=== PATIENT | male | born 2000 | race Hispanic/Latino ===

== ENCOUNTER 2023-03-11 10:45 | Emergency (ER) | payer OTHER ==
--- OUTSIDE RECORDS SUMMARY | 2023-03-11 10:50 | XMS REPORT | Continuity of Care Document ---
:2000 Author Organization [facility] t Address [address] [facility] [address] [place] [address] Care Team Providers Name Role Phone Raju_P Attending Clinician Unavailable Raju_P Admitting Clinician Unavailable Problems This patient has no known problems. Allergies, Adverse Reactions, Alerts This patient has no known allergies or adverse reactions. Medications This patient has no known medications. Procedures This patient has no known procedures. Encounters Start End Encounter Admission Attending Care Care Encounter Source Date/Time Date/Time Type Type Clinicians Facility Department ID 2023-03-06 2023-03-06 Outpatient [facility] [id number] [place] 13:34:38 13:34:38 [id number] F Frank 2020-12-07 2020-12-07 Outpatient C[facility]P [facility] G [id number] [place] 09:54:00 09:54:00 [facility] Results This patient has no known results.
--- NOTE | 2023-03-11 11:39 | RAD REPORT ---
EXAM DESCRIPTION: CT - Head Brain Wo Cont - 03/11/2023 11:32 am CLINICAL HISTORY: DIZZINESS COMPARISON: No comparisons TECHNIQUE: All CT scans are performed using dose optimization technique as appropriate and may inclu de automated exposure control or mA/KV adjustment according to patient size. FINDINGS: No intracranial hemorrhage, hydrocephalus or extra-axial fluid collection.No areas of brai n edema or evidence of midline shift. The paranasal sinuses and mastoids are clear. The calvarium is intact. IMPRESSION: No acute intracranial abnormality.
[2023-03-11] MEDS ORDERED: ONDANSETRON 4 MG/2 ML VIAL ONE (12:24)
[2023-03-11] MEDS ORDERED: MECLIZINE HCL 12.5 MG TAB ONE (12:24)
[2023-03-11 12:41] LABS: Hematocrit 47.3 % (39.6-49.0); Lymphocytes % 8.4 % (15.3-44.8); MCV 83.6 fL (80-100); MPV 9.5 fL (7.6-11.3); RBC Red Blood Cell Count 5.66 M/uL (4.33-5.43)
[2023-03-11 13:10] LABS: Potassium 4.1 mEq/L (3.5-5.1); Troponin High Sensitivity 3.5 pg/mL (<58.9)
[2023-03-11] MEDS ORDERED: dexAMETHasone 10 MG/ML VIAL ONE (14:45)
--- NOTE | 2023-03-11 14:56 | EDPHYS ---
Physician Documentation [facility] Name: Reginald Connors Age: 22 yrs Sex: Male : 2000 Arrival Date: 03/11/2023 Time: 10:45 Bed 4 Private MD: ED Physician Duong Sanchez HPI: 03/11 11:03 This 22 yrs old Male presents to ER via Ambulatory with complaints of Sore [facility] Throat, Vomiting. 11:03 Is a 22-year-old male with history of asthma, anxiety, depression the presents emerged [facility] part with complaints of cough, sore throat, vomiting, dizziness. Symptoms initially began this past and worsen throughout the weekend. Denies shortness of breath. Denies abdominal pain.. Historical: - Allergies: 11:06 Zithromax; nj1 11:06 Bactrim; nj1 - PMHx: 11:06 Asthma; Anxiety; Depressive disorder; nj1 - PSHx: 11:06 None; nj1 - Immunization history:: Client reports receiving the 2nd dose of the Covid vaccine. - Social history:: Smoking status: Patient denies any tobacco usage or history of. ROS: 11:03 Constitutional: Positive for body aches. jm 11:03 ENT: Positive for sore throat. 11:03 ENT: Positive for 11:03 Respiratory: Positive for cough. 11:03 Neuro: Positive for dizziness. 11:03 All other systems are negative. Exam: 11:03 Constitutional: This is a well developed, well nourished patient who is awake, alert, jmm and in no acute distress. Head/Face: atraumatic. Eyes: EOMI, no conjunctival erythema appreciated ENT: Moist Mucus Membranes Neck: Trachea midline, Supple Chest/axilla: Normal chest wall appearance and motion. Cardiovascular: Regular rate and rhythm. No edema appreciated Respiratory: Normal respirations, no respiratory distress appreciated Abdomen/GI: Non distended Back: Normal ROM Skin: General appearance color normal MS/ Extremity: Moves all extremities, no obvious deformities appreciated, no edema noted to the lower extremities Neuro: Awake and alert Psych: Behavior is normal, Mood is normal, Patient is cooperative and pleasant Vital Signs: 11:02 BP 150 / 83; Pulse 89; Resp 18; Temp 97.6(O); Pulse Ox 99% ; Weight 88.45 kg; Height 5 ri1 ft. 9 in. ; Pain 10/10; 12:38 BP 133 / 81; Pulse 84; Resp 15; Pulse Ox 98% ; jl7 11:02 Body Mass Index 28.80 (88.45 kg, 175.26 cm) [facility] 11:02 Pain Scale: Adult nj1 MDM: 11:08 Patient medically screened. [facility] 16:39 Differential diagnosis: Vertigo, viral infection, upper respiratory infection, COVID, jmm strep, mono. Data reviewed: vital signs, nurses notes, lab test result(s), radiologic studies, CT scan. Consideration of Admission/Observation Escalation of care including admission/observation considered. I considered the following discharge prescriptions or medication management in the emergency department Medications were administered in the Emergency Department. See MAR. Counseling: I had a detailed discussion with the patient and/or guardian regarding: the historical points, exam findings, and any diagnostic results supporting the discharge/admit diagnosis, lab results, radiology results, the need for outpatient follow up, to return to the emergency department if symptoms worsen or persist or if there are any questions or concerns that arise at home. 03/11 11:03 Order name: Basic Metabolic Panel; Complete Time: 13:18 [facility] 03/11 11:03 Order name: CBC with Diff; Complete Time: 12:54 [facility] 03/11 11:03 Order name: Troponin HS; Complete Time: 13:18 [facility] 03/11 11:03 Order name: Strep [facility] 03/11 11:03 Order name: [place] Screen Profile; Complete Time: 13:18 [facility] 03/11 12:03 Order name: SARS-COV-2 RT PCR; Complete Time: 13:18 [facility] 03/11 12:39 Order name: Throat Culture [facility] 03/11 11:03 Order name: CT Head Brain wo Cont; Complete Time: 11:43 [facility] 03/11 11:03 Order name: EKG; Complete Time: 11:04 [facility] 03/11 11:03 Order name: Cardiac monitoring; Complete Time: 12:40 [facility] 03/11 11:03 Order name: EKG - Nurse/Tech; Complete Time: 12:05 [facility] 03/11 11:03 Order name: IV Saline Lock; Complete Time: 12:40 [facility] 03/11 11:03 Order name: Labs collected and sent; Complete Time: 12:40 [facility] 03/11 11:03 Order name: O2 Per Protocol; Complete Time: 12:40 [facility] 03/11 11:03 Order name: O2 Sat Monitoring; Complete Time: 12:40 [facility] Administered Medications: 12:40 Drug: Ondansetron IVP 4 mg Route: IVP; Site: right antecubital; jl7 13:00 Follow up: Response: No adverse reaction; Nausea is decreased jl7 12:40 Drug: Meclizine PO 25 mg Route: PO; jl7 13:00 Follow up: Response: No adverse reaction jl7 14:43 Drug: Decadron - Dexamethasone IVP 10 mg Route: IVP; Site: right antecubital; jl7 14:59 Follow up: Response: No adverse reaction jl7 Disposition: 16:39 Co-signature as Attending Physician, Duong Sanchez MD. rn Disposition Summary: 03/11/23 14:56 Discharge Ordered Location: Home [facility] Condition: Stable [facility] Diagnosis - Coronavirus infection, unspecified [facility] Followup: [facility] - With: Private Physician - When: 2 - 3 days - Reason: Recheck today's complaints, Continuance of care, Re-evaluation by your physician Discharge Instructions: - Discharge Summary Sheet [facility] - COVID-19 [facility] Forms: - Medication Reconciliation Form [facility] - Thank You Letter [facility] - Antibiotic Education [facility] - Prescription Opioid Use [facility] Prescriptions: - Meclizine 25 mg Oral Tablet - take 1 tablet by ORAL route every 8 hours As needed; 30 tablet; Refills: 0, [facility] Product Selection Permitted - promethazine 6.25 mg/5 mL Oral Syrup - take 10 milliliters by ORAL route 3 times per day As needed; 200 milliliter; [facility] Refills: 0, Product Selection Permitted Signatures: Dispatcher [employer] Abdiaziz Weller PA PA [facility] Duong Sanchez MD MD rn Leal, Jahala RN RN jl7 Barbie Espinoza RN RN nj1
--- NOTE | 2023-03-11 14:56 | ER ---
Nurse's Notes [facility] Name: Reginald Connors Age: 22 yrs Sex: Male : 2000 Arrival Date: 03/11/2023 Time: 10:45 Bed 4 Private MD: Diagnosis: Coronavirus infection, unspecified Presentation: 03/11 11:02 Chief complaint: Spouse and/or significant other states: Dizziness since , Sore nj1 throat yesterday and vomiting today. Symptoms getting worse. Nauseous. Coronavirus screen: Vaccine status: Patient reports receiving the 2nd dose of the covid vaccine. Ebola Screen: Patient denies travel to an Ebola-affected area in the 21 days before illness onset. Initial Sepsis Screen: Does the patient meet any 2 criteria? No. Patient's initial sepsis screen is negative. Does the patient have a suspected source of infection? No. Patient's initial sepsis screen is negative. Risk Assessment: Do you want to hurt yourself or someone else? Patient reports no desire to harm self or others. Onset of symptoms was March 07, 2023. 11:02 Method Of Arrival: Ambulatory [facility] 11:02 Acuity: PHI 3 nj1 Historical: - Allergies: 11:06 Zithromax; nj1 11:06 Bactrim; nj1 - PMHx: 11:06 Asthma; Anxiety; Depressive disorder; nj1 - PSHx: 11:06 None; nj1 - Immunization history:: Client reports receiving the 2nd dose of the Covid vaccine. - Social history:: Smoking status: Patient denies any tobacco usage or history of. Screenin:38 [facility] ED Fall Risk Assessment (Adult) History of falling in the last 3 months, jl7 including since admission No falls in past 3 months (0 pts) Confusion or Disorientation No (0 pts) Intoxicated or Sedated No (0 pts) Impaired Gait No (0 pts) Mobility Assist Device Used No (0 pt) Altered Elimination No (0 pt) Score/Fall Risk Level 0 - 2 = Low Risk Oriented to surroundings, Maintained a safe environment. Abuse screen: Denies threats or abuse. Denies injuries from another. Nutritional screening: No deficits noted. Tuberculosis screening: No symptoms or risk factors identified. Assessment: 12:38 General: Appears in no apparent distress. uncomfortable, Behavior is cooperative, jl7 anxious. Pain: Complains of pain in throat Pain currently is 10 out of 10 on a pain scale. Neuro: Level of Consciousness is awake, alert, obeys commands, Oriented to person, place, time, situation. Cardiovascular: Patient's skin is warm and dry. Respiratory: Airway is patent Respiratory effort is even, unlabored, Respiratory pattern is regular, symmetrical, Breath sounds are clear bilaterally. EENT: Oral mucosa is dry. Throat is clear. Derm: Skin is dry, Skin is pale, Skin temperature is warm. 13:30 Reassessment: Patient appears in no apparent distress at this time. Patient and/or jl7 family updated on plan of care and expected duration. Pain level reassessed. Patient is alert, oriented x 3, equal unlabored respirations, skin warm/dry/pink. Patient states symptoms have improved. 14:44 Reassessment: Patient appears in no apparent distress at this time. No changes from [facility] previously documented assessment. Patient and/or family updated on plan of care and expected duration. Pain level reassessed. Patient is alert, oriented x 3, equal unlabored respirations, skin warm/dry/pink. Vital Signs: 11:02 BP 150 / 83; Pulse 89; Resp 18; Temp 97.6(O); Pulse Ox 99% ; Weight 88.45 kg; Height 5 nj1 ft. 9 in. ; Pain 10/10; 12:38 BP 133 / 81; Pulse 84; Resp 15; Pulse Ox 98% ; jl7 11:02 Body Mass Index 28.80 (88.45 kg, 175.26 cm) nj1 11:02 Pain Scale: Adult [facility] ED Course: 10:48 Patient arrived in ED. rg4 10:49 Abdiaziz Arriaga PA is PHCP. jmm 10:49 Duong Sanchez MD is Attending Physician. jmm 11:06 Triage completed. nj1 11:08 Arm band placed on right wrist. nj1 11:33 CT Head Brain wo Cont In Process Unspecified. EDMS 11:50 Syd Lara, RN is Primary Nurse. jl7 11:57 Syd Lara, RN is Primary Nurse. jl7 12:05 EKG done, by ED staff, reviewed by Abdiaziz MURRAY. em1 12:38 Patient has correct armband on for positive identification. Bed in low position. Call jl7 light in reach. Side rails up X 1. Adult w/ patient. Pulse ox on. NIBP on. 12:38 Initial lab(s) drawn, by me, sent to lab. COVID swab sent to lab. Strep swab sent to 7 lab. Inserted saline lock: 22 gauge in right antecubital area, using aseptic technique. Blood collected. 14:58 No provider procedures requiring assistance completed. jl7 15:08 IV discontinued, intact, bleeding controlled, No redness/swelling at site. Pressure 7 dressing applied. Administered Medications: 12:40 Drug: Ondansetron IVP 4 mg Route: IVP; Site: right antecubital; jl7 13:00 Follow up: Response: No adverse reaction; Nausea is decreased jl7 12:40 Drug: Meclizine PO 25 mg Route: PO; jl7 13:00 Follow up: Response: No adverse reaction jl7 14:43 Drug: Decadron - Dexamethasone IVP 10 mg Route: IVP; Site: right antecubital; jl7 14:59 Follow up: Response: No adverse reaction [facility] Medication: 12:38 VIS not applicable for this client. jl Outcome: 14:56 Discharge ordered by . sandra 15:08 Discharged to home ambulatory. jl7 15:08 Condition: stable 15:08 Discharge instructions given to patient, family, Instructed on discharge instructions, follow up and referral plans. medication usage, Demonstrated understanding of instructions, follow-up care, medications, Prescriptions given X 2. 15:08 Patient left the ED. [facility] Signatures: Dispatcher [employer] EDMS Abdiaziz Arriaga PA PA jmm Martinez, Eric em1 Savanna Connors rg4 Syd Lara, RN RN jl7 Barbie Espinoza, NARCISO RN nj1
[2023-03-11 15:37] VITALS: TEMP 97.6
[2023-03-11 15:45] VITALS: BP 133/81; O2SAT 98
--- NOTE | 2023-03-12 07:48 | EKG ---
Test Date: 2023-03-11 Test Time: 12:02:48 Director Software Quality Assurance: TIFFANY MEASUREMENT RESULTS: Intervals: Rate: 84 AL: 150 QRSD: 76 QT: 352 QTc: 415 [place]: P: 52 AL: 150 QRS: 84 T: 69 INTERPRETIVE STATEMENTS: Normal sinus rhythm Normal ECG No previous ECG available for comparison Electronically Signed On 03-12-23 07:45:52 CDT by Elio Cotton
== END 2023-03-11 15:08 | disposition home or self-care (01) ==
LOC: ER 10:45
DX: B34.2 Coronavirus infection, unspecified (principal); J45.909 Unspecified asthma, uncomplicated; F41.9 Anxiety disorder, unspecified; F32.A Depression, unspecified
CPT/HCPCS: 93005; 87070; 85025; 80048; 36415; 86308; 87081; 84484; 70450; 96375; 96374; 99285; U0003; J8597; J1100; J2405

== ENCOUNTER 2023-03-11 23:37 | Emergency (ER) | payer OTHER ==
--- OUTSIDE RECORDS SUMMARY | 2023-03-11 23:40 | XMS REPORT | Continuity of Care Document ---
:2000 Author Organization [facility] t Address [address] [facility] [address] [place] [id number] Care Team Providers Name Role Phone Raju_P [...] Department ID 2023-03-06 2023-03-06 Outpatient [facility] [id number] [place] 13:34:38 13:34:38 [id number] F Frank 2020-12-07 2020-12-07 Outpatient [facility] G [id number] [place] 09:54:00 09:54:00 02[facility] Results This patient has no known results.
[2023-03-12] MEDS ORDERED: METOCLOPRAMIDE 10 MG/2mL INJ ONE (00:27)
[2023-03-12] MEDS ORDERED: LORazepam 2 MG/ML VIAL ONE (00:28)
[2023-03-12] MEDS ORDERED: KETOROLAC 30 MG/ML INJ ONE (00:28)
[2023-03-12] MEDS ORDERED: ONDANSETRON 4 MG/2 ML VIAL ONE (00:28)
[2023-03-12] MEDS ORDERED: NA CHLORIDE 0.9% 1,000 ML ONE (00:28)
[2023-03-12 01:21] LABS: Barbiturates NEGATIVE (NEGATIVE); Benzodiazepines NEGATIVE (NEGATIVE); Cocaine NEGATIVE (NEGATIVE); METHAMPHETAM NEGATIVE (NEGATIVE); Methadone NEGATIVE (NEGATIVE); Opiates NEGATIVE (NEGATIVE); Phencyclidine NEGATIVE (NEGATIVE); THC Cannibis NEGATIVE (NEGATIVE)
--- NOTE | 2023-03-12 01:53 | ER ---
Nurse's Notes [facility] Name: Reginald Connors Age: 22 yrs Sex: Male : 2000 Arrival Date: 03/11/2023 Time: 23:37 Bed 5 Private MD: Diagnosis: Acute systemic viral illness, acute viral gastroenteritis, intractable vomiting, acute COVID-19 Presentation: 03/11 23:47 Chief complaint: Patient states: pt was diagnosis with COVID and was seen in ER today. as6 pt has been vomiting all day and is having abdominal pain. Coronavirus screen: Client reports previous positive COVID test result. Ebola Screen: No symptoms or risks identified at this time. Initial Sepsis Screen: Does the patient meet any 2 criteria? No. Patient's initial sepsis screen is negative. Does the patient have a suspected source of infection? No. Patient's initial sepsis screen is negative. Risk Assessment: Do you want to hurt yourself or someone else? Patient reports no desire to harm self or others. Onset of symptoms was March 11, 2023. 23:47 Method Of Arrival: Ambulatory as6 23:47 Acuity: PHI 3 as6 Historical: - Allergies: 23:51 Zithromax; as6 23:51 Bactrim; as6 - PMHx: 23:51 Anxiety; Asthma; depressive disorder; as6 - Immunization history:: Client reports receiving the 2nd dose of the Covid vaccine, [employer]. - Social history:: Smoking status: Patient denies any tobacco usage or history of. - Family history:: not pertinent. Screenin/16 00:37 [facility] ED Fall Risk Assessment (Adult) History of falling in the last 3 months, ll3 including since admission No falls in past 3 months (0 pts) Confusion or Disorientation No (0 pts) Intoxicated or Sedated No (0 pts) Impaired Gait No (0 pts) Mobility Assist Device Used No (0 pt) Altered Elimination No (0 pt) Score/Fall Risk Level 0 - 2 = Low Risk Oriented to surroundings, Maintained a safe environment, Educated pt \T\ family on fall prevention, incl call for assistance when getting out of bed. Abuse screen: Denies threats or abuse. Denies injuries from another. Nutritional screening: No deficits noted. Tuberculosis screening: No symptoms or risk factors identified. Assessment: 00:35 General: Appears uncomfortable, Behavior is calm, cooperative. Pain: Complains of pain ll3 in epigastric area Pain does not radiate. Pain currently is 10 out of 10 on a pain scale. Pain began 1 day ago. Is continuous. GI: Abdomen is round non-distended, Reports nausea, vomiting. Derm: Skin is pink, warm \T\ dry. Vital Signs: 03/11 23:47 BP 121 / 64; Pulse 102; Resp 18 S; Temp 99.2(O); Pulse Ox 96% on R/A; Weight 88.45 kg as6 (R); Height 5 ft. 9 in. (R); Pain 10/; 03/12 00:35 BP 129 / 73; Pulse 96; Resp 16; Pulse Ox 96% on R/A; ll3 02:00 BP 138 / 89; Pulse 96; Resp 16; Pulse Ox 97% on R/A; pf1 03/11 23:47 Body Mass Index 28.80 (88.45 kg, 175.26 cm) as6 03/11 23:47 Pain Scale: Adult as6 ED Course: 03/11 23:40 Patient arrived in ED. ja2 23:42 Jeison Ríos MD is Attending Physician. sp4 23:46 Arm band placed on. as6 23:51 Triage completed. as6 03/12 00:35 Inserted saline lock: 20 gauge in right antecubital area, using aseptic technique. ll3 00:37 Patient has correct armband on for positive identification. Bed in low position. Call ll3 light in reach. Side rails up X 1. Adult w/ patient. 02:20 No provider procedures requiring assistance completed. pf1 02:20 IV discontinued, intact, bleeding controlled, No redness/swelling at site. Pressure pf1 dressing applied. Administered Medications: 00:33 Drug: metoCLOPramide IVP 10 mg Route: IVP; Site: right antecubital; ll3 01:30 Follow up: Response: No adverse reaction; Marked relief of symptoms pf1 00:33 Drug: Ondansetron IVP 4 mg Route: IVP; Site: right antecubital; ll3 02:20 Follow up: Response: No adverse reaction; Marked relief of symptoms pf1 00:33 Drug: Ketorolac IVP 30 mg Route: IVP; Site: right antecubital; ll3 02:20 Follow up: Response: No adverse reaction; Marked relief of symptoms; Pain is decreased pf1 00:34 Drug: NS 0.9% IV 1000 ml Route: IV; Rate: 1 bolus; Site: right antecubital; ll3 01:30 Follow up: Response: No adverse reaction; Marked relief of symptoms; IV Status: pf1 Completed infusion; IV Intake: 1000ml 00:35 Drug: Ativan IVP 1 mg Route: IVP; Site: right antecubital; ll3 01:30 Follow up: Response: No adverse reaction; Marked relief of symptoms pf1 02:05 Drug: Promethazine IM 25 mg Route: IM; Site: right gluteus; jb4 02:20 Follow up: Response: No adverse reaction; Marked relief of symptoms pf1 02:10 Drug: Alum-Mag Hydroxide-Simeth PO Suspension (200 mg-200 mg-20 mg/5 mL) 30 ml Route: jb4 PO; 02:20 Follow up: Response: No adverse reaction; Marked relief of symptoms pf1 Medication: 02:20 VIS not applicable for this client. pf1 Intake: 01:30 IV: 1000ml; Total: 1000ml. pf1 Outcome: 01:53 Discharge ordered by . sp4 02:20 Discharged to home ambulatory, with family. pf1 02:20 Condition: improved pf1 02:20 Discharge instructions given to patient, family, Instructed on discharge instructions, follow up and referral plans. Demonstrated understanding of instructions, follow-up care, Prescriptions given X 3. 02:50 Patient left the ED. pf1 Signatures: Brijesh Ballard RN RN jb4 Ellie Fisher Ashby, RN RN as6 Paloma Martell RN RN ll3 Rachna Johnson RN RN pf1 Jeison Ríos MD MD sp4
--- NOTE | 2023-03-12 01:54 | EDPHYS ---
Physician Documentation [facility] Name: Reginald Connors Age: 22 yrs Sex: Male : 2000 Arrival Date: 03/11/2023 Time: 23:37 Bed 5 Private MD: ED Physician Jeison Ríos HPI: 03/11 23:43 This 22 yrs old Male presents to ER via Unassigned with complaints of sp4 Vomiting, Abdominal Pain. 03/12 01:42 22-year-old male with some history of mental disorder presents with abdominal ache and sp4 vomiting associated with recent diagnosis of COVID-19. . 01:44 . sp4 01:44 Patient presented here on 03/11/2023 at 4 PM for the symptoms of cough sore throat and sp4 feeling unwell. . 01:45 On the emergency room work-up patient was diagnosed with COVID-19 and had a positive sp4 COVID test, negative mononucleosis test, negative strep test, and he had overall work-up revealing mild elevation of WBCs, normal electrolyte panel, patient was discharged home with prescription for liquid Phenergan syrup p.o. and also for meclizine for dizziness. Patient now returns with worsening vomiting and abdominal ache. . Historical: - Allergies: 03/11 23:51 Zithromax; as6 23:51 Bactrim; as6 - PMHx: 23:51 Anxiety; Asthma; depressive disorder; as6 - Immunization history:: Client reports receiving the 2nd dose of the Covid vaccine, pfizer. - Social history:: Smoking status: Patient denies any tobacco usage or history of. - Family history:: not pertinent. ROS: 03/12 01:45 Constitutional: Negative for fever, chills, and weight loss, positive for generalized sp4 weakness, malaise, feeling unwell Eyes: Negative for injury, pain, redness, and discharge, ENT: Negative for injury, pain, and discharge, positive for sore throat and cough Neck: Negative for injury, pain, and swelling, Cardiovascular: Negative for chest pain, palpitations, and edema, Respiratory: Negative for shortness of breath, wheezing, and pleuritic chest pain, positive for cough and pleuritic chest pains Abdomen/GI: Negative for diarrhea, and constipation, positive for nausea, vomiting, abdominal ache Back: Negative for injury and pain, : Negative for injury, bleeding, discharge, and swelling, MS/Extremity: Negative for injury and deformity, Skin: Negative for injury, rash, and discoloration, Neuro: Negative for headache, weakness, numbness, tingling, and seizure, Psych: Negative for depression, anxiety, Allergy/Immunology: Negative for hives, rash, and allergies Endocrine: Negative for neck swelling, polydipsia, polyuria, polyphagia, and weight changes Hematologic/Lymphatic: Negative for swollen nodes, abnormal bleeding, and unusual bruising Exam: 01:45 Constitutional: This is a well developed, well nourished patient who is awake, alert, sp4 patient appears acutely anxious and restless, and tremulous. Patient has difficulty communicating, signs of developmental delay. Head/Face: Normocephalic, atraumatic. Eyes: Pupils equal round and reactive to light, extra-ocular motions intact. Lids and lashes normal. Conjunctiva and sclera are not injected. Cornea within normal limits. Periorbital areas with no swelling, redness, or edema. ENT: Nares patent. No nasal discharge, no septal abnormalities noted. Tympanic membranes are normal and external auditory canals are clear. Oropharynx with no redness, swelling, or masses, exudates, or evidence of obstruction, uvula midline. Mucous membranes moist. Neck: Trachea midline, no thyromegaly or masses palpated, and no cervical lymphadenopathy. Supple, full range of motion without nuchal rigidity, or vertebral point tenderness. No Meningismus. Chest/axilla: Normal chest wall appearance and motion. Nontender with no deformity. No lesions are appreciated. Cardiovascular: Regular rate and rhythm with a normal S1 and S2. No gallops, murmurs, or rubs. Normal PMI, no JVD. No pulse deficits. Respiratory: Lungs have equal breath sounds bilaterally, clear to auscultation and percussion. No rales, rhonchi or wheezes noted. No increased work of breathing, no retractions or nasal flaring. Abdomen/GI: Soft, non-tender, with normal bowel sounds. No distension or tympany. No guarding or rebound. No evidence of tenderness throughout. Back: No spinal tenderness. No costovertebral tenderness. Skin: Warm, dry with normal turgor. Normal color with no rashes, no lesions, and no evidence of cellulitis. Positive for acne vulgaris MS/ Extremity: Pulses equal, no cyanosis. Neurovascular intact. Full, normal range of motion. Neuro: Awake and alert, GCS 15, oriented to person, place, time, and situation. Cranial nerves II-XII grossly intact. Motor strength 5/5 in all extremities. Sensory grossly intact. Psych: Awake, alert, with orientation to person, positive for acute anxiety, tremulous, emotional upset, restless Vital Signs: 03/11 23:47 BP 121 / 64; Pulse 102; Resp 18 S; Temp 99.2(O); Pulse Ox 96% on R/A; Weight 88.45 kg as6 (R); Height 5 ft. 9 in. (R); Pain 10; 03/12 00:35 BP 129 / 73; Pulse 96; Resp 16; Pulse Ox 96% on R/A; ll3 02:00 BP 138 / 89; Pulse 96; Resp 16; Pulse Ox 97% on R/A; pf1 03/11 23:47 Body Mass Index 28.80 (88.45 kg, 175.26 cm) as6 03/11 23:47 Pain Scale: Adult as6 MDM: 03/11 23:45 Patient medically screened. sp4 03/12 01:45 Differential diagnosis: Nonspecific abd pain, gastritis, viral gastroenteritis, sp4 gastroenteritis. Data reviewed: vital signs, nurses notes, old medical records, lab test result(s). 01:51 ED course: CT head on the previous visit revealed no acute intracranial abnormality. sp4 Labs revealed mild leukocytosis but were otherwise unremarkable. ED course: Patient has improved after management in the emergency department and IV hydrate. Will provide p.o. Zofran as needed for nausea, p.o. Naprosyn as needed for body aches, and will advised to consume clear liquids only for the next 24 hours. Also patient needs some medicine for anxiety thus will provide as needed Valium as needed for anxiety. 03/11 23:42 Order name: Urine Drug Screen; Complete Time: 01:35 sp4 03/11 23:52 Order name: Saline Lock; Complete Time: 00:35 sp4 Administered Medications: 00:33 Drug: metoCLOPramide IVP 10 mg Route: IVP; Site: right antecubital; ll3 01:30 Follow up: Response: No adverse reaction; Marked relief of symptoms pf1 00:33 Drug: Ondansetron IVP 4 mg Route: IVP; Site: right antecubital; ll3 02:20 Follow up: Response: No adverse reaction; Marked relief of symptoms pf1 00:33 Drug: Ketorolac IVP 30 mg Route: IVP; Site: right antecubital; ll3 02:20 Follow up: Response: No adverse reaction; Marked relief of symptoms; Pain is decreased pf1 00:34 Drug: NS 0.9% IV 1000 ml Route: IV; Rate: 1 bolus; Site: right antecubital; ll3 01:30 Follow up: Response: No adverse reaction; Marked relief of symptoms; IV Status: pf1 Completed infusion; IV Intake: 1000ml 00:35 Drug: Ativan IVP 1 mg Route: IVP; Site: right antecubital; ll3 01:30 Follow up: Response: No adverse reaction; Marked relief of symptoms pf1 02:05 Drug: Promethazine IM 25 mg Route: IM; Site: right gluteus; jb4 02:20 Follow up: Response: No adverse reaction; Marked relief of symptoms pf1 02:10 Drug: Alum-Mag Hydroxide-Simeth PO Suspension (200 mg-200 mg-20 mg/5 mL) 30 ml Route: jb4 PO; 02:20 Follow up: Response: No adverse reaction; Marked relief of symptoms pf1 Disposition Summary: 03/12/23 01:53 Discharge Ordered Location: Home sp4 Problem: new sp4 Symptoms: have improved sp4 Condition: Stable sp4 Diagnosis - Acute systemic viral illness, acute viral gastroenteritis, intractable vomiting, sp4 acute COVID-19 Followup: sp4 - With: Private Physician - When: 7 - 10 days - Reason: Re-evaluation by your physician Discharge Instructions: - Discharge Summary Sheet sp4 - Clear Liquid Diet, Adult, [id number] sp4 - COVID-19 sp4 Forms: - Medication Reconciliation Form sp4 Prescriptions: - Naprosyn 500 mg Oral Tablet - take 1 tablet by ORAL route 2 times per day PRN fever or body aches; 30 tablet; sp4 Refills: 0, Product Selection Permitted - Valium 5 mg Oral Tablet - take 1 tablet by ORAL route every 8 hours As needed PRN anxiety; 20 tablet; sp4 Refills: 0, Product Selection Permitted - Zofran 4 mg Oral Tablet - take 1 tablet by ORAL route every 6 hours As needed PRN nausea; 30 tablet; sp4 Refills: 0, Product Selection Permitted Signatures: Dispatcher [employer] Brijehs Portillo RN RN jb4 Jose Kerns RN RN as6 Paloma Martell RN RN ll3 Jeison Ríos MD MD sp4 Rachna Johnson RN pf1
[2023-03-12] MEDS ORDERED: MAGNES/ALUMIN/SIMET 30ML UCUP ONE (02:05)
[2023-03-12] MEDS ORDERED: PROMETHAZINE INJ 25 MG/ML AMP ONE (02:06)
[2023-03-12 03:13] VITALS: TEMP 99.2
[2023-03-12 03:15] VITALS: BP 138/89; O2SAT 97
== END 2023-03-12 02:50 | disposition home or self-care (01) ==
LOC: ER 23:37
DX: A08.4 Viral intestinal infection, unspecified (principal); U07.1 COVID-19; Z88.1 Allergy status to other antibiotic agents
CPT/HCPCS: 96361; 80307; 96375; 96372; 96374; 99284; J2550; J2765; J2405; J7030

== ENCOUNTER 2023-05-27 15:20 | Emergency (ER) | payer OTHER ==
--- OUTSIDE RECORDS SUMMARY | 2023-05-27 16:01 | XMS REPORT | Continuity of Care Document ---
:2000 Author Organization [facility] t Address [address] [facility] [address] [place] [id number] Care Team Providers Name Role Phone Raju_P [...] Date/Time Type Type Clinicians Facility Department ID 2023-05-05 2023-05-05 Outpatient SFA SFA [id number] [facility] 11:12:02 11:12:02 [id number] F Waldorf 2023-04-19 2023-04-19 Outpatient SFA SFA [id number] [place] 10:14:25 10:14:25 [id number] F Waldorf 2023-04-18 2023-04-18 Outpatient SFA SFA [id number] [place] 13:31:05 13:31:05 [id number] F Waldorf 2023-03-06 2023-03-06 Outpatient SFA SFA [id number] [place] 13:34:38 13:34:38 [id number] F Waldorf 2020-12-07 2020-12-07 Outpatient Raju_P [facility] [id number] [place] 09:54:00 09:54:00 [facility]10 [facility] Results Test Description Test Time Test Comments Results Result Comments Source TSH, THIRD GENERATION 2023-04-20 06:39:48 Test Item Value Reference Range Interpretation Comme nts TSH, THIRD GENERATION (test 2.460 UIU/ML 0.400-4.100 UNLESS OTHERWISE INDICATED, code = 2821) ALL TESTING PER FORMED AT [facility], [facility]. [address] [place] [address] [id number] [place]INK RAT: YORDY CALVO M.D. [facility] [id number] [place] [id number] LIPID [id number] 04:40:40 Test Item Value Reference Range Interpretation Comments CHOLESTEROL (test 317 MG/DL <200 H code = 2210) TRIGLYCERIDES (test 101 MG/DL <150 code = 2232) HDL CHOLESTEROL (test 66 MG/DL >39 code = 2220) CALC LDL CHOL (test 229 MG/DL <100 H NOTE: C ALCULATED LDL code = 2237) IS BASED ON NEHA-MARTINEZ METHOD WHICHINCLUDES ADJUSTABLE TRIGLYCERIDE:VL DL CHOLESTEROL RAT IO.THIS FACTOR VARIES B Y MEASURED TRIGLY CERIDE AND NON-HDLCHOL ESTEROL CONCENTRATIONS WITH INCREASED CALCU LATED LDL SEENIN HIGH ER TRIGLYCERIDE OR LOWER NON-HDL SPECIME NS. FOR MOREINFORMATION , SEE CLIENT ANNOUNCE MENT AT [email or web address] RISK RATIO LDL/HDL 3.47 RATIO <3.55 (test code = 2238) BASIC METABOLIC [id number] 04:40:40 Test Item Value Reference Range Interpretation Comments GLUCOSE (test code = 2217) 88 MG/DL 70-99 BUN (test code = 2208) 10 MG/DL 6-20 CREATININE (test code = 2214) 0.80 MG/DL 0.80-1.40 eGFR (2020 CKD-EPI) (test 130 ML/MIN/1.73 >60 code = 41294) SODIUM (test code = 2231) 139 MEQ/L 133-146 POTASSIUM (test code = 2228) 4.6 MEQ/L 3.5-5.4 CHLORIDE (test code = 2215) 99 MEQ/L 95-107 CARBON DIOXIDE (test code = 27 MEQ/L -2205) CALCIUM (test code = 2209) 10.2 MG/DL 8.5-10.5 HEMOGLOBIN [id number] 03:19:21 Test Item Value Reference Range Interpretation Comments HEMOGLOBIN A1c (test code = 85049) 5.3 % 4.2-5.6 CBC W/AUTO DIFF WITH [id number] 02:29:14 Test Item Value Reference Range Interpretation Comments WBC (test code = 8.4 K/UL 3.5-11.0 1001) RBC (test code = 5.68 M/UL 4.50-6.10 1002) HEMOGLOBIN (test code 16.3 G/DL 13.5-17.0 = 1003) HEMATOCRIT (test code 48.2 % 40.0-51.0 = 1004) MCV (test code = 84.9 fL 80.0-99.0 1005) MCH (test code = 28.7 PG 25.0-33.0 1006) MCHC (test code = 33.8 G/DL 31.0-36.0 1007) RDW (test code = 12.6 % 11.5-15.0 1038) NEUTROPHILS (test 62.3 % code = 1008) LYMPHOCYTES (test 26.3 % code = 1010) MONOCYTES (test code 7.5 % = 1011) EOSINOPHILS (test 2.4 % code = 1012) BASOPHILS (test code 0.4 % = 1013) IMMATURE GRANULOCYTES 1.1 % (test code = 1036) NUCLEATED RBCS (test 0.0 /100 WBC'S See_Comment [Aut omated code = 1065) message] The sy stem which generated this result transmitted reference range : 0.0. The refere nce range was not u sed to interpret th is result as normal/abnormal . PLATELET COUNT (test 258 K/UL 130-400 code = 1015) ABSOLUTE NEUTROPHILS 5.21 K/UL 1.50-7.50 (test code = 1066) ABSOLUTE LYMPHOCYTES 2.20 K/UL 1.00-4.00 (test code = 1067) ABSOLUTE MONOCYTES 0.63 K/UL 0.2-3.8 (test code = 1068) ABSOLUTE EOSINOPHILS 0.20 K/UL 0.00-0.50 (test code = 1040) ABSOLUTE BASOPHILS 0.03 K/UL 0.00-0.20 (test code = 1069) ABS IMMATURE 0.09 K/UL 0.00-0.10 GRANULOCYTES (test code = 1020) ABS NUCLEATED RBCS 0.00 K/UL 0.00-0.11 (test code = 66996)
[2023-05-27 16:18] LABS: Absolute Lymphocytes (CBC) 1.9 K/uL (0.7-4.9); Hematocrit 45.8 % (39.6-49.0); Lymphocytes % 22.3 % (15.3-44.8); MCV 84.9 fL (80-100); RBC Red Blood Cell Count 5.39 M/uL (4.33-5.43)
[2023-05-27 16:25] LABS: Protime INR 1.05
[2023-05-27 16:41] LABS: Barbiturates NEGATIVE (NEGATIVE); Benzodiazepines NEGATIVE (NEGATIVE); Cocaine NEGATIVE (NEGATIVE); METHAMPHETAM NEGATIVE (NEGATIVE); Methadone NEGATIVE (NEGATIVE); Opiates NEGATIVE (NEGATIVE); Phencyclidine NEGATIVE (NEGATIVE); THC Cannibis NEGATIVE (NEGATIVE)
[2023-05-27 16:45] LABS: ALT/SGPT 42 U/L (16-61); AST/SGOT 21 U/L (15-37); Albumin 4.3 g/dL (3.4-5.0); Alkaline Phosphatase 115 U/L (45-117); BUN Blood Urea Nitrogen 11 mg/dL (7-18); Bicarbonate 29 mEq/L (21-32); Bilirubin Direct 0.2 mg/dL (0-0.2); Bilirubin Indirect, Calculated 0.4 mg/dL (0.2-0.8); Bilirubin Total 0.6 mg/dL (0.2-1.0); Glomerular Filtration Rate 127 ml/min (=/>90); Glucose Level 97 mg/dL (74-106); Potassium 3.5 mEq/L (3.5-5.1); Protein, Total 8.2 g/dL (6.4-8.2); Sodium Level 136 mEq/L (136-145)
--- NOTE | 2023-05-27 17:27 | ER ---
Nurse's Notes [facility] Name: Reginald Connors Age: 22 yrs Sex: Male : 2000 Arrival Date: 05/27/2023 Time: 15:20 Bed 17 Private MD: Diagnosis: Suicidal ideations;Other depressive episodes Presentation: 05/27 15:38 Chief complaint: Parent and/or Guardian states: pt has had increased depression and cm10 anxiety. Per patient's mom patient was saying that he wanted to kill himself and took off running. Pt currently denying SI but mom states that he is a danger to himself. Coronavirus screen: Vaccine status: Patient reports receiving the 2nd dose of the covid vaccine. Ebola Screen: No symptoms or risks identified at this time. Initial Sepsis Screen: Does the patient meet any 2 criteria? No. Patient's initial sepsis screen is negative. Does the patient have a suspected source of infection? No. Patient's initial sepsis screen is negative. Risk Assessment: Do you want to hurt yourself or someone else? Patient reports desire/thoughts of hurting themselves or someone else. Provider notified. Onset of symptoms was May 27, 2023. 15:38 Method Of Arrival: Ambulatory cm10 15:38 Acuity: PHI 2 cm10 Historical: - Allergies: 15:45 Bactrim; cm10 15:45 Zithromax; cm10 15:45 Rexulti; cm10 15:45 Propranolol; cm10 - PMHx: 15:45 Anxiety; Asthma; depressive disorder; cm10 - Immunization history:: Adult Immunizations unknown. - Social history:: Smoking status: Patient denies any tobacco usage or history of. Screenin:47 [facility] ED Fall Risk Assessment (Adult) Score/Fall Risk Level 0 - 2 = Low Risk. Abuse eh3 screen: Denies threats or abuse. Denies injuries from another. Nutritional screening: No deficits noted. Tuberculosis screening: No symptoms or risk factors identified. Assessment: 15:47 General: Appears in no apparent distress. comfortable, Behavior is calm, cooperative, eh3 appropriate for age. Pain: Denies pain. Neuro: Level of Consciousness is awake, alert, obeys commands, Oriented to person, place, time, situation. Cardiovascular: Capillary refill < 3 seconds Patient's skin is warm and dry. Respiratory: Airway is patent Respiratory effort is even, unlabored, Respiratory pattern is regular, symmetrical. GI: Abdomen is round non-distended. Derm: Skin is healthy with good turgor, Skin is pink, warm \\T\\ dry. Musculoskeletal: Circulation, motion, and sensation intact. Range of motion: intact in all extremities. 16:30 Reassessment: Patient appears in no apparent distress at this time. Patient and/or eh3 family updated on plan of care and expected duration. Pain level reassessed. Patient is alert, oriented x 3, equal unlabored respirations, skin warm/dry/pink. Mother at bedside. 17:30 Reassessment: Patient appears in no apparent distress at this time. Patient and/or eh3 family updated on plan of care and expected duration. Pain level reassessed. Patient is alert, oriented x 3, equal unlabored respirations, skin warm/dry/pink. Mother at bedside. 18:30 Reassessment: Patient appears in no apparent distress at this time. Patient and/or eh3 family updated on plan of care and expected duration. Pain level reassessed. Patient is alert, oriented x 3, equal unlabored respirations, skin warm/dry/pink. Mother at bedside. 19:30 Reassessment: Patient appears in no apparent distress at this time. Patient and/or eh3 family updated on plan of care and expected duration. Pain level reassessed. Patient is alert, oriented x 3, equal unlabored respirations, skin warm/dry/pink. Pt eating dinner. 20:30 Reassessment: Patient appears in no apparent distress at this time. Patient and/or eh3 family updated on plan of care and expected duration. Pain level reassessed. Patient is alert, oriented x 3, equal unlabored respirations, skin warm/dry/pink. Sister at bedside. 21:13 Reassessment: Assumed care of patient at this time. Pt remains with suicidal cm10 precautions in place. Sitter at bedside. 23:00 Reassessment: No changes from previously documented assessment. Patient is alert, cm10 oriented x 3, equal unlabored respirations, skin warm/dry/pink. 05/28 00:00 Reassessment: Patient appears in no apparent distress at this time. Patient and/or jb4 family updated on plan of care and expected duration. Pain level reassessed. Patient is alert, oriented x 3, equal unlabored respirations, skin warm/dry/pink. 01:00 Reassessment: Patient appears in no apparent distress at this time. Patient and/or jb4 family updated on plan of care and expected duration. Pain level reassessed. Patient is alert, oriented x 3, equal unlabored respirations, skin warm/dry/pink. Psych: 05/27 15:47 [place] Suicide Severity Screening: In the past month, have you wished you were eh3 or wished you could go to sleep and not wake up? Patient responds "yes." "In the past month, have you actually had any thoughts of killing yourself?" Patient responds "yes." "In your lifetime, have you ever done anything, started to do anything, or prepared to do anything to end your life?" Patient responds "no.". Subjective: Patient's mood is sad, Delusions are denied, Hallucinations are denied Having thoughts of suicide. Denies suicidal plan. Objective: Patient is cooperative, using poor eye contact, Speech is normal, Affect is flat. Interventions: Removed personal items and placed in bag. Searched person for dangerous items. Urine collected and sent for urine drug test. Belonging list filled out. Patient reassessed during use of restraints. Patient is physically safe. Safety Checks: Personal items have been removed. Door is open. Visitors are present. Pt denies substance abuse. Commitment: Patient will be a voluntary commitment. Vital Signs: 15:38 BP 137 / 94; Pulse 95; Resp 18; Pulse Ox 99% ; Weight 90.72 kg; Height 5 ft. 9 in. ; cm10 20:00 BP 142 / 92; Pulse 108; Resp 18; Pulse Ox 100% on R/A; eh3 15:38 Body Mass Index 29.53 (90.72 kg, 175.26 cm) cm10 ED Course: 15:29 Patient arrived in ED. am2 15:33 Alexy Fernandez MD is Attending Physician. jr11 15:45 Triage completed. cm10 15:46 Arm band placed on Patient placed in an exam room, on a stretcher. cm10 15:47 Safety Checks: Personal items have been removed. The door is open or patient has been eh3 placed in a hallway bed/chair. A family member and/or friend is present and encouraged to stay. Sitter present at this time. 15:47 Patient has correct armband on for positive identification. Bed in low position. Adult eh3 w/ patient. Valuables inventory done. Given to family. See valuables checklist. Sitter at bedside. Noise minimized. 15:47 Provided Education on: safety protocol, use of call phillips. eh3 16:04 Jory Nelson, RN is Primary Nurse. eh3 16:23 Initial lab(s) drawn, by ks, sent to lab. Urine collected: clean catch specimen, clear. em1 Inserted saline lock: 20 gauge in right forearm, using aseptic technique. Blood collected. 17:02 spoke with James at [facility], no psych beds at this time. faxed chart to [facility]. 17:42 faxed chart to [facility]. 17:54 spoke with Fani at [facility], nurse is reviewing the chart. bd 18:12 Diet tray given. em1 18:12 EKG done, by ED staff, reviewed by Alexy Fernandez MD. em1 20:07 Contacted [facility] to check the status of acceptance. mb4 20:12 [facility] advised they did not receive faxed documentation. Will re-fax mb4 immediately. 20:20 Connected with [facility] ([phone]). He received the original fax. He is checking the [facility] facility bed availability and will call back. 20:31 Bryan advised we could place the patient in the queue for a bed. Expected wait time for 4 a bed is 12-16 hours. 20:46 Contacted [facility] transfer center. Spoke to motor grader operator who advised the nurse mb4 was away from the desk. Left callback number. 21:06 Report given to NARCISO Merrill. eh3 22:19 Attending Physician role handed off by Alexy Fernandez MD sp4 22:19 Jeison Ríos MD is Attending Physician. sp4 22:56 clinicals faxed to [facility]. mb4 05/28 00:12 [facility] accepted, reported they will call back for doc to doc. mb4 00:15 Pt accepted to [facility] by Skinny Kelly. rv1 02:00 No provider procedures requiring assistance completed. IV discontinued, intact, jb4 bleeding controlled, No redness/swelling at site. Pressure dressing applied. Administered Medications: 05/27 19:14 Drug: Diazepam PO 5 mg Route: PO; 20:08 Follow up: Response: No adverse reaction eh3 Medication: 05/28 01:00 VIS not applicable for this client. jb4 Outcome: 05/27 17:26 ER care complete, transfer ordered by . jr11 05/28 02:00 Transferred by ground EMS [facility]. jb4 Condition: stable Discharge instructions given to patient, Instructed on the need for transfer, Demonstrated understanding of instructions. 02:01 Patient left the ED. jb4 Signatures: Genia Kendall Irene, RN RN iw Derek, Bobby em1 Brijesh Ballard RN RN jb4 Lisa Dean am2 Nina King mb4 Alexy Fernandez MD MD jr11 Jory Nelson RN RN eh3 Sinai Chin rv1 Jeison Ríos MD MD sp4 Desirae Reed RN RN cm10 Corrections: (The following items were deleted from the chart) 05/27 21:04 16:30 Reassessment: Patient appears in no apparent distress at this time. Patient eh3 and/or family updated on plan of care and expected duration. Pain level reassessed. Patient is alert, oriented x 3, equal unlabored respirations, skin warm/dry/pink. 3 : 17:30 Reassessment: Patient appears in no apparent distress at this time. Patient eh3 and/or family updated on plan of care and expected duration. Pain level reassessed. Patient is alert, oriented x 3, equal unlabored respirations, skin warm/dry/pink. 3 :04 18:30 Reassessment: Patient appears in no apparent distress at this time. Patient eh3 and/or family updated on plan of care and expected duration. Pain level reassessed. Patient is alert, oriented x 3, equal unlabored respirations, skin warm/dry/pink. 3 21:04 19:30 Reassessment: Patient appears in no apparent distress at this time. Patient eh3 and/or family updated on plan of care and expected duration. Pain level reassessed. Patient is alert, oriented x 3, equal unlabored respirations, skin warm/dry/pink. 3
--- NOTE | 2023-05-27 17:27 | EDPHYS ---
Physician Documentation [facility] Name: Reginald Connors Age: 22 yrs Sex: Male : 2000 Arrival Date: 05/27/2023 Time: 15:20 Bed 17 Private MD: ED Physician Jeison Ríos HPI: 05/27 15:47 This 22 yrs old Male presents to ER via Ambulatory with complaints of Psych jr11 Problem. 15:47 Patient is a 22-year-old with history of depression anxiety, has been on Effexor, they jr11 started a new medication 3 weeks ago which the mom feels it made him worse, they stopped that and put him back on his Effexor and clonazepam only. Mom is here because he made threats to his life, said he was going to going to kill himself and ran. Mom brought him here for further treatment. Patient denies any ingestion.. Historical: - Allergies: 15:45 Bactrim; cm10 15:45 Zithromax; cm10 15:45 Rexulti; cm10 15:45 Propranolol; cm10 - PMHx: 15:45 Anxiety; Asthma; depressive disorder; cm10 - Immunization history:: Adult Immunizations unknown. - Social history:: Smoking status: Patient denies any tobacco usage or history of. ROS: 15:47 All other systems are negative. jr11 22:19 Constitutional: Negative for fever, chills, and weight loss. sp4 Exam: 15:47 Constitutional: This is a well developed, well nourished patient who is awake, alert, jr11 and in no acute distress. Head/Face: Normocephalic, atraumatic. Eyes: Extra-ocular motions intact. Lids and lashes normal. Conjunctiva and sclera are non-icteric and not injected. Cornea within normal limits. Periorbital areas with no swelling, redness, or edema. ENT: Nares patent. No nasal discharge, no septal abnormalities noted. Oropharynx with no redness, swelling, or masses, exudates, or evidence of obstruction, uvula midline. Mucous membranes moist. Neck: Trachea midline, no thyromegaly or masses palpated, and no cervical lymphadenopathy. Supple, full range of motion without nuchal rigidity, or vertebral point tenderness. No Meningismus. Chest/axilla: Normal chest wall appearance and motion. Nontender with no deformity. No lesions are appreciated. Cardiovascular: Regular rate and rhythm with a normal S1 and S2. No gallops, murmurs, or rubs. Normal PMI, no JVD. No pulse deficits. Respiratory: Lungs have equal breath sounds bilaterally, clear to auscultation and percussion. No rales, rhonchi or wheezes noted. No increased work of breathing, no retractions or nasal flaring. Abdomen/GI: Soft, non-tender, with normal bowel sounds. No distension or tympany. No guarding or rebound. No evidence of tenderness throughout. Back: No spinal tenderness. No costovertebral tenderness. Full range of motion. Skin: Warm, dry with normal turgor. Normal color with no rashes, no lesions, and no evidence of cellulitis. MS/ Extremity: Pulses equal, no cyanosis. Neurovascular intact. Full, normal range of motion. Neuro: Awake and alert, GCS 15, oriented to person, place, time, and situation. No gross motor or sensory deficits. Vital Signs: 15:38 BP 137 / 94; Pulse 95; Resp 18; Pulse Ox 99% ; Weight 90.72 kg; Height 5 ft. 9 in. ; cm10 20:00 BP 142 / 92; Pulse 108; Resp 18; Pulse Ox 100% on R/A; eh3 15:38 Body Mass Index 29.53 (90.72 kg, 175.26 cm) cm10 MDM: 15:47 Differential diagnosis: acute psychotic break, depression, SI. Data reviewed: vital jr11 signs, nurses notes. ED course: Patient with worsening depression, positive SI, will do sitter, lab work, once medically stable to receive psychiatric treatment, will get prop setter team here for possible inpatient.. 15:51 Patient medically screened. jr11 18:12 ED course: EKG interpreted by me shows normal sinus rhythm, normal axis, no acute ST jr11 changes.. 22:19 ED course: Patient care was assumed from Dr. Claros at 9 PM. Patient has been in sp4 staged for transfer to psychiatric hospital . . 05/27 15:44 Order name: Acetaminophen; Complete Time: 16:49 jr11 05/27 15:44 Order name: Basic Metabolic Panel; Complete Time: 16:49 jr11 05/27 15:44 Order name: CBC with Diff; Complete Time: 16:26 05/27 15:44 Order name: ETOH Level; Complete Time: 16:49 05/27 15:44 Order name: Hepatic Function; Complete Time: 16:49 05/27 15:44 Order name: PT-INR; Complete Time: 16:52 05/27 15:44 Order name: Ptt, Activated; Complete Time: 16:52 05/27 15:44 Order name: Salicylate; Complete Time: 17:13 05/27 15:44 Order name: Urine Drug Screen; Complete Time: 16:49 05/27 15:44 Order name: EKG; Complete Time: 15:45 05/27 16:39 Order name: Diet Finger Food; Complete Time: 16:39 [facility] 05/27 15:44 Order name: EKG - Nurse/Tech; Complete Time: 18:05 05/27 15:44 Order name: IV Saline Lock; Complete Time: 16:22 05/27 15:44 Order name: Labs collected and sent; Complete Time: 16:22 05/27 15:44 Order name: Suicide Precautions; Complete Time: 16:22 05/27 15:44 Order name: Suicide Screening ([place]); Complete Time: 17:07 Administered Medications: 19:14 Drug: Diazepam PO 5 mg Route: PO; 20:08 Follow up: Response: No adverse reaction eh3 Disposition Summary: 05/27/23 17:26 Transfer Ordered Transfer Location: Psych Facility [facility] Reason: Higher level of care jr11 Condition: Stable jr11 Problem: new jr11 Symptoms: are unchanged jr11 Accepting Physician: psych (05/28/23 02:01) jb4 Diagnosis - Suicidal ideations jr11 - Other depressive episodes jr11 Forms: - Medication Reconciliation Form jr11 - SBAR form jr11 Signatures: Dispatcher [employer] Gladis Hewitt RN RN iw Brijesh Ballard RN RN jb4 Alexy Fernandez MD MD jr11 Jeison Ríos MD MD sp4 Desirae Reed RN RN cm10 Jory Nelson RN eh3 Corrections: (The following items were deleted from the chart) 05/28 02:01 05/27 17:26 psych jr11 jb4
[2023-05-27] MEDS ORDERED: DIAZEPAM 5 MG TABLET ONE (19:19)
[2023-05-28 02:21] VITALS: BP 142/92; O2SAT 100
--- NOTE | 2023-05-29 17:41 | EKG ---
Test Date: 2023-05-27 Test Time: 18:07:56 Instructional Technology Facilitator: TIFFANY MEASUREMENT RESULTS: Intervals: Rate: 90 NH: 152 QRSD: 82 QT: 354 QTc: 433 [place]: P: 58 NH: 152 QRS: 90 T: 40 INTERPRETIVE STATEMENTS: Normal sinus rhythm Normal ECG Compared to ECG 03/11/2023 12:02:48 No significant changes Electronically Signed On 05-29-23 17:35:31 CDT by Víctor Lee
== END 2023-05-28 02:01 ==
LOC: ER 15:20
DX: R45.851 Suicidal ideations (principal); F32.89 Other specified depressive episodes; Z88.1 Allergy status to other antibiotic agents; Z88.8 Allergy status to other drugs, medicaments and biological substances
CPT/HCPCS: 36415; 80048; 80076; 80143; 80179; 80307; 82077; 85025; 85610; 85730; 93005

== ENCOUNTER 2023-08-12 18:16 | Emergency (ER) | payer OTHER ==
--- OUTSIDE RECORDS SUMMARY | 2023-08-12 18:21 | XMS REPORT | Continuity of Care Document ---
:2000 Author Organization [facility] t Address [address] [place] [address] [place] [id number] Care Team Providers Name Role Phone Raju_P [...] Date/Time Type Type Clinicians Facility Department ID 2023-07-05 2023-07-05 Outpatient SFA SFA [id number] [place] 16:37:29 16:37:29 [id number] F Hawthorne 2023-06-05 2023-06-05 Outpatient SFA SFA [id number] [place] 16:36:01 16:36:01 [id number] F Hawthorne 2023-05-05 2023-05-05 Outpatient SFA SFA [id number] [place] 11:12:02 11:12:02 [id number] F Hawthorne 2023-04-19 2023-04-19 Outpatient SFA SFA [id number] [place] 10:14:25 10:14:25 [id number] F Hawthorne 2023-04-18 2023-04-18 Outpatient SFA SFA [id number] [place] 13:31:05 13:31:05 [id number] F Hawthorne 2023-03-06 2023-03-06 Outpatient SFA SFA [id number] [place] 13:34:38 13:34:38 [id number] F Hawthorne 2020-12-07 2020-12-07 Outpatient Raju_P MMG MMG [id number] [place] 09:54:00 09:54:00 [id number] Results Test Description Test Time Test Comments Results Result Comments Source CULTURE, URINE 2023-07-08 SPECIMEN NUMBER: 07:01:30 [id number] CULTURE, URINE SPECIMEN NUMBER: [id number] SPECIMEN COMMENT: URINE SOURCE: URINE REPORT STATUS: FINAL FINAL REPORT: 07/08/2023 NO GROWTH AFTER 36 HOURS INCUBATION UNLESS OTHERWISE INDICATED, ALL TESTING PERFORMED AT [facility] [address] [place] [address] BUDGET CLERK: Aleyda TOLBERTIA NUMBER [id number] [place]. [id number] TSH, THIRD GENERATION 2023-04-20 06:39:48 Test Item Value Reference Range Interpretation Comme nts TSH, THIRD GENERATION (test 2.460 UIU/ML 0.400-4.100 UNLESS OTHERWISE INDICATED, code = 2821) ALL TESTING PER FORMED AT [employer] [facility], [facility]. [address] [place] [address]35 BUDGET CLERK: Aleyda MORAN MARK Huerta [id number] [place]. [id number] LIPID [id number] 04:40:40 Test Item Value Reference Range Interpretation [...] MOREINFORMATION , SEE CLIENT ANNOUNCE MENT AT [email or web address] RISK RATIO LDL/HDL 3.47 RATIO <3.55 (test code = 2238) BASIC METABOLIC [id number] 04:40:40 Test Item Value Reference Range Interpretation Comments GLUCOSE (test code = 2217) 88 MG/DL 70-99 BUN (test code = 2208) 10 MG/DL 6-20 CREATININE (test code = 2214) 0.80 MG/DL 0.80-1.40 eGFR (2020 CKD-EPI) (test 130 ML/MIN/1.73 >60 code = 16452) SODIUM (test code = 2231) 139 MEQ/L 133-146 POTASSIUM (test code = 2228) 4.6 MEQ/L 3.5-5.4 CHLORIDE (test code = 2215) 99 MEQ/L 95-107 CARBON DIOXIDE (test code = 27 MEQ/L 2205) CALCIUM (test code = 2209) 10.2 MG/DL 8.5-10.5 HEMOGLOBIN [id number] 03:19:21 Test Item Value Reference Range Interpretation Comments HEMOGLOBIN A1c (test code = 71306) 5.3 % 4.2-5.6 CBC W/AUTO DIFF WITH [id number] 02:29:14 Test Item Value Reference Range Interpretation [...] RBCS 0.00 K/UL 0.00-0.11 (test code = 90988)
[2023-08-12 18:51] LABS: Absolute Lymphocytes (CBC) 1.6 K/uL (0.7-4.9); Hematocrit 45.5 % (39.6-49.0); MCV 82.6 fL (80-100); MPV 8.7 fL (7.6-11.3); Platelets 213 thou/uL (152-406); RBC Red Blood Cell Count 5.51 M/uL (4.33-5.43)
[2023-08-12 19:31] LABS: ALT/SGPT 55 U/L (16-61); AST/SGOT 21 U/L (15-37); Albumin 3.9 g/dL (3.4-5.0); Alkaline Phosphatase 109 U/L (45-117); BUN Blood Urea Nitrogen 13 mg/dL (7-18); Bicarbonate 29 mEq/L (21-32); Bilirubin Direct 0.1 mg/dL (0-0.2); Bilirubin Indirect, Calculated 0.3 mg/dL (0.2-0.8); Bilirubin Total 0.4 mg/dL (0.2-1.0); Glomerular Filtration Rate 110 ml/min (=/>90); Glucose Level 117 mg/dL (74-106); Potassium 3.9 mEq/L (3.5-5.1); Protein, Total 8.2 g/dL (6.4-8.2); Sodium Level 138 mEq/L (136-145)
[2023-08-12 19:44] LABS: Barbiturates NEGATIVE (NEGATIVE); Benzodiazepines NEGATIVE (NEGATIVE); Cocaine NEGATIVE (NEGATIVE); METHAMPHETAM NEGATIVE (NEGATIVE); Opiates NEGATIVE (NEGATIVE); Phencyclidine NEGATIVE (NEGATIVE); THC Cannibis NEGATIVE (NEGATIVE)
[2023-08-12 19:46] LABS: Methadone ND (NEGATIVE)
--- NOTE | 2023-08-12 22:46 | ER ---
Nurse's Notes [facility] Name: Reginald Connors Age: 23 yrs Sex: Male : 2000 Arrival Date: 08/12/2023 Time: 18:16 Bed 17 Private MD: Diagnosis: Suicidal ideations;Major depressive disorder, recurrent, moderate;Adjustment disorder with depressed mood Presentation: 08/12 18:28 Chief complaint: Parent and/or Guardian states: the patient was having a "break down" ap3 earlier. Mother reports the patient was yelling "i don't want to live anymore". Patient denies HI and SI at this time. Mother reports the patient has not been taking his mental health medications properly. Coronavirus screen: At this time, the client does not indicate any symptoms associated with coronavirus-19. Ebola Screen: No symptoms or risks identified at this time. Initial Sepsis Screen: Does the patient meet any 2 criteria? No. Patient's initial sepsis screen is negative. Does the patient have a suspected source of infection? No. Patient's initial sepsis screen is negative. Risk Assessment: Do you want to hurt yourself or someone else? Patient reports no desire to harm self or others. Onset of symptoms was August 12, 2023. 18:28 Method Of Arrival: Ambulatory ap3 18:28 Acuity: PHI 2 ap3 Triage Assessment: 18:30 General: Appears in no apparent distress. Behavior is calm, cooperative. Pain: Denies ap3 pain. EENT: Reports strain of voice from yelling earlier today. Neuro: Level of Consciousness is awake, alert, obeys commands, Oriented to person, place, time, situation. Cardiovascular: Patient's skin is warm and dry. Respiratory: Airway is patent Respiratory effort is even, unlabored, Respiratory pattern is regular, symmetrical. Historical: - Allergies: 18:30 Bactrim; ap3 18:30 Propranolol; ap3 18:30 Rexulti; ap3 18:30 Zithromax; ap3 08/13 00:15 Cymbalta; jw7 - PMHx: 08/12 18:30 Anxiety; Asthma; depressive disorder; ap3 - Immunization history:: Client reports receiving the 2nd dose of the Covid vaccine. - Social history:: Smoking status: Patient denies any tobacco usage or history of. Screenin:31 [facility] ED Fall Risk Assessment (Adult) History of falling in the last 3 months, ap3 including since admission No falls in past 3 months (0 pts). Abuse screen: Denies threats or abuse. Nutritional screening: No deficits noted. Tuberculosis screening: No symptoms or risk factors identified. Assessment: 18:57 Reassessment: Patient denies SI and HI at this time. Provider at beside during triage, ap3 no sitter required at this time. Awaiting [facility] evaluation. 19:26 General: Appears in no apparent distress. comfortable, Behavior is calm, cooperative, jw7 appropriate for age. General:. Pain: Denies pain. Neuro: No deficits noted. Cardiovascular: No deficits noted. Respiratory: No deficits noted. GI: No deficits noted. GI: No signs and/or symptoms were reported involving the gastrointestinal system. : No deficits noted. : No signs and/or symptoms were reported regarding the genitourinary system. EENT: No deficits noted. No signs and/or symptoms were reported regarding the EENT system. Derm: No deficits noted. No signs and/or symptoms reported regarding the dermatologic system. Musculoskeletal: No deficits noted. No signs and/or symptoms reported regarding the musculoskeletal system. 21:18 Reassessment: Patient appears in no apparent distress at this time. No changes from jw7 previously documented assessment. Patient and/or family updated on plan of care and expected duration. Pain level reassessed. Patient is alert, oriented x 3, equal unlabored respirations, skin warm/dry/pink. 22:15 Reassessment: Patient appears in no apparent distress at this time. No changes from jw7 previously documented assessment. Patient and/or family updated on plan of care and expected duration. Pain level reassessed. Patient is alert, oriented x 3, equal unlabored respirations, skin warm/dry/pink. 23:20 Reassessment: Patient appears in no apparent distress at this time. No changes from jw7 previously documented assessment. Patient and/or family updated on plan of care and expected duration. Pain level reassessed. Patient is alert, oriented x 3, equal unlabored respirations, skin warm/dry/pink. 23:58 General: mother [phone]. hb 08/13 00:21 Reassessment: Patient appears in no apparent distress at this time. No changes from jw7 previously documented assessment. Patient and/or family updated on plan of care and expected duration. Pain level reassessed. Patient is alert, oriented x 3, equal unlabored respirations, skin warm/dry/pink. Psych: 08/12 18:31 [place] Suicide Severity Screening: In the past month, have you wished you were ap3 or wished you could go to sleep and not wake up? Patient responds "No." "In the past month, have you actually had any thoughts of killing yourself?" Patient responds "no.". [place] Suicide Severity Screening:. Subjective: Delusions are denied, Hallucinations are denied. Objective: Patient is cooperative, Speech is normal, Affect is appropriate. Interventions: Searched person for dangerous items. Safety Checks: Visitors are present. Pt denies substance abuse. 08/13 00:19 [place] Suicide Severity Screening: In the past month, have you wished you were jw7 or wished you could go to sleep and not wake up? Patient responds "yes." "In the past month, have you actually had any thoughts of killing yourself?" Patient responds "no." "In your lifetime, have you ever done anything, started to do anything, or prepared to do anything to end your life?" Patient responds "no.". Subjective: Patient's mood is sad, Delusions are denied, Hallucinations are denied. Objective: Patient is cooperative, Speech is normal, soft, Affect is flat. Interventions: Removed personal items and placed in bag. Patient placed in hospital gown. Searched person for dangerous items. Belonging list filled out. Safety Checks: Personal items have been removed. Door is open. No visitors are present at this time. Pt denies substance abuse. Commitment: Patient will be a voluntary commitment. Vital Signs: 08/12 18:33 Weight 104.33 kg; ap3 19:21 BP 137 / 69; Pulse 93; Resp 18 S; Pulse Ox 99% on R/A; jw7 21:00 BP 134 / 64; Pulse 93; Resp 17 S; Pulse Ox 96% on R/A; jw7 23:00 BP 146 / 72; Pulse 99; Resp 18 S; Pulse Ox 97% on R/A; jw7 ED Course: 18:18 Patient arrived in ED. rg4 18:21 Joey Guthrie DO is Attending Physician. ms3 18:28 Prokisch, Lisa, RN is Primary Nurse. ap3 18:30 Triage completed. ap3 18:31 Arm band placed on right wrist. ap3 18:32 Patient has correct armband on for positive identification. Bed in low position. Call ap3 light in reach. Side rails up X 1. Adult w/ patient. Door closed. Noise minimized. 18:48 Initial lab(s) drawn, by mn, sent to lab. Inserted saline lock: 20 gauge in right ap3 antecubital area, using aseptic technique. Blood collected. 19:13 EKG done, by ED staff, reviewed by Joey Guthrie DO. ap3 21:23 Attending Physician role handed off by Joey Guthrie DO ms3 21:23 Omar Morales MD is Attending Physician. ms3 22:46 [facility] recommends inpatient care. rv1 23:17 Faxed pt clinicals to the following facilities for placement; [facility], [address], [facility]. 23:49 Pt accepted to [facility] by Dr. Hampton. rv1 08/13 00:20 Provided Education on: need for transfer. jw7 00:20 No provider procedures requiring assistance completed. jw7 00:41 IV discontinued, intact, bleeding controlled, No redness/swelling at site. Pressure jw7 dressing applied. Administered Medications: No medications were administered Medication: 08/12 18:33 VIS not applicable for this client. ap3 Outcome: 22:45 ER care complete, transfer ordered by . [facility] 08/13 00:40 Transferred by ground EMS Note: [facility] jw7 Condition: stable Instructed on the need for transfer, Demonstrated understanding of instructions, 00:41 Patient left the ED. jw7 Signatures: Omar Morales MD MD cha Baxter, Heather, RN RN hb Garcia, Rubi rg4 Lisa Becerra RN RN ap3 Joey Guthrie DO DO ms3 Magdalene Fowler RN RN jw7 Sinai Chin rv1
--- NOTE | 2023-08-12 22:47 | EDPHYS ---
Physician Documentation [facility] Name: Reginald Connors Age: 23 yrs Sex: Male : 2000 Arrival Date: 08/12/2023 Time: 18:16 Bed 17 Private MD: ED Physician Omar Morales HPI: 08/12 21:23 This 23 yrs old Male presents to ER via Ambulatory with complaints of Anxiety, ms3 Depression. 21:23 23-year-old male with past medical history of anxiety, asthma, depression presents to [facility] the emergency department after having "meltdowns." Patient's mother's friend states patient does not want to take his medications and has had prior psychiatric admissions. Patient's mother notes patient's medications are not working. Patient denies suicidal ideations, homicidal ideations, hallucinations. Patient's mother notes patient stated to her "he does not want to live anymore." Patient denies any alleviating or inciting factors. Historical: - Allergies: 18:30 Bactrim; ap3 18:30 Propranolol; ap3 18:30 Rexulti; ap3 18:30 Zithromax; ap3 08/13 00:15 Cymbalta; jw7 - PMHx: 08/12 18:30 Anxiety; Asthma; depressive disorder; ap3 - Immunization history:: Client reports receiving the 2nd dose of the Covid vaccine. - Social history:: Smoking status: Patient denies any tobacco usage or history of. ROS: 21:23 Constitutional: Negative for fever, and chills. Eyes: Negative for injury, pain, ms3 redness, and discharge, Neck: Negative for injury, pain, and swelling, Cardiovascular: Negative for chest pain, and palpitations. Respiratory: Negative for shortness of breath, cough, wheezing, and pleuritic chest pain, Abdomen/GI: Negative for abdominal pain, nausea, vomiting, diarrhea, and constipation, MS/Extremity: Negative for injury and deformity, Skin: Negative for injury, rash, and discoloration, 21:23 Psych: Negative for auditory hallucinations, visual hallucinations, homicidal ideation, suicide gesture, suicidal ideation, 21:23 All other systems are negative, Exam: 21:23 Constitutional: This is a well developed, well nourished patient who is awake, alert, ms3 and in no acute distress. Head/Face: Normocephalic, atraumatic. Neck: Trachea midline, no cervical lymphadenopathy. Supple, full range of motion without nuchal rigidity, or vertebral point tenderness. No Meningismus. Chest/axilla: Normal chest wall appearance and motion. Nontender with no deformity. Cardiovascular: Regular rate and rhythm with a normal S1 and S2. No gallops, murmurs, or rubs. Normal PMI, no JVD. No pulse deficits. Respiratory: Lungs have equal breath sounds bilaterally, clear to auscultation and percussion. No rales, rhonchi or wheezes noted. No increased work of breathing, no retractions or nasal flaring. Abdomen/GI: Soft, non-tender, with normal bowel sounds. No distension or tympany. No guarding or rebound. No evidence of tenderness throughout. Skin: Warm, dry with normal turgor. Normal color with no rashes, no lesions, and no evidence of cellulitis. MS/ Extremity: Pulses equal, no cyanosis. Neurovascular intact. Full, normal range of motion. Neuro: Awake and alert, GCS 15, oriented to person, place, time, and situation. Cranial nerves II-XII grossly intact. Motor strength 5/5 in all extremities. Sensory grossly intact. Cerebellar exam normal. Normal gait. Psych: Awake, alert, with orientation to person, place and time. Behavior, mood, and affect are within normal limits. 21:33 ECG was reviewed by the Attending Physician. ms3 Vital Signs: 18:33 Weight 104.33 kg; ap3 19:21 BP 137 / 69; Pulse 93; Resp 18 S; Pulse Ox 99% on R/A; jw7 21:00 BP 134 / 64; Pulse 93; Resp 17 S; Pulse Ox 96% on R/A; jw7 23:00 BP 146 / 72; Pulse 99; Resp 18 S; Pulse Ox 97% on R/A; jw7 MDM: 18:34 Patient medically screened. ms3 20:24 Data reviewed: vital signs, nurses notes, lab test result(s). Consideration of ms3 Admission/Observation . 21:23 Differential diagnosis: acute psychotic break, depression, psychosis secondary to ms3 non-compliance. Transition of care: After a detail discussion of the patient's case, care is transferred to Omar Morales MD. ED course: Patient currently pending [facility] evaluation. 08/12 18:34 Order name: Acetaminophen; Complete Time: 20:24 ms3 08/12 18:34 Order name: BMP; Complete Time: 20:24 ms3 08/12 18:34 Order name: CBC with Diff; Complete Time: 20:24 ms3 08/12 18:34 Order name: Ethanol; Complete Time: 20:24 ms3 08/12 18:34 Order name: Hepatic Function; Complete Time: 20:24 ms3 08/12 18:34 Order name: Protime (+inr); Complete Time: 20:24 ms3 08/12 18:34 Order name: Ptt, Activated; Complete Time: 20:24 ms3 08/12 18:34 Order name: Salicylate; Complete Time: 20:24 ms3 08/12 18:34 Order name: Urine Drug Screen; Complete Time: 20:24 ms3 08/12 18:34 Order name: EKG; Complete Time: 18:37 ms3 08/12 18:34 Order name: EKG - Nurse/Tech; Complete Time: 19:13 ms3 08/12 18:34 Order name: IV Saline Lock; Complete Time: 18:49 ms3 08/12 18:34 Order name: Labs collected and sent; Complete Time: 18:49 ms3 08/12 18:34 Order name: O2 Per Protocol; Complete Time: 18:36 ms3 08/12 18:35 Order name: O2 Sat Monitoring; Complete Time: 18:36 ms3 08/12 18:35 Order name: Suicide Screening ([place]); Complete Time: 21:00 ms3 EC:33 Rate is 105 beats/min. Rhythm is regular. Right axis deviation noted. SC interval is ms3 normal. QRS interval is normal. QT interval is normal. Clinical impression: Normal ECG. Interpreted by me. Reviewed by me. Administered Medications: No medications were administered Disposition Summary: 08/12/23 22:45 Transfer Ordered Notes: Transfer Location: Psych Facility lito Reason: Higher level of care lito Condition: Stable lito Problem: new lito Symptoms: have improved lito Accepting Physician: to psych(08/13/23 00:41) jw7 Diagnosis - Suicidal ideations lito - Major depressive disorder, recurrent, moderate ltio - Adjustment disorder with depressed mood lito Discharge Instructions: - Discharge Summary Sheet lito - Adjustment Disorder, Adult lito - Suicidal Feelings: How to Help Yourself lito - Helping Someone Who is Suicidal lito Forms: - Medication Reconciliation Form lito - SBAR form lito Signatures: Dispatcher [employer] Omar Olivares MD MD cha Prokisch, Amanda RN RN ap3 Joey Guthrie DO DO ms3 Magdalene Fowler RN RN jw7 Corrections: (The following items were deleted from the chart) 08/13 00:41 08/12 22:45 to psych lito dahl
[2023-08-13 01:12] VITALS: BP 146/72; O2SAT 97
--- NOTE | 2023-08-13 11:20 | EKG ---
Test Date: 2023-08-12 Test Time: 19:09:24 [employer] Driver: ALP MEASUREMENT RESULTS: Intervals: Rate: 105 IL: 158 QRSD: 84 QT: 330 QTc: 436 [place]: P: 45 IL: 158 QRS: 90 T: 2 INTERPRETIVE STATEMENTS: Sinus tachycardia Rightward axis Borderline ECG Compared to ECG 05/27/2023 18:07:56 Right-axis deviation now present Sinus rhythm no longer present Electronically Signed On 08-13-23 11:18:03 CDT by Víctor Lee
== END 2023-08-13 00:41 ==
LOC: ER 18:16
DX: R45.851 Suicidal ideations (principal); F33.1 Major depressive disorder, recurrent, moderate; F43.21 Adjustment disorder with depressed mood; Z88.1 Allergy status to other antibiotic agents; Z88.8 Allergy status to other drugs, medicaments and biological substances
CPT/HCPCS: 36415; 80048; 80076; 80143; 80179; 80307; 82077; 85025; 85610; 85730; 93005; 99285

== ENCOUNTER 2023-09-28 10:12 | Emergency (ER) | payer OTHER ==
--- OUTSIDE RECORDS SUMMARY | 2023-09-28 10:14 | XMS REPORT | Continuity of Care Document ---
:2000 Author Organization [facility] t Address [address] [place] [address] [place] [id number] Care Team Providers Name Role Phone Raju_P [...] Department ID 2023-07-05 2023-07-05 Outpatient SFA [id number] [id number] [place] 16:37:29 16:37:29 [id number] [facility] [place] 2023-06-05 2023-06-05 Outpatient SFA SFA [id number] [place] 16:36:01 16:36:01 [id number] F [place] 2023-05-05 2023-05-05 Outpatient SFA SFA [id number] [place] 11:12:02 11:12:02 [id number] F [place] 2023-04-19 2023-04-19 Outpatient SFA SFA [id number] [place] 10:14:25 10:14:25 [id number] F [place] 2023-04-18 2023-04-18 Outpatient SFA SFA [id number] [place] 13:31:05 13:31:05 [id number] F [place] 2023-03-06 2023-03-06 Outpatient SFA SFA [id number] [place] 13:34:38 13:34:38 [id number] F [place] 2020-12-07 2020-12-07 Outpatient Raju_P MMG MMG [id number] [place] 09:54:00 09:54:00 [id number] [facility] Results Test Description Test Time Test Comments Results Result Comments Source CULTURE, URINE 2023-07-08 SPECIMEN NUMBER: 07:01:30 [id number] CULTURE, URINE SPECIMEN NUMBER: [id number] SPECIMEN COMMENT: URINE SOURCE: URINE REPORT STATUS: FINAL FINAL REPORT: 07/08/2023 NO GROWTH AFTER 36 HOURS INCUBATION UNLESS OTHERWISE INDICATED, ALL TESTING PERFORMED AT [facility] [address] [place] [id number] RIVETER HAND: Aleyda TOLBERTIA NUMBER [id number] [place]. [id number] TSH, THIRD GENERATION 2023-04-20 06:39:48 Test Item Value Reference Range Interpretation Comme nts TSH, THIRD GENERATION (test 2.460 UIU/ML 0.400-4.100 UNLESS OTHERWISE INDICATED, code = 2821) ALL TESTING PER FORMED AT [employer], [facility]. [address] [place] [address] 8091 RIVETER HAND: Aleyda MORAN MARK Huerta [id number] [place]. [id number] LIPID [id number] 04:40:40 Test Item Value Reference Range Interpretation [...] , SEE CLIENT ANNOUNCE MENT AT [email or web address] RISK RATIO LDL/HDL 3.47 RATIO <3.55 (test code = 2238) BASIC METABOLIC [id number] 04:40:40 Test Item Value Reference Range Interpretation Comments GLUCOSE (test code = 2217) 88 MG/DL 70-99 BUN (test code = 2208) 10 MG/DL 6-20 CREATININE (test code = 2214) 0.80 MG/DL 0.80-1.40 eGFR (2020 CKD-EPI) (test 130 ML/MIN/1.73 >60 code = 56595) SODIUM (test code = 2231) 139 MEQ/L 133-146 POTASSIUM (test code = 2228) 4.6 MEQ/L 3.5-5.4 CHLORIDE (test code = 2215) 99 MEQ/L 95-107 CARBON DIOXIDE (test code = 27 MEQ/L 2205) CALCIUM (test code = 2209) 10.2 MG/DL 8.5-10.5 HEMOGLOBIN [id number] 03:19:21 Test Item Value Reference Range Interpretation Comments HEMOGLOBIN A1c (test code = 46747) 5.3 % 4.2-5.6 CBC W/AUTO DIFF WITH [id number] 02:29:14 Test Item Value Reference Range Interpretation [...] RBCS 0.00 K/UL 0.00-0.11 (test code = 51146)
--- NOTE | 2023-09-28 10:24 | EDPHYS ---
Physician Documentation [facility] Name: Reginald Connros Age: 23 yrs Sex: Male : 2000 Arrival Date: 09/28/2023 Time: 10:12 Bed 17 Private MD: ED Physician Omar Morales HPI: 09/28 10:18 This 23 yrs old Male presents to ER via Ambulatory with complaints of Mental jh7 Eval. 10:18 Onset: The symptoms/episode began/occurred 8 month(s) ago, and became worse 4 day(s) jh7 ago. Associated signs and symptoms: The patient has no apparent associated signs or symptoms. Patient presents with worsening depression and suicidal thoughts since December. He reports that he saw Dr. Rogers on Saturday who switched him to BuSpar from citalopram. States that he is suicidal and has a plan to hang himself.. Historical: - Allergies: 10:21 Bactrim; hb 10:21 Cymbalta; hb 10:21 Propranolol; hb 10:21 Rexulti; hb 10:21 Zithromax; hb 11:10 Zoloft; ld1 11:10 citalopram; ld1 - Home Meds: 11:10 clonazepam 0.5 mg Oral Tablet,disintegrating 1 tab 2 times per day [Active]; ld1 lamotrigine 100 mg oral Tablet, Extended Release 24 hr 2 tabs at night [Active]; olanzapine 10 mg oral tablet 1 tab 2 times per day [Active]; - PMHx: 10:21 Anxiety; Asthma; depressive disorder; hb - Immunization history:: Adult Immunizations up to date. - Social history:: Smoking status: Patient denies any tobacco usage or history of. Patient/guardian denies using alcohol. ROS: 10:18 Constitutional: Negative for fever, chills, and weight loss, Cardiovascular: Negative jh7 for chest pain, palpitations, and edema, Respiratory: Negative for shortness of breath, cough, wheezing, and pleuritic chest pain, Abdomen/GI: Negative for abdominal pain, nausea, vomiting, diarrhea, and constipation, MS/Extremity: Negative for injury and deformity, Skin: Negative for injury, rash, and discoloration, Neuro: Negative for headache, weakness, numbness, tingling, and seizure, 10:18 Psych: Positive for anxiety, depression, suicidal ideation, Negative for alcohol dependence, auditory hallucinations, visual hallucinations, homicidal ideation, 10:18 All other systems are negative, Exam: 10:18 Constitutional: This is a well developed, well nourished patient who is awake, alert, jh7 and in no acute distress. Cardiovascular: Regular rate and rhythm with a normal S1 and S2. No gallops, murmurs, or rubs. Normal PMI, no JVD. No pulse deficits. Respiratory: Lungs have equal breath sounds bilaterally, clear to auscultation and percussion. No rales, rhonchi or wheezes noted. No increased work of breathing, no retractions or nasal flaring. Skin: Warm, dry with normal turgor. Normal color with no rashes, no lesions, and no evidence of cellulitis. MS/ Extremity: Pulses equal, no cyanosis. Neurovascular intact. Full, normal range of motion. Neuro: Awake and alert, GCS 15, oriented to person, place, time, and situation. Cranial nerves II-XII grossly intact. Motor strength 5/5 in all extremities. Sensory grossly intact. Cerebellar exam normal. Normal gait. Psych: Awake, alert, with orientation to person, place and time. Behavior, mood, and affect are within normal limits. Vital Signs: 10:20 BP 147 / 81; Pulse 85; Resp 16; Temp 97.5(TE); Pulse Ox 100% on R/A; Weight 104.33 kg; hb Height 5 ft. 9 in. ; Pain 0/10; 13:00 BP 138 / 79; Pulse 81; Resp 16; Pulse Ox 100% on R/A; me1 10:20 Body Mass Index 33.96 (104.33 kg, 175.26 cm) hb 10:20 Pain Scale: Adult hb MDM: 10:14 Patient medically screened. [facility] 12:25 Differential diagnosis: Suicidal ideation, anxiety, depression, psychotic break. Data [facility] reviewed: vital signs, nurses notes, lab test result(s), EKG. Consideration of Admission/Observation Patient will be transferred for higher level of care. Independent interpretation of the following test(s) in the Emergency Department EKG: See my EKG interpretation above. Historians other than the Patient: Parent: Mom. Counseling: I had a detailed discussion with the patient and/or guardian regarding the historical points, exam findings, and any diagnostic results supporting the discharge/admit diagnosis, the need to transfer to another facility, [facility] does not immediately have the required specialist. ED course: Patient accepted at [facility]. 09/28 10:22 Order name: Acetaminophen; Complete Time: 12:24 [facility] 09/28 10:22 Order name: Basic Metabolic Panel; Complete Time: 12:24 [facility] 09/28 10:22 Order name: CBC with Diff; Complete Time: 11:30 [facility] 09/28 10:22 Order name: ETOH Level; Complete Time: 12:24 [facility] 09/28 10:22 Order name: Hepatic Function; Complete Time: 12:24 [facility] 09/28 10:22 Order name: Salicylate; Complete Time: 12:24 [facility] 09/28 10:22 Order name: Urine Drug Screen; Complete Time: 11:30 [facility] 09/28 10:22 Order name: EKG; Complete Time: 10:23 [facility] 09/28 10:22 Order name: EKG - Nurse/Tech; Complete Time: 10:42 [facility] 09/28 10:22 Order name: IV Saline Lock; Complete Time: 10:55 [facility] 09/28 10:22 Order name: Labs collected and sent; Complete Time: 10:55 [facility] 09/28 10:22 Order name: Suicide Precautions; Complete Time: 10:43 [facility] 09/28 10:22 Order name: Suicide Screening (Purdy); Complete Time: 10:55 [facility] EC:55 Rate is 88 beats/min. Rhythm is regular. QRS Nichols is Normal. FL interval is normal at [facility] 152 msec. QRS interval is normal at 80 msec. QT interval is normal at 350 msec. No Q waves. T waves are Normal. No ST changes noted. Clinical impression: Normal ECG. Administered Medications: No medications were administered Disposition Summary: 09/28/23 10:23 Transfer Ordered Notes: Transfer Location: [facility] Reason: Higher level of care 7 Condition: Stable jh Problem: an ongoing problem jh7 Symptoms: have worsened jh7 Accepting Physician: Brown Allen(09/28/23 13:03) me1 Diagnosis - Suicidal ideations jh7 - Generalized anxiety disorder 7 Forms: - Medication Reconciliation Form jh7 - SBAR form jh7 Signatures: Dispatcher [employer] Carmen Mccoy, RN RN Nicole Guthrie RN RN 1 Felicia Cook FNP [place] [address] Noreen Schafer RN RN me1 Corrections: (The following items were deleted from the chart) 12: 10:23 Accepting Psych facility [place] [id number] 13:03 12:25 [place] [address] me1
--- NOTE | 2023-09-28 10:24 | ER ---
Nurse's Notes [facility] Name: Reginald Connors Age: 23 yrs Sex: Male : 2000 Arrival Date: 09/28/2023 Time: 10:12 Bed 17 Private MD: Diagnosis: Suicidal ideations;Generalized anxiety disorder Presentation: 09/28 10:18 Chief complaint: Anxiety and "mental problems" since December, switched to Buspar from citalopram 4 days ago. Reports suicidal thoughts, plan is to hang himself. Denies HI. Coronavirus screen: At this time, the client does not indicate any symptoms associated with coronavirus-19. Ebola Screen: No symptoms or risks identified at this time. Initial Sepsis Screen: Does the patient meet any 2 criteria? No. Patient's initial sepsis screen is negative. Does the patient have a suspected source of infection? No. Patient's initial sepsis screen is negative. Risk Assessment: Do you want to hurt yourself or someone else? Patient reports no desire to harm self or others. Onset of symptoms was September 28, 2023. 10:18 Method Of Arrival: Ambulatory hb 10:18 Acuity: PHI 2 hb Historical: - Allergies: 10:21 Bactrim; hb 10:21 Cymbalta; hb 10:21 Propranolol; hb 10:21 Rexulti; hb 10:21 Zithromax; hb 11:10 Zoloft; ld1 11:10 citalopram; ld1 - Home Meds: 11:10 clonazepam 0.5 mg Oral Tablet,disintegrating 1 tab 2 times per day [Active]; ld1 lamotrigine 100 mg oral Tablet, Extended Release 24 hr 2 tabs at night [Active]; olanzapine 10 mg oral tablet 1 tab 2 times per day [Active]; - PMHx: 10:21 Anxiety; Asthma; depressive disorder; hb - Immunization history:: Adult Immunizations up to date. - Social history:: Smoking status: Patient denies any tobacco usage or history of. Patient/guardian denies using alcohol. Screenin:[address] [facility] ED Fall Risk Assessment (Adult) History of falling in the last 3 months, ld1 including since admission No falls in past 3 months (0 pts). Abuse screen: Denies threats or abuse. Denies injuries from another. Nutritional screening: No deficits noted. Tuberculosis screening: No symptoms or risk factors identified. Assessment: 10:12 Reassessment: SI precautions in place. ld1 10:20 Reassessment: All SI paperwork completed. Mother at bedside. Pt states "I have been ld1 having bad thoughts about running out into the road and getting hit by a car." SI precautions in place, room safe at this time. Sitter at bedside. Pt denies pain. States "I want to get help before it is too late." Personal belongings with mother in bag at bedside. Verbalized understanding that patient is not allowed to have any personal items or clothing for his safety. Mother placed all personal items in car. Mother states "I will be staying with him because he has developmental delays and does not always understand what is being told to him.". 10:52 General: Appears in no apparent distress. comfortable, Behavior is calm, cooperative, ld1 appropriate for age. Pain: Denies pain. Neuro: Level of Consciousness is awake, alert, obeys commands, Oriented to person, place, time, situation. Cardiovascular: Capillary refill < 3 seconds Patient's skin is warm and dry. Respiratory: Airway is patent Respiratory effort is even, unlabored. GI: Abdomen is round non-distended. : No signs and/or symptoms were reported regarding the genitourinary system. EENT: No signs and/or symptoms were reported regarding the EENT system. Derm: No signs and/or symptoms reported regarding the dermatologic system. Musculoskeletal: No signs and/or symptoms reported regarding the musculoskeletal system. 12:08 Reassessment: Nurse to nurse given to Brenda STUART at [facility]. hb Vital Signs: 10:20 BP 147 / 81; Pulse 85; Resp 16; Temp 97.5(TE); Pulse Ox 100% on R/A; Weight 104.33 kg; hb Height 5 ft. 9 in. ; Pain 0/10; 13:00 BP 138 / 79; Pulse 81; Resp 16; Pulse Ox 100% on R/A; me1 10:20 Body Mass Index 33.96 (104.33 kg, 175.26 cm) hb 10:20 Pain Scale: Adult hb ED Course: 10:14 Patient arrived in ED. mr 10:14 Fel[facility] Cook [facility] 10:14 Omar Morales MD is Attending Physician. [facility] 10:15 Safety Checks: Personal items have been removed. The door is open or patient has been ld1 placed in a hallway bed/chair. A family member and/or friend is present and encouraged to stay. mother at bedside. Sitter present at this time. 10:21 Triage completed. hb 10:21 Arm band placed on. hb 10:52 Patient has correct armband on for positive identification. Bed in low position. Side ld1 rails up X2. Adult w/ patient. SI precautions in place, mother at bedside. Pulse ox on. NIBP on. Door closed. Warm blanket given. 10:52 No provider procedures requiring assistance completed. Inserted saline lock: 20 gauge ld1 in right forearm, using aseptic technique. Blood collected. 10:52 Patient maintains SpO2 saturation greater than 95% on room air. ld1 10:55 Nicole Guthrie, RN is Primary Nurse. ld1 10:55 faxed patient record to [facility]/ Recent inpatient at that facility/. 10:55 Urine Drug Screen Sent. ld1 11:52 faxed patient record to the following facilities in attempt to find placement/ [facility]/ [facility]/ [facility]/ and [facility]. 12:04 connected Kajal from [facility] with Nicole Rn for nurse to nurse. 12:05 connected Brenda from [facility] [place] with Carmen Stuart for patient transfer eb consultation. 12:09 administrative approval given by Magdiel Diaz/ Dr. Berny Woods has accepted the patient without conference with provider/ patient has been accepted to [facility] [place]. 13:00 IV discontinued, intact, bleeding controlled, No redness/swelling at site. Pressure al1 dressing applied. 13:03 Provided Education on: POC. Verbalized understanding. . me1 Administered Medications: No medications were administered Medication: 10:52 VIS not applicable for this client. ld1 Outcome: 10:23 ER care complete, transfer ordered by . [facility] 13:01 Transferred by ground EMS Transfer form completed. Note: community living specialist. Transfer to [address] 13:01 Condition: stable 13:[address] [facility] Signatures: Kervin, Kajal, Reg Reg Carmen Villanueva, NARCISO RN [place], Nicole Sanchez, RN RN ld1 Felicia Cook, OFFICE RENTAL CLERK OFFICE RENTAL CLERK jh7 Noreen Schafer, RN RN me1
[2023-09-28 10:58] LABS: Absolute Lymphocytes (CBC) 1.7 K/uL (0.7-4.9); Hematocrit 47.3 % (39.6-49.0); Lymphocytes % 18.1 % (15.3-44.8); MCV 82.8 fL (80-100); MPV 8.7 fL (7.6-11.3); Platelets 211 thou/uL (152-406); RBC Red Blood Cell Count 5.71 M/uL (4.33-5.43)
[2023-09-28 11:14] LABS: Barbiturates NEGATIVE (NEGATIVE); Benzodiazepines NEGATIVE (NEGATIVE); Cocaine NEGATIVE (NEGATIVE); METHAMPHETAM NEGATIVE (NEGATIVE); Methadone NEGATIVE (NEGATIVE); Opiates NEGATIVE (NEGATIVE); Phencyclidine NEGATIVE (NEGATIVE); THC Cannibis NEGATIVE (NEGATIVE)
[2023-09-28 11:43] LABS: ALT/SGPT 49 U/L (16-61); AST/SGOT 19 U/L (15-37); Albumin 3.8 g/dL (3.4-5.0); Alkaline Phosphatase 114 U/L (45-117); BUN Blood Urea Nitrogen 14 mg/dL (7-18); Bicarbonate 28 mEq/L (21-32); Bilirubin Direct 0.1 mg/dL (0-0.2); Bilirubin Indirect, Calculated 0.6 mg/dL (0.2-0.8); Bilirubin Total 0.7 mg/dL (0.2-1.0); Glomerular Filtration Rate 110 ml/min (=/>90); Glucose Level 102 mg/dL (74-106); Potassium 4.1 mEq/L (3.5-5.1); Protein, Total 7.6 g/dL (6.4-8.2); Sodium Level 138 mEq/L (136-145)
[2023-09-28 13:11] VITALS: TEMP 97.5; O2SAT 100
[2023-09-28 13:12] VITALS: BP 138/79
--- NOTE | 2023-10-01 13:40 | EKG ---
Test Date: 2023-09-28 Test Time: 10:46:09 Mitering Machine Operator: GAIL MEASUREMENT RESULTS: Intervals: Rate: 88 NJ: 152 QRSD: 80 QT: 350 QTc: 423 [place]: P: 39 NJ: 152 QRS: 71 T: 22 INTERPRETIVE STATEMENTS: Normal sinus rhythm Normal ECG Compared to ECG 08/12/2023 19:09:24 Sinus tachycardia no longer present Right-axis deviation no longer present Electronically Signed On 10-01-23 13:30:38 ORDER MAKE UP CLERK by Víctor Lee
== END 2023-09-28 13:03 ==
LOC: ER 10:12
DX: R45.851 Suicidal ideations (principal); F41.1 Generalized anxiety disorder; Z88.1 Allergy status to other antibiotic agents; Z88.8 Allergy status to other drugs, medicaments and biological substances
CPT/HCPCS: 36415; 80048; 80076; 80143; 80179; 80307; 82077; 85025; 93005; 99285

== ENCOUNTER → 2023-12-09 | Emergency (ER) | payer OTHER ==
--- OUTSIDE RECORDS SUMMARY | 2023-12-09 15:24 | XMS REPORT | Continuity of Care Document ---
Author Name Unknown Address [address] [facility] [address] [place] [address] [facility] Address [address] [facility] [place] [address] Care Team Providers Care Senior Engineer Name Role Phone Raju_P Attending Clinician Unavailable Raju_P Admitting Clinician Unavailable Encounters Start Date/Time End Date/Time Encounter Type Admission Type Attending Clinicians Care Facility Care Department Encounter ID Source 2023-11-11 16:46:44 2023-11-11 16:46:44 Outpatient SFA SFA [id number] Helder Marie 2023-10-30 14:57:44 2023-10-30 14:57:44 Outpatient SFA SFA [id number] Helder Marie 2023-07-05 16:37:29 2023-07-05 16:37:29 Outpatient SFA SFA [id number] Helder Marie 2023-06-05 16:36:01 2023-06-05 16:36:01 Outpatient SFA SFA [id number] Helder Marie 2023-05-05 11:12:02 2023-05-05 11:12:02 Outpatient SFA SFA [id number] Helder Marie 2023-04-19 10:14:25 2023-04-19 10:14:25 Outpatient SFA SFA [id number] Helder Marie 2023-04-18 13:31:05 2023-04-18 13:31:05 Outpatient SFA SFA [id number] Helder Marie 2023-03-06 13:34:38 2023-03-06 13:34:38 Outpatient SFA SFA [id number] Helder Marie 2020-12-07 09:54:00 2020-12-07 09:54:00 Outpatient Raju_P MMG MMG [id number] [facility] Results Test Description Test Time Test Comments Results Result Co mments Source CULTURE, URINE 2023-07-08 07:01:30 SPECIMEN NUMBER: [id number] CULTURE, URINE SPECIMEN NUMBER: [id number] SPECIMEN COMMENT: URINE SOURCE: URINE REPORT STATUS: FINAL FINAL REPORT: 07/08/2023 NO GROWTH AFTER 36 HOURS INCUBATION UNLESS OTHERWISE INDICATED, ALL TESTING PERFORMED AT [facility] [address] [place] [address] TONGUER: LUIZ CALVO M.D. CLIA NUMBER [id number] [facility] [place]. [id number] LIPID [id number] 04:40:40* Test Item Value Reference Range Interpretation Comme nts CHOLESTEROL (test code = 2210) 317 MG/DL <200 H TRIGLYCERIDES (test code = 2232) 101 MG/DL <150 HDL CHOLESTEROL (test code = 2220) 66 MG/DL >39 CALC LDL CHOL (test code = 2237) 229 MG/DL <100 H NOTE: CALCULATED LDL IS BASED ON NEHA-MARTINEZ METHOD WHICHINCLUDES ADJUSTABLE TRIGLYCERIDE:VLDL CHOLESTEROL RATIO.THIS FACTOR VARIES BY MEASURED TRIGLYCERIDE AND NON-HDLCHOLESTEROL CONCENTRATIONS WITH INCREASED CALCULATED LDL SEENIN HIGHER TRIGLYCERIDE OR LOWER NON-HDL SPECIMENS. FOR MOREINFORMATION, SEE CLIENT ANNOUNCEMENT AT [email or web address] RISK RATIO LDL/HDL (test code = 2238) 3.47 RATIO <3.55 BASIC METABOLIC [id number] 04:40:40* Test Item Value Reference Range Interpretation Comme nts GLUCOSE (test code = 2217) 88 MG/DL 70-99 BUN (test code = 2208) 10 MG/DL 6-20 CREATININE (test code = 2214) 0.80 MG/DL 0.80-1.40 eGFR (2020 CKD-EPI) (test code = 32849) 130 ML/MIN/1.73 >60 SODIUM (test code = 2231) 139 MEQ/L 133-146 POTASSIUM (test code = 2228) 4.6 MEQ/L 3.5-5.4 CHLORIDE (test code = 2215) 99 MEQ/L 95-107 CARBON DIOXIDE (test code = 2206) 27 MEQ/L 19-31 CALCIUM (test code = 2209) 10.2 MG/DL 8.5-10.5 HEMOGLOBIN [id number] 03:19:21* Test Item Value Reference Range Interpretation Comme nts HEMOGLOBIN A1c (test code = 10277) 5.3 % 4.2-5.6 CBC W/AUTO DIFF WITH [id number] 02:29:14* Test Item Value Reference Range Interpretation Comme nts WBC (test code = 1001) 8.4 K/UL 3.5-11.0 RBC (test code = 1002) 5.68 M/UL 4.50-6.10 HEMOGLOBIN (test code = 1003) 16.3 G/DL 13.5-17.0 HEMATOCRIT (test code = 1004) 48.2 % 40.0-51.0 MCV (test code = 1005) 84.9 fL 80.0-99.0 MCH (test code = 1006) 28.7 PG 25.0-33.0 MCHC (test code = 1007) 33.8 G/DL 31.0-36.0 RDW (test code = 1038) 12.6 % 11.5-15.0 NEUTROPHILS (test code = 1008) 62.3 % LYMPHOCYTES (test code = 1010) 26.3 % MONOCYTES (test code = 1011) 7.5 % EOSINOPHILS (test code = 1012) 2.4 % BASOPHILS (test code = 1013) 0.4 % IMMATURE GRANULOCYTES (test code = 1036) 1.1 % NUCLEATED RBCS (test code = 1065) 0.0 /100 WBC'S See_Comment [Automated nothingGrindera ge] The system which generated this result transmitted reference range: 0.0. The reference range was not used to interpret this result as normal/abnormal. PLATELET COUNT (test code = 1015) 258 K/UL 130-400 ABSOLUTE NEUTROPHILS (test code = 1066) 5.21 K/UL 1.50-7.50 ABSOLUTE LYMPHOCYTES (test code = 1067) 2.20 K/UL 1.00-4.00 ABSOLUTE MONOCYTES (test code = 1068) 0.63 K/UL 0.2-3.8 ABSOLUTE EOSINOPHILS (test code = 1040) 0.20 K/UL 0.00-0.50 ABSOLUTE BASOPHILS (test code = 1069) 0.03 K/UL 0.00-0.20 ABS IMMATURE GRANULOCYTES (test code = 1020) 0.09 K/UL 0.00-0.10 ABS NUCLEATED RBCS (test code = 39307) 0.00 K/UL 0.00-0.11
[2023-12-09 16:27] LABS: Lymphocytes % 14.3 % (15.3-44.8); MCV 80.8 fL (80-100); MPV 8.8 fL (7.6-11.3); Platelets 217 thou/uL (152-406); RBC Red Blood Cell Count 5.82 M/uL (4.33-5.43)
[2023-12-09 16:28] LABS: Absolute Lymphocytes (CBC) 1.3 K/uL (0.7-4.9)
[2023-12-09 16:45] LABS: Barbiturates NEGATIVE (NEGATIVE); Benzodiazepines NEGATIVE (NEGATIVE); Cocaine NEGATIVE (NEGATIVE); METHAMPHETAM NEGATIVE (NEGATIVE); Methadone NEGATIVE (NEGATIVE); Opiates NEGATIVE (NEGATIVE); Phencyclidine NEGATIVE (NEGATIVE); THC Cannibis NEGATIVE (NEGATIVE)
[2023-12-09 16:51] LABS: Protime INR 1.06
[2023-12-09 16:52] LABS: ALT/SGPT 93 U/L (16-61); AST/SGOT 27 U/L (15-37); Alkaline Phosphatase 134 U/L (45-117); BUN Blood Urea Nitrogen 11 mg/dL (7-18); Bicarbonate 28 mEq/L (21-32); Bilirubin Total 0.3 mg/dL (0.2-1.0); Glomerular Filtration Rate 110 ml/min (=/>90); Glucose Level 97 mg/dL (74-106); Potassium 4.1 mEq/L (3.5-5.1); Protein, Total 7.9 g/dL (6.4-8.2); Sodium Level 138 mEq/L (136-145)
[2023-12-09 16:53] LABS: Bilirubin Direct < 0.1 mg/dL (0-0.2); Bilirubin Indirect, Calculated ND mg/dL (0.2-0.8)
--- NOTE | 2023-12-09 17:24 | ER ---
Nurse's Notes [facility] Name: Reginald Connors Age: 23 yrs Sex: Male : 2000 Arrival Date: 12/09/2023 Time: 15:18 Bed 13 Private MD: Diagnosis: Suicidal ideations;Depression Presentation: 12/09 15:35 Chief complaint: Parent and/or Guardian states: "His mind keeps telling him to hurt ph himself. He's been having this problem for about a year and it's like we can't can't find the right medicine." Pt states that he has been having increased suicidal thoughts for the past 3-4 days, denies having a plan, states that he has been taking his medications. Coronavirus screen: Vaccine status: Patient reports receiving the 2nd dose of the covid vaccine. Ebola Screen: No symptoms or risks identified at this time. Initial Sepsis Screen: Does the patient meet any 2 criteria? No. Patient's initial sepsis screen is negative. Does the patient have a suspected source of infection? No. Patient's initial sepsis screen is negative. Risk Assessment: Do you want to hurt yourself or someone else? Patient reports desire/thoughts of hurting themselves or someone else. Provider notified. Onset of symptoms was December 09, 2023. 15:35 Method Of Arrival: Ambulatory ph 15:35 Acuity: PHI 2 ph Historical: - Allergies: 15:40 Bactrim; ph 15:40 citalopram; ph 15:40 Cymbalta; ph 15:40 Propranolol; ph 15:40 Rexulti; ph 15:40 Zithromax; ph 15:40 Zoloft; ph 19:26 Prozac; me1 19:26 lamotrigine; me1 19:26 Clonazepam; me1 - Home Meds: 19:26 olanzapine 5 mg oral tablet 1 tab 2 times per day [Active]; guanfacine 3 mg Oral me1 Tablet, Extended Release 24 hr 1 tab [Active]; phenytoin 50 mg Oral tablet,chewable once [Active]; - PMHx: 15:40 Anxiety; Asthma; depressive disorder; ph - Immunization history:: Adult Immunizations up to date. - Social history:: Smoking status: Patient denies any tobacco usage or history of. Screenin:12 [facility] ED Fall Risk Assessment (Adult) History of falling in the last 3 months, me1 including since admission No falls in past 3 months (0 pts) Confusion or Disorientation No (0 pts) Intoxicated or Sedated No (0 pts) Impaired Gait No (0 pts) Mobility Assist Device Used No (0 pt) Altered Elimination No (0 pt) Score/Fall Risk Level 0 - 2 = Low Risk Maintained a safe environment, Provided non-skid footwear, Hourly rounding (assess needs \\T\\ fall precautionary measures) done. Abuse screen: Denies threats or abuse. Nutritional screening: No deficits noted. Tuberculosis screening: No symptoms or risk factors identified. Assessment: 17:12 General: Appears comfortable, well groomed, well developed, well nourished, Behavior is me1 calm, cooperative, appropriate for age, flat, Reports Per mother, "His mind keeps telling him to hurt himself. He's been having this problem for about a year and it's like we can't can't find the right medicine." Pt states that he has been having increased suicidal thoughts for the past 3-4 days, denies having a plan, states that he has been taking his medications. Pain: Denies pain. Neuro: Level of Consciousness is awake, alert, obeys commands, Oriented to person, place, time, situation, Appropriate for age. Cardiovascular: Capillary refill < 3 seconds Patient's skin is warm and dry. Respiratory: Airway is patent Respiratory effort is even, unlabored, Respiratory pattern is regular, symmetrical. 19:39 General: Nurse to nurse to NARCISO Gutierrez at [facility]. . me1 Psych: 18:48 Candor Suicide Severity Screening: In the past month, have you wished you were me1 or wished you could go to sleep and not wake up? Patient responds "No." "In the past month, have you actually had any thoughts of killing yourself?" Patient responds "yes." Based off the client's response additional Candor suicide severity screening questions to be further documented on paper forms. patient denies having a plan but says his mind tells him to kill himself. "In your lifetime, have you ever done anything, started to do anything, or prepared to do anything to end your life?". Subjective: Patient's mood is sad, Delusions are denied, Hallucinations are auditory, Having thoughts of. Objective: Patient is cooperative, Speech is normal, Affect is flat. Interventions: Removed personal items and placed in bag. Patient placed in hospital gown. Searched person for dangerous items. Urine collected and sent for urine drug test. Belonging list filled out. Patient reassessed during use of restraints. Patient is physically safe. Safety Checks: Personal items have been removed. Pt has been placed in a hallway bed/chair. Visitors are present. Pt denies substance abuse. Commitment: Patient will be a voluntary commitment. Vital Signs: 15:35 BP 166 / 84; Pulse 100; Resp 18; Temp 99.1; Pulse Ox 100% on R/A; Weight 108.86 kg; ph Height 5 ft. 9 in. ; Pain 0/10; 19:15 BP 153 / 79; Pulse 96; Resp 16; Temp 98.7(O); Pulse Ox 100% on R/A; me1 15:35 Body Mass Index 35.44 (108.86 kg, 175.26 cm) ph 15:35 Pain Scale: Adult ph ED Course: 15:20 Patient arrived in ED. im 15:20 Joey Guthrie DO is Attending Physician. ms3 15:40 Triage completed. ph 15:58 Noreen Schafer, RN is Primary Nurse. me1 16:17 Acetaminophen Sent. bc6 16:17 BMP Sent. bc6 16:17 CBC with Diff Sent. bc6 16:17 Ethanol Sent. bc6 16:17 Hepatic Function Sent. bc6 16:17 Protime (+inr) Sent. bc6 16:17 Ptt, Activated Sent. bc6 16:18 Salicylate Sent. bc6 16:18 Urine Drug Screen Sent. bc6 16:18 Inserted saline lock: 20 gauge in right antecubital area, using aseptic technique. bc6 Blood collected. 17:12 No provider procedures requiring assistance completed. me1 17:12 Patient has correct armband on for positive identification. Placed in gown. Bed in low me1 position. Call light in reach. Side rails up X2. Provided Education on: POC. Verbalized understanding. . 18:51 Arm band placed on Patient placed in waiting room. me1 18:54 Patient transferred, IV remains in place. me1 19:34 faxed clinical to [facility] per pt's mom request. [facility] [place]. Accepting admin Jensen Ortega. [facility] to transfer pt. 21:05 Patient transferred, IV remains in place. IV discontinued, intact, bleeding controlled, [facility] No redness/swelling at site. Pressure dressing applied. Administered Medications: No medications were administered Medication: 17:12 VIS not applicable for this client. [facility] Outcome: 17:23 ER care complete, transfer ordered by . ms3 21:05 Transferred by ground EMS Transfer form completed. Note: rn progressive care unit. Transferred to [address] via EMS. Mother present at time of transfer. 21:05 Condition: stable 21:05 Instructed on the need for transfer, 21:06 Patient left the ED. [facility] Signatures: Anna Nelson, RN RN Joey Guthrie DO DO ms3 Nadiya Alvarado 6 Dari Mena Michelle, RN RN [facility] Corrections: (The following items were deleted from the chart) 17:12 15:35 Chief complaint: Parent and/or Guardian states: "His mind keeps telling him to [facility] hurt himself. He's been having this problem for about a year and it's like we can't can't find the right medicine." Pt states that he has been having increased suicidal thoughts for the past 3-4 days, denies having a plan, states that he has been taking his medications
--- NOTE | 2023-12-09 17:24 | EDPHYS ---
Physician Documentation [facility] Name: Reginald Connors Age: 23 yrs Sex: Male : 2000 Arrival Date: 12/09/2023 Time: 15:18 Bed 13 Private MD: ED Physician Joey Guthrie HPI: 12/09 17:00 This 23 yrs old Male presents to ER via Ambulatory with complaints of Suicidal ms3 Ideation. 17:00 23-year-old male with past medical history of anxiety, asthma, depression presents to [facility] the emergency department for suicidal thoughts that been ongoing for 2 to 3 days. Patient denies plan. Patient's mother notes 3 months ago patient tied a string around his neck. Patient denies pain. Patient denies any alleviating or inciting factors. Historical: - Allergies: 15:40 Bactrim; ph 15:40 citalopram; ph 15:40 Cymbalta; ph 15:40 Propranolol; ph 15:40 Rexulti; ph 15:40 Zithromax; ph 15:40 Zoloft; ph 19:26 Prozac; me1 19:26 lamotrigine; me1 19:26 Clonazepam; me1 - Home Meds: 19:26 olanzapine 5 mg oral tablet 1 tab 2 times per day [Active]; guanfacine 3 mg Oral me1 Tablet, Extended Release 24 hr 1 tab [Active]; phenytoin 50 mg Oral tablet,chewable once [Active]; - PMHx: 15:40 Anxiety; Asthma; depressive disorder; ph - Immunization history:: Adult Immunizations up to date. - Social history:: Smoking status: Patient denies any tobacco usage or history of. ROS: 17:00 Constitutional: Negative for fever, and chills. Neck: Negative for injury, pain, and ms3 swelling, Cardiovascular: Negative for chest pain, and palpitations. Respiratory: Negative for shortness of breath, cough, wheezing, and pleuritic chest pain, Abdomen/GI: Negative for abdominal pain, nausea, vomiting, diarrhea, and constipation, MS/Extremity: Negative for injury and deformity, Skin: Negative for injury, rash, and discoloration, 17:00 Psych: Positive for suicidal ideation, Exam: 17:00 Constitutional: This is a well developed, well nourished patient who is awake, alert, ms3 and in no acute distress. Head/Face: Normocephalic, atraumatic. Neck: Trachea midline, no cervical lymphadenopathy. Supple, full range of motion without nuchal rigidity, or vertebral point tenderness. No Meningismus. Chest/axilla: Normal chest wall appearance and motion. Nontender with no deformity. Cardiovascular: Regular rate and rhythm with a normal S1 and S2. No gallops, murmurs, or rubs. Normal PMI, no JVD. No pulse deficits. Respiratory: Lungs have equal breath sounds bilaterally, clear to auscultation and percussion. No rales, rhonchi or wheezes noted. No increased work of breathing, no retractions or nasal flaring. Abdomen/GI: Soft, non-tender, with normal bowel sounds. No distension or tympany. No guarding or rebound. No evidence of tenderness throughout. Skin: Warm, dry with normal turgor. Normal color with no rashes, no lesions, and no evidence of cellulitis. MS/ Extremity: Pulses equal, no cyanosis. Neurovascular intact. Full, normal range of motion. 17:00 Psych: Behavior/mood is pleasant, cooperative, Affect is calm, Oriented to person, place, time, Patient having thoughts of suicide. Denies suicidal plan. 18:32 ECG was reviewed by the Attending Physician. ms3 Vital Signs: 15:35 BP 166 / 84; Pulse 100; Resp 18; Temp 99.1; Pulse Ox 100% on R/A; Weight 108.86 kg; ph Height 5 ft. 9 in. ; Pain 0/10; 19:15 BP 153 / 79; Pulse 96; Resp 16; Temp 98.7(O); Pulse Ox 100% on R/A; me1 15:35 Body Mass Index 35.44 (108.86 kg, 175.26 cm) ph 15:35 Pain Scale: Adult ph MDM: 15:32 Patient medically screened. ms3 17:00 Differential diagnosis: acute psychotic break, depression, psychosis secondary to ms3 non-compliance. Data reviewed: vital signs, nurses notes, lab test result(s), and as a result, I will discharge patient. Consideration of Admission/Observation Will transfer patient to psychiatric facility. 17:21 Counseling: I had a detailed discussion with the patient and/or guardian regarding the ms3 historical points, exam findings, and any diagnostic results supporting the discharge/admit diagnosis, lab results, the need to transfer to another facility, [facility] does not immediately have the required specialist. ED course: Discussed psychiatric transfer process with patient's mother. Will attempt transfer to psychiatric facility.. 12/09 16:10 Order name: Acetaminophen; Complete Time: 17:21 ms3 12/09 16:10 Order name: BMP; Complete Time: 17:21 ms3 12/09 16:10 Order name: CBC with Diff; Complete Time: 17:21 ms3 12/09 16:10 Order name: Ethanol; Complete Time: 17:21 ms3 12/09 16:10 Order name: Hepatic Function; Complete Time: 17:21 ms3 12/09 16:10 Order name: Protime (+inr); Complete Time: 17:21 ms3 12/09 16:10 Order name: Ptt, Activated; Complete Time: 17:21 ms3 12/09 16:10 Order name: Salicylate; Complete Time: 17:21 ms3 12/09 16:10 Order name: Urine Drug Screen; Complete Time: 17:21 ms3 12/09 16:10 Order name: EKG; Complete Time: 16:10 ms3 12/09 16:10 Order name: EKG - Nurse/Tech; Complete Time: 18:41 ms3 12/09 16:10 Order name: IV Saline Lock; Complete Time: 16:17 ms3 12/09 16:10 Order name: Labs collected and sent; Complete Time: 16:17 ms3 12/09 16:10 Order name: O2 Per Protocol; Complete Time: 16:22 ms3 12/09 16:10 Order name: O2 Sat Monitoring; Complete Time: 16:22 ms3 12/09 16:10 Order name: Suicide Screening ([place]); Complete Time: 18:54 ms3 EC:32 Rate is 108 beats/min. Rhythm is regular. QRS [place] is Normal. VA interval is normal. ms3 QRS interval is normal. Clinical impression: Sinus tachycardia. Interpreted by me. Reviewed by me. Administered Medications: No medications were administered Disposition Summary: 12/09/23 17:23 Transfer Ordered Notes: Transfer Location: Psych Facility ms3 Reason: Higher level of care ms3 Condition: Stable ms3 Problem: new ms3 Symptoms: are unchanged ms3 Accepting Physician: (12/09/23 21:06) me1 Diagnosis - Suicidal ideations ms3 - Depression ms3 Forms: - Medication Reconciliation Form ms3 - SBAR form ms3 Signatures: Dispatcher [employer] Anan Dean RN RN Joey Guthrie, DO ms3 Noreen Schafer RN RN me1 Corrections: (The following items were deleted from the chart) 21:06 17:23 ms3 me1
[2023-12-09 21:33] VITALS: BP 153/79; TEMP 98.7; O2SAT 100
== END ==
LOC: ER 15:18
DX: R45.851 Suicidal ideations (principal); F32.A Depression, unspecified; Z88.1 Allergy status to other antibiotic agents; Z88.8 Allergy status to other drugs, medicaments and biological substances
CPT/HCPCS: 36415; 80048; 80076; 80143; 80179; 80307; 82077; 85025; 85610; 85730; 93005

== ENCOUNTER → 2024-01-01 | Emergency (ER) | payer OTHER ==
[~2024-01-01] MED LIST: CIPROFLOXACIN 400mg IV 400 MG/200 ML BAG IV ONE; NA CHLORIDE 0.9% 1,000 ML ONE; ONDANSETRON 4 MG/2 ML VIAL ONE; PROMETHAZINE INJ 25 MG/ML AMP ONE
--- OUTSIDE RECORDS SUMMARY | 2024-01-01 10:23 | XMS REPORT | Continuity of Care Document ---
Author Name Unknown Address [address] [id number] [facility] thconnect Address [address] [place] [address] Care Team Providers Care Test Kitchen Home Economist Name Role Phone Raju_P Attending Clinician Unavailable Caleu_P Admitting Clinician Unavailable Encounters Start Date/Time End Date/Time Encounter Type Admission Type Attending Clinicians Care Facility Care Department Encounter ID Source 2023-12-24 14:52:34 2023-12-24 14:52:34 Outpatient [facility] SFA [id number] Helder Marie 2023-12-11 17:23:46 2023-12-11 17:23:46 Outpatient SFA SFA [id number] Helder Marie 2023-11-11 16:46:44 2023-11-11 16:46:44 Outpatient SFA SFA [id number] Helder Marie 2023-10-30 14:57:44 2023-10-30 14:57:44 Outpatient SFA SFA [id number] Helder Marie 2023-07-05 16:37:29 2023-07-05 16:37:29 Outpatient SFA SFA [id number] Helder Marie 2023-06-05 16:36:01 2023-06-05 16:36:01 Outpatient SFA SFA [id number] Helder Marie 2023-05-05 11:12:02 2023-05-05 11:12:02 Outpatient SFA SFA [id number] Helder Marie 2023-04-19 10:14:25 2023-04-19 10:14:25 Outpatient SFA SFA [id number] Helder Marie 2023-04-18 13:31:05 2023-04-18 13:31:05 Outpatient SFA SFA [id number] Helder Marie 2023-03-06 13:34:38 2023-03-06 13:34:38 Outpatient [facility] [id number] Helder Marie 2020-12-07 09:54:00 2020-12-07 09:54:00 Outpatient Bernice [facility]G [facility]G [id number] [facility] Results Test Description Test Time Test Comments Results Result Co mments Source CULTURE, URINE 2023-07-08 07:01:30 SPECIMEN NUMBER: [id number] CULTURE, URINE SPECIMEN NUMBER: [id number] SPECIMEN COMMENT: URINE SOURCE: URINE REPORT STATUS: FINAL FINAL REPORT: 07/08/2023 NO GROWTH AFTER 36 HOURS INCUBATION UNLESS OTHERWISE INDICATED, ALL TESTING PERFORMED AT [facility] [address] [place] [address] VOLLEYBALL COMMENTATOR: LUIZ CALVO M.D. CLIA NUMBER [id number] [facility] [place]. [id number] LIPID [id number] 04:40:40* Test Item Value Reference Range Interpretation [...] SPECIMENS. FOR MOREINFORMATION, SEE CLIENT ANNOUNCEMENT AT [email or web address] [email or web address] RATIO LDL/HDL (test code = 2238) 3.47 RATIO <3.55 BASIC METABOLIC [id number] 04:40:40* Test Item Value Reference Range Interpretation Comme nts GLUCOSE (test code = 2217) 88 MG/DL 70-99 BUN (test code = 2208) 10 MG/DL 6-20 CREATININE (test code = 2214) 0.80 MG/DL 0.80-1.40 eGFR (2020 CKD-EPI) (test code = 40500) 130 ML/MIN/1.73 >60 SODIUM (test code = 2231) 139 MEQ/L 133-146 POTASSIUM (test code = 2228) 4.6 MEQ/L 3.5-5.4 CHLORIDE (test code = 2215) 99 MEQ/L 95-107 CARBON DIOXIDE (test code = 2206) 27 MEQ/L 19-31 CALCIUM (test code = 2209) 10.2 MG/DL 8.5-10.5 HEMOGLOBIN [id number] 03:19:21* Test Item Value Reference Range Interpretation Comme nts HEMOGLOBIN A1c (test code = 53118) 5.3 % 4.2-5.6 CBC W/AUTO DIFF WITH [id number] 02:29:14* Test Item Value Reference Range Interpretation [...] = 1065) 0.0 /100 WBC'S See_Comment [Automated [employer] ge] The system which generated this result [...] 0.00-0.10 ABS NUCLEATED RBCS (test code = 20165) 0.00 K/UL 0.00-0.11
--- NOTE | 2024-01-01 11:34 | RAD REPORT ---
EXAM DESCRIPTION: CT - Abdomen Pelvis Wo Contrast - 01/01/2024 11:01 am CLINICAL HISTORY: ABD PAIN COMPARISON: No comparisons TECHNIQUE: Thin cut axial CT imaging of the abdomen and pelvis was performed without IV contrast. Mu ltiplanar reformats were generated and reviewed. All CT scans are performed using dose optimization technique as appropriate and may include automated exposure control or mA/KV adjustment according to patient size. FINDINGS: Motion artifact especially in the upper abdomen due to breathing motion, limits evaluation . No suspicious findings in the lung bases. The liver, spleen, adrenal glands, and pancreas show no suspicious findings. Gallbladder and biliary tree are also without suspicious finding. Symmetric renal contour, without suspicious parenchymal findings within limits of noncontrast techniq ue. No evidence of radiopaque calculi or hydroureteronephrosis. No dilated bowel loops or bowel wall thickening. No free air, free fluid or inflammatory stranding. N o hernia, mass or bulky lymphadenopathy. The urinary bladder is decompressed limiting evaluation. No suspicious bony findings. IMPRESSION: No acute intra-abdominal process. Motion artifact in the upper abdomen limits evaluatio n.
[2024-01-01 11:58] LABS: Absolute Basophils 0.1 K/uL (0-0.5); Absolute Lymphocytes (CBC) 0.8 K/uL (0.7-4.9); Basophils % 0.6 % (0-1.3); Hematocrit 47.5 % (39.6-49.0); Hemoglobin 16.5 g/dL (13.6-17.9); MCV 81.7 fL (80-100); MPV 9.5 fL (7.6-11.3); Platelets 239 thou/uL (152-406); RBC Red Blood Cell Count 5.81 M/uL (4.33-5.43)
[2024-01-01 12:04] LABS: Specific Gravity > 1.030 (1.005-1.030); Urine Bacteria <20 /HPF (<20); Urine Bilirubin NEGATIVE (Negative); Urine Blood Trace (Negative); Urine Clarity Turbid (Clear); Urine Color Light-Orange (Yellow); Urine Glucose NEGATIVE (Negative); Urine Mucus 4+ /HPF (None Seen); Urine Protein 2+ (Negative); Urine Urobilinogen 1+ (Normal); Urine pH 6.5 (5.0-7.0)
[2024-01-01 12:28] LABS: Albumin 4.2 g/dL (3.4-5.0); Bilirubin Total 1.9 mg/dL (0.2-1.0); Globulin 4.1 g/dL (2.3-3.5); Protein, Total 8.3 g/dL (6.4-8.2)
[2024-01-01 13:22] LABS: Blood Morphology Comment NOT SEEN (NOT SEEN); Platelet Estimate ADEQ
--- NOTE | 2024-01-01 15:03 | RAD REPORT ---
EXAM DESCRIPTION: US - Abdomen Exam Limited - 01/01/2024 2:30 pm CLINICAL HISTORY: Abdominal pain. COMPARISON: None. FINDINGS: The gallbladder wall is not thickened. Evaluation of the gallbladder neck was somewhat limited. A gallstone is not seen. The biliary tree is normal caliber. IMPRESSION: Grossly normal gallbladder ultrasound
--- NOTE | 2024-01-01 15:47 | EDPHYS ---
Physician Documentation [facility] Name: Reginald Connors Age: 23 yrs Sex: Male : 2000 Arrival Date: 01/01/2024 Time: 10:10 Bed 19 Private MD: ED Physician Duong Sanchez HPI: 12/31 11:57 This 23 yrs old Male presents to ER via Ambulatory with complaints of rn Vomiting, Side Pain. 11:57 The patient presents to the emergency department with nausea, vomiting, abdominal pain. rn Onset: The symptoms/episode began/occurred yesterday. Possible causes: unknown. The symptoms are aggravated by nothing. The symptoms are alleviated by nothing. Severity of symptoms: At their worst the symptoms were mild in the emergency department the symptoms are unchanged. The patient has not experienced similar symptoms in the past. Mother reports right-sided flank pain with dark urine that began in the last 2 days. Recently started on new psych medication so not sure if that is related. No trauma. No history of kidney stones. Positive for dysuria and increased urinary frequency. Historical: - Allergies: 10:21 Bactrim; bp 10:21 citalopram; bp 10:21 Clonazepam; bp 10:21 Cymbalta; bp 10:21 lamotrigine; bp 10:21 Propranolol; bp 10:21 Prozac; bp 10:21 Rexulti; bp 10:21 Zithromax; bp 10:21 Zoloft; bp - PMHx: 10:21 Anxiety; Asthma; depressive disorder; bp - Immunization history:: Adult Immunizations up to date. - Social history:: Smoking status: Patient denies any tobacco usage or history of. - Family history:: not pertinent. - Hospitalizations: : No recent hospitalization is reported. ROS: 11:57 Constitutional: Negative for fever, chills, and weight loss, Cardiovascular: Negative rn for chest pain, palpitations, and edema, Respiratory: Negative for shortness of breath, cough, wheezing, and pleuritic chest pain, Abdomen/GI: Positive for right abdominal pain/flank pain : Positive for dark urine and dysuria MS/Extremity: Negative for injury and deformity, Skin: Negative for injury, rash, and discoloration, Neuro: Negative for headache, weakness, numbness, tingling, and seizure, Exam: 11:57 Constitutional: This is a well developed, well nourished patient who is awake, alert, rn and in no acute distress. Cardiovascular: Tachycardic, regular. No pulse deficits. Respiratory: No increased work of breathing, no retractions or nasal flaring. Abdomen/GI: Soft, mild right flank tenderness. No right lower quadrant abdominal tenderness. No rebound or guarding. Back: No spinal tenderness. No costovertebral tenderness. Full range of motion. MS/ Extremity: Pulses equal, no cyanosis. Neuro: Awake and alert, GCS 15, oriented to person, place, time, and situation. Cranial nerves II-XII grossly intact. Motor strength 5/5 in all extremities. Sensory grossly intact. Cerebellar exam normal. Normal gait. Vital Signs: 10:20 BP 142 / 92; Pulse 102; Resp 18; Temp 98; Pulse Ox 98% ; bp 10:30 BP 139 / 77; Pulse 106; Resp 18; Pulse Ox 98% on R/A; me1 11:00 BP 136 / 64; Pulse 103; Resp 14; Pulse Ox 97% on R/A; me1 12:00 BP 145 / 66; Pulse 105; Resp 17; Pulse Ox 98% on R/A; me1 13:00 BP 151 / 86; Pulse 101; Resp 18; Pulse Ox 99% on R/A; me1 14:00 BP 148 / 72; Pulse 109; Resp 16; Pulse Ox 100% on R/A; me1 16:30 BP 126 / 63; Pulse 109; Resp 18; Temp 98.4(O); Pulse Ox 100% on R/A; me1 MDM: 10:18 Patient medically screened. rn 15:44 Differential diagnosis: Nonspecific abd pain, gastritis, cholecystitis, pancreatitis, rn appendicitis, diverticulitis, viral gastroenteritis, gastroenteritis, Urinary tract infection. 15:47 Data reviewed: vital signs, nurses notes, lab test result(s), radiologic studies, CT rn scan, and as a result, I will discharge patient. Counseling: I had a detailed discussion with the patient and/or guardian regarding the historical points, exam findings, and any diagnostic results supporting the discharge/admit diagnosis, lab results, radiology results, the need for outpatient follow up, to return to the emergency department if symptoms worsen or persist or if there are any questions or concerns that arise at home. Special discussion: Based on the patient's Hx, exam, and Dx evaluation, there is no indication for emergent surgery or inpatient Tx. It is understood by the patient/guardian that if the Sx's persist or worsen they need to return immediately for re-evaluation. I discussed with the patient/guardian in detail that at this point there is no indication for admission to the hospital. It is understood, however, that if the symptoms persist or worsen the patient needs to return immediately for re-evaluation. 12/31 10:25 Order name: CBC with Diff; Complete Time: 14:06 rn 12/31 10:25 Order name: CMP; Complete Time: 14:06 rn 12/31 10:25 Order name: Lipase; Complete Time: 14:06 rn 12/31 10:25 Order name: Urinalysis w/ reflexes; Complete Time: 14:06 rn 12/31 12:21 Order name: Urine Culture EDMS 12/31 13:22 Order name: Manual Differential; Complete Time: 14:06 EDMS 12/31 11:02 Order name: Abdomen ; Complete Time: 11:46 EDMS 12/31 14:07 Order name: US Abdomen Limited; Complete Time: 15:09 rn 12/31 10:25 Order name: IV Saline Lock; Complete Time: 11:41 rn 12/31 10:25 Order name: Labs collected and sent; Complete Time: 11:41 rn Administered Medications: 11:41 Drug: NS 0.9% IV 1000 ml IV at 1 bolus Per protocol; 1000 mL bolus Route: IV; Rate: 1 me1 bolus; Site: right antecubital; 14:08 Follow up: Response: No adverse reaction; IV Status: Completed infusion; IV Intake: me1 1000ml 11:42 Drug: Ondansetron IVP 4 mg IVP once; over 2 minutes Route: IVP; Site: right antecubital;me1 12:13 Follow up: Response: No adverse reaction; Nausea is decreased me1 15:41 Drug: Promethazine IVP 12.5 mg IVP once Route: IVP; Site: left antecubital; me1 15:55 Follow up: Response: No adverse reaction; Nausea is decreased me1 15:42 Drug: Ciprofloxacin IVPB 400 mg 200 ml IVPB once over 60 mins Volume: 200 ml; Route: me1 IVPB; Infused Over: 60 mins; Site: left antecubital; 16:55 Follow up: Response: No adverse reaction; IV Status: Completed infusion; IV Intake: me1 200ml 15:42 Drug: NS 0.9% IV 1000 ml IV at 1000 ml once Route: IV; Rate: 1000 ml; Site: left me1 antecubital; 16:55 Follow up: Response: No adverse reaction; IV Status: Completed infusion; IV Intake: me1 1000ml Disposition Summary: 01/01/24 15:47 Discharge Ordered Notes: Location: Home rn Problem: new rn Symptoms: have improved rn Condition: Stable rn Diagnosis - UTI/ Urinary tract infection, site not specified rn - Nausea with vomiting, unspecified rn Followup: rn - With: Private Physician - When: As needed - Reason: Recheck today's complaints, Re-evaluation by your physician Discharge Instructions: - Discharge Summary Sheet rn - Nausea and Vomiting, Adult rn - Urinary Tract Infection, Adult rn Forms: - Medication Reconciliation Form rn - Thank You Letter rn - 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 - Prescription Opioid Use rn - Patient Portal Instructions rn - Leadership Thank You Letter rn Prescriptions: - ondansetron 4 mg Oral Tablet,disintegrating - take 1 tablet ORAL route every 8 hours As needed; 12 tablet; Refills: 0, rn Product Selection Permitted - Cipro 500 mg/5 mL Oral suspension, microcapsule reconstituted - take 5 milliliters ORAL route every 12 hours for 14 days; 150 milliliter; rn Refills: 0, Product Selection Permitted Signatures: Dispatcher [employer] [facility] Duong Sanchez MD MD rn Peltier, Brian RN Noreen Abraham RN RN me1 Corrections: (The following items were deleted from the chart) 11:02 10:26 Abdomen Pelvis W Con+CT.RAD.BRZ ordered. EDWA EDMS 11:58 11:57 Mother reports right-sided flank pain with dark urine that began in the last 2 rn days. Recently started on new psych medication so not sure if that is related. No trauma. No history of kidney stones.. rn
--- NOTE | 2024-01-01 15:47 | ER ---
Nurse's Notes [facility] Name: Reginald Connors Age: 23 yrs Sex: Male : 2000 Arrival Date: 01/01/2024 Time: 10:10 Bed 19 Private MD: Diagnosis: UTI/ Urinary tract infection, site not specified;Nausea with vomiting, unspecified Presentation: 12/31 10:20 Chief complaint: Parent and/or Guardian states: FEVER, VOMITING, NEGATIVE COVID/FLU bp THIS AM. Coronavirus screen: At this time, the client does not indicate any symptoms associated with coronavirus-19. Ebola Screen: No symptoms or risks identified at this time. Initial Sepsis Screen: Does the patient meet any 2 criteria? No. Patient's initial sepsis screen is negative. Does the patient have a suspected source of infection? No. Patient's initial sepsis screen is negative. Risk Assessment: Do you want to hurt yourself or someone else? Patient reports no desire to harm self or others. Onset of symptoms is unknown. 10:20 Method Of Arrival: Ambulatory bp 10:20 Acuity: PHI 3 bp Triage Assessment: 10:21 General: Appears in no apparent distress. Behavior is cooperative, appropriate for age, bp anxious. Pain: Complains of pain in left flank. GI: Reports constipation, nausea, vomiting. Historical: - Allergies: 10:21 Bactrim; bp 10:21 citalopram; bp 10:21 Clonazepam; bp 10:21 Cymbalta; bp 10:21 lamotrigine; bp 10:21 Propranolol; bp 10:21 Prozac; bp 10:21 Rexulti; bp 10:21 Zithromax; bp 10:21 Zoloft; bp - PMHx: 10:21 Anxiety; Asthma; depressive disorder; bp - Immunization history:: Adult Immunizations up to date. - Social history:: Smoking status: Patient denies any tobacco usage or history of. - Family history:: not pertinent. - Hospitalizations: : No recent hospitalization is reported. Screenin:22 [facility] ED Fall Risk Assessment (Adult) History of falling in the last 3 months, bp including since admission No falls in past 3 months (0 pts). Abuse screen: Denies threats or abuse. Denies injuries from another. Nutritional screening: No deficits noted. Tuberculosis screening: No symptoms or risk factors identified. Assessment: 10:40 General: Appears uncomfortable, ill, well groomed, well developed, well nourished, me1 Behavior is calm, cooperative, appropriate for age, Reports n/v and fever that started this morning. Pain: Complains of pain in left flank Pain radiates to back Pain currently is 6 out of 10 on a pain scale. Quality of pain is described as sharp, shooting, Pain began 4 hours ago. Is continuous. Neuro: Level of Consciousness is awake, alert, obeys commands, Oriented to person, place, time, situation, Appropriate for age. Cardiovascular: Capillary refill < 3 seconds Patient's skin is warm and dry. Respiratory: Airway is patent Trachea midline Respiratory effort is even, unlabored, Respiratory pattern is regular, symmetrical. GI: Abdomen is non-distended, Reports nausea, vomiting, since this morning. : Reports pain in left flank(s), in lower back. Vital Signs: 10:20 BP 142 / 92; Pulse 102; Resp 18; Temp 98; Pulse Ox 98% ; bp 10:30 BP 139 / 77; Pulse 106; Resp 18; Pulse Ox 98% on R/A; me1 11:00 BP 136 / 64; Pulse 103; Resp 14; Pulse Ox 97% on R/A; me1 12:00 BP 145 / 66; Pulse 105; Resp 17; Pulse Ox 98% on R/A; me1 13:00 BP 151 / 86; Pulse 101; Resp 18; Pulse Ox 99% on R/A; me1 14:00 BP 148 / 72; Pulse 109; Resp 16; Pulse Ox 100% on R/A; me1 16:30 BP 126 / 63; Pulse 109; Resp 18; Temp 98.4(O); Pulse Ox 100% on R/A; me1 ED Course: 10:13 Patient arrived in ED. mg5 10:18 Duong Sanchez MD is Attending Physician. rn 10:21 Triage completed. bp 10:21 Arm band placed on. bp 10:22 Patient has correct armband on for positive identification. bp 10:40 Provided Education on: POC. Verbalized understanding . Client placed on continuous me1 cardiac and pulse oximetry monitoring. NIBP monitoring applied. Pulse ox on. NIBP on. 10:40 No provider procedures requiring assistance completed. me1 11:02 Abdomen In Process Unspecified. EDMS 11:34 Noreen Schafer, NARCISO is Primary Nurse. me1 11:41 Initial lab(s) drawn, by ED staff, Urine collected: clean catch specimen, josé antonio colored.me1 14:32 US Abdomen Limited In Process Unspecified. EDMS 17:07 IV discontinued, intact, bleeding controlled, No redness/swelling at site. Pressure me1 dressing applied. Administered Medications: 11:41 Drug: NS 0.9% IV 1000 ml IV at 1 bolus Per protocol; 1000 mL bolus Route: IV; Rate: 1 me1 bolus; Site: right antecubital; 14:08 Follow up: Response: No adverse reaction; IV Status: Completed infusion; IV Intake: me1 1000ml 11:42 Drug: Ondansetron IVP 4 mg IVP once; over 2 minutes Route: IVP; Site: right antecubital;me1 12:13 Follow up: Response: No adverse reaction; Nausea is decreased me1 15:41 Drug: Promethazine IVP 12.5 mg IVP once Route: IVP; Site: left antecubital; me1 15:55 Follow up: Response: No adverse reaction; Nausea is decreased me1 15:42 Drug: Ciprofloxacin IVPB 400 mg 200 ml IVPB once over 60 mins Volume: 200 ml; Route: me1 IVPB; Infused Over: 60 mins; Site: left antecubital; 16:55 Follow up: Response: No adverse reaction; IV Status: Completed infusion; IV Intake: me1 200ml 15:42 Drug: NS 0.9% IV 1000 ml IV at 1000 ml once Route: IV; Rate: 1000 ml; Site: left me1 antecubital; 16:55 Follow up: Response: No adverse reaction; IV Status: Completed infusion; IV Intake: me1 1000ml Medication: 10:40 VIS not applicable for this client. me1 Intake: 14:08 IV: 1000ml; Total: 1000ml. me1 16:55 IV: 1000ml; Total: 2000ml. me1 16:55 IV: 200ml; Total: 2200ml. me1 Outcome: 15:47 Discharge ordered by MD. adair 17:07 Discharged to home ambulatory, me1 17:07 Condition: stable 17:07 Discharge instructions given to patient, family, Instructed on discharge instructions, follow up and referral plans. medication usage, Demonstrated understanding of instructions, follow-up care, medications, Prescriptions given X 2, 17:08 Patient left the ED. me1 Signatures: Dispatcher [employer] EDDuong Mccartney MD MD rn Peltier, Brian, RN RN bp Eddleman, Michelle, RN RN me1 Lexie Landrum mg5 Corrections: (The following items were deleted from the chart) 12:15 10:20 Chief complaint: Parent and/or Guardian states: FEVER, VOMITING, NEGATIVE me1 COVID/FLU THIS AM bp
[2024-01-01 17:29] VITALS: BP 126/63; TEMP 98.4; O2SAT 100
== END ==
LOC: ER 10:10
DX: N39.0 Urinary tract infection, site not specified (principal); Z88.1 Allergy status to other antibiotic agents; Z88.8 Allergy status to other drugs, medicaments and biological substances
CPT/HCPCS: 87088; 85025; 81001; 87086; 36415; 83690; 80053; 74176; 76705; J2550; J2405; J0744; J7030 ×2; 87077; 87186; 99284

== ENCOUNTER 2024-02-11 10:27 | Emergency (ER) | payer OTHER ==
--- OUTSIDE RECORDS SUMMARY | 2024-02-11 10:32 | XMS REPORT | Continuity of Care Document ---
Author Name Unknown Address [address] [facility] [address] [place] [id number] [facility] thconnect Address [address] [facility] [address] [place] [address] Care Team Providers Care Small Products Assembler Name Role Phone Raju_P Attending Clinician Unavailable Caleu_P Admitting Clinician Unavailable Encounters Start Date/Time End Date/Time Encounter Type Admission Type Attending Clinicians Care Facility Care Department Encounter ID Source 2024-02-01 13:39:49 2024-02-01 13:39:49 Outpatient [facility] SFA [id number] Helder Marie 2024-01-30 09:19:42 2024-01-30 09:19:42 Outpatient SFA SFA [id number] Helder Marei 2024-01-22 13:44:19 2024-01-22 13:44:19 Outpatient SFA SFA [id number] Helder Marie 2023-12-24 14:52:34 2023-12-24 14:52:34 Outpatient SFA SFA [id number] Helder Marie 2023-12-11 17:23:46 2023-12-11 17:23:46 Outpatient SFA SFA [id number] Helder Marie 2023-11-11 16:46:44 2023-11-11 16:46:44 Outpatient SFA SFA [id number] Helder Marie 2023-10-30 14:57:44 2023-10-30 14:57:44 Outpatient SFA SFA [id number] Helder Marie 2023-07-05 16:37:29 2023-07-05 16:37:29 Outpatient SFA SFA [id number] Helder Marie 2023-06-05 16:36:01 2023-06-05 16:36:01 Outpatient SFA SFA [id number] Helder Marie 2023-05-05 11:12:02 2023-05-05 11:12:02 Outpatient SFA SFA [id number] Helder Marie 2023-04-19 10:14:25 2023-04-19 10:14:25 Outpatient SFA SFA [id number] Helder Marie 2023-04-18 13:31:05 2023-04-18 13:31:05 Outpatient SFA SFA [id number] Helder Marie 2023-03-06 13:34:38 2023-03-06 13:34:38 Outpatient SFA SFA [id number] Helder Marie 2020-12-07 09:54:00 2020-12-07 09:54:00 Outpatient Raju_P MMG MMG [id number] [facility] Results Test Description Test Time Test Comments Results Result Co mments Source TSH, THIRD [id number] 04:30:42* Test Item Value Reference Range Interpretation Comme nts TSH, THIRD GENERATION (test code = 2821) 1.720 UIU/ML 0.400-4.100 [id number] 04:30:42* Test Item Value Reference Range Interpretation Comme nts PROLACTIN (test code = 2800) 17.8 NG/ML 4.0-26.0 NOTE: Methodolog y is Milla Allen Electrochemiluminescence Immunoassay (ECLIA). Values obtained with different assays/manufacturers cannot be used interchangeably. Results should not be used as sole basis to establish the presence or absence of malignancy. LIPID [id number] 04:28:46* Test Item Value Reference Range Interpretation Comme nts CHOLESTEROL (test code = 2210) 251 MG/DL <200 H TRIGLYCERIDES (test code = 2232) 150 MG/DL <150 H HDL CHOLESTEROL (test code = 2220) 54 MG/DL >39 CALC LDL CHOL (test code = 2237) 168 MG/DL <100 H NOTE: CALCULATED LDL IS BASED ON NEHA-MARTINEZ METHOD WHICHINCLUDES ADJUSTABLE TRIGLYCERIDE:VLDL CHOLESTEROL RATIO.THIS FACTOR VARIES BY MEASURED TRIGLYCERIDE AND NON-HDLCHOLESTEROL CONCENTRATIONS WITH INCREASED CALCULATED LDL SEENIN HIGHER TRIGLYCERIDE OR LOWER NON-HDL SPECIMENS. FOR MOREINFORMATION, SEE CLIENT ANNOUNCEMENT AT [email or web address] /[email or web address]-[email or web address] RISK RATIO LDL/HDL (test code = 2237) 3.11 RATIO <3.55 COMPREHENSIVE METABOLIC [id number] 04:28:46* Test Item Value Reference Range Interpretation Comme nts GLUCOSE (test code = 2216) 98 MG/DL 70-99 BUN (test code = 2207) 9 MG/DL 6-20 CREATININE (test code = 2213) 0.91 MG/DL 0.80-1.40 eGFR (2020 CKD-EPI) (test code = ) 123 ML/MIN/1.73 >60 CALC BUN/CREAT (test code = 2234) 10 RATIO 6-28 SODIUM (test code = 2230) 139 MEQ/L 133-146 POTASSIUM (test code = 2227) 4.6 MEQ/L 3.5-5.4 CHLORIDE (test code = 2214) 101 MEQ/L 95-107 CARBON DIOXIDE (test code = 2205) 23 MEQ/L 19-31 CALCIUM (test code = 2208) 10.1 MG/DL 8.5-10.5 PROTEIN, TOTAL (test code = 2228) 7.6 G/DL 6.1-8.3 ALBUMIN (test code = 2200) 5.1 G/DL 3.5-5.2 CALC GLOBULIN (test code = 0) 2.5 G/DL 1.9-3.7 CALC A/G RATIO (test code = 2233) 2.0 RATIO 1.0-2.6 BILIRUBIN, TOTAL (test code = 2206) 0.7 MG/DL <=1.2 ALKALINE PHOSPHATASE (test code = 2203) 133 U/L 44-129 H AST (test code = 2217) 26 U/L 9-50 ALT (test code = 2218) 68 U/L 5-50 H HEMOGLOBIN [id number] 02:58:33* Test Item Value Reference Range Interpretation Comme nts HEMOGLOBIN A1c (test code = 62274) 5.2 % 4.2-5.6 CBC W/AUTO DIFF WITH [id number] 02:29:50* Test Item Value Reference Range Interpretation Comme nts WBC (test code = 1001) 7.7 K/UL 3.5-11.0 RBC (test code = 1002) 6.05 M/UL 4.50-6.10 HEMOGLOBIN (test code = 1003) 17.1 G/DL 13.5-17.0 H HEMATOCRIT (test code = 1004) 50.2 % 40.0-51.0 MCV (test code = 1005) 83.0 fL 80.0-99.0 MCH (test code = 1006) 28.3 PG 25.0-33.0 MCHC (test code = 1007) 34.1 G/DL 31.0-36.0 RDW (test code = 1038) 12.8 % 11.5-15.0 NEUTROPHILS (test code = 1008) 67.1 % LYMPHOCYTES (test code = 1010) 22.3 % MONOCYTES (test code = 1011) 9.7 % EOSINOPHILS (test code = 1012) 0.0 % BASOPHILS (test code = 1013) 0.5 % IMMATURE GRANULOCYTES (test code = 1036) 0.4 % NUCLEATED RBCS (test code = 1065) 0.0 /100 WBC'S See_Comment [Automated [facility] #2a ge] The system which generated this result transmitted reference range: 0.0. The reference range was not used to interpret this result as normal/abnormal. PLATELET COUNT (test code = 1015) 270 K/UL 130-400 ABSOLUTE NEUTROPHILS (test code = 1066) 5.18 K/UL 1.50-7.50 ABSOLUTE LYMPHOCYTES (test code = 1067) 1.72 K/UL 1.00-4.00 ABSOLUTE MONOCYTES (test code = 1068) 0.75 K/UL 0.20-1.00 ABSOLUTE EOSINOPHILS (test code = 1040) 0.00 K/UL 0.00-0.50 ABSOLUTE BASOPHILS (test code = 1069) 0.04 K/UL 0.00-0.20 ABS IMMATURE GRANULOCYTES (test code = 1020) 0.03 K/UL 0.00-0.10 ABS NUCLEATED RBCS (test code = 03494) 0.00 K/UL 0.00-0.11 CULTURE, [id number] 07:01:30SPECIMEN NUMBER: [id number] CULTURE, URINE SPECIMEN NUMBER: [id number] SPECIMEN COMMENT: URINE SOURCE: URINE REPORT STATUS: FINAL FINAL REPORT: 07/08/2023 NO GROWTH AFTER 36 HOURS INCUBATION UNLESS OTHE RWISE INDICATED, ALL TESTING PERFORMED AT [facility] [address] [place] [id number] PRICE CHECKER: LUIZ CALVO M.D. CLIA NUMBER [id number] [place].[id number], THIRD [id number] 06:39:48* Test Item Value Reference Range Interpretation Comme nts TSH, THIRD GENERATION (test code = 2821) 2.460 UIU/ML 0.400-4.100 UNLESS OTHERWISE INDICATED, ALL TESTING PERFORMED AT [facility] [address] [place] [id number] PRICE CHECKER: LUIZ CALVO M.D. CLIA NUMBER [id number] [place]. [id number] LIPID [id number] 04:40:40* Test Item Value Reference Range Interpretation [...] SPECIMENS. FOR MOREINFORMATION, SEE CLIENT ANNOUNCEMENT AT [email or web address] /CalcLDL-C RISK RATIO LDL/HDL (test code = 2238) 3.47 RATIO <3.55 BASIC METABOLIC [id number] 04:40:40* Test Item Value Reference Range Interpretation Comme nts GLUCOSE (test code = 2217) 88 MG/DL 70-99 BUN (test code = 2208) 10 MG/DL 6-20 CREATININE (test code = 2214) 0.80 MG/DL 0.80-1.40 eGFR (2020 CKD-EPI) (test code = 36174) 130 ML/MIN/1.73 >60 SODIUM (test code = 2231) 139 MEQ/L 133-146 POTASSIUM (test code = 2228) 4.6 MEQ/L 3.5-5.4 CHLORIDE (test code = 2215) 99 MEQ/L 95-107 CARBON DIOXIDE (test code = 2206) 27 MEQ/L 19-31 CALCIUM (test code = 2209) 10.2 MG/DL 8.5-10.5 HEMOGLOBIN [id number] 03:19:21* Test Item Value Reference Range Interpretation Comme nts HEMOGLOBIN A1c (test code = 80161) 5.3 % 4.2-5.6 CBC W/AUTO DIFF WITH [id number] 02:29:14* Test Item Value Reference Range Interpretation [...] = 1065) 0.0 /100 WBC'S See_Comment [Automated [facility] #2a ge] The system which generated this result [...] 0.00-0.10 ABS NUCLEATED RBCS (test code = 08059) 0.00 K/UL 0.00-0.11
[2024-02-11 11:13] LABS: Specific Gravity 1.005 (1.005-1.030); Sqamous Epithelial None Seen /HPF (None Seen); Urine Bacteria <20 /HPF (<20); Urine Bilirubin NEGATIVE (Negative); Urine Blood Negative (Negative); Urine Clarity Clear (Clear); Urine Color Colorless (Yellow); Urine Culture Reflex Order NOT NEEDED; Urine Glucose NEGATIVE (Negative); Urine Ketones NEGATIVE (Negative); Urine Micro Reflex YN NO BILL MICROSCOPIC; Urine Nitrite NEGATIVE (Negative); Urine Protein NEGATIVE (Negative); Urine RBC <5 /HPF (None Seen); Urine Urobilinogen Normal (Normal); Urine WBC <5 /HPF (<5)
--- NOTE | 2024-02-11 11:23 | EDPHYS ---
Physician Documentation [facility] Name: Reginald Connors Age: 23 yrs Sex: Male : 2000 Arrival Date: 02/11/2024 Time: 10:27 Bed IW1 Private MD: Aurea Alfaro ED Physician Bladimir Rodríguez HPI: 02/10 10:50 This 23 yrs old Male presents to ER via Ambulatory with complaints of Urinary ec2 Problem. 10:50 Patient arrives today for dysuria. No fevers or chills, no nausea or vomiting, ec2 tolerating p.o. without issue.. Historical: - Allergies: 10:49 Bactrim; ap3 10:49 citalopram; ap3 10:49 Clonazepam; ap3 10:49 Cymbalta; ap3 10:49 lamotrigine; ap3 10:49 Propranolol; ap3 10:49 Prozac; ap3 10:49 Rexulti; ap3 10:49 Zithromax; ap3 10:49 Zoloft; ap3 - PMHx: 10:49 Anxiety; Asthma; depressive disorder; ap3 - Immunization history:: Client reports receiving the 2nd dose of the Covid vaccine. - Infectious Disease History:: Denies. - Social history:: Smoking status: Patient denies any tobacco usage or history of. ROS: 10:50 Constitutional: as per hpi ec2 Exam: 10:50 Constitutional: GEN: NAD Head: atraumatic Eyes: EOMI Ears: External ears are ec2 normal. CV: regular rate LUNGS: no respiratory distress ABD: non-distended, soft, nontender, guarding, not rigid SKIN: no evidence of rashes MSK: no evidence of trauma NEURO: moves all extremities equally Vital Signs: 10:46 BP 132 / 78; Pulse 84; Resp 17; Temp 98.5(O); Pulse Ox 99% on R/A; Weight 104.78 kg; ap3 MDM: 10:50 Data reviewed: vital signs. ED course: Patient arrives today for evaluation of dysuria. ec2 Examination remarkable for well-appearing nontoxic individual with a benign abdomen and reassuring vital signs. Will obtain a urine to evaluate for UTI.. 10:52 Patient medically screened. ec2 11:21 ED course: Urine noninfectious appearing, will prescribe Pyridium for patient's ec2 dysuria. Will have patient follow-up with urology as needed. Return precautions given.. 02/10 10:49 Order name: HIMANSHU; Complete Time: 11:21 ec2 Administered Medications: No medications were administered Disposition Summary: 02/11/24 11:22 Discharge Ordered Notes: Location: Home ec2 Condition: Stable ec2 Diagnosis - Dysuria ec2 Followup: ec2 - With: Private Physician - When: - Reason: Re-evaluation by your physician Discharge Instructions: - Discharge Summary Sheet ec2 - Dysuria ec2 Forms: - Medication Reconciliation Form ec2 - Thank You Letter ec2 - Antibiotic Education ec2 - Prescription Opioid Use ec2 - Patient Portal Instructions ec2 - Leadership Thank You Letter ec2 Prescriptions: - Pyridium 200 mg Oral Tablet - take 1 tablet ORAL route every 8 hours for 3 days; 9 tablet; Refills: 0, ec2 Product Selection Permitted Signatures: Dispatcher [employer] Lisa Junior RN RN ap3 Bladimir Rodríguez MD MD ec2 Corrections: (The following items were deleted from the chart) 10:50 10:50 Urinalysis W/Microscopic+U.LAB.BRZ ordered. EDIA EDMS
--- NOTE | 2024-02-11 11:23 | ER ---
Nurse's Notes [facility] Name: Reginald Connors Age: 23 yrs Sex: Male : 2000 Arrival Date: 02/11/2024 Time: 10:27 Bed IW1 Private MD: Aurea Alfaro Diagnosis: Dysuria Presentation: 02/10 10:46 Chief complaint: Patient states: he has been having burning with urination since ap3 yesterday. Coronavirus screen: At this time, the client does not indicate any symptoms associated with coronavirus-19. Ebola Screen: No symptoms or risks identified at this time. Initial Sepsis Screen: Does the patient meet any 2 criteria? No. Patient's initial sepsis screen is negative. Does the patient have a suspected source of infection? No. Patient's initial sepsis screen is negative. Risk Assessment: Do you want to hurt yourself or someone else? Patient reports no desire to harm self or others. Onset of symptoms was February 10, 2024. 10:46 Method Of Arrival: Ambulatory ap3 10:46 Acuity: PHI 3 ap3 Triage Assessment: 10:50 General: Appears in no apparent distress. Behavior is calm. Pain: Complains of pain in ap3 with urination. Neuro: Level of Consciousness is awake, alert, obeys commands, Oriented to person, place, time, situation. Cardiovascular: Patient's skin is warm and dry. Respiratory: Airway is patent Respiratory effort is even, unlabored, Respiratory pattern is regular, symmetrical. : Reports burning with urination. Historical: - Allergies: 10:49 Bactrim; ap3 10:49 citalopram; ap3 10:49 Clonazepam; ap3 10:49 Cymbalta; ap3 10:49 lamotrigine; ap3 10:49 Propranolol; ap3 10:49 Prozac; ap3 10:49 Rexulti; ap3 10:49 Zithromax; ap3 10:49 Zoloft; ap3 - PMHx: 10:49 Anxiety; Asthma; depressive disorder; ap3 - Immunization history:: Client reports receiving the 2nd dose of the Covid vaccine. - Infectious Disease History:: Denies. - Social history:: Smoking status: Patient denies any tobacco usage or history of. Screenin:50 [facility] ED Fall Risk Assessment (Adult) History of falling in the last 3 months, ap3 including since admission No falls in past 3 months (0 pts) Confusion or Disorientation No (0 pts) Intoxicated or Sedated No (0 pts) Impaired Gait No (0 pts) Mobility Assist Device Used No (0 pt) Altered Elimination No (0 pt) Score/Fall Risk Level 0 - 2 = Low Risk Oriented to surroundings, Maintained a safe environment, Educated pt \T\ family on fall prevention, incl call for assistance when getting out of bed, Assessed \T\ reinforced patient's understanding of fall precautions, Provided non-skid footwear, Hourly rounding (assess needs \T\ fall precautionary measures) done, Used ambulatory aids as needed (educated on \T\ assisted with), Used gait belt as appropriate. Abuse screen: Denies threats or abuse. Nutritional screening: No deficits noted. Tuberculosis screening: No symptoms or risk factors identified. Vital Signs: 10:46 BP 132 / 78; Pulse 84; Resp 17; Temp 98.5(O); Pulse Ox 99% on R/A; Weight 104.78 kg; ap3 ED Course: 10:30 Patient arrived in ED. mr 10:31 Bladimir Rodríguez MD is Attending Physician. ec2 10:31 Aurea Alfaro is Private Physician. mr 10:49 Triage completed. ap3 10:50 Arm band placed on right wrist. ap3 11:32 ED physician to see patient. ap3 11:33 Provided Education on: discharge instructions. ap3 11:33 Patient has correct armband on for positive identification. Adult w/ patient. ap3 11:33 No provider procedures requiring assistance completed. Patient did not have IV access ap3 during this emergency room visit. Administered Medications: No medications were administered Medication: 11:33 VIS not applicable for this client. ap3 Outcome: 11:22 Discharge ordered by . ec2 11:34 Discharged to home ambulatory, with family, ap3 11:34 Condition: good 11:34 Discharge instructions given to patient, Instructed on discharge instructions, follow up and referral plans. medication usage, Demonstrated understanding of instructions, follow-up care, medications, Prescriptions given X 1, 11:37 Patient left the ED. ap3 Signatures: Kajla Galeana, Reg Reg mr Lisa Becerra, RN RN ap3 Rodríguez, Bladimir, MD MD ec2
[2024-02-11 14:31] VITALS: BP 132/78; TEMP 98.5; O2SAT 99
== END 2024-02-11 11:37 | disposition home or self-care (01) ==
LOC: ER 10:27
DX: R30.0 Dysuria (principal); Z88.1 Allergy status to other antibiotic agents; Z88.8 Allergy status to other drugs, medicaments and biological substances
CPT/HCPCS: 81001; 99283

== ENCOUNTER 2024-04-24 15:34 | Emergency (ER) | payer OTHER ==
--- OUTSIDE RECORDS SUMMARY | 2024-04-24 15:37 | XMS REPORT | Continuity of Care Document ---
Author Name Unknown Address [address] [facility] [address] [place] [address] [facility] thconnect Address [address] [facility] [place] [address] Care Team Providers Care Pastry Cook Apprentice Name Role Phone Raju_P Attending Clinician Unavailable Raju_P Admitting Clinician Unavailable Encounters Start Date/Time End Date/Time Encounter Type Admission Type Attending Clinicians Care Facility Care Department Encounter ID Source 2024-04-24 13:18:55 2024-04-24 13:18:55 Outpatient SFA SFA [id number] Helder Marie 2024-04-14 10:13:16 2024-04-14 10:13:16 Outpatient SFA SFA [id number] Helder Marie 2024-04-02 10:56:22 2024-04-02 10:56:22 Outpatient SFA SFA [id number] Helder Marie 2024-03-13 13:55:07 2024-03-13 13:55:07 Outpatient SFA SFA [id number] Helder Marie 2024-03-10 13:43:05 2024-03-10 13:43:05 Outpatient SFA SFA [id number] Helder Marie 2024-02-28 11:41:21 2024-02-28 11:41:21 Outpatient SFA SFA [id number] Helder Marie 2024-02-14 13:06:30 2024-02-14 13:06:30 Outpatient SFA SFA [id number] Helder Marie 2024-02-01 13:39:49 2024-02-01 13:39:49 Outpatient SFA SFA [id number] Helder Marie 2024-01-30 09:19:42 2024-01-30 09:19:42 Outpatient SFA SFA [id number] Helder Marie 2024-01-22 13:44:19 2024-01-22 13:44:19 Outpatient SFA SFA [id number] Helder Marie 2023-12-24 14:52:34 2023-12-24 14:52:34 Outpatient SFA SFA [id number] Helder Marie 2023-12-11 17:23:46 2023-12-11 17:23:46 Outpatient SFA SFA [id number] Helder Marie 2023-11-11 16:46:44 2023-11-11 16:46:44 Outpatient SFA SFA [id number] Helder Marie 2023-10-30 14:57:44 2023-10-30 14:57:44 Outpatient SFA SFA [id number] Helder Marie 2023-07-05 16:37:29 2023-07-05 16:37:29 Outpatient SFA SFA [id number] Helder Marie 2023-06-05 16:36:01 2023-06-05 16:36:01 Outpatient SFA SFA [id number] Helder Marie 2023-05-05 11:12:02 2023-05-05 11:12:02 Outpatient SFA SFA [id number] Helder Marie 2023-04-19 10:14:25 2023-04-19 10:14:25 Outpatient SFA SFA [id number] Helder Marie 2023-04-18 13:31:05 2023-04-18 13:31:05 Outpatient SFA SFA [id number] Helder Marie 2023-03-06 13:34:38 2023-03-06 13:34:38 Outpatient SFA SFA [id number] Helder Marie 2020-12-07 09:54:00 2020-12-07 09:54:00 Outpatient Raju_P MMG MMG [id number] [facility] Results Test Description Test Time Test Comments Results Result Co mments Source TSH, THIRD [id number] 04:30:42* Test Item Value Reference Range Interpretation Comme nts TSH, THIRD GENERATION (test code = 2821) 1.720 UIU/ML 0.400-4.100 [id number] 04:30:42* Test Item Value Reference Range Interpretation Comme nts PROLACTIN (test code = 2800) 17.8 NG/ML 4.0-26.0 NOTE: Methodolog y is Milla Allen Electrochemiluminescence Immunoassay (ECLIA). Values obtained with different assays/manufacturers cannot be used interchangeably. Results should not be used as sole basis to establish the presence or absence of malignancy. LIPID [id number] 04:28:46* Test Item Value Reference Range Interpretation [...] SPECIMENS. FOR MOREINFORMATION, SEE CLIENT ANNOUNCEMENT AT [email or web address] /CalcLDL-C RISK RATIO LDL/HDL (test code = 2238) 3.11 RATIO <3.55 COMPREHENSIVE METABOLIC [id number] 04:28:46* Test Item Value Reference Range Interpretation Comme nts GLUCOSE (test code = 2217) 98 MG/DL 70-99 BUN (test code = 2208) 9 MG/DL 6-20 CREATININE (test code = 2214) 0.91 MG/DL 0.80-1.40 eGFR (2020 CKD-EPI) (test code = 41643) 123 ML/MIN/1.73 >60 CALC BUN/CREAT (test code = 2235) 10 RATIO 6-28 SODIUM (test code = 223) 139 MEQ/L 133-146 POTASSIUM (test code = 2228) 4.6 MEQ/L 3.5-5.4 CHLORIDE (test code = 2215) 101 MEQ/L 95-107 CARBON DIOXIDE (test code = 2206) 23 MEQ/L 19-31 CALCIUM (test code = 2209) 10.1 MG/DL 8.5-10.5 PROTEIN, TOTAL (test code = 2228) 7.6 G/DL 6.1-8.3 ALBUMIN (test code = 220) 5.1 G/DL 3.5-5.2 CALC GLOBULIN (test code = 0) 2.5 G/DL 1.9-3.7 CALC A/G RATIO (test code = 2233) 2.0 RATIO 1.0-2.6 BILIRUBIN, TOTAL (test code = 2206) 0.7 MG/DL <=1.2 ALKALINE PHOSPHATASE (test code = 2203) 133 U/L 44-129 H AST (test code = 2217) 26 U/L 9-50 ALT (test code = 2218) 68 U/L 5-50 H HEMOGLOBIN [id number] 02:58:33* Test Item Value Reference Range Interpretation Comme nts HEMOGLOBIN A1c (test code = 88960) 5.2 % 4.2-5.6 CBC W/AUTO DIFF WITH [id number] 02:29:50* Test Item Value Reference Range Interpretation [...] = 1065) 0.0 /100 WBC'S See_Comment [Automated [employer]] The system which generated this result [...] 0.00-0.10 ABS NUCLEATED RBCS (test code = 54791) 0.00 K/UL 0.00-0.11 CULTURE, [id number] 07:01:30SPECIMEN NUMBER: [id number] CULTURE, URINE SPECIMEN NUMBER: [id number] SPECIMEN COMMENT: URINE SOURCE: URINE REPORT STATUS: FINAL FINAL REPORT: 07/08/2023 NO GROWTH AFTER 36 HOURS INCUBATION UNLESS OTHE RWISE INDICATED, ALL TESTING PERFORMED AT [facility] [address] [place] [address] GAME PROGRAMER: LUIZ CALVO M.D. CLIA NUMBER [id number] [place]EDIT[place].[id number], THIRD [id number] 06:39:48* Test Item Value Reference Range Interpretation Comme nts TSH, THIRD GENERATION (test code = 2821) 2.460 UIU/ML 0.400-4.100 UNLESS OTHERWISE INDICATED, ALL TESTING PERFORMED AT [facility] [address] [place] [address] GAME PROGRAMER: LUIZ CALVO M.D. CLIA NUMBER [id number] [place]. [id number] LIPID [id number] 04:40:40* Test Item Value Reference Range Interpretation [...] SPECIMENS. FOR MOREINFORMATION, SEE CLIENT ANNOUNCEMENT AT [email or web address] /CalcLDL-C RISK RATIO LDL/HDL (test code = 2238) 3.47 RATIO <3.55 BASIC METABOLIC [id number] 04:40:40* Test Item Value Reference Range Interpretation Comme nts GLUCOSE (test code = 7) 88 MG/DL 70-99 BUN (test code = 2207) 10 MG/DL 6-20 CREATININE (test code = 2213) 0.80 MG/DL 0.80-1.40 eGFR (2020 CKD-EPI) (test code = 69006) 130 ML/MIN/1.73 >60 SODIUM (test code = 2230) 139 MEQ/L 133-146 POTASSIUM (test code = 2227) 4.6 MEQ/L 3.5-5.4 CHLORIDE (test code = 2214) 99 MEQ/L 95-107 CARBON DIOXIDE (test code = 2205) 27 MEQ/L 19-31 CALCIUM (test code = 2208) 10.2 MG/DL 8.5-10.5 HEMOGLOBIN [id number] 03:19:21* Test Item Value Reference Range Interpretation Comme nts HEMOGLOBIN A1c (test code = 72675) 5.3 % 4.2-5.6 CBC W/AUTO DIFF WITH [id number] 02:29:14* Test Item Value Reference Range Interpretation [...] = 1065) 0.0 /100 WBC'S See_Comment [Automated [employer]] The system which generated this result [...] 0.00-0.10 ABS NUCLEATED RBCS (test code = 10630) 0.00 K/UL 0.00-0.11
--- NOTE | 2024-04-24 16:36 | RAD REPORT ---
EXAM DESCRIPTION: CT - Stone Protocol - 04/24/2024 4:14 pm CLINICAL HISTORY: Abdominal pain. COMPARISON: December 2023 TECHNIQUE: Computed axial tomography of the abdomen pelvis was obtained without oral or IV contrast. Lack of IV and oral contrast limits evaluation of solid organs, appendix, bowel, and vessels. Oropeza l reformatted images were obtained and reviewed. All CT scans are performed using dose optimization technique as appropriate and may include automated exposure control or mA/KV adjustment according to patient size. FINDINGS: A renal calculus is not seen. An ureteral calculus is not noted. A bladder calculus is not present. No hydronephrosis The liver, spleen, pancreas and adrenals appear grossly normal There is no evidence of diverticulitis. The appendix appears normal IMPRESSION: Negative for a genitourinary calculus
[2024-04-24 17:15] LABS: Absolute Lymphocytes (CBC) 1.7 K/uL (0.7-4.9); Absolute Monocytes 0.7 K/uL (0.1-1.3); Absolute Neutrophil 6.7 K/uL (1.8-8.0); Basophils % 0.3 % (0-1.3); Eosinophils % 0.1 % (0-4.4); Hematocrit 48.5 % (39.6-49.0); Hemoglobin 16.3 g/dL (13.6-17.9); Lymphocytes % 19.1 % (15.3-44.8); MCHC 33.6 g/dL (32.0-36.0); MCV 83.2 fL (80-100); MPV 9.2 fL (7.6-11.3); Monocytes % 7.6 % (3.3-12.3); Neutrophils % 72.9 % (41.7-73.7); Nucleated Red Blood Cells % 0.1 % (0-0); Platelets 284 thou/uL (152-406); RBC Red Blood Cell Count 5.83 M/uL (4.33-5.43); Red Cell Distribution Width 12.9 % (12.1-15.2)
[2024-04-24 17:15] LABS: Specific Gravity > 1.030 (1.005-1.030); Sqamous Epithelial None Seen /HPF (None Seen); Urine Bacteria None Seen /HPF (<20); Urine Bilirubin NEGATIVE (Negative); Urine Blood Negative (Negative); Urine Clarity Turbid (Clear); Urine Color Yellow (Yellow); Urine Culture Reflex Order NOT NEEDED; Urine Glucose NEGATIVE (Negative); Urine Ketones TRACE (Negative); Urine Microscopic Reflex YN ORDER UMIC; Urine Mucus 4+ /HPF (None Seen); Urine Nitrite NEGATIVE (Negative); Urine Protein 2+ (Negative); Urine RBC <5 /HPF (None Seen); Urine Urobilinogen 1+ (Normal); Urine WBC <5 /HPF (<5)
[2024-04-24 17:27] LABS: Albumin 4.2 g/dL (3.4-5.0); Albumin/Globulin Ratio 1.1 (1.1-1.8); Bilirubin Total 0.8 mg/dL (0.2-1.0); Globulin 3.9 g/dL (2.3-3.5); Protein, Total 8.1 g/dL (6.4-8.2)
[2024-04-24] MEDS ORDERED: NA CHLORIDE 0.9% 500 ML ONE (17:39)
--- NOTE | 2024-04-24 17:54 | ER ---
Nurse's Notes [facility] Name: Reginald Connors Age: 23 yrs Sex: Male : 2000 Arrival Date: 04/24/2024 Time: 15:34 Bed 13 Private MD: Diagnosis: Dysuria;Abdominal pain, unspecified Presentation: 04/24 15:37 Chief complaint: Patient states: burning with urination and dark colored urine that aa5 began 2-3 days ago. 15:37 Coronavirus screen: At this time, the client does not indicate any symptoms associated aa5 with coronavirus-19. Ebola Screen: Patient denies travel to an Ebola-affected area in the 21 days before illness onset. Initial Sepsis Screen: Does the patient meet any 2 criteria? No. Patient's initial sepsis screen is negative. Does the patient have a suspected source of infection? No. Patient's initial sepsis screen is negative. Risk Assessment: Do you want to hurt yourself or someone else? Patient reports no desire to harm self or others. Onset of symptoms was March 2024. 15:37 Acuity: PHI 3 aa5 15:37 Method Of Arrival: Ambulatory aa5 Triage Assessment: 15:40 General: Appears in no apparent distress. comfortable. rs5 Historical: - Allergies: 15:45 Bactrim; aa5 15:45 citalopram; aa5 15:45 Clonazepam; aa5 15:45 Cymbalta; aa5 15:45 lamotrigine; aa5 15:45 Propranolol; aa5 15:45 Prozac; aa5 15:45 Rexulti; aa5 15:45 Zithromax; aa5 15:45 Zoloft; aa5 - PMHx: 15:45 Anxiety; Asthma; depressive disorder; aa5 - Immunization history:: Adult Immunizations up to date. - Infectious Disease History:: Denies. - Social history:: Smoking status: Patient denies any tobacco usage or history of. - Family history:: not pertinent. - Hospitalizations: : No recent hospitalization is reported. Screenin:40 [facility] ED Fall Risk Assessment (Adult) History of falling in the last 3 months, rs5 including since admission No falls in past 3 months (0 pts) Confusion or Disorientation No (0 pts) Intoxicated or Sedated No (0 pts) Impaired Gait No (0 pts) Mobility Assist Device Used No (0 pt) Altered Elimination No (0 pt) Score/Fall Risk Level 0 - 2 = Low Risk Oriented to surroundings, Maintained a safe environment. Abuse screen: Denies threats or abuse. Nutritional screening: No deficits noted. Tuberculosis screening: No symptoms or risk factors identified. Assessment: 15:40 General: Behavior is calm, cooperative. Pain: Denies pain. Neuro: Level of rs5 Consciousness is awake, alert, obeys commands, Oriented to person, place, time, situation. Cardiovascular: Rhythm is regular. Respiratory: Airway is patent Respiratory effort is even, unlabored, Respiratory pattern is regular, symmetrical. GI: Abdomen is round non-distended, Abd is soft and non tender X 4 quads. : Reports burning with urination. : Reports dark colored urine started 2-3 days ago. EENT: No signs and/or symptoms were reported regarding the EENT system. 15:40 Derm: Skin is intact, Skin is pink, warm \T\ dry. Musculoskeletal: Range of motion: rs5 intact in all extremities. 16:55 Reassessment: Patient and/or family updated on plan of care and expected duration. Pain rs5 level reassessed. Patient is alert, oriented x 3, equal unlabored respirations, skin warm/dry/pink. 18:03 Reassessment: No changes from previously documented assessment. rs5 18:20 Reassessment: Patient and/or family updated on plan of care and expected duration. Pain rs5 level reassessed. Patient is alert, oriented x 3, equal unlabored respirations, skin warm/dry/pink. Vital Signs: 15:37 BP 141 / 85; Pulse 90; Resp 18 S; Temp 98.5(O); Pulse Ox 97% on R/A; Weight 102.51 kg aa5 (R); Height 5 ft. 9 in. (R); 18:21 BP 130 / 81; Pulse 77; Resp 17; Pulse Ox 99% on R/A; rs5 15:37 Body Mass Index 33.37 (102.51 kg, 175.26 cm) aa5 ED Course: 15:35 Patient arrived in ED. ts1 15:36 Duong Sanchez MD is Attending Physician. rn 15:37 Arm band placed on Patient placed in an exam room, on a stretcher. aa5 15:40 Patient has correct armband on for positive identification. Placed in gown. Bed in low rs5 position. Call light in reach. Side rails up X2. 15:40 No provider procedures requiring assistance completed. rs5 15:47 Triage completed. aa5 16:04 Rafael Tsang, RN is Primary Nurse. rs5 16:14 CT Stone Protocol In Process Unspecified. EDMS 17:02 Inserted saline lock: 20 gauge in right antecubital area, using aseptic technique. kj2 Blood collected. 18:21 IV discontinued, intact, bleeding controlled, No redness/swelling at site. Pressure rs5 dressing applied. Administered Medications: 17:48 Drug: NS 0.9% IV 500 ml IV at bolus once Route: IV; Rate: bolus; Site: right rs5 antecubital; 18:04 Follow up: Response: No adverse reaction rs5 18:20 Follow up: IV Status: Completed infusion; IV Intake: 500ml rs5 Medication: 18:04 VIS not applicable for this client. rs5 Intake: 18:20 IV: 500ml; Total: 500ml. rs5 Outcome: 17:53 Discharge ordered by . rn 18:21 Discharged to home ambulatory, with family, rs5 18:21 Condition: stable 18:21 Discharge instructions given to patient, family, Instructed on discharge instructions, follow up and referral plans. Demonstrated understanding of instructions, follow-up care, 18:22 Patient left the ED. rs5 Signatures: Dispatcher [employer] EDMS Duong Sanchez MD MD rn Calderon, Audri, RN RN aa5 Rafael Tsang, RN RN rs5 Sandy Batista PAS PAS ts1 Rosa Nazario RN RN kj2 Corrections: (The following items were deleted from the chart) 18:21 18:04 BP 130 / 81; Pulse 77bpm; Resp 17bpm; Pulse Ox 99% RA; rs5 rs5
--- NOTE | 2024-04-24 17:54 | EDPHYS ---
Physician Documentation [facility] Name: Reginald Connors Age: 23 yrs Sex: Male : 2000 Arrival Date: 04/24/2024 Time: 15:34 Bed 13 Private MD: ED Physician Duong Sanchez HPI: 04/24 15:51 This 23 yrs old Male presents to ER via Ambulatory with complaints of Urinary rn Problem. 15:51 The patient presents with urinary symptoms, dysuria. Onset: The symptoms/episode rn began/occurred yesterday. Associated signs and symptoms: Pertinent positives: dysuria, Pertinent negatives: fever, hematuria. Severity of symptoms: At their worst the symptoms were mild, in the emergency department the symptoms are unchanged. The patient has not experienced similar symptoms in the past. Patient reports dysuria and funny colored urine. Reports orange-colored urine. Began yesterday. Just started a new vitamin D supplement yesterday as well. Otherwise reports right flank pain that is mild and intermittent. No fever or chills. No vomiting. No trauma. No testicular pain or swelling. No penile pain or injury. No drainage from penis. Historical: - Allergies: 15:45 Bactrim; aa5 15:45 citalopram; aa5 15:45 Clonazepam; aa5 15:45 Cymbalta; aa5 15:45 lamotrigine; aa5 15:45 Propranolol; aa5 15:45 Prozac; aa5 15:45 Rexulti; aa5 15:45 Zithromax; aa5 15:45 Zoloft; aa5 - PMHx: 15:45 Anxiety; Asthma; depressive disorder; aa5 - Immunization history:: Adult Immunizations up to date. - Infectious Disease History:: Denies. - Social history:: Smoking status: Patient denies any tobacco usage or history of. - Family history:: not pertinent. - Hospitalizations: : No recent hospitalization is reported. ROS: 15:51 Constitutional: Negative for fever, chills, and weight loss, Abdomen/GI: Positive for rn right-sided abdominal and flank pain Back: Negative for spinal pain : Positive for dysuria Neuro: Negative for headache, weakness, numbness, tingling, and seizure, Exam: 15:51 Constitutional: This is a well developed, well nourished patient who is awake, alert, rn and in no acute distress. Cardiovascular: Regular rate and rhythm. No pulse deficits. Respiratory: No increased work of breathing, no retractions or nasal flaring. Abdomen/GI: Soft, nontender, no rebound or guarding. No masses. Back: No spinal tenderness. No costovertebral tenderness. Full range of motion. Vital Signs: 15:37 BP 141 / 85; Pulse 90; Resp 18 S; Temp 98.5(O); Pulse Ox 97% on R/A; Weight 102.51 kg aa5 (R); Height 5 ft. 9 in. (R); 18:21 BP 130 / 81; Pulse 77; Resp 17; Pulse Ox 99% on R/A; rs5 15:37 Body Mass Index 33.37 (102.51 kg, 175.26 cm) aa5 MDM: 15:36 Patient medically screened. rn 17:53 Differential diagnosis: nonspecific abdominal pain, UTI, dehydration. Data reviewed: rn vital signs, nurses notes, lab test result(s), radiologic studies, CT scan, and as a result, I will discharge patient. Counseling: I had a detailed discussion with the patient and/or guardian regarding the historical points, exam findings, and any diagnostic results supporting the discharge/admit diagnosis, lab results, radiology results, the need for outpatient follow up, to return to the emergency department if symptoms worsen or persist or if there are any questions or concerns that arise at home. Special discussion: I discussed with the patient/guardian in detail that at this point there is no indication for admission to the hospital. It is understood, however, that if the symptoms persist or worsen the patient needs to return immediately for re-evaluation. Based on the history and exam findings, there is no indication for further emergent testing or inpatient evaluation. I discussed with the patient/guardian the need to see the primary care provider for further evaluation of the symptoms. 04/24 15:50 Order name: CBC with Diff; Complete Time: 17:25 rn 04/24 15:50 Order name: CMP; Complete Time: 17:28 rn 04/24 15:50 Order name: Lipase; Complete Time: 17: rn 04/24 15:50 Order name: Urinalysis w/ reflexes; Complete Time: 17:20 rn 04/24 15:50 Order name: CT Stone Protocol; Complete Time: 16:38 rn 04/24 15:50 Order name: IV Saline Lock; Complete Time: 18:21 rn 04/24 15:50 Order name: Labs collected and sent; Complete Time: 18:21 rn Administered Medications: 17:48 Drug: NS 0.9% IV 500 ml IV at bolus once Route: IV; Rate: bolus; Site: right rs5 antecubital; 18:04 Follow up: Response: No adverse reaction rs5 18:20 Follow up: IV Status: Completed infusion; IV Intake: 500ml rs5 Disposition Summary: 04/24/24 17:53 Discharge Ordered Notes: Location: Home rn Problem: new rn Symptoms: have improved rn Condition: Stable rn Diagnosis - Dysuria rn - Abdominal pain, unspecified rn Followup: rn - With: Private Physician - When: As needed - Reason: Recheck today's complaints, Re-evaluation by your physician Discharge Instructions: - Discharge Summary Sheet rn - Abdominal Pain, Adult rn - Dehydration, Adult rn - Dysuria rn Forms: - Medication Reconciliation Form rn - Antibiotic rn wound - Prescription Opioid Use rn - Patient Portal Instructions rn - Leadership Thank You Letter rn Signatures: Dispatcher [employer] Duong Rosa MD MD rn Calderon, Audri RN RN aa5 Rafael Tsang RN RN rs5
[2024-04-24 18:36] VITALS: BP 141/85; TEMP 98.5; O2SAT 97
== END 2024-04-24 18:22 | disposition home or self-care (01) ==
LOC: ER 15:34
DX: R30.0 Dysuria (principal); R10.9 Unspecified abdominal pain; Z88.1 Allergy status to other antibiotic agents; Z88.8 Allergy status to other drugs, medicaments and biological substances
CPT/HCPCS: 85025; 81001; 36415; 83690; 80053; 76377; 74176; 96360; 99284; J7040

== ENCOUNTER 2024-06-01 18:57 | Emergency (ER) | payer OTHER ==
--- OUTSIDE RECORDS SUMMARY | 2024-06-01 19:00 | XMS REPORT | Continuity of Care Document ---
Author Name Unknown Address [address] [facility] [address] [place] [address] [facility] Address [address] [facility] [address] [place] [address] Care Team Providers Care Screen Handler Name Role Phone Raju_P Attending Clinician Unavailable Caleu_P Admitting Clinician Unavailable Encounters Start Date/Time End Date/Time Encounter Type Admission Type Attending Clinicians Care Facility Care Department Encounter ID Source 2024-06-01 16:07:08 2024-06-01 16:07:08 Outpatient [facility] S[facility] [id number] Helder Marie 2024-05-30 13:19:47 2024-05-30 13:19:47 Outpatient [facility] SFA [id number] Helder Marie 2024-05-12 10:25:42 2024-05-12 10:25:42 Outpatient [facility]FA SFA [id number] Helder Marie 2024-04-28 10:11:21 2024-04-28 10:11:21 Outpatient [facility] SFA [id number] Helder Marie 2024-04-24 13:18:55 2024-04-24 13:18:55 Outpatient [facility] SFA [id number] Helder Marie 2024-04-14 10:13:16 2024-04-14 10:13:16 Outpatient [facility]FA SFA [id number] Helder Marie 2024-04-02 10:56:22 2024-04-02 10:56:22 Outpatient [facility]FA SFA [id number] Helder Marie 2024-03-13 13:55:07 2024-03-13 13:55:07 Outpatient SFA SFA [id number] Helder Marie 2024-03-10 13:43:05 2024-03-10 13:43:05 Outpatient SFA SFA [id number] Helder Marie 2024-02-28 11:41:21 2024-02-28 11:41:21 Outpatient SFA SFA [id number] Helder Marie 2024-02-14 13:06:30 2024-02-14 13:06:30 Outpatient SFA SFA [id number] Helder Marie 2024-02-01 13:39:49 2024-02-01 13:39:49 Outpatient SFA SFA [id number] Helder Marie 2024-01-30 09:19:42 2024-01-30 09:19:42 Outpatient SFA SFA [id number] Helder Marie 2024-01-22 13:44:19 2024-01-22 13:44:19 Outpatient SFA SFA [id number] Helder Marie 2023-12-24 14:52:34 2023-12-24 14:52:34 Outpatient SFA SFA [id number] Helder Marie 2023-12-11 17:23:46 2023-12-11 17:23:46 Outpatient SFA SFA [id number] Helder Marie 2023-11-11 16:46:44 2023-11-11 16:46:44 Outpatient SFA SFA [id number] Helder Marie 2023-10-30 14:57:44 2023-10-30 14:57:44 Outpatient SFA SFA [id number] Helder Marie 2023-07-05 16:37:29 2023-07-05 16:37:29 Outpatient SFA SFA [id number] Helder Marie 2023-06-05 16:36:01 2023-06-05 16:36:01 Outpatient SFA SFA [id number] Helder Marie 2023-05-05 11:12:02 2023-05-05 11:12:02 Outpatient SFA SFA [id number] Helder Marie 2023-04-19 10:14:25 2023-04-19 10:14:25 Outpatient SFA SFA [id number] Helder Marie 2023-04-18 13:31:05 2023-04-18 13:31:05 Outpatient SFA SFA [id number] Helder Marie 2023-03-06 13:34:38 2023-03-06 13:34:38 Outpatient SFA SFA [id number] Helder Marie 2020-12-07 09:54:00 2020-12-07 09:54:00 Outpatient Raju_P MMG MMG [id number] [facility] Results Test Description Test Time Test Comments Results Result Co mments Source TSH, THIRD [id number] 04:30:42* Test Item Value Reference Range Interpretation Comme nts TSH, THIRD GENERATION (test code = 2821) 1.720 UIU/ML 0.400-4.100 [id number] 04:30:42* Test Item Value Reference Range Interpretation Comme nts PROLACTIN (test code = 2800) 17.8 NG/ML 4.0-26.0 NOTE: Methodolog y is Milla Allen Electrochemiluminescence Immunoassay (ECLIA). Values obtained with different assays/manufacturers cannot be used interchangeably. Results should not be used as sole basis to establish the presence or absence of malignancy. LIPID [id number] 04:28:46* Test Item Value Reference Range Interpretation [...] SPECIMENS. FOR MOREINFORMATION, SEE CLIENT ANNOUNCEMENT AT [email or web address] RISK RATIO LDL/HDL (test code = 2238) 3.11 RATIO <3.55 COMPREHENSIVE METABOLIC [id number] 04:28:46* Test Item Value Reference Range Interpretation Comme nts GLUCOSE (test code = 2217) 98 MG/DL 70-99 BUN (test code = 2208) 9 MG/DL 6-20 CREATININE (test code = 2214) 0.91 MG/DL 0.80-1.40 eGFR (2020 CKD-EPI) (test code = 74194) 123 ML/MIN/1.73 >60 CALC BUN/CREAT (test code [...] G/DL 3.5-5.2 CALC GLOBULIN (test code = 2239) 2.5 G/DL 1.9-3.7 CALC A/G RATIO (test code = 2233) 2.0 RATIO 1.0-2.6 BILIRUBIN, TOTAL (test code = 2206) 0.7 MG/DL <=1.2 ALKALINE PHOSPHATASE (test code = 2203) 133 U/L 44-129 H AST (test code = 2217) 26 U/L 9-50 ALT (test code = 2218) 68 U/L 5-50 H HEMOGLOBIN [id number] 02:58:33* Test Item Value Reference Range Interpretation Comme nts HEMOGLOBIN A1c (test code = 35078) 5.2 % 4.2-5.6 CBC W/AUTO DIFF WITH [id number] 02:29:50* Test Item Value Reference Range Interpretation [...] = 1065) 0.0 /100 WBC'S See_Comment [Automated messa ge] The system which generated this result [...] 0.00-0.10 ABS NUCLEATED RBCS (test code = 63530) 0.00 K/UL 0.00-0.11 CULTURE, [id number] 07:01:30SPECIMEN NUMBER: [id number] CULTURE, URINE SPECIMEN NUMBER: [id number] SPECIMEN COMMENT: URINE SOURCE: URINE REPORT STATUS: FINAL FINAL REPORT: 07/08/2023 NO GROWTH AFTER 36 HOURS INCUBATION UNLESS OTHE RWISE INDICATED, ALL TESTING PERFORMED AT [facility] [address] [place] [address] BOILING TUB OPERATOR: Aleyda TOLBERTIA NUMBER [id number] [facility] [place].[id number], THIRD [id number] 06:39:48* Test Item Value Reference Range Interpretation Comme nts TSH, THIRD GENERATION (test code = 2821) 2.460 UIU/ML 0.400-4.100 UNLESS OTHERWISE INDICATED, ALL TESTING PERFORMED AT [facility] [address] [place] [address] BOILING TUB OPERATOR: LUIZ CALVO M.D. [place] NUMBER [id number] [place]. [id number] LIPID [id number] 04:40:40* Test Item Value Reference Range Interpretation [...] SPECIMENS. FOR MOREINFORMATION, SEE CLIENT ANNOUNCEMENT AT [email or web address] RISK RATIO LDL/HDL (test code = 2238) 3.47 RATIO <3.55 BASIC METABOLIC [id number] 04:40:40* Test Item Value Reference Range Interpretation Comme nts GLUCOSE (test code = 2217) 88 MG/DL 70-99 BUN (test code = 2208) 10 MG/DL 6-20 CREATININE (test code = 2214) 0.80 MG/DL 0.80-1.40 eGFR (2020 CKD-EPI) (test code = 41831) 130 ML/MIN/1.73 >60 SODIUM (test code = 2231) 139 MEQ/L 133-146 POTASSIUM (test code = 2228) 4.6 MEQ/L 3.5-5.4 CHLORIDE (test code = 2215) 99 MEQ/L 95-107 CARBON DIOXIDE (test code = 2206) 27 MEQ/L 19-31 CALCIUM (test code = 2209) 10.2 MG/DL 8.5-10.5 HEMOGLOBIN [id number] 03:19:21* Test Item Value Reference Range Interpretation Comme nts HEMOGLOBIN A1c (test code = 20887) 5.3 % 4.2-5.6 CBC W/AUTO DIFF WITH [id number] 02:29:14* Test Item Value Reference Range Interpretation [...] = 1065) 0.0 /100 WBC'S See_Comment [Automated Poke'n Calla ge] The system which generated this result [...] 0.00-0.10 ABS NUCLEATED RBCS (test code = 32572) 0.00 K/UL 0.00-0.11
[2024-06-01 20:25] LABS: Specific Gravity 1.007 (1.005-1.030); Urine Bilirubin NEGATIVE (Negative); Urine Blood Negative (Negative); Urine Clarity Clear (Clear); Urine Color Colorless (Yellow); Urine Glucose NEGATIVE (Negative); Urine Ketones 1+ (Negative); Urine Microscopic Reflex YN NO UMIC; Urine Nitrite NEGATIVE (Negative); Urine Protein NEGATIVE (Negative); Urine Urobilinogen Normal (Normal); Urine pH 6.5 (5.0-7.0)
[2024-06-01 20:26] LABS: Absolute Lymphocytes (CBC) 1.1 K/uL (0.7-4.9); Absolute Monocytes 0.7 K/uL (0.1-1.3); Absolute Neutrophil 11.4 K/uL (1.8-8.0); Basophils % 0.3 % (0-1.3); Eosinophils % 0.1 % (0-4.4); Hematocrit 48.5 % (39.6-49.0); Hemoglobin 16.2 g/dL (13.6-17.9); Lymphocytes % 8.6 % (15.3-44.8); MCH 27.9 pg (27.0-35.0); MCHC 33.3 g/dL (32.0-36.0); MCV 83.7 fL (80-100); MPV 9.5 fL (7.6-11.3); Platelets 260 thou/uL (152-406); Red Cell Distribution Width 12.9 % (12.1-15.2)
[2024-06-01 20:36] LABS: Barbiturates NEGATIVE (NEGATIVE); Benzodiazepines NEGATIVE (NEGATIVE); Cocaine NEGATIVE (NEGATIVE); METHAMPHETAM NEGATIVE (NEGATIVE); Methadone NEGATIVE (NEGATIVE); Opiates NEGATIVE (NEGATIVE); Phencyclidine NEGATIVE (NEGATIVE); THC Cannibis NEGATIVE (NEGATIVE)
--- NOTE | 2024-06-01 20:36 | EDPHYS ---
Physician Documentation [facility] Name: Reginald Connors Age: 23 yrs Sex: Male : 2000 Arrival Date: 06/01/2024 Time: 18:57 Bed 15 Private MD: ED Physician Lin Sanchez HPI: 06/01 19:41 This 23 yrs old Male presents to ER via Ambulatory with complaints of Suicidal sb4 Ideation. 19:41 The patient presents to the emergency department with a history of a suicide gesture, sb4 suicide ideation. Onset: The symptoms/episode began/occurred at an unknown time. Past psychiatric history: Prior diagnosis: depression, the patient has a previous inpatient psychiatric history. 20:07 suicidal thoughts for awhile now. has history of depression, anxiety, has had issues sb4 with prior psych meds. is currently only taking hydroxyzine. Historical: - Allergies: 19:35 Bactrim; jj7 19:35 citalopram; jj7 19:35 Clonazepam; jj7 19:35 Cymbalta; jj7 19:35 lamotrigine; jj7 19:35 Propranolol; jj7 19:35 Prozac; jj7 19:35 Rexulti; jj7 19:35 Zithromax; jj7 19:35 Zoloft; jj7 - PMHx: 19:35 Anxiety; Asthma; depressive disorder; jj7 - PSHx: 19:35 None; jj7 - Immunization history:: Adult Immunizations up to date, Flu vaccine is not up to date. - Infectious Disease History:: Denies. - Social history:: Smoking status: Patient denies any tobacco usage or history of. Patient/guardian denies using alcohol, street drugs. ROS: 20:07 Constitutional: Negative for fever, chills, and weight loss, sb4 20:07 Psych: Positive for suicidal ideation, 20:07 All other systems are negative, Exam: 20:07 Constitutional: This is a well developed, well nourished patient who is awake, alert, sb4 and in no acute distress. Head/Face: Normocephalic, atraumatic. Eyes: Extra-ocular motions intact. Periorbital areas with no swelling, redness, or edema. ENT: Mucous membranes moist. Skin: Warm, dry with normal turgor. Normal color with no rashes, no lesions, and no evidence of cellulitis. 20:07 Psych: Behavior/mood is cooperative, suicidal, Affect is flat, Oriented to person, place, time, Patient having thoughts of suicide. Judgement / Insight is normal. Memory is normal. Delusions/hallucinations are not present. Vital Signs: 19:27 BP 139 / 89; Pulse 99; Resp 17; Temp 97.6; Pulse Ox 98% ; Weight 102.51 kg; Height 5 jj7 ft. 9 in. ; 19:35 Weight 102.51 kg; Height 5 ft. 9 in. ; ty 23:51 BP 132 / 82; Pulse 82; Resp 16; Temp 97.2; Pulse Ox 99% ; Pain 0/10; jm12 19:35 Body Mass Index 33.37 (102.51 kg, 175.26 cm) ty 23:51 Pain Scale: Adult jm12 MDM: 19:10 Patient medically screened. sb4 20:34 Data reviewed: vital signs, nurses notes, lab test result(s), EKG. Historians other sb4 than the Patient: Parent: mother. Counseling: I had a detailed discussion with the patient and/or guardian regarding the historical points, exam findings, and any diagnostic results supporting the discharge/admit diagnosis, the presence of at least one elevated blood pressure reading (>120/80) during this emergency department visit, lab results, the need to transfer to another facility, [facility] does not immediately have the required specialist. 06/02 00:34 ED course: patient ran out of the ED with IV intact. PD contacted, patient was brought sb4 back in handcuffs. HUMZA now in place. 06/01 19:36 Order name: Acetaminophen; Complete Time: 20:50 sb4 06/01 19:36 Order name: Basic Metabolic Panel; Complete Time: 20:50 sb4 06/01 19:36 Order name: CBC with Diff; Complete Time: 20:45 sb4 06/01 19:36 Order name: ETOH Level; Complete Time: 20:38 sb4 06/01 19:36 Order name: Hepatic Function; Complete Time: 20:50 sb4 06/01 19:36 Order name: PT-INR; Complete Time: 20:44 sb4 06/01 19:36 Order name: Ptt, Activated; Complete Time: 20:44 sb4 06/01 19:36 Order name: Salicylate; Complete Time: 20:58 sb4 06/01 19:36 Order name: Urinalysis w/ reflexes; Complete Time: 20:26 sb4 06/01 19:36 Order name: Urine Drug Screen; Complete Time: 20:37 sb4 06/01 20:44 Order name: CBC Smear Scan; Complete Time: 20:45 EDMS 06/01 19:36 Order name: EKG - Nurse/Tech; Complete Time: 20:42 sb4 06/01 19:36 Order name: IV Saline Lock; Complete Time: 20:42 sb4 06/01 19:36 Order name: Labs collected and sent; Complete Time: 20:42 sb4 06/01 19:36 Order name: Suicide Precautions; Complete Time: 21:18 sb4 06/01 19:36 Order name: Suicide Screening ([place]); Complete Time: 21:18 sb4 EC/05 20:43 Rate is 103 beats/min. Rhythm is regular, Sinus tachycardia. NC interval is normal at sb4 144 msec. QRS interval is normal at 84 msec. QT interval is normal at 326 msec. No Q waves. T waves are Normal. No ST changes noted. Clinical impression: Sinus tachycardia. Interpreted by me. Reviewed by me. Administered Medications: 06/02 00:40 Drug: Haloperidol IVP 5 mg IVP once Route: IVP; Site: right antecubital; jm12 Disposition: 06/01 20:34 Chart complete. Chart complete. sb4 Disposition Summary: 06/01/24 20:35 Transfer Ordered Notes: Transfer Location: Psych Facility sb4 Reason: Higher level of care sb4 Condition: Fair sb4 Problem: new sb4 Symptoms: are unchanged sb4 Accepting Physician: psychiatrist(06/02/24 01:59) jm12 Diagnosis - Suicidal ideations sb4 Forms: - Medication Reconciliation Form sb4 - SBAR form sb4 Signatures: Dispatcher [employer] Delilah Austin RN RN jj7 Leana Whitfield PA-C PADavid sb4 Ellie Gonsales RN RN jm12 Corrections: (The following items were deleted from the chart) 19:37 19:37 ACETAMINOPHEN+C.LAB.BRZ ordered. EDMS EDMS 19:37 19:37 BASIC METABOLIC PANEL+C.LAB.BRZ ordered. EDMS EDMS 19:37 19:37 CBC+H.LAB.BRZ ordered. EDMS EDMS 19:37 19:37 ETHANOL+C.LAB.BRZ ordered. EDMS EDMS 19:37 19:37 HEPATIC FUNCTION+C.LAB.BRZ ordered. EDMS EDMS 19:37 19:37 PROTIME (+INR)+COAG.LAB.BRZ ordered. EDMS EDMS 19:37 19:37 PTT, ACTIVATED+COAG.LAB.BRZ ordered. EDMS EDMS 19:37 19:37 SALICYLATE+C.LAB.BRZ ordered. EDMS EDMS 19:37 19:37 Urinalysis+U.LAB.BRZ ordered. EDMS EDMS 19:37 19:37 URINE DRUG SCREEN+UC.LAB.BRZ ordered. EDMS EDMS 06/02 01:59 06/01 20:35 psychiatrist sb4 jm12
--- NOTE | 2024-06-01 20:36 | ER ---
Nurse's Notes [facility] Name: Reginald Connors Age: 23 yrs Sex: Male : 2000 Arrival Date: 06/01/2024 Time: 18:57 Bed 15 Private MD: Diagnosis: Suicidal ideations Presentation: 06/01 19:27 Chief complaint: Patient states: WRAPPED A BUSINESS EXECUTIVE CORD AROUND HIS NECK SATURDAY BECAUSE jj7 HE WAS FRUSTRATED. HAS BEEN HAVING SI SINCE SATURDAY. STATES HE WAS NOT TRYING TO KILL HIMSELF. Parent and/or Guardian states: MOTHER STATES HE HAS BEEN HAVING MENTAL ISSUES FOR OVER A YEAR AND THE MEDS THEY ARE GIVING HIM ARE NOT WORKING. Coronavirus screen: At this time, the client does not indicate any symptoms associated with coronavirus-19. Ebola Screen: No symptoms or risks identified at this time. Initial Sepsis Screen: Does the patient meet any 2 criteria? HR > 90 bpm. Yes Does the patient have a suspected source of infection? No. Patient's initial sepsis screen is negative. Risk Assessment: Do you want to hurt yourself or someone else? Patient reports desire/thoughts of hurting themselves or someone else. Provider notified. 19:27 Method Of Arrival: Ambulatory 7 19:27 Acuity: PHI 2 jj7 Triage Assessment: 19:35 General: Appears in no apparent distress. comfortable, Behavior is calm, cooperative, jj7 appropriate for age, SHY. Pain: Complains of pain in right lower quadrant. : Reports burning with urination, pain in right lower quadrant(s). Historical: - Allergies: 19:35 Bactrim; jj7 19:35 citalopram; jj7 19:35 Clonazepam; jj7 19:35 Cymbalta; jj7 19:35 lamotrigine; jj7 19:35 Propranolol; jj7 19:35 Prozac; jj7 19:35 Rexulti; jj7 19:35 Zithromax; jj7 19:35 Zoloft; jj7 - PMHx: 19:35 Anxiety; Asthma; depressive disorder; jj7 - PSHx: 19:35 None; jj7 - Immunization history:: Adult Immunizations up to date, Flu vaccine is not up to date. - Infectious Disease History:: Denies. - Social history:: Smoking status: Patient denies any tobacco usage or history of. Patient/guardian denies using alcohol, street drugs. Screenin:38 [facility] ED Fall Risk Assessment (Adult) History of falling in the last 3 months, jj7 including since admission No falls in past 3 months (0 pts) Confusion or Disorientation No (0 pts) Intoxicated or Sedated No (0 pts) Impaired Gait No (0 pts) Mobility Assist Device Used No (0 pt) Altered Elimination No (0 pt) Score/Fall Risk Level 0 - 2 = Low Risk Oriented to surroundings, Maintained a safe environment, Educated pt \\T\\ family on fall prevention, incl call for assistance when getting out of bed. Abuse screen: Denies threats or abuse. Nutritional screening: No deficits noted. Tuberculosis screening: No symptoms or risk factors identified. Assessment: 20:37 Reassessment: Patient appears in no apparent distress at this time. General: Appears in jm12 no apparent distress. Behavior is calm, cooperative, Smells of. Neuro: No deficits noted. Cardiovascular: No deficits noted. Respiratory: No deficits noted. GI: No deficits noted. No signs and/or symptoms were reported involving the gastrointestinal system. : No deficits noted. No signs and/or symptoms were reported regarding the genitourinary system. EENT: No deficits noted. No signs and/or symptoms were reported regarding the EENT system. Derm: No deficits noted. No signs and/or symptoms reported regarding the dermatologic system. Musculoskeletal: No deficits noted. No signs and/or symptoms reported regarding the musculoskeletal system. 21:35 Reassessment: No changes from previously documented assessment. [facility] Psych: 20:32 [place] Suicide Severity Screening: In the past month, have you wished you were jm or wished you could go to sleep and not wake up? Patient responds "No." "In the past month, have you actually had any thoughts of killing yourself?" Patient responds "no." "In your lifetime, have you ever done anything, started to do anything, or prepared to do anything to end your life?" Patient responds "no." pt put phone heat curer around neck because he was mad. 20:32 Subjective: Patient's mood is Delusions are denied, Hallucinations are denied Having [facility] thoughts of suicide. Denies suicidal plan. Objective: Patient is cooperative. Interventions: Removed personal items and placed in bag. Urine collected and sent for urine drug test. Safety Checks: Personal items have been removed. Door is open. Visitors are present. Pt denies substance abuse. Commitment: Patient will be a voluntary commitment. 06/02 00:05 Commitment: Pt ran out of room and er code harvey called. Commitment: Pt yelling at [facility] police in room. Vital Signs: 06/01 19:27 BP 139 / 89; Pulse 99; Resp 17; Temp 97.6; Pulse Ox 98% ; Weight 102.51 kg; Height 5 jj7 ft. 9 in. ; 19:35 Weight 102.51 kg; Height 5 ft. 9 in. ; ty 23:51 BP 132 / 82; Pulse 82; Resp 16; Temp 97.2; Pulse Ox 99% ; Pain 0/10; jm12 19:35 Body Mass Index 33.37 (102.51 kg, 175.26 cm) ty 23:51 Pain Scale: Adult [facility] ED Course: 19:01 Patient arrived in ED. ra3 19:02 Leana Whitfield PA-C is PHCP. sb4 19:02 Lin Sanchez MD is Attending Physician. sb4 19:35 Triage completed. jj7 19:35 Arm band placed on right wrist. jj7 19:40 Safety checks: Items removed: yes. Door open/sign placed on door: yes. Family/friend ty present: yes. Family/friends encouraged to stay with patient. Sitter present: Yes. 19:40 Placed in gown. Bed in low position. Valuables inventory done. Given to family. Pt ty uncomfortable with personal affects being given to security, personal affects given to mother, whom is present with patient in room. Scrub pants unable to fit Pt. Pt will be staying sweatpants they came in. 19:42 Notified primary nurse of Pt wanting mother keeping personal affects. ty 20:07 Initial lab(s) drawn, by me, sent to lab. Urine collected: clean catch specimen, clear. ty Inserted saline lock: 20 gauge in right antecubital area, using aseptic technique. Blood collected. Flushed with 10 mL NS. 20:10 Acetaminophen Sent, Basic Metabolic Panel, Hepatic Function, PT-INR, Ptt, Activated, ty Salicylate Sent. 20:30 EKG done, by ED staff, reviewed by Leana Whitfield PA-C. ty 20:45 faxed pt clinical's to [facility], [facility], [place], and [facility]. 20:54 Assisted to bathroom. Pt. monitored. ty 21:46 called [facility] to confirm they received pt clinical's. ty 22:00 nurse to nurse with Lizbeth \\\\ [facility]. ty 22:04 Report given to report called to Lizbeth STUART at [facility]. jm12 22:09 nurse to nurse [facility]. ty 22:14 Report given to Nurse to nurse called to [facility] at [facility]. jm12 23:50 nurse to nurse with [facility]. ty 23:55 was notified by Brian Petersen that pt had been accepted to [facility], there was kmf a miscommunication with the Nurse who did nurse to nurse report. AOC was given to Thelma Argueta RN \\T\\4. Dr. Acevedo Accepted the pt \\T\\ [id number]. AOC given by Gianna Gonzalez. Pt will be transfer to [facility]. [id number] 00:08 called ems spoke with Juan Carlos eta 15 mins. ty 00:10 Juan Carlos called back, said [facility] was too far for them . Refused pt transfer. ty 00:35 called [facility] to notify electrical engineer of Transfer Warrant. ty 00:50 IV discontinued, intact, bleeding controlled, No redness/swelling at site. Pressure 12 dressing applied. 00:56 Judge Whitfield called requesting fax pt transfer warrant to [phone]. ty 01:18 transfer warrant was faxed back by Judge Whitfield, contacted [facility] to ty transfer pt. 01:59 pt left with Mental Health deputy. ty Administered Medications: 00:40 Drug: Haloperidol IVP 5 mg IVP once Route: IVP; Site: right antecubital; jm12 Medication: 08 19:38 VIS not applicable for this client. jj7 Outcome: 20:35 ER care complete, transfer ordered by sb4 06/02 01:59 Transferred police. Note: to [place] [id number] Condition: stable 01:59 Patient left the ED. jm12 Signatures: Delilah Davis, RN RN jj7 Leana Whitfield, PAGeovanniC PA-C [email or web address] Silke Vela Ruby ra3 Nicola Osorio Jessica, RN RN jm12 Corrections: (The following items were deleted from the chart) 06/01 20:45 20:42 ACETAMINOPHEN+C.LAB.BRZ drawn and sent. ty ty 20:45 20:42 BASIC METABOLIC PANEL+C.LAB.BRZ drawn and sent. ty ty 20:45 20:42 HEPATIC FUNCTION+C.LAB.BRZ drawn and sent. ty ty 20:45 20:42 PROTIME (+INR)+COAG.LAB.BRZ drawn and sent. ty ty 20:45 20:42 PTT, ACTIVATED+COAG.LAB.BRZ drawn and sent. ty ty 20:45 20:42 SALICYLATE+C.LAB.BRZ drawn and sent. ty ty 20:54 19:35 Placed in gown. Bed in low position. Valuables inventory done. Given to family. ty Pt uncomfortable with personal affects being given to security, personal affects given to mother, whom is present with patient in room. ty 21:24 19:35 Safety checks: Items removed: yes. Door open/sign placed on door: yes. ty Family/friend present: yes. Family/friends encouraged to stay with patient. Sitter present: Yes. ty 21:24 19:35 Placed in gown. Bed in low position. Valuables inventory done. Given to family. ty Pt uncomfortable with personal affects being given to security, personal affects given to mother, whom is present with patient in room. Scrub pants unable to fit Pt. Pt will be staying sweatpants they came in ty 21:24 19:35 Notified primary nurse of Pt wanting mother keeping personal affects ty ty 06/02 00:52 00:41 Commitment: Pt ran out of room and out of ER reji [email or web address]
[2024-06-01 20:43] LABS: PT Prothrombin Time 12.2 SECONDS (9.4-12.5); PTT, Activated Partial Thromb 37.3 SECONDS (24.3-36.9); Protime INR 1.09
[2024-06-01 20:44] LABS: Blood Morphology Comment NOT SEEN (NOT SEEN); Platelet Estimate ADEQ; White Blood Cell Scan OK (OK)
[2024-06-01 20:48] LABS: ALT/SGPT 55 U/L (16-61); AST/SGOT 31 U/L (15-37); Albumin 4.1 g/dL (3.4-5.0); Alkaline Phosphatase 148 U/L (45-117); Anion Gap 6.5 mEq/L (5.0-15.0); BUN Blood Urea Nitrogen 10 mg/dL (7-18); Bicarbonate 29 mEq/L (21-32); Bilirubin Direct 0.2 mg/dL (0-0.2); Bilirubin Indirect, Calculated 0.4 mg/dL (0.2-0.8); Bilirubin Total 0.6 mg/dL (0.2-1.0); Globulin 4.2 g/dL (2.3-3.5); Glomerular Filtration Rate 102 ml/min (=/>90); Glucose Level 131 mg/dL (74-106); Potassium 3.5 mEq/L (3.5-5.1); Protein, Total 8.3 g/dL (6.4-8.2); Sodium Level 140 mEq/L (136-145)
[2024-06-02] MEDS ORDERED: HALOPERIDOL LACT 5 MG/ML INJ ONE (00:43)
--- NOTE | 2024-06-02 17:06 | EKG ---
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
[2024-06-03 00:42] VITALS: BP 132/82; TEMP 97.2; O2SAT 99
== END 2024-06-02 01:59 ==
LOC: ER 18:57
DX: R45.851 Suicidal ideations (principal)
CPT/HCPCS: 93005; 85025; 80048; 36415; 85610; 80076; 85730; 81003; 80307; 80143; 80179; 82077; J1630

== ENCOUNTER 2024-09-03 18:40 | Emergency (ER) | payer OTHER ==
--- OUTSIDE RECORDS SUMMARY | 2024-09-03 18:45 | XMS REPORT | Continuity of Care Document ---
Author Name Unknown Address [address] [facility] [address] [place] [id number] [facility] thconnect Address [address] [facility]. 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 Name Role Phone PCP, PATIENT DOES NOT HAVE A Primary Care Physic Amira Sebastian MD Attending Clinician Unknown, Attending Attending Clinician UnavailAMIRA Sampson Attending Clinician Unavailable Shaquille_Marky Attending Clinician Unavailable Shaquille_Marky Admitting Clinician Unavailable Payers Payer Name Policy Type Policy Number Effective Date Expirati on Date Source Allergies, Adverse Reactions, Alerts Allergy Name Allergy Type Status Severity Reaction(s) Onset Date Inactive Date Treating Clinician Comments Source Zithroma x Propensi ty to adverse reaction to drug Active 3-15 00:00: 00 Helder Marie Bactrim - Oral Propensi ty to adverse reaction to drug Active 03-06 00:00: 00 Helder Marie Azithrom ycin Propensi ty to adverse reaction s Active Other - See comments 2012-10 00:00: 00 Mom unable to state the exact reaction [facility] AZITHROM YCIN DRUG INGREDI Active High Other-Cmnt 2012-10 00:00: 00 [facility] Social History Social Habit Start Date Stop Date Quantity Comments Source Sexual orientation U [facility] Sex assigned at 2002 00:00:00 2000 00:00:00 [facility] Smoking Status Start Date Stop Date Source Tobacco smoking consumption unknown [facility] Medications Ordered Medication Name Filled Medication Name Start Date Stop Date Current Medication? Ordering Clinician Indication Dosage Frequency Signature (SIG) Comments Components Source Xyzal 5 mg tablet 2023-10 00:00: 00 Yes 1mg Helder Marie ibuprofen 400 mg tablet 2023-10 00:00: 00 Yes 1mg Helder Marie benztropine 1 mg tablet 2023-10 00:00: 00 Yes 1mg Helder Marie risperidone 1 mg tablet 2023-10 00:00: 00 Yes 1mg Helder Marie risperidone 2 mg tablet 2023-10 00:00: 00 Yes 1mg Helder Marie hydroxyzine pamoate 50 mg capsule 2023-10 00:00: 00 Yes 1mg Helder Marie risperidone 1 mg tablet 2023-10 00:00: 00 Yes 1mg Helder Marie divalproex 125 mg tablet,belén yed release 2023-10 00:00: 00 Yes 1mg Helder Marie Risperdal 2 mg tablet 07-26 00:00: 00 Yes 1mg Helder Marie benztropine 1 mg tablet 07-26 00:00: 00 Yes 1mg Helder Marie trazodone 100 mg tablet 07-26 00:00: 00 Yes 1mg Helder Marie hydroxyzine pamoate 50 mg capsule 07-26 00:00: 00 Yes 1mg Helder Marie Depakote ER 250 mg tablet,exte nded release 07-23 00:00: 00 Yes 2mg Helder Marie Xyzal 5 mg tablet 07-19 00:00: 00 Yes 1mg Helder Marie Flonase Allergy Relief 50 mcg/actuati on nasal spray,suspe nsion 07-19 00:00: 00 Yes 2mcg/ac tuation Helder Marie bromphenira mine-pseudo ephedrine-D M (BROMFED DM) 2-30-10 mg/5 mL syrup 07-19 00:00: 00 Yes [id number] 5mL Take 5 mL by mouth 4 (four) times daily as needed for Congestion /Allergies . [facility] azelastine 137 mcg (0.1 %) nasal spray 07-19 00:00: 00 Yes [id number] 1{spray } Use 1 Ingomar in each nostril in the morning and 1 Ingomar in the evening. Use in each nostril as directed [facility] fluticasone propionate 50 mcg/actuati on nasal spray 07-19 00:00: 00 Yes [id number] 1{spray } Use 1 Ingomar in each nostril in the morning. [facility] amoxicillin -pot clavulanate 600-42.9 mg/5 mL suspension 07-19 00:00: 00 07-30 04:59 :00 Yes [id number] 870mg Take 7.25 mL by mouth in the morning and 7.25 mL in the evening. Do all this for 10 days. [facility] hydrOXYzine 50 mg capsule 07-09 00:00: 00 Yes TAKE ONE (1) CAPSULE(S) BY MOUTH THREE TIMES A DAY NEEDED. [facility] Risperdal 2 mg tablet 07-08 00:00: 00 Yes 1mg Helder Marie benztropine 1 mg tablet 07-08 00:00: 00 Yes 1mg Helder Marie Depakote 500 mg tablet,belén yed release 07-08 00:00: 00 Yes 1mg Helder Marie trazodone 100 mg tablet 07-08 00:00: 00 Yes 1mg Helder Marie hydroxyzine pamoate 50 mg capsule 07-08 00:00: 00 Yes 1mg Helder Marie hydrocortis one 2.5 % cream 06-30 00:00: 00 Yes APPLY A THIN LAYER TO THE AFFECTED AREA(S) 2 TIMES A DAY. [facility] cetirizine 10 mg tablet 06-27 00:00: 00 Yes 10mg Take 1 tablet by mouth at bedtime. [facility] levalbutero l 45 mcg/actuati on inhaler 06-27 00:00: 00 Yes INHALE ONE (1) PUFF EVERY 4-6 HOURS NEEDED. [facility] traZODone 100 mg tablet 06-24 00:00: 00 Yes 100mg Take 1 tablet by mouth at bedtime. [facility] risperiDONE 2 mg tablet 06-24 00:00: 00 Yes 2mg Take 1 tablet by mouth in the morning and 1 tablet in the evening. [facility] divalproex 500 mg delayed release tablet 06-24 00:00: 00 Yes 500mg Take 1 tablet by mouth in the morning and 1 tablet in the evening. [facility] benztropine 1 mg tablet 06-24 00:00: 00 Yes 1mg Take 1 tablet by mouth in the morning and 1 tablet in the evening. [facility] benztropine 1 mg tablet 06-19 00:00: 00 Yes 1mg Helder Marie Depakote 500 mg tablet,belén yed release 06-19 00:00: 00 Yes 1mg Helder Marie Risperdal 2 mg tablet 06-19 00:00: 00 Yes 1mg Helder Marie trazodone 100 mg tablet 06-19 00:00: 00 Yes 1mg Helder Marie albuterol 90 mcg/actuati on inhaler 06-12 00:00: 00 Yes INHALE TWO (2) PUFF(S) BY MOUTH FOUR TIMES A DAY NEEDED FOR ASTHMA. [facility] hydroxyzine pamoate 50 mg capsule 05-30 00:00: 00 Yes 1mg Helder Marie hydroxyzine pamoate 50 mg capsule 04-24 00:00: 00 Yes 1mg Helder Marie hydroxyzine pamoate 50 mg capsule 06 00:00: 00 Yes 1mg Helder Marie TAKE ONE (1) TABLET(S) BY MOUTH ONCE A DAY. 02-27 00:00: 00 Yes Helder Marie Vitamin D2 1,250 mcg (50,000 unit) capsule 24 00:00: 00 Yes 1(50,00 0 unit) Helder Marie trazodone 50 mg tablet 02-13 00:00: 00 Yes 1mg Helder Marie hydroxyzine pamoate 50 mg capsule 2024-0 4-19 00:00: 00 Yes 1mg Helder Marie TAKE ONE (1) TABLET(S) BY MOUTH EVERY EIGHT HOURS FOR 3 DAYS. 4-16 00:00: 00 Yes Helder Marie Latuda 40 mg tablet 4-06 00:00: 00 Yes 1mg Helder Marie Vitamin D3 50 mcg (2,000 unit) tablet 4-06 00:00: 00 Yes 1(2,000 unit) Helder Marie Latuda 60 mg tablet 3-29 00:00: 00 Yes 1mg Helder Marie LURASIDONE HYDROCHLORI DE 60 MG TABS 3-29 00:00: 00 Yes Helder Marie lurasidone 40 mg tablet 3-27 00:00: 00 Yes 1mg Helder Marie guanfacine ER 3 mg tablet,exte nded release 24 hr 3-15 00:00: 00 Yes 1mg Helder Marie lurasidone 40 mg tablet 3-15 00:00: 00 Yes 1mg Helder Marie trazodone 50 mg tablet 3-15 00:00: 00 Yes 1mg Helder Marie hydroxyzine pamoate 50 mg capsule 3-15 00:00: 00 Yes 1mg Helder Marie DISSOLVE 1 TABLET BY MOUTH EVERY 8 HOURS NEEDED 3-06 00:00: 00 Yes Helder Marie TAKE 1 TABLET BY MOUTH EVERY 12 HOURS FOR 14 DAYS 3-06 00:00: 00 Yes Helder Marie TAKE 1 TABLET DAILY AT DINNER. 29 00:00: 00 03-10 00:00 :00 No 40 Helder Marie HYDROXYZINE PAMOATE 50 MG 2-21 00:00: 00 Yes Helder Marie TAKE ONE (1) TABLET(S) BY MOUTH AT BEDTIME FOR MOOD. 2- 00:00: 00 Yes Helder Marie GUANFACINE ER 1 MG TB24 2-21 00:00: 00 Yes Helder Marie CLINDAMYCIN PHOSPHATE 1 % GEL 2-08 00:00: 00 Yes Helder Marie CHEW AND SWALLOW ONE (1) TABLET BY MOUTH TWICE DAILY. 11-20 00:00: 00 Yes Helder Marie AMOXICILLIN 400 MG/5ML SUSR 11-11 00:00: 00 Yes Helder Marie TAKE ONE (1) TABLET(S) BY MOUTH ONCE A DAY AT BEDTIME. 11-11 00:00: 00 Yes Helder Marie TAKE ONE (1) TABLET(S) BY MOUTH ONCE A DAY. 11-11 00:00: 00 Yes Helder Marie TAKE 1 TABLET DAILY. 11-11 00:00: 00 03-10 00:00 :00 No 5 Helder Marie TAKE 10 ML EVERY 4-6 HOURS NEEDED 11-11 00:00: 00 03-10 00:00 :00 No [id number] Helder Marie TAKE ONE (1) CAPSULE(S) BY MOUTH TWICE A DAY. 11-05 00:00: 00 Yes Helder Marie AMOXICILLIN 500 MG 2022-10 00:00: 00 Yes Helder Marie TAKE 12.5 ML TWICE DAILY 2022-10 00:00: 00 03-10 00:00 :00 No [id number] Helder Marie TAKE ONE (1) TABLET(S) BY MOUTH DAILY NEEDED. 2022-10 00:00: 00 Yes Helder Marie GUANFACINE ER 3 MG TB24 2022-10 00:00: 00 Yes Helder Marie TAKE ONE (1) TABLET(S) BY MOUTH ONCE A DAY NEEDED. 2022-10 00:00: 00 Yes Helder Marie TAKE ONE (1) TABLET(S) BY MOUTH TWICE DAILY. 2022-10 00:00: 00 Yes Helder Marie TRAZODONE HYDROCHLORI DE 50 MG TABS 2022-10 00:00: 00 Yes Helder Marie GUANFACINE ER 3 MG TB24 2022-10 00:00: 00 Yes Helder Marie LEVOCETIRIZ INE DIHYDROCHLO RIDE 5 MG TABS 2022-10 00:00: 00 Yes Helder Marie CITALOPRAM HYDROBROMID E 20 MG TABS 2022-10 00:00: 00 Yes Helder Marie TAKE ONE (1) TABLET(S) BY MOUTH TWICE A DAY. 2022-10 00:00: 00 Yes Helder Marie LAMOTRIGINE 100 MG TABS 2022-10-13 00:00: 00 Yes Helder Marie OLANZapine 10 MG TABS 2022-10 0-27 00:00: 00 Yes Helder Marie lamoTRIgine 100 MG TABS 2022-10 0-27 00:00: 00 Yes Helder Marie TRAZODONE HYDROCHLORI DE 50 MG TABS 2022-10 0-27 00:00: 00 Yes Helder Marie SERTRALINE HYDROCHLORI DE 100 MG TABS 2022-10 0 00:00: 00 Yes Helder Marie SERTRALINE HCL 50 MG TABS 2022-10 0-16 00:00: 00 Yes Helder Marie LAMOTRIGINE 25 MG TABS 2022-10 016 00:00: [address] 1/2 TABLET (2.5 MG) ON THE TONGUE AND ALLOW TO DISSOLVE TWICE DAILY (EVERY MORNING AND AT NOON) THEN DISSOLVE ONE TABLET (5 MG) ON 07-15 00:00: 00 Yes Helder Marie VENLAFAXINE HYDROCHLORI DE ER 75 MG CP24 07-15 00:00: 00 Yes Helder Marie TAKE 1 CAPSULE TWICE DAILY. 07-05 00:00: 00 03-10 00:00 :00 No 100 Helder Marie FENOFIBRATE 160 MG TABS 25 00:00: 00 Yes Helder Marie TAKE ONE (1) CAPSULE(S) BY MOUTH DAILY WITH FOOD. 16 00:00: 00 Yes Helder Marie CLONAZEPAM 0.5 MG TABS 8-16 00:00: 00 Yes Helder Marie TAKE ONE (1) CAPSULE(S) BY MOUTH DAILY. -11 00:00: 00 Yes Helder Marie CLONAZEPAM 0.5 MG TABS 8-10 00:00: 00 Yes Helder Marie OLANZAPINE ODT 5 MG TBDP 8-07 00:00: 00 Yes Helder Marie TAKE ONE (1) CAPSULE(S) BY MOUTH ONCE A DAY FOR DEPRESSION. 8-07 00:00: 00 Yes Helder Marie PROPRANOLOL HYDROCHLORI DE 10 MG TABS 727 00:00: 00 Yes Helder Marie HYDROXYZINE HYDROCHLORI DE 25 MG TABS 7 00:00: 00 Yes Helder Marie CLONAZEPAM 0.5 MG TABS 7-13 00:00: 00 Yes Helder Marie VENLAFAXINE HYDROCHLORI DE ER 75 MG CP24 - 00:00: 00 Yes Helder Marie BUSPIRONE HYDROCHLORI DE 5 MG TABS 6 00:00: 00 Yes Helder Marie TAKE TWO (2) CAPSULE(S) BY MOUTH IN THE MORNING WITH FOOD DAILY. 04-15 00:00: 00 Yes Helder Marie TAKE TWO CAPSULES IN THE MORNING WITH FOOD DAILY 04-15 00:00: 00 03-10 00:00 :00 No 375 Helder Marie TAKE 1-2 TABLETS TWICE A DAY NEEDED FOR ANXIETY 04-15 00:00: 00 03-10 00:00 :00 No 10 Helder Marie TAKE ONE (1) CAPSULE(S) BY MOUTH ONCE A DAY WITH FOOD. 04-11 00:00: 00 Yes Helder Marie GIVE TEN (10) MLS BY MOUTH TWICE DAILY FOR TEN DAYS. 04-08 00:00: 00 Yes Helder Marie NEOMYCIN/PO LYMYXIN/HYD ROCORTISONE [id number] SUSP 04-05 00:00: 00 Yes Helder Marie LORATADINE 04-02 00:00: 00 Yes Helder Marie NITROFURANT OIN 25 MG/5ML SUSP 04-02 00:00: 00 Yes Helder Marie VENLAFAXINE HCL ER 37.5 MG CP24 04-01 00:00: 00 Yes Helder Marie TAKE 1-2 TABLETS TWICE A DAY NEEDED FOR ANXIETY 04-01 00:00: 00 03-10 00:00 :00 No 10 Helder Marie TAKE 1 CAPSULE ONCE DAILY WITH FOOD. 05 00:00: 00 03-10 00:00 :00 No 375 Helder Marie INSTILL TWO (2) SPRAY(S) INTO EACH NOSTRIL ONCE A DAY. 03-15 00:00: 00 Yes Helder Marie TAKE 10 MLS BY MOUTH EVERY EIGHT HOURS NEEDED FOR COUGH AND CONGESTION. 03-13 00:00: 00 Yes Helder Marie TAKE ONE (1) TABLET(S) BY MOUTH EVERY SIX HOURS NEEDED FOR NAUSEA. 03-12 00:00: 00 Yes Helder Marie TAKE ONE (1) TABLET(S) BY MOUTH EVERY EIGHT HOURS NEEDED FOR ANXIETY. 03-12 00:00: 00 Yes Helder Marie NAPROXEN 500 MG TABS 03-12 00:00: 00 Yes Helder Marie TAKE ONE (1) TABLET(S) BY MOUTH EVERY EIGHT HOURS NEEDED. 03-11 00:00: 00 Yes Helder Marie PROMETHAZIN E HYDROCHLORI DE 6.25 MG/5ML SOLN 03-11 00:00: 00 Yes Helder Marie LEVALBUTERO L TARTRATE HFA 45 MCG/ACT AERO 03-08 00:00: 00 Yes Heldre Marie LAGEVRIO 200 MG 03-08 00:00: 00 Yes Helder Marie TAKE 3 ML DAILY. 03-06 00:00: 00 03-10 00:00 :00 No 205 Helder Marie TAKE 1 TABLET TWICE DAILY NEEDED. 03-06 00:00: 00 03-10 00:00 :00 No 10 Helder Marie CETIRIZINE 12-20 00:00: 00 Yes Helder Marie LEVOCETIRIZ I -14 00:00: 00 Yes Helder Marie VENTOLIN HFA AER 14 00:00: 00 Yes 108 Helder Marie LEVOCETIRIZ I -19 00:00: 00 Yes 5 Helder Marie VENTOLIN HFA AER 2021-10 00:00: 00 Yes 108 Helder Marie INHALE TWO (2) PUFFS BY MOUTH EVERY FOUR HOURS NEEDED. 2021-10 00:00: 00 Yes Helder Marie CEFDINIR MARIBEL 250/5ML 2021-10 00:00: 00 Yes 250 Helder Marie LORATADINE 2021-10 00:00: 00 Yes 10 Helder Marie TRETINOIN CRE 0.025% 2021-10 00:00: 00 Yes 25 Helder Marie TAKE ONE (1) TABLET(S) BY MOUTH AT BEDTIME. 2021-10 00:00: 00 Yes Helder Marie INHALE ONE (1) PUFF(S) EVERY FOUR TO SIX HOURS NEEDED. 2021-10 00:00: 00 Yes Helder Marie FLUTICASONE SPR 07-21 00:00: 00 Yes 50 Helder Marie POLYETH GLYC POW 3350 NF 07-18 00:00: 00 Yes 17 Helder Marie Immunizations Ordered Immunization Name Filled Immunization Name Date Status Comments Source SARS-COV-2 COVID-19 PFIZER VACCINE Unknown Completed [facility] Vital Signs Vital Name Observation Time Observation Value Comments S ource Systolic blood pressure 2024-07-19 14:35:00 120 mm[Hg] [facility] Diastolic blood pressure 2024-07-19 14:35:00 78 mm[Hg] [facility] Heart rate 2024-07-19 14:35:00 70 /min [facility] Body temperature 2024-07-19 14:35:00 36.5 [facility] Respiratory rate 2024-07-19 14:35:00 17 /min [facility] Body height 2024-07-19 14:35:[address] [facility] Body weight 2024-07-19 14:35:[address] [facility] BMI 2024-07-19 14:35:00 32.66 kg/m2 [facility] Oxygen saturation in Arterial blood by Pulse oximetry 2024-07-19 14:35:00 97 /min [facility] BP Systolic 2024-08-27 09:04:00 122 mm[Hg] Step hen F Frank BP Diastolic 2024-08-27 09:04:00 74 mm[Hg] Kian phen F Frank Weight Measured 2024-08-27 09:04:00 227.00 pounds Helder F Frank Height Measured 2024-08-27 09:04:00 67.00 inches Helder F Frank Body Temperature 2024-08-27 09:04:00 98.10 degrees Helder F Frank Heart Rate 2024-08-27 09:04:00 84.00 /min Jocy en F Frank Respiratory Rate 2024-08-27 09:04:00 18.00 /min Helder F Frank BP Systolic 2024-04-02 11:05:00 120 mm[Hg] Step hen F Frank BP Diastolic 2024-04-02 11:05:00 78 mm[Hg] Kian phen F Frank Weight Measured 2024-04-02 11:05:00 227.00 pounds Helder F Frank Height Measured 2024-04-02 11:05:00 67.00 inches Helder F Frank Body Temperature 2024-04-02 11:05:00 98.20 degrees Helder F Frank Heart Rate 2024-04-02 11:05:00 78.00 /min Jocy en F Frank Respiratory Rate 2024-04-02 11:05:00 18.00 /min Helder F Frank BP Systolic 2024-03-13 14:26:00 121 mm[Hg] Step hen F Frank BP Diastolic 2024-03-13 14:26:00 73 mm[Hg] Kian phen F Frank Weight Measured 2024-03-13 14:26:00 229.40 pounds Helder F Frank Height Measured 2024-03-13 14:26:00 67.00 inches Helder F Frank Body Temperature 2024-03-13 14:26:00 98.20 degrees Helder F Frank Heart Rate 2024-03-13 14:26:00 76.00 /min Jocy en F Frank Respiratory Rate 2024-03-13 14:26:00 18.00 /min Helder F Frank BP Systolic 2024-02-28 11:47:00 130 mm[Hg] Step hen F Frank BP Diastolic 2024-02-28 11:47:00 60 mm[Hg] Kian phen F Frank Weight Measured 2024-02-28 11:47:00 230.20 pounds Helder F Frank Height Measured 2024-02-28 11:47:00 67.00 inches Helder F Frank Body Temperature 2024-02-28 11:47:00 98.20 degrees Helder F Frank Heart Rate 2024-02-28 11:47:00 85.00 /min Jocy en F Frank Respiratory Rate 2024-02-28 11:47:00 18.00 /min Helder F Frank BP Systolic 2024-02-14 13:17:00 127 mm[Hg] Step hen F Frank BP Diastolic 2024-02-14 13:17:00 67 mm[Hg] Kian phen F Frank Weight Measured 2024-02-14 13:17:00 233.20 pounds Helder F Frank Height Measured 2024-02-14 13:17:00 67.00 inches Helder F Frank Body Temperature 2024-02-14 13:17:00 98.10 degrees Helder F Frank Heart Rate 2024-02-14 13:17:00 82.00 /min Jocy en F Frank Respiratory Rate 2024-02-14 13:17:00 20.00 /min Helder F Frank BP Systolic 2023-07-05 16:42:00 121 mm[Hg] Step hen F Frank BP Diastolic 2023-07-05 16:42:00 77 mm[Hg] Kian phen F Frank Weight Measured 2023-07-05 16:42:00 221.00 pounds Helder F Frank Height Measured 2023-07-05 16:42:00 67.00 inches Helder F Frank Body Temperature 2023-07-05 16:42:00 Helder F Frank Heart Rate 2023-07-05 16:42:00 88.00 /min Jocy en F Frank Respiratory Rate 2023-07-05 16:42:00 19.00 /min Helder F Frank BP Systolic 2023-03-06 13:57:00 115 mm[Hg] Step hen F Frank BP Diastolic 2023-03-06 13:57:00 74 mm[Hg] Kian phen F Frank Weight Measured 2023-03-06 13:57:00 198.40 pounds Helder F Frank Height Measured 2023-03-06 13:57:00 69.00 inches Helder F Frank Body Temperature 2023-03-06 13:57:00 98.30 degrees Helder Marie Heart Rate 2023-03-06 13:57:00 96.00 /min Jocy Marie Respiratory Rate 2023-03-06 13:57:00 20.00 /min Helder Marie Procedures Procedure Date / Time Performed Performing Clinicia n Source POCT MOLECULAR FLU 2024-07-19 14:44:00 Amira Ardon [facility] POCT MOLECULAR STREP 2024-07-19 14:44:00 Amira Ardon [facility] POCT SARS-COV-2 ANTIGEN (BINAX NOW) 2024-07-19 14:32:00 Amira Ardon [facility] Encounters Start Date/Time End Date/Time Encounter Type Admission Type Attending [facility] Care Department Encounter ID Source 2024-09-02 15:47:41 2024-09-02 15:47:41 Outpatient SFA SFA [id number] Helder Marie 2024-08-30 15:19:38 2024-08-30 15:19:38 Outpatient SFA SFA [id number] Helder Marie 2024-08-27 09:01:25 2024-08-27 09:01:25 Outpatient SFA SFA [id number] Helder Marie 2024-08-27 00:00:00 2024-08-27 00:00:00 Outpatient Visit SFA [id number] Helder Marie 2024-08-21 20:10:29 2024-08-21 20:10:29 Outpatient SFA SFA [id number] Helder Marie 2024-08-17 08:43:05 2024-08-17 08:43:05 Outpatient SFA SFA [id number] Helder Marie 2024-08-03 08:43:11 2024-08-03 08:43:11 Outpatient SFA SFA [id number] Helder Marie 2024-07-28 10:00:56 2024-07-28 10:00:56 Outpatient SFA SFA [id number] Helder Marie 2024-07-26 14:19:18 2024-07-26 14:19:18 Outpatient SFA SFA [id number] Helder Marie 2024-07-23 10:04:35 2024-07-23 10:04:35 Outpatient SFA SFA [id number] Helder Marie 2024-07-21 10:12:45 2024-07-21 10:12:45 Outpatient SFA SFA [id number] Helder Marie 2024-07-19 09:20:00 2024-07-19 09:40:00 Urgent Care [facility]xt[facility]ira Unknown, Attending [facility] [id number] [facility] 2024-07-19 09:20:00 2024-07-19 09:20:00 Outpatient R AMIRA ARDON [facility] [id number] [facility] 2024-07-19 08:13:00 2024-07-19 08:13:00 Outpatient SFA SFA [id number] Helder Marie 2024-07-19 00:00:00 2024-07-19 00:00:00 Outpatient Visit SFA [id number] Helder Marie 2024-07-09 15:38:28 2024-07-09 15:38:28 Outpatient SFA SFA [id number] Helder Marie 2024-07-08 08:16:23 2024-07-08 08:16:23 Outpatient SFA SFA [id number] Helder Marie 2024-07-07 09:43:41 2024-07-07 09:43:41 Outpatient SFA SFA [id number] Helder Marie 2024-06-23 10:00:38 2024-06-23 10:00:38 Outpatient SFA SFA [id number] Helder Marie 2024-06-19 15:23:32 2024-06-19 15:23:32 Outpatient SFA SFA [id number] Helder Marie 2024-06-13 13:24:39 2024-06-13 13:24:39 Outpatient SFA SFA [id number] Helder Marie 2024-06-01 16:07:08 2024-06-01 16:07:08 Outpatient SFA SFA [id number] Helder Marie 2024-05-30 13:19:47 2024-05-30 13:19:47 Outpatient SFA SFA [id number] Helder Marie 2024-05-12 10:25:42 2024-05-12 10:25:42 Outpatient SFA SFA [id number] Helder Marie 2024-04-28 10:11:21 2024-04-28 10:11:21 Outpatient SFA SFA [id number] Helder Marie 2024-04-24 13:18:55 2024-04-24 13:18:55 Outpatient SFA SFA [id number] Helder aMrie 2024-04-14 10:13:16 2024-04-14 10:13:16 Outpatient SFA SFA [id number] Helder Marie 2024-04-02 10:56:22 2024-04-02 10:56:22 Outpatient SFA SFA [id number] Helder Marie 2024-03-13 13:55:07 2024-03-13 13:55:07 Outpatient SFA SFA [id number] Helder Marie 2024-03-10 13:43:05 2024-03-10 13:43:05 Outpatient SFA SFA [id number] Helder Marie 2024-02-28 11:41:21 2024-02-28 11:41:21 Outpatient SFA SFA [id number] Helder Romero Frank 2024-02-14 13:06:30 2024-02-14 13:06:30 Outpatient SFA SFA [id number] Helder Marie 2024-02-01 13:39:49 2024-02-01 13:39:49 Outpatient SFA SFA [id number] Helder Marie 2024-01-30 09:19:42 2024-01-30 09:19:42 Outpatient SFA SFA [id number] Helder Marie 2024-01-22 13:44:19 2024-01-22 13:44:19 Outpatient SFA SFA [id number] Helder Marie 2023-12-24 14:52:34 2023-12-24 14:52:34 Outpatient SFA SFA [id number] Helder Marie 2023-12-11 17:23:46 2023-12-11 17:23:46 Outpatient SFA SFA [id number] Helder Marie 2023-11-11 16:46:44 2023-11-11 16:46:44 Outpatient SFA SFA [id number] Helder Marie 2023-10-30 14:57:44 2023-10-30 14:57:44 Outpatient SFA SFA [id number] Helder Marie 2023-07-05 16:37:29 2023-07-05 16:37:29 Outpatient SFA SFA [id number] Helder Marie 2023-06-05 16:36:01 2023-06-05 16:36:01 Outpatient SFA SFA [id number] Helder Marie 2023-05-05 11:12:02 2023-05-05 11:12:02 Outpatient SFA SFA [id number] Helder Marie 2023-04-19 10:14:25 2023-04-19 10:14:25 Outpatient SFA SFA [id number] Helder Marie 2023-04-18 13:31:05 2023-04-18 13:31:05 Outpatient SFA SFA [id number] Helder Marie 2023-03-06 13:34:38 2023-03-06 13:34:38 Outpatient SFA SFA [id number] Helder Romero Frank 2020-12-07 09:54:00 2020-12-07 09:54:00 Outpatient Raju_P MMG [id number] [facility] Results Test Description Test Time Test Comments Results Result Co mments Source [facility] MOLECULAR [id number] 14:51:52* Test Item Value Reference Range Interpretation Comme nts POCT Molecular Strep (test c ode = 26783-7) Negative Negative Lab Interpretation (test cod e = 19205-0) Normal [facility] SARS-COV-2 ANTIGEN (BINAX NOW)2024-07-19 14:47:00* Test Item Value Reference Range Interpretation Comme [facility] POCT SARS-COV-2 ANTIGEN (test code = 96316-2) Not Detected Not Detected, See Comment On board controls acceptable with C Line (test code = 3574) Yes CHRISTINA (test code = CHRISTINA) accurate developme nt and interpretation of all internal controls Lab Interpretation (test code = 51432-2) [id number] 04:29:46* Test Item Value Reference Range Interpretation Comme [facility] VALPROIC ACID (test code = 3025) 12.1 UG/ML 50.0-125.0 L REFERENCE RANGES EPILEPSY . . . . . . . . . . . . . .UG/ML 50.0-100.0 LAUREN. . . . . . . . . . . . . . . .UG/ML 50.0-125.0 POSSIBLE TOXICITY. . . . . . . . . .UG/ML >125.0 UNLESS OTHERWISE INDICATED, ALL TESTING PERFORMED AT [facility] [address] [place] [address] COMPOSING ROOM MACHINIST APPRENTICE: LUIZ CALVO M.D. [place] NUMBER [id number] [facility] [place] [id number] VALPROIC [id number] 00:00:00* Test Item Value Reference Range Interpretation Comme [facility] VALPROIC ACID (test code = 3025) 12.1 UG/ML Helder MarieVALPROIC [id number] 00:00:00* Test Item Value Reference Range Interpretation Comme [facility] VALPROIC ACID (test code = 3025) 12.1 UG/ML Helder MarieVITAMIN D, 25 [id number] 05:02:45* Test Item Value Reference Range Interpretation Comme [facility] VITAMIN D, 25 OH (test code = 4958) 22 NG/ML SEE BELOW L NOTE: 25-HYDR OXYVITAMIN D ASSAY INCLUDES 25-HYDROXYVITAMIN D2 AND D3. INTERPRETIVE RANGES PEDIATRIC (<17 YEARS) . . . . . . . . . . . NG/ML 20-100ADULT: INSUFFICIENT . . . . . . . . . . . . . . NG/ML <20 SUBOPTIMAL . . . . . . . . . . . . . . . NG/ML 20-29 OPTIMAL . . . . . . . . . . . . . . . . . NG/ML 30-100 UNLESS OTHERWISE INDICATED, ALL TESTING PERFORMED AT CLINICAL [facility] [address] [place] [id number] COMPOSING ROOM MACHINIST APPRENTICE: LUIZ CALVO M.D. CLIA NUMBER [id number] [facility]. [id number] TSH, THIRD [id number] 04:30:42* Test Item Value Reference Range Interpretation Comme nts TSH, THIRD GENERATION (test code = 2821) 1.720 UIU/ML 0.400-4.100 [id number] 04:30:42* Test Item Value Reference Range Interpretation Comme nts PROLACTIN (test code = 2800) 17.8 NG/ML 4.0-26.0 NOTE: Methodolog y is Milla Allen Electrochemiluminescence Immunoassay (ECLIA). Values obtained with different assays/manufacturers cannot be used interchangeably. Results should not be used as sole basis to establish the presence or absence of malignancy. LIPID [id number] 04:28:46* Test Item Value Reference Range Interpretation [...] = 2238) 3.11 RATIO <3.55 COMPREHENSIVE METABOLIC [id number] 04:28:46* Test Item Value Reference Range Interpretation Comme nts GLUCOSE (test code = 2217) 98 MG/DL 70-99 BUN (test code = 2208) 9 MG/DL 6-20 CREATININE (test code = 2214) 0.91 MG/DL 0.80-1.40 eGFR (2020 CKD-EPI) (test code = 38444) 123 ML/MIN/1.73 >60 CALC BUN/CREAT (test code [...] = 2218) 68 U/L 5-50 H HEMOGLOBIN [id number] 02:58:33* Test Item Value Reference Range Interpretation Comme nts HEMOGLOBIN A1c (test code = 94127) 5.2 % 4.2-5.6 CBC W/AUTO DIFF WITH [id number] 02:29:50* Test Item Value Reference Range Interpretation [...] 0.00-0.10 ABS NUCLEATED RBCS (test code = 88243) 0.00 K/UL 0.00-0.11 CBC W/AUTO [id number] 00:00:00* Test Item Value Reference Range Interpretation Comme nts WBC (test code = 1001) 7.7 K/UL RBC (test code = 1002) 6.05 M/UL HEMOGLOBIN (test code = 1003) 17.1 G/DL HEMATOCRIT (test code = 1004) 50.2 % MCV (test code = 1005) 83.0 fL MCH (test code = 1006) 28.3 PG MCHC (test code = 1007) 34.1 G/DL RDW (test code = 1038) 12.8 % NEUTROPHILS (test code = 1008) 67.1 % LYMPHOCYTES (test code = 1010) 22.3 % MONOCYTES (test code = 1011) 9.7 % EOSINOPHILS (test code = 1012) 0.0 % BASOPHILS (test code = 1013) 0.5 % IMMATURE GRANULOCYTES (test code = 1036) 0.4 % NUCLEATED RBCS (test code = 1065) 0.0 /100WBC'S PLATELET COUNT (test code = 1015) 270 K/UL ABSOLUTE NEUTROPHILS (test c ode = 1066) 5.18 K/UL ABSOLUTE LYMPHOCYTES (test c ode = 1067) 1.72 K/UL ABSOLUTE MONOCYTES (test cod e = 1068) 0.75 K/UL ABSOLUTE EOSINOPHILS (test c ode = 1040) 0.00 K/UL ABSOLUTE BASOPHILS (test cod e = 1069) 0.04 K/UL ABS IMMATURE GRANULOCYTES (t est code = 1020) 0.03 K/UL ABS NUCLEATED RBCS (test cod e = 00924) 0.00 K/UL Helder MarieHEMOGLOBIN [id number] 00:00:00* Test Item Value Reference Range Interpretation Comme nts HEMOGLOBIN A1c (test code = 15566) 5.2 % Helder MarieLIPID [id number] 00:00:00* Test Item Value Reference Range Interpretation Comme nts CHOLESTEROL (test code = 2210) 251 MG/DL TRIGLYCERIDES (test code = 2232) 150 MG/DL HDL CHOLESTEROL (test code = 2220) 54 MG/DL CALC LDL CHOL (test code = 2237) 168 MG/DL RISK RATIO LDL/HDL (test cod e = 2238) 3.11 RATIO Helder MarieCOMPREHENSIVE METABOLIC [id number] 00:00:00* Test Item Value Reference Range Interpretation Comme nts GLUCOSE (test code = 2217) 98 MG/DL BUN (test code = 2208) 9 MG/DL CREATININE (test code = 2214) 0.91 MG/DL eGFR (2020 CKD-EPI) (test code = 01807) 123 ML/MIN/1.73 CALC BUN/CREAT (test code = 2235) 10 RATIO SODIUM (test code = 2231) 139 MEQ/L POTASSIUM (test code = 2228) 4.6 MEQ/L CHLORIDE (test code = 2215) 101 MEQ/L CARBON DIOXIDE (test code = 2206) 23 MEQ/L CALCIUM (test code = 2209) 10.1 MG/DL PROTEIN, TOTAL (test code = 2229) 7.6 G/DL ALBUMIN (test code = 2201) 5.1 G/DL CALC GLOBULIN (test code = 2240) 2.5 G/DL CALC A/G RATIO (test code = 2234) 2.0 RATIO BILIRUBIN, TOTAL (test code = 2207) 0.7 MG/DL ALKALINE PHOSPHATASE (test code = 2204) 133 U/L AST (test code = 2218) 26 U/L ALT (test code = 2219) 68 U/L Helder MarieTSH, THIRD [id number] 00:00:00* Test Item Value Reference Range Interpretation Comme nts TSH, THIRD GENERATION (test code = 2821) 1.720 UIU/ML Helder [id number] 00:00:00* Test Item Value Reference Range Interpretation Comme nts PROLACTIN (test code = 2800) 17.8 NG/ML Helder MarieVITAMIN D, 25 [id number] 00:00:00* Test Item Value Reference Range Interpretation Comme nts VITAMIN D, 25 OH (test code = 4958) 22 NG/ML Helder MarieCBC W/AUTO [id number] 00:00:00* Test Item Value Reference Range Interpretation Comme nts WBC (test code = 1001) 7.7 K/UL RBC (test code = 1002) 6.05 M/UL HEMOGLOBIN (test code = 1003) 17.1 G/DL HEMATOCRIT (test code = 1004) 50.2 % MCV (test code = 1005) 83.0 fL MCH (test code = 1006) 28.3 PG MCHC (test code = 1007) 34.1 G/DL RDW (test code = 1038) 12.8 % NEUTROPHILS (test code = 1008) 67.1 % LYMPHOCYTES (test code = 1010) 22.3 % MONOCYTES (test code = 1011) 9.7 % EOSINOPHILS (test code = 1012) 0.0 % BASOPHILS (test code = 1013) 0.5 % IMMATURE GRANULOCYTES (test code = 1036) 0.4 % NUCLEATED RBCS (test code = 1065) 0.0 /100WBC'S PLATELET COUNT (test code = 1015) 270 K/UL ABSOLUTE NEUTROPHILS (test c ode = 1066) 5.18 K/UL ABSOLUTE LYMPHOCYTES (test c ode = 1067) 1.72 K/UL ABSOLUTE MONOCYTES (test cod e = 1068) 0.75 K/UL ABSOLUTE EOSINOPHILS (test c ode = 1040) 0.00 K/UL ABSOLUTE BASOPHILS (test cod e = 1069) 0.04 K/UL ABS IMMATURE GRANULOCYTES (t est code = 1020) 0.03 K/UL ABS NUCLEATED RBCS (test cod e = 91491) 0.00 K/UL Helder MarieHEMOGLOBIN [id number] 00:00:00* Test Item Value Reference Range Interpretation Comme nts HEMOGLOBIN A1c (test code = 07975) 5.2 % Helder MarieLIPID [id number] 00:00:00* Test Item Value Reference Range Interpretation Comme nts CHOLESTEROL (test code = 2210) 251 MG/DL TRIGLYCERIDES (test code = 2232) 150 MG/DL HDL CHOLESTEROL (test code = 2220) 54 MG/DL CALC LDL CHOL (test code = 2237) 168 MG/DL RISK RATIO LDL/HDL (test cod e = 2238) 3.11 RATIO Helder MarieCOMPREHENSIVE METABOLIC [id number] 00:00:00* Test Item Value Reference Range Interpretation Comme nts GLUCOSE (test code = 2217) 98 MG/DL BUN (test code = 2208) 9 MG/DL CREATININE (test code = 2214) 0.91 MG/DL eGFR (2020 CKD-EPI) (test code = 13322) 123 ML/MIN/1.73 CALC BUN/CREAT (test code = 2235) 10 RATIO SODIUM (test code = 2231) 139 MEQ/L POTASSIUM (test code = 2228) 4.6 MEQ/L CHLORIDE (test code = 2215) 101 MEQ/L CARBON DIOXIDE (test code = 2206) 23 MEQ/L CALCIUM (test code = 2209) 10.1 MG/DL PROTEIN, TOTAL (test code = 2229) 7.6 G/DL ALBUMIN (test code = 2201) 5.1 G/DL CALC GLOBULIN (test code = 2240) 2.5 G/DL CALC A/G RATIO (test code = 2234) 2.0 RATIO BILIRUBIN, TOTAL (test code = 2207) 0.7 MG/DL ALKALINE PHOSPHATASE (test code = 2204) 133 U/L AST (test code = 2218) 26 U/L ALT (test code = 2219) 68 U/L Helder MarieZEESHAN, THIRD [id number] 00:00:00* Test Item Value Reference Range Interpretation Comme nts TSH, THIRD GENERATION (test code = 2821) 1.720 UIU/ML Helder [id number] 00:00:00* Test Item Value Reference Range Interpretation Comme nts PROLACTIN (test code = 2800) 17.8 NG/ML Helder MarieVITAMIN D, 25 [id number] 00:00:00* Test Item Value Reference Range Interpretation Comme nts VITAMIN D, 25 OH (test code = 4958) 22 NG/ML Helder Cassidy, [id number] 07:01:30SPECIMEN NUMBER: [id number] CULTURE, URINE SPECIMEN NUMBER: [id number] SPECIMEN COMMENT: URINE SOURCE: URINE REPORT STATUS: FINAL FINAL REPORT: 07/08/2023 NO GROWTH AFTER 36 HOURS INCUBATION UNLESS OTHERWISE INDICATED, ALL TESTING PERFORMED AT [facility] [address] [place] [address] COMPOSING ROOM MACHINIST APPRENTICE: LUIZ CALVO M.D. CLIA NUMBER [id number] [place]. [id number] CULTURE, [id number] 00:00:00* Test Item Value Reference Range Interpretation Comme nts CULTURE, URINE (test code = 16076) SPECIMEN NUMBER: [id number] Helder Cassidy, [id number] 00:00:00* Test Item Value Reference Range Interpretation Comme nts CULTURE, URINE (test code = 50155) SPECIMEN NUMBER: [id number] Helder MarieTSH, THIRD [id number] 06:39:48* Test Item Value Reference Range Interpretation Comme nts TSH, THIRD GENERATION (test code = 2821) 2.460 UIU/ML 0.400-4.100 UNLESS OTHERWISE INDICATED, ALL TESTING PERFORMED AT [facility] [address] [place] [address] COMPOSING ROOM MACHINIST APPRENTICE: LUIZ CALVO M.D. CLIA NUMBER [id number] [place]. [id number] LIPID [id number] 04:40:40* Test Item Value Reference Range Interpretation [...] SPECIMENS. FOR MOREINFORMATION, SEE CLIENT ANNOUNCEMENT AT [email or web address] [email or web address] RATIO LDL/HDL (test code = 2238) 3.47 RATIO <3.55 BASIC METABOLIC [id number] 04:40:40* Test Item Value Reference Range Interpretation Comme nts GLUCOSE (test code = 7) 88 MG/DL 70-99 BUN (test code = 2207) 10 MG/DL 6-20 CREATININE (test code = 2214) 0.80 MG/DL 0.80-1.40 eGFR (2020 CKD-EPI) (test code = 69512) 130 ML/MIN/1.73 >60 SODIUM (test code = 223) 139 MEQ/L 133-146 POTASSIUM (test code = 2228) 4.6 MEQ/L 3.5-5.4 CHLORIDE (test code = 2215) 99 MEQ/L 95-107 CARBON DIOXIDE (test code = 2206) 27 MEQ/L 19-31 CALCIUM (test code = 2209) 10.2 MG/DL 8.5-10.5 HEMOGLOBIN [id number] 03:19:21* Test Item Value Reference Range Interpretation Comme nts HEMOGLOBIN A1c (test code = 44669) 5.3 % 4.2-5.6 CBC W/AUTO DIFF WITH [id number] 02:29:14* Test Item Value Reference Range Interpretation [...] 0.00-0.10 ABS NUCLEATED RBCS (test code = 12566) 0.00 K/UL 0.00-0.11 CBC W/AUTO [id number] 00:00:00* Test Item Value Reference Range Interpretation Comme nts WBC (test code = 1001) 8.4 K/UL RBC (test code = 1002) 5.68 M/UL HEMOGLOBIN (test code = 1003) 16.3 G/DL HEMATOCRIT (test code = 1004) 48.2 % MCV (test code = 1005) 84.9 fL MCH (test code = 1006) 28.7 PG MCHC (test code = 1007) 33.8 G/DL RDW (test code = 1038) 12.6 % NEUTROPHILS (test code = 1008) 62.3 % LYMPHOCYTES (test code = 1010) 26.3 % MONOCYTES (test code = 1011) 7.5 % EOSINOPHILS (test code = 1012) 2.4 % BASOPHILS (test code = 1013) 0.4 % IMMATURE GRANULOCYTES (test code = 1036) 1.1 % NUCLEATED RBCS (test code = 1065) 0.0 /100WBC'S PLATELET COUNT (test code = 1015) 258 K/UL ABSOLUTE NEUTROPHILS (test c ode = 1066) 5.21 K/UL ABSOLUTE LYMPHOCYTES (test c ode = 1067) 2.20 K/UL ABSOLUTE MONOCYTES (test cod e = 1068) 0.63 K/UL ABSOLUTE EOSINOPHILS (test c ode = 1040) 0.20 K/UL ABSOLUTE BASOPHILS (test cod e = 1069) 0.03 K/UL ABS IMMATURE GRANULOCYTES (t est code = 1020) 0.09 K/UL ABS NUCLEATED RBCS (test cod e = 07513) 0.00 K/UL Helder MarieHEMOGLOBIN [id number] 00:00:00* Test Item Value Reference Range Interpretation Comme nts HEMOGLOBIN A1c (test code = 84267) 5.3 % Helder Romero FrankLIPID [id number] 00:00:00* Test Item Value Reference Range Interpretation Comme nts CHOLESTEROL (test code = 2210) 317 MG/DL TRIGLYCERIDES (test code = 2232) 101 MG/DL HDL CHOLESTEROL (test code = 2220) 66 MG/DL CALC LDL CHOL (test code = 2237) 229 MG/DL RISK RATIO LDL/HDL (test cod e = 2238) 3.47 RATIO Helder Romero FrankBASIC METABOLIC [id number] 00:00:00* Test Item Value Reference Range Interpretation Comme nts GLUCOSE (test code = 2217) 88 MG/DL BUN (test code = 2208) 10 MG/DL CREATININE (test code = 2214) 0.80 MG/DL eGFR (2020 CKD-EPI) (test code = 64668) 130 ML/MIN/1.73 SODIUM (test code = 2231) 139 MEQ/L POTASSIUM (test code = 2228) 4.6 MEQ/L CHLORIDE (test code = 2215) 99 MEQ/L CARBON DIOXIDE (test code = 2206) 27 MEQ/L CALCIUM (test code = 2209) 10.2 MG/DL Helder Nick Roosevelt, THIRD [id number] 00:00:00* Test Item Value Reference Range Interpretation Comme nts TSH, THIRD GENERATION (test code = 2821) 2.460 UIU/ML Helder MarieCBC W/AUTO [id number] 00:00:00* Test Item Value Reference Range Interpretation Comme nts WBC (test code = 1001) 8.4 K/UL RBC (test code = 1002) 5.68 M/UL HEMOGLOBIN (test code = 1003) 16.3 G/DL HEMATOCRIT (test code = 1004) 48.2 % MCV (test code = 1005) 84.9 fL MCH (test code = 1006) 28.7 PG MCHC (test code = 1007) 33.8 G/DL RDW (test code = 1038) 12.6 % NEUTROPHILS (test code = 1008) 62.3 % LYMPHOCYTES (test code = 1010) 26.3 % MONOCYTES (test code = 1011) 7.5 % EOSINOPHILS (test code = 1012) 2.4 % BASOPHILS (test code = 1013) 0.4 % IMMATURE GRANULOCYTES (test code = 1036) 1.1 % NUCLEATED RBCS (test code = 1065) 0.0 /100WBC'S PLATELET COUNT (test code = 1015) 258 K/UL ABSOLUTE NEUTROPHILS (test c ode = 1066) 5.21 K/UL ABSOLUTE LYMPHOCYTES (test c ode = 1067) 2.20 K/UL ABSOLUTE MONOCYTES (test cod e = 1068) 0.63 K/UL ABSOLUTE EOSINOPHILS (test c ode = 1040) 0.20 K/UL ABSOLUTE BASOPHILS (test cod e = 1069) 0.03 K/UL ABS IMMATURE GRANULOCYTES (t est code = 1020) 0.09 K/UL ABS NUCLEATED RBCS (test cod e = 08989) 0.00 K/UL Helder MarieHEMOGLOBIN [id number] 00:00:00* Test Item Value Reference Range Interpretation Comme nts HEMOGLOBIN A1c (test code = 74205) 5.3 % Helder MarieLIPID [id number] 00:00:00* Test Item Value Reference Range Interpretation Comme nts CHOLESTEROL (test code = 2210) 317 MG/DL TRIGLYCERIDES (test code = 2232) 101 MG/DL HDL CHOLESTEROL (test code = 2220) 66 MG/DL CALC LDL CHOL (test code = 2237) 229 MG/DL RISK RATIO LDL/HDL (test cod e = 2238) 3.47 RATIO Helder MarieBASIC METABOLIC [id number] 00:00:00* Test Item Value Reference Range Interpretation Comme nts GLUCOSE (test code = 2217) 88 MG/DL BUN (test code = 2208) 10 MG/DL CREATININE (test code = 2214) 0.80 MG/DL eGFR (2020 CKD-EPI) (test code = 97794) 130 ML/MIN/1.73 SODIUM (test code = 2231) 139 MEQ/L POTASSIUM (test code = 2228) 4.6 MEQ/L CHLORIDE (test code = 2215) 99 MEQ/L CARBON DIOXIDE (test code = 2206) 27 MEQ/L CALCIUM (test code = 2209) 10.2 MG/DL Helder MarieTSH, THIRD [id number] 00:00:00* Test Item Value Reference Range Interpretation Comme nts TSH, THIRD GENERATION (test code = 2821) 2.460 UIU/ML Helder Marie Notes Date/Time Note Provider Source Helder Marie [facility]2024-09-22 00:00:00 Helder Pang [facility]
[2024-09-03] MEDS ORDERED: DIPHENHYDRAMINE 50 MG/ML VIAL ONE (19:48)
[2024-09-03] MEDS ORDERED: METOCLOPRAMIDE 10 MG/2mL INJ ONE (19:48)
[2024-09-03] MEDS ORDERED: NA CHLORIDE 0.9% 1,000 ML ONE (19:48)
[2024-09-03] MEDS ORDERED: KETOROLAC 30 MG/ML INJ ONE (19:48)
--- NOTE | 2024-09-03 20:46 | ER ---
Nurse's Notes [facility] Name: Reginald Connors Age: 24 yrs Sex: Male : 2000 Arrival Date: 09/03/2024 Time: 18:40 Bed 9 Private MD: Diagnosis: Headache;Otitis media, unspecified, left ear Presentation: 09/03 19:07 Chief complaint: Patient states: headache and left ear pain. ha1 19:07 Coronavirus screen: Vaccine status: At this time, unable to obtain information related ha1 to travel outside the [place] Ebola Screen: No symptoms or risks identified at this time. Initial Sepsis Screen: Does the patient meet any 2 criteria? No. Patient's initial sepsis screen is negative. Does the patient have a suspected source of infection? No. Patient's initial sepsis screen is negative. Risk Assessment: Do you want to hurt yourself or someone else? Patient reports no desire to harm self or others. Onset of symptoms was September 03, 2024. 19:07 Method Of Arrival: Ambulatory ha1 19:07 Acuity: PHI 4 ha1 Triage Assessment: 19:22 General: Appears uncomfortable, Behavior is calm, cooperative. Pain: Complains of pain ha1 in headache Pain does not radiate. Pain currently is 9 out of 10 on a pain scale. Quality of pain is described as aching. Neuro: Level of Consciousness is awake, alert, obeys commands, Oriented to person, place, time, situation. Cardiovascular: Capillary refill < 3 seconds Patient's skin is warm and dry. Respiratory: Airway is patent Respiratory effort is even, unlabored, Respiratory pattern is regular, symmetrical. 21:14 Headache History: The patient has had previous headaches and this one is similar to me1 previous episodes. Pain: Also complains of nausea, photophobia. Historical: - Allergies: 19:22 Bactrim; ha1 19:22 citalopram; ha1 19:22 Clonazepam; ha1 19:22 Cymbalta; ha1 19:22 lamotrigine; ha1 19:22 Propranolol; ha1 19:22 Prozac; ha1 19:22 Rexulti; ha1 19:22 Zithromax; ha1 19:22 Zoloft; ha1 - Home Meds: 19:22 clonazepam 0.5 mg Oral Tablet 1 tab 2 times per day [Active]; guanfacine 3 mg Oral ha1 Tablet 1 tab [Active]; lamotrigine 100 mg Oral Tablet 2 tabs AT NIGHT [Active]; olanzapine 5 mg Oral tablet 1 tab 2 times per day [Active]; olanzapine 10 mg Oral tablet 1 tab 2 times per day [Active]; phenytoin 50 mg Oral tablet once [Active]; - PMHx: 19:22 Anxiety; Asthma; depressive disorder; ha1 - Immunization history:: Adult Immunizations up to date. - Infectious Disease History:: Denies. - Social history:: Smoking status: Patient denies any tobacco usage or history of. Screenin:34 [facility] ED Fall Risk Assessment (Adult) History of falling in the last 3 months, me1 including since admission No falls in past 3 months (0 pts) Confusion or Disorientation No (0 pts) Intoxicated or Sedated No (0 pts) Impaired Gait No (0 pts) Mobility Assist Device Used No (0 pt) Altered Elimination No (0 pt) Score/Fall Risk Level 0 - 2 = Low Risk Maintained a safe environment, Provided non-skid footwear, Hourly rounding (assess needs \T\ fall precautionary measures) done. Abuse screen: Denies threats or abuse. Nutritional screening: No deficits noted. Tuberculosis screening: No symptoms or risk factors identified. Assessment: 19:34 General: Appears uncomfortable, well groomed, well developed, well nourished, Behavior me1 is calm, cooperative, appropriate for age, Reports headache and left ear pain. Pain: Complains of pain in head Pain does not radiate. Pain currently is 9 out of 10 on a pain scale. Quality of pain is described as aching, Pain began gradually, Is continuous. Neuro: Level of Consciousness is awake, alert, obeys commands, Oriented to person, place, time, situation, Appropriate for age. Cardiovascular: Patient's skin is warm and dry. Respiratory: Airway is patent Trachea midline Respiratory effort is even, unlabored, Respiratory pattern is regular, symmetrical. GI: No signs and/or symptoms were reported involving the gastrointestinal system. : No signs and/or symptoms were reported regarding the genitourinary system. EENT: Reports pain in top of head, forehead and left ear. Derm: Skin is intact, is healthy with good turgor, Skin is pink, warm \T\ dry. Musculoskeletal: No signs and/or symptoms reported regarding the musculoskeletal system. 20:59 General: snack provided with augmentin as patient hasnt eaten today. me1 Vital Signs: 19:07 BP 128 / 88; Pulse 78; Resp 17 S; Temp 98.2(T); Pulse Ox 99% on R/A; Weight 102.06 kg; ha1 Height 5 ft. 10 in. ; 20:01 BP 132 / 74; Pulse 75; Resp 16; Pulse Ox 97% ; me1 20:48 Pain 2/10; me1 20:48 Pain 2/10; me1 20:48 Pain 2/10; me1 21:15 BP 139 / 81; Pulse 72; Resp 15; Temp 97.9; Pulse Ox 98% ; me1 19:07 Body Mass Index 32.28 (102.06 kg, 177.8 cm) ha1 20:48 Pain Scale: Adult me1 20:48 Pain Scale: Adult me1 20:48 Pain Scale: Adult me1 ED Course: 18:43 Patient arrived in ED. mr 19:11 Leana Whitfield PA-C is PHCP. sb4 19:11 Duong Sanchez MD is Attending Physician. sb4 19:21 Noreen Schafer, NARCISO is Primary Nurse. me1 19:22 Triage completed. ha1 19:34 Patient has correct armband on for positive identification. Bed in low position. Call me1 light in reach. Side rails up X 1. Provided Education on: POC. Verbalized understanding.. 19:34 Arm band placed on Patient placed in an exam room. me1 19:34 No provider procedures requiring assistance completed. me1 20:00 Inserted saline lock: 20 gauge in right antecubital area, using aseptic technique. me1 21:14 IV discontinued, intact, bleeding controlled, No redness/swelling at site. Pressure me1 dressing applied. Administered Medications: 20:00 Drug: NS 0.9% IV 1000 ml IV at 1 bolus Per protocol; to be given as a bolus over 60 me1 minutes Route: IV; Rate: 1 bolus; Site: right antecubital; 21:15 Follow up: Response: No adverse reaction; IV Status: Completed infusion; IV Intake: me1 1000ml 20:01 Drug: Ketorolac IVP 15 mg IVP once Route: IVP; Site: right antecubital; me1 20:48 Follow up: Pain 2/10 Adult; Response: No adverse reaction; Pain is decreased me1 20:01 Drug: metoCLOPramide IVP 10 mg IVP once; over 1 to 2 minutes Route: IVP; Site: right me1 antecubital; 20:48 Follow up: Pain 2/10 Adult; Response: No adverse reaction; Pain is decreased me1 20:01 Drug: diphenhydrAMINE IVP 25 mg IVP once Route: IVP; Site: right antecubital; me1 20:48 Follow up: Pain 2/10 Adult; Response: No adverse reaction; Pain is decreased me1 20:54 Drug: Amoxicillin-Clavulanate PO 875 mg PO once; crush Route: PO; me1 21:15 Follow up: Response: No adverse reaction me1 Medication: 19:34 VIS not applicable for this client. me1 Intake: 21:15 IV: 1000ml; Total: 1000ml. me1 Outcome: 20:45 Discharge ordered by . sb4 21:14 Discharged to home ambulatory, with family, me1 21:14 Condition: stable 21:14 Discharge instructions given to patient, family, Instructed on discharge instructions, follow up and referral plans. medication usage, Demonstrated understanding of instructions, follow-up care, medications, Prescriptions given X 1, 21:15 Patient left the ED. me1 Signatures: Kajal Galeana Reg Reg mr MasseyCristal, RN RN Leana Ruiz PAGeovanniC PA-C sb4 Noreen Schafer RN RN me1
--- NOTE | 2024-09-03 20:46 | EDPHYS ---
Physician Documentation [facility] Name: Reginald Connors Age: 24 yrs Sex: Male : 2000 Arrival Date: 09/03/2024 Time: 18:40 Bed 9 Private MD: ED Physician Duong Sanchez HPI: 09/03 23:42 This 24 yrs old Male presents to ER via Ambulatory with complaints of Headache.sb4 23:42 Headache for 1 week now. Slightly improves with Tylenol and Motrin but just returns. sb4 Mom is concerned that secondary to a psych med. He is on risperidone and benztropine. Has already been seen twice this week for the headaches. Was told he was just dehydrated. Additionally, he complains of left ear pain. Denies any history of migraine. Endorses nausea and some blurry vision. No vomiting, fever. Historical: - Allergies: 19:22 Bactrim; ha1 19:22 citalopram; ha1 19:22 Clonazepam; ha1 19:22 Cymbalta; ha1 19:22 lamotrigine; ha1 19:22 Propranolol; ha1 19:22 Prozac; ha1 19:22 Rexulti; ha1 19:22 Zithromax; ha1 19:22 Zoloft; ha1 - Home Meds: 19:22 clonazepam 0.5 mg Oral Tablet 1 tab 2 times per day [Active]; guanfacine 3 mg Oral ha1 Tablet 1 tab [Active]; lamotrigine 100 mg Oral Tablet 2 tabs AT NIGHT [Active]; olanzapine 5 mg Oral tablet 1 tab 2 times per day [Active]; olanzapine 10 mg Oral tablet 1 tab 2 times per day [Active]; phenytoin 50 mg Oral tablet once [Active]; - PMHx: 19:22 Anxiety; Asthma; depressive disorder; ha1 - Immunization history:: Adult Immunizations up to date. - Infectious Disease History:: Denies. - Social history:: Smoking status: Patient denies any tobacco usage or history of. ROS: 23:42 Constitutional: Negative for fever, chills, and weight loss, sb4 23:42 ENT: Positive for ear pain, 23:42 Neuro: Positive for headache, 23:42 All other systems are negative, Exam: 23:42 Constitutional: This is a well developed, well nourished patient who is awake, alert, sb4 and in no acute distress. Head/Face: Normocephalic, atraumatic. Eyes: Extra-ocular motions intact. Periorbital areas with no swelling, redness, or edema. Cardiovascular: Regular rate and rhythm with a normal S1 and S2. Respiratory: No increased work of breathing, no retractions or nasal flaring. Abdomen/GI: Soft, non-tender, no distension. Neuro: Awake and alert, GCS 15, oriented to person, place, time, and situation. Motor strength 5/5 in all extremities. Sensory grossly intact. 23:42 ENT: Ear canal(s): erythema, that is moderate, bilaterally, TM's: erythema, that is moderate, on the left, Vital Signs: 19:07 BP 128 / 88; Pulse 78; Resp 17 S; Temp 98.2(T); Pulse Ox 99% on R/A; Weight 102.06 kg; ha1 Height 5 ft. 10 in. ; 20:01 BP 132 / 74; Pulse 75; Resp 16; Pulse Ox 97% ; me1 20:48 Pain 2/10; me1 20:48 Pain 2/10; me1 20:48 Pain 2/10; me1 21:15 BP 139 / 81; Pulse 72; Resp 15; Temp 97.9; Pulse Ox 98% ; me1 19:07 Body Mass Index 32.28 (102.06 kg, 177.8 cm) ha1 20:48 Pain Scale: Adult me1 20:48 Pain Scale: Adult me1 20:48 Pain Scale: Adult me1 MDM: 19:11 Medical Screening Exam initiated sb4 23:42 Data reviewed: vital signs, nurses notes, and as a result, I will discharge patient. sb4 Historians other than the Patient: Parent: Mother. Counseling: I had a detailed discussion with the patient and/or guardian regarding the historical points, exam findings, and any diagnostic results supporting the discharge/admit diagnosis, to return to the emergency department if symptoms worsen or persist or if there are any questions or concerns that arise at home. 09/03 19:30 Order name: IV Start; Complete Time: 20:00 sb4 Administered Medications: 20:00 Drug: NS 0.9% IV 1000 ml IV at 1 bolus Per protocol; to be given as a bolus over 60 me1 minutes Route: IV; Rate: 1 bolus; Site: right antecubital; 21:15 Follow up: Response: No adverse reaction; IV Status: Completed infusion; IV Intake: me1 1000ml 20:01 Drug: Ketorolac IVP 15 mg IVP once Route: IVP; Site: right antecubital; me1 20:48 Follow up: Pain 2/10 Adult; Response: No adverse reaction; Pain is decreased me1 20:01 Drug: metoCLOPramide IVP 10 mg IVP once; over 1 to 2 minutes Route: IVP; Site: right me1 antecubital; 20:48 Follow up: Pain 2/10 Adult; Response: No adverse reaction; Pain is decreased me1 20:01 Drug: diphenhydrAMINE IVP 25 mg IVP once Route: IVP; Site: right antecubital; me1 20:48 Follow up: Pain 2/10 Adult; Response: No adverse reaction; Pain is decreased me1 20:54 Drug: Amoxicillin-Clavulanate PO 875 mg PO once; crush Route: PO; me1 21:15 Follow up: Response: No adverse reaction me1 Disposition Summary: 09/03/24 20:45 Discharge Ordered Notes: Location: Home sb4 Problem: an ongoing problem sb4 Symptoms: have improved sb4 Condition: Stable sb4 Diagnosis - Headache sb4 - Otitis media, unspecified, left ear sb4 Followup: sb4 - With: Private Physician - When: 1 week - Reason: Recheck today's complaints, Re-evaluation by your physician Discharge Instructions: - Discharge Summary Sheet sb4 - Otitis Media, Adult sb4 - General Headache Without Cause sb4 Forms: - Antibiotic Education sb4 - Patient Portal Instructions sb4 - Leadership Thank You Letter sb4 Prescriptions: - ketorolac 10 mg Oral tablet - take 1 tablet ORAL route every 4 to 6 hours for 3 days as needed for pain; do sb4 not exceed 4 doses per 24 hrs; 10 tablet; Refills: 0, Product Selection Permitted - Amoxicillin 400 mg/5 mL Oral Suspension for Reconstitution - take 6.5 milliliter ORAL route every 12 hours for 10 days; 130 milliliter; sb4 Refills: 0, Product Selection Permitted Addendum: 09/07/2024 08:17 Co-signature as Attending Physician, Duong Sanchez MD I reviewed the patient's care r n provided by the Advanced Practice Provider and agree with the diagnosis and treatment plan. Signatures: Duong Sanchez MD MD rn Ayala, Heidy, RN RN ha1 Leana Whitfield PA-C PA-C sb4 Noreen Schafer RN RN me1
[2024-09-03] MEDS ORDERED: AMOX/K CLAV 875 MG TAB ONE (20:49)
[2024-09-03 22:02] VITALS: BP 139/81; TEMP 97.9; O2SAT 98
== END 2024-09-03 21:15 | disposition home or self-care (01) ==
LOC: ER 18:40
DX: H66.92 Otitis media, unspecified, left ear (principal)
CPT/HCPCS: 96361; 96375; 96374; 99284; J2765; J1200; J7030

== ENCOUNTER 2024-09-20 10:00 | Emergency (ER) | payer OTHER ==
--- OUTSIDE RECORDS SUMMARY | 2024-09-20 10:04 | XMS REPORT | Continuity of Care Document ---
Author Name Unknown Address [address] [facility]. [address] [place] [id number] [facility] thconnect Address [address] [facility]. 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 Name Role Phone PCP, PATIENT DOES NOT [...] Mom unable to state the exact reaction [facility] AZITHROM YCIN DRUG INGREDI Active High Other-Cmnt 2012-10 00:00: 00 [facility] Social History Social Habit Start Date Stop Date Quantity Comments Source Sexual orientation U [facility] Sex assigned at 2002 00:00:00 2002 00:00:00 [facility] Smoking Status Start Date Stop Date Source Tobacco smoking consumption unknown [facility] Medications Ordered Medication Name Filled Medication Name [...] mg/5 mL syrup 07-19 00:00: 00 Yes [id number] 5mL Take 5 mL by mouth 4 (four) times daily as needed for Congestion /Allergies . [facility] azelastine 137 mcg (0.1 %) nasal spray 07-19 00:00: 00 Yes [id number] 1{spray } Use 1 [place] in each nostril in the morning and 1 [place] in the evening. Use in each nostril as directed [facility] fluticasone propionate 50 mcg/actuati on nasal spray 07-19 00:00: 00 Yes [id number] 1{spray } Use 1 [place] in each nostril in the morning. [facility] amoxicillin -pot clavulanate 600-42.9 mg/5 mL suspension 07-19 00:00: 00 07-30 04:59 :00 Yes [id number] 870mg Take 7.25 mL by mouth in the morning and 7.25 mL in the evening. Do all this for 10 days. [facility] hydrOXYzine 50 mg capsule 07-09 00:00: 00 Yes TAKE ONE (1) CAPSULE(S) BY MOUTH THREE TIMES A DAY NEEDED. [facility] Risperdal 2 mg tablet 07-08 00:00: 00 [...] THE AFFECTED AREA(S) 2 TIMES A DAY. [facility] cetirizine 10 mg tablet 06-27 00:00: 00 Yes 10mg Take 1 tablet by mouth at bedtime. [facility] levalbutero l 45 mcg/actuati on inhaler 06-27 00:00: 00 Yes INHALE ONE (1) PUFF EVERY 4-6 HOURS NEEDED. [facility] traZODone 100 mg tablet 06-24 00:00: 00 Yes 100mg Take 1 tablet by mouth at bedtime. [facility] risperiDONE 2 mg tablet 06-24 00:00: 00 Yes 2mg Take 1 tablet by mouth in the morning and 1 tablet in the evening. [facility] divalproex 500 mg delayed release tablet 06-24 00:00: 00 Yes 500mg Take 1 tablet by mouth in the morning and 1 tablet in the evening. [facility] benztropine 1 mg tablet 06-24 00:00: 00 Yes 1mg Take 1 tablet by mouth in the morning and 1 tablet in the evening. [facility] benztropine 1 mg tablet 06-19 00:00: 00 [...] FOUR TIMES A DAY NEEDED FOR ASTHMA. [facility] hydroxyzine pamoate 50 mg capsule 05-30 00:00: [...] 11-11 00:00: 00 03-10 00:00 :00 No [id number] Helder Marie TAKE ONE (1) CAPSULE(S) BY [...] 00 Yes Helder Marie NEOMYCIN/PO LYMYXIN/HYD ROCORTISONE 3.5-70005-3 SUSP 04-05 00:00: 00 Yes Helder Marie [...] 45 MCG/ACT AERO 03-08 00:00: 00 Yes Helder Marie LAGEVRIO 200 MG 03-08 00:00: 00 [...] Source SARS-COV-2 COVID-19 PFIZER VACCINE Unknown Completed [facility] Vital Signs Vital Name Observation Time Observation Value Comments S ource Systolic blood pressure 2024-07-19 14:35:00 120 mm[Hg] [facility] Diastolic blood pressure 2024-07-19 14:35:00 78 mm[Hg] [facility] Heart rate 2024-07-19 14:35:00 70 /min [facility] Body temperature 2024-07-19 14:35:00 36.5 Hope [facility] Respiratory rate 2024-07-19 14:35:00 17 /min [facility] Body height 2024-07-19 14:35:00 175.3 cm [facility] Body weight 2024-07-19 14:35:00 100.33 kg [facility] BMI 2024-07-19 14:35:00 32.66 kg/m2 [facility] Oxygen saturation in Arterial blood by Pulse oximetry 2024-07-19 14:35:00 97 /min [facility] BP Systolic 2024-08-27 09:04:00 122 mm[Hg] [...] POCT MOLECULAR FLU 2024-07-19 14:44:00 Amira Ardon [facility] POCT MOLECULAR STREP 2024-07-19 14:44:00 Amira Ardon [facility] POCT SARS-COV-2 ANTIGEN (BINAX NOW) 2024-07-19 14:32:00 Amira Ardon [facility] Encounters Start Date/Time End Date/Time Encounter Type Admission Type Attending [facility] Care Department Encounter ID Source 2024-09-08 10:37:31 2024-09-08 10:37:31 Outpatient SFA SFA [id number] Helder Marie 2024-09-02 15:47:41 2024-09-02 15:47:41 Outpatient SFA SFA [id number] Helder Marie 2024-08-30 15:19:38 2024-08-30 15:19:38 Outpatient SFA SFA [id number] Helder Marie 2024-08-27 09:01:25 2024-08-27 09:01:25 Outpatient SFA SFA [id number] Helder Marie 2024-08-27 00:00:00 2024-08-27 00:00:00 Outpatient Visit SFA [id number] Helder Marie 2024-08-21 20:10:29 2024-08-21 20:10:29 Outpatient SFA SFA [id number] Helder Marie 2024-08-17 08:43:05 2024-08-17 08:43:05 Outpatient SFA SFA [id number] Helder Marie 2024-08-03 08:43:11 2024-08-03 08:43:11 Outpatient SFA SFA [id number] Helder Marie 2024-07-28 10:00:56 2024-07-28 10:00:56 Outpatient SFA SFA [id number] Helder Marie 2024-07-26 14:19:18 2024-07-26 14:19:18 Outpatient SFA SFA [id number] Helder Marie 2024-07-23 10:04:35 2024-07-23 10:04:35 Outpatient SFA SFA [id number] Helder Marie 2024-07-21 10:12:45 2024-07-21 10:12:45 Outpatient SFA SFA [id number] Helder Marie 2024-07-19 09:20:00 2024-07-19 09:40:00 Urgent Care Amiar Ardon, Attending [facility] [id number] [facility] 2024-07-19 09:20:00 2024-07-19 09:20:00 Outpatient R AMIRA ARDON [facility] [id number] [facility] 2024-07-19 08:13:00 2024-07-19 08:13:00 Outpatient SFA SFA [id number] Helder Marie 2024-07-19 00:00:00 2024-07-19 00:00:00 Outpatient Visit SFA [id number] Helder Marie 2024-07-09 15:38:28 2024-07-09 15:38:28 Outpatient SFA SFA [id number] Helder Marie 2024-07-08 08:16:23 2024-07-08 08:16:23 Outpatient SFA SFA [id number] Helder Marie 2024-07-07 09:43:41 2024-07-07 09:43:41 Outpatient SFA SFA [id number] Helder Marie 2024-06-23 10:00:38 2024-06-23 10:00:38 Outpatient SFA SFA [id number] Helder Marie 2024-06-19 15:23:32 2024-06-19 15:23:32 Outpatient SFA SFA [id number] Helder Marie 2024-06-13 13:24:39 2024-06-13 13:24:39 Outpatient SFA SFA [id number] Helder Marie 2024-06-01 16:07:08 2024-06-01 16:07:08 Outpatient SFA SFA [id number] Helder Marie 2024-05-30 13:19:47 2024-05-30 13:19:47 Outpatient SFA SFA [id number] Helder Marie 2024-05-12 10:25:42 2024-05-12 10:25:42 Outpatient SFA SFA [id number] Helder Marie 2024-04-28 10:11:21 2024-04-28 10:11:21 Outpatient SFA SFA [id number] Helder Marie 2024-04-24 13:18:55 2024-04-24 13:18:55 Outpatient SFA SFA [id number] Helder Marie 2024-04-14 10:13:16 2024-04-14 10:13:16 Outpatient SFA SFA [id number] Helder Marie 2024-04-02 10:56:22 2024-04-02 10:56:22 Outpatient SFA SFA [id number] Helder Marie 2024-03-13 13:55:07 2024-03-13 13:55:07 Outpatient SFA SFA [id number] Helder Romero Frank 2024-03-10 13:43:05 2024-03-10 13:43:05 Outpatient SFA SFA [id number] Helder Romero Frank 2024-02-28 11:41:21 2024-02-28 11:41:21 Outpatient SFA SFA [id number] Helder Romero Frank 2024-02-14 13:06:30 2024-02-14 13:06:30 Outpatient SFA SFA [id number] Helder Marie 2024-02-01 13:39:49 2024-02-01 13:39:49 Outpatient SFA SFA [id number] Helder Romero Frank 2024-01-30 09:19:42 2024-01-30 09:19:42 Outpatient SFA SFA [id number] Helder Marie 2024-01-22 13:44:19 2024-01-22 13:44:19 Outpatient SFA SFA [id number] Helder Marie 2023-12-24 14:52:34 2023-12-24 14:52:34 Outpatient SFA SFA [id number] Helder Marie 2023-12-11 17:23:46 2023-12-11 17:23:46 Outpatient SFA SFA [id number] Helder Marie 2023-11-11 16:46:44 2023-11-11 16:46:44 Outpatient SFA SFA [id number] Helder Marie 2023-10-30 14:57:44 2023-10-30 14:57:44 Outpatient SFA SFA [id number] Helder Marie 2023-07-05 16:37:29 2023-07-05 16:37:29 Outpatient SFA SFA [id number] Helder Marie 2023-06-05 16:36:01 2023-06-05 16:36:01 Outpatient SFA SFA [id number] Helder Marie 2023-05-05 11:12:02 2023-05-05 11:12:02 Outpatient SFA SFA [id number] Helder Marie 2023-04-19 10:14:25 2023-04-19 10:14:25 Outpatient SFA SFA [id number] Helder Marei 2023-04-18 13:31:05 2023-04-18 13:31:05 Outpatient SFA SFA [id number] Helder Marie 2023-03-06 13:34:38 2023-03-06 13:34:38 Outpatient SFA SFA [id number] Helder Marie 2020-12-07 09:54:00 2020-12-07 09:54:00 Outpatient Raju_P MMG MMG [id number] [facility] Results Test Description Test Time Test Comments Results Result Co mments Source [facility] MOLECULAR [id number] 14:51:52* Test Item Value Reference Range Interpretation Comme nts POCT Molecular Strep (test c ode = 06427-9) Negative Negative Lab Interpretation (test cod e = 11173-6) Normal [facility] ANTIGEN (BINAX NOW)2024-07-19 14:47:00* Test Item Value Reference Range Interpretation Comme nts POCT SARS-COV-2 ANTIGEN (test code = 84721-2) Not Detected Not Detected, See Comment On board controls acceptable with C Line (test code = 3574) Yes CHRISTINA (test code = CHRISTINA) accurate developme nt and interpretation of all internal controls Lab Interpretation (test code = 38789-2) Normal [facility] [id number] 04:29:46* Test Item Value Reference Range Interpretation Comme [facility] VALPROIC ACID (test code = 3025) [...] TESTING PERFORMED AT [facility] [address] [place] [address] BUILDING PERFORMANCE SPECIALIST: LUIZ CALVO M.D. CLIA NUMBER [id number] [place] [place]. [id number] VALPROIC [id number] 00:00:00* Test Item Value Reference Range Interpretation Comme [facility] VALPROIC ACID (test code = 3025) 12.1 UG/ML Helder Nick FrankVALPROIC [id number] 00:00:00* Test Item Value Reference Range Interpretation Comme [facility] VALPROIC ACID (test code = 3025) 12.1 UG/ML Helder MarieVITAMIN D, 25 [id number] 05:02:45* Test Item Value Reference Range Interpretation Comme [facility] VITAMIN D, 25 OH (test code [...] TESTING PERFORMED AT [facility] [address] [place] [address] BUILDING PERFORMANCE SPECIALIST: LUIZ CALVO M.D. IA NUMBER [id number] [place] [place]. [id number] TSH, THIRD [id number] 04:30:42* Test Item Value Reference Range Interpretation Comme nts TSH, THIRD GENERATION (test code = 2821) 1.720 UIU/ML 0.400-4.100 [id number] 04:30:42* Test Item Value Reference Range Interpretation Comme nts PROLACTIN (test code = 2800) 17.8 NG/ML 4.0-26.0 NOTE: Methodolog y is Milla Allen Electrochemiluminescence Immunoassay (ECLIA). Values obtained with different assays/manufacturers cannot be used interchangeably. Results should not be used as sole basis to establish the presence or absence of malignancy. LIPID [id number] 04:28:46* Test Item Value Reference Range Interpretation [...] SPECIMENS. FOR MOREINFORMATION, SEE CLIENT ANNOUNCEMENT AT [email or web address] RISK RATIO LDL/HDL (test code = 2238) 3.11 RATIO <3.55 COMPREHENSIVE METABOLIC [id number] 04:28:46* Test Item Value Reference Range Interpretation Comme nts GLUCOSE (test code = 2217) 98 MG/DL 70-99 BUN (test code = 2208) 9 MG/DL 6-20 CREATININE (test code = 2214) 0.91 MG/DL 0.80-1.40 eGFR (2020 CKD-EPI) (test code = 60004) 123 ML/MIN/1.73 >60 CALC BUN/CREAT (test code [...] = 2218) 68 U/L 5-50 H HEMOGLOBIN [id number] 02:58:33* Test Item Value Reference Range Interpretation Comme nts HEMOGLOBIN A1c (test code = 12720) 5.2 % 4.2-5.6 CBC W/AUTO DIFF WITH [id number] 02:29:50* Test Item Value Reference Range Interpretation [...] 0.00-0.10 ABS NUCLEATED RBCS (test code = 03165) 0.00 K/UL 0.00-0.11 CBC W/AUTO [id number] 00:00:00* Test Item Value Reference Range Interpretation [...] ABS NUCLEATED RBCS (test cod e = 44994) 0.00 K/UL Helder MarieHEMOGLOBIN [id number] 00:00:00* Test Item Value Reference Range Interpretation Comme nts HEMOGLOBIN A1c (test code = 24058) 5.2 % Helder MarieLIPID [id number] 00:00:00* Test Item Value Reference Range Interpretation Comme nts CHOLESTEROL (test code = 2210) 251 MG/DL TRIGLYCERIDES (test code = 2232) 150 MG/DL HDL CHOLESTEROL (test code = 2220) 54 MG/DL CALC LDL CHOL (test code = 2237) 168 MG/DL RISK RATIO LDL/HDL (test cod e = 2238) 3.11 RATIO Helder MarieCOMPREHENSIVE METABOLIC [id number] 00:00:00* Test Item Value Reference Range Interpretation Comme nts GLUCOSE (test code = 2217) 98 MG/DL BUN (test code = 2208) 9 MG/DL CREATININE (test code = 2214) 0.91 MG/DL eGFR (2020 CKD-EPI) (test code = 18772) 123 ML/MIN/1.73 CALC BUN/CREAT (test code = [...] = 2219) 68 U/L Helder MarieTSH, THIRD [id number] 00:00:00* Test Item Value Reference Range Interpretation Comme nts TSH, THIRD GENERATION (test code = 2821) 1.720 UIU/ML Helder [id number] 00:00:00* Test Item Value Reference Range Interpretation Comme nts PROLACTIN (test code = 2800) 17.8 NG/ML Helder MarieVITAMIN D, 25 [id number] 00:00:00* Test Item Value Reference Range Interpretation Comme nts VITAMIN D, 25 OH (test code = 4958) 22 NG/ML Helder MarieCBC W/AUTO [id number] 00:00:00* Test Item Value Reference Range Interpretation [...] ABS NUCLEATED RBCS (test cod e = 44566) 0.00 K/UL Helder MarieHEMOGLOBIN [id number] 00:00:00* Test Item Value Reference Range Interpretation Comme nts HEMOGLOBIN A1c (test code = 98839) 5.2 % Helder MarieLIPID [id number] 00:00:00* Test Item Value Reference Range Interpretation Comme nts CHOLESTEROL (test code = 2210) 251 MG/DL TRIGLYCERIDES (test code = 2232) 150 MG/DL HDL CHOLESTEROL (test code = 2220) 54 MG/DL CALC LDL CHOL (test code = 2237) 168 MG/DL RISK RATIO LDL/HDL (test cod e = 2238) 3.11 RATIO Helder MarieCOMPREHENSIVE METABOLIC [id number] 00:00:00* Test Item Value Reference Range Interpretation Comme nts GLUCOSE (test code = 2217) 98 MG/DL BUN (test code = 2208) 9 MG/DL CREATININE (test code = 2214) 0.91 MG/DL eGFR (2020 CKD-EPI) (test code = 50940) 123 ML/MIN/1.73 CALC BUN/CREAT (test code = [...] (test code = 2219) 68 U/L Helder Daugherty, THIRD [id number] 00:00:00* Test Item Value Reference Range Interpretation Comme nts TSH, THIRD GENERATION (test code = 2821) 1.720 UIU/ML Helder [id number] 00:00:00* Test Item Value Reference Range Interpretation Comme nts PROLACTIN (test code = 2800) 17.8 NG/ML Helder MarieVITAMIN D, 25 [id number] 00:00:00* Test Item Value Reference Range Interpretation Comme jay jay VITAMIN D, 25 OH (test code = 4958) 22 NG/ML Helder Cassidy, [id number] 07:01:30SPECIMEN NUMBER: [id number] CULTURE, URINE SPECIMEN NUMBER: [id number] SPECIMEN COMMENT: URINE SOURCE: URINE REPORT STATUS: FINAL FINAL REPORT: 07/08/2023 NO GROWTH AFTER 36 HOURS INCUBATION UNLESS OTHERWISE INDICATED, ALL TESTING PERFORMED AT [facility] [address] [place] [address] BUILDING PERFORMANCE SPECIALIST: LUIZ CALVO M.D. CLIA NUMBER [id number] [place]. [id number] CULTURE, [id number] 00:00:00* Test Item Value Reference Range Interpretation Comme nts CULTURE, URINE (test code = 24287) SPECIMEN NUMBER: [id number] Helder Cassidy, [id number] 00:00:00* Test Item Value Reference Range Interpretation Comme nts CULTURE, URINE (test code = 34710) SPECIMEN NUMBER: [id number] Helder Daugherty, THIRD [id number] 06:39:48* Test Item Value Reference Range Interpretation Comme nts TSH, THIRD GENERATION (test code = 2821) 2.460 UIU/ML 0.400-4.100 UNLESS OTHERWISE INDICATED, ALL TESTING PERFORMED AT [facility] [address] [place] [address] BUILDING PERFORMANCE SPECIALIST: LUIZ CALVO M.D. CLIA NUMBER [id number] [place]. [id number] LIPID [id number] 04:40:40* Test Item Value Reference Range Interpretation Comme nts CHOLESTEROL (test code = 2210) 317 MG/DL <200 H TRIGLYCERIDES (test code = 2232) 101 MG/DL <150 HDL CHOLESTEROL (test code = 2220) 66 MG/DL >39 CALC LDL CHOL (test code = 7) 229 MG/DL <100 H NOTE: CALCULATED LDL IS BASED ON NEHA-MARTINEZ METHOD WHICHINCLUDES ADJUSTABLE TRIGLYCERIDE:VLDL CHOLESTEROL RATIO.THIS FACTOR VARIES BY MEASURED TRIGLYCERIDE AND NON-HDLCHOLESTEROL CONCENTRATIONS WITH INCREASED CALCULATED LDL SEENIN HIGHER TRIGLYCERIDE OR LOWER NON-HDL SPECIMENS. FOR MOREINFORMATION, SEE CLIENT ANNOUNCEMENT AT [email or web address] RISK RATIO LDL/HDL (test code = 2237) 3.47 RATIO <3.55 BASIC METABOLIC [id number] 04:40:40* Test Item Value Reference Range Interpretation Comme nts GLUCOSE (test code = 2216) 88 MG/DL 70-99 BUN (test code = 2207) 10 MG/DL 6-20 CREATININE (test code = 4) 0.80 MG/DL 0.80-1.40 eGFR (2020 CKD-EPI) (test code = 04811) 130 ML/MIN/1.73 >60 SODIUM (test code = 223) 139 MEQ/L 133-146 POTASSIUM (test code = 2228) 4.6 MEQ/L 3.5-5.4 CHLORIDE (test code = 5) 99 MEQ/L 95-107 CARBON DIOXIDE (test code = 6) 27 MEQ/L 19-31 CALCIUM (test code = 2209) 10.2 MG/DL 8.5-10.5 HEMOGLOBIN [id number] 03:19:21* Test Item Value Reference Range Interpretation Comme nts HEMOGLOBIN A1c (test code = 87960) 5.3 % 4.2-5.6 CBC W/AUTO DIFF WITH [id number] 02:29:14* Test Item Value Reference Range Interpretation [...] 0.00-0.10 ABS NUCLEATED RBCS (test code = 09076) 0.00 K/UL 0.00-0.11 CBC W/AUTO [id number] 00:00:00* Test Item Value Reference Range Interpretation [...] ABS NUCLEATED RBCS (test cod e = 91589) 0.00 K/UL Helder MarieHEMOGLOBIN [id number] 00:00:00* Test Item Value Reference Range Interpretation Comme nts HEMOGLOBIN A1c (test code = 62664) 5.3 % Helder Romero [place] [id number] 00:00:00* Test Item Value Reference Range Interpretation Comme nts CHOLESTEROL (test code = 2210) 317 MG/DL TRIGLYCERIDES (test code = 2232) 101 MG/DL HDL CHOLESTEROL (test code = 2220) 66 MG/DL CALC LDL CHOL (test code = 2237) 229 MG/DL RISK RATIO LDL/HDL (test cod e = 2238) 3.47 RATIO Helder MarieBASIC METABOLIC [id number] 00:00:00* Test Item Value Reference Range Interpretation Comme nts GLUCOSE (test code = 2217) 88 MG/DL BUN (test code = 2208) 10 MG/DL CREATININE (test code = 2214) 0.80 MG/DL eGFR (2020 CKD-EPI) (test code = 74987) 130 ML/MIN/1.73 SODIUM (test code = 2231) 139 MEQ/L POTASSIUM (test code = 2228) 4.6 MEQ/L CHLORIDE (test code = 2215) 99 MEQ/L CARBON DIOXIDE (test code = 2206) 27 MEQ/L CALCIUM (test code = 2209) 10.2 MG/DL Helder MarieTSH, THIRD [id number] 00:00:00* Test Item Value Reference Range Interpretation Comme nts TSH, THIRD GENERATION (test code = 2821) 2.460 UIU/ML Helder MarieCBC W/AUTO [id number] 00:00:00* Test Item Value Reference Range Interpretation [...] ABS NUCLEATED RBCS (test cod e = 66553) 0.00 K/UL Helder MarieHEMOGLOBIN [id number] 00:00:00* Test Item Value Reference Range Interpretation Comme nts HEMOGLOBIN A1c (test code = 44286) 5.3 % Helder MarieLIPID [id number] 00:00:00* Test Item Value Reference Range Interpretation Comme nts CHOLESTEROL (test code = 2210) 317 MG/DL TRIGLYCERIDES (test code = 2232) 101 MG/DL HDL CHOLESTEROL (test code = 2220) 66 MG/DL CALC LDL CHOL (test code = 2237) 229 MG/DL RISK RATIO LDL/HDL (test cod e = 2238) 3.47 RATIO Helder MarieBASIC METABOLIC [id number] 00:00:00* Test Item Value Reference Range Interpretation Comme nts GLUCOSE (test code = 2217) 88 MG/DL BUN (test code = 2208) 10 MG/DL CREATININE (test code = 2214) 0.80 MG/DL eGFR (2020 CKD-EPI) (test code = 21470) 130 ML/MIN/1.73 SODIUM (test code = 2231) 139 MEQ/L POTASSIUM (test code = 2228) 4.6 MEQ/L CHLORIDE (test code = 2215) 99 MEQ/L CARBON DIOXIDE (test code = 2206) 27 MEQ/L CALCIUM (test code = 2209) 10.2 MG/DL Helder MarieTSH, THIRD [id number] 00:00:00* Test Item Value Reference Range Interpretation Comme nts TSH, THIRD GENERATION (test code = 2821) 2.460 UIU/ML Helder Marie Notes Date/Time Note Provider Source Helder Pang [facility]2024-09-22 00:00:00 Helder Pang [facility]
[2024-09-20] MEDS ORDERED: DICYCLOMINE HCL 20 MG/2 ML AMP IM ONE (11:06)
[2024-09-20] MEDS ORDERED: ONDANSETRON 4 MG/2 ML VIAL ONE (11:06)
[2024-09-20] MEDS ORDERED: NA CHLORIDE 0.9% 1,000 ML ONE (11:07)
[2024-09-20 11:31] LABS: Absolute Eosinophils 0.1 K/uL (0-0.5); Absolute Lymphocytes (CBC) 1.1 K/uL (0.7-4.9); Absolute Monocytes 0.9 K/uL (0.1-1.3); Absolute Neutrophil 6.3 K/uL (1.8-8.0); Basophils % 0.2 % (0-1.3); Hematocrit 44.3 % (39.6-49.0); Lymphocytes % 12.8 % (15.3-44.8); MCH 28.7 pg (27.0-35.0); MCHC 33.8 g/dL (32.0-36.0); MCV 84.7 fL (80-100); MPV 9.1 fL (7.6-11.3); Monocytes % 10.6 % (3.3-12.3); Neutrophils % 75.4 % (41.7-73.7); Platelets 187 thou/uL (152-406); RBC Red Blood Cell Count 5.23 M/uL (4.33-5.43); Red Cell Distribution Width 12.6 % (12.1-15.2)
[2024-09-20 11:31] LABS: Specific Gravity 1.014 (1.005-1.030); Sqamous Epithelial None Seen /HPF (None Seen); Urine Bacteria None Seen /HPF (<20); Urine Bilirubin NEGATIVE (Negative); Urine Blood Negative (Negative); Urine Clarity Clear (Clear); Urine Color Light-Yellow (Yellow); Urine Culture Reflex Order NOT NEEDED; Urine Glucose NEGATIVE (Negative); Urine Ketones NEGATIVE (Negative); Urine Microscopic Reflex YN ORDER UMIC; Urine Mucus Slight /HPF (None Seen); Urine Nitrite NEGATIVE (Negative); Urine Protein NEGATIVE (Negative); Urine RBC <5 /HPF (None Seen); Urine Urobilinogen Normal (Normal); Urine WBC <5 /HPF (<5); Urine pH 6.5 (5.0-7.0)
[2024-09-20 11:50] LABS: Albumin 3.4 g/dL (3.4-5.0); Albumin/Globulin Ratio 0.9 (1.1-1.8); Anion Gap 5.9 mEq/L (5.0-15.0); Bilirubin Total 0.7 mg/dL (0.2-1.0); Globulin 3.8 g/dL (2.3-3.5); Potassium 3.9 mEq/L (3.5-5.1); Protein, Total 7.2 g/dL (6.4-8.2)
--- NOTE | 2024-09-20 11:55 | EDPHYS ---
Physician Documentation [facility] Name: Reginald Connors Age: 24 yrs Sex: Male : 2000 Arrival Date: 09/20/2024 Time: 10:00 Bed 13 Private MD: ED Physician Bladimir Rodríguez HPI: 09/20 10:38 This 24 yrs old Male presents to ER via Ambulatory with complaints of Diarrhea jh7 - Stomach pain. 10:38 24-year-old male with a past medical history of anxiety, depression, bipolar disorder, jh7 and schizophrenia presents to the ER for diarrhea and dysuria since yesterday. He denies any fever, vomiting, blood in stool, chest pain, or shortness of breath.. Historical: - Allergies: 10:38 Bactrim; cm10 10:38 citalopram; cm10 10:38 Clonazepam; cm10 10:38 Cymbalta; cm10 10:38 lamotrigine; cm10 10:38 Propranolol; cm10 10:38 Prozac; cm10 10:38 Rexulti; cm10 10:38 Zithromax; cm10 10:38 Zoloft; cm10 10:38 OLANZAPINE; cm10 10:38 Intuniv ER; cm10 10:38 benztropine; cm10 10:38 Latuda; cm10 - PMHx: 10:38 Anxiety; Asthma; depressive disorder; Bipolar disorder; Schizophrenia; cm10 - Immunization history:: Immunization history: Adult Immunizations up to date. - Infectious Disease History:: Denies. - Social history:: Smoking status: Patient denies any tobacco usage or history of. ROS: 10:38 Constitutional: Per HPI jh7 Exam: 10:38 Constitutional: This is a well developed, well nourished patient who is awake, alert, jh7 and in no acute distress. Head/Face: Normocephalic, atraumatic. Eyes: Pupils equal round and reactive to light, extra-ocular motions intact. Lids and lashes normal. Conjunctiva and sclera are non-icteric and not injected. Cornea within normal limits. Periorbital areas with no swelling, redness, or edema. Neck: Trachea midline, no thyromegaly or masses palpated, and no cervical lymphadenopathy. Supple, full range of motion without nuchal rigidity, or vertebral point tenderness. No Meningismus. Cardiovascular: Regular rate and rhythm with a normal S1 and S2. No gallops, murmurs, or rubs. Normal PMI, no JVD. No pulse deficits. Respiratory: Lungs have equal breath sounds bilaterally, clear to auscultation and percussion. No rales, rhonchi or wheezes noted. No increased work of breathing, no retractions or nasal flaring. Back: No spinal tenderness. No costovertebral tenderness. Full range of motion. Skin: Warm, dry with normal turgor. Normal color with no rashes, no lesions, and no evidence of cellulitis. MS/ Extremity: Pulses equal, no cyanosis. Neurovascular intact. Full, normal range of motion. Neuro: Awake and alert, GCS 15, oriented to person, place, time, and situation. Motor strength 5/5 in all extremities. Sensory grossly intact. Normal gait. 10:38 Abdomen/GI: Inspection: abdomen appears normal, Bowel sounds: normal, Palpation: abdomen is soft and non-tender, Vital Signs: 10:44 BP 121 / 78; Pulse 82; Resp 16; Temp 98.2; Pulse Ox 99% ; Weight 100.7 kg; Height 5 ft. cm10 9 in. ; Pain 10/10; 10:44 Body Mass Index 32.78 (100.70 kg, 175.26 cm) cm10 10:44 Pain Scale: Adult cm10 MDM: 10:10 Medical Screening Exam initiated [facility] 11:52 Differential diagnosis: Nonspecific abd pain, gastritis, pancreatitis, appendicitis, [facility] diverticulitis, viral gastroenteritis, gastroenteritis. Data reviewed: vital signs, nurses notes, lab test result(s). I considered the following discharge prescriptions or medication management in the emergency department Medications were administered in the Emergency Department. See MAR. Historians other than the Patient: Spouse/Significant Other: . Counseling: I had a detailed discussion with the patient and/or guardian regarding the historical points, exam findings, and any diagnostic results supporting the discharge/admit diagnosis, to return to the emergency department if symptoms worsen or persist or if there are any questions or concerns that arise at home. 09/20 10:56 Order name: CBC with Diff; Complete Time: 11:50 [facility] 09/20 10:56 Order name: CMP; Complete Time: 11:50 [facility] 09/20 10:56 Order name: Lipase; Complete Time: 11:50 [facility] 09/20 10:56 Order name: Urinalysis w/ reflexes; Complete Time: 11:50 [facility] 09/20 10:56 Order name: IV Saline Lock; Complete Time: 11:47 [facility] 09/20 10:56 Order name: Labs collected and sent; Complete Time: 11:47 [facility] Administered Medications: 11:15 Drug: NS 0.9% IV 1000 ml IV at 1 bolus Per protocol; to be given as a bolus over 60 ph minutes Route: IV; Rate: 1 bolus; Site: right antecubital; 14:10 Follow up: Response: No adverse reaction; IV Status: Completed infusion; IV Intake: ph 1000ml 11:15 Drug: Dicyclomine IM 20 mg IM once Route: IM; Site: right deltoid; ph 11:30 Follow up: Response: No adverse reaction ph 11:47 Not Given (Other Intervention Used): ondansetron 4 mg IVP once; over 2 minutes ph Disposition Summary: 09/20/24 11:55 Discharge Ordered Notes: Location: Home [facility] Problem: new [facility] Symptoms: have improved [facility] Condition: Stable [facility] Diagnosis - Viral gastroenteritis [facility] Followup: [facility] - With: Private Physician - When: 2 - 3 days - Reason: Recheck today's complaints Discharge Instructions: - Discharge Summary Sheet [facility] - Viral Gastroenteritis, Adult [facility] Forms: - Medication Reconciliation Form [facility] - Antibiotic Education [facility] - Patient Portal Instructions [facility] - Leadership Thank You Letter [facility] Prescriptions: - Levsin 0.125 mg Oral Tablet - take 1 tablet ORAL route every 8 hours; 30 tablet; Refills: 0, Product [facility] Selection Permitted Signatures: Dispatcher [employer] Anna Dean, RN RN ph Felicia Cook, [employer]ADER [employer]ADER Desirae Ramirez, RN RN cm10
--- NOTE | 2024-09-20 11:55 | ER ---
Nurse's Notes [facility] Name: Reginald Connors Age: 24 yrs Sex: Male : 2000 Arrival Date: 09/20/2024 Time: 10:00 Bed 13 Private MD: Diagnosis: Viral gastroenteritis Presentation: 09/20 10:44 Chief complaint: Patient states: Right sided abdominal pain that radiates to back onset cm10 yesterday. Pt describes the pain as cramping. Pt also reports diarrhea and that it hurts when he urinates. Coronavirus screen: Client denies travel out of the [place] in the last 14 days. Ebola Screen: Patient denies travel to an Ebola-affected area in the 21 days before illness onset. No symptoms or risks identified at this time. Initial Sepsis Screen: Does the patient meet any 2 criteria? No. Patient's initial sepsis screen is negative. Does the patient have a suspected source of infection? No. Patient's initial sepsis screen is negative. Risk Assessment: Do you want to hurt yourself or someone else? Patient reports no desire to harm self or others. Onset of symptoms was September 20, 2024. 10:44 Method Of Arrival: Ambulatory cm10 10:44 Acuity: PHI 3 cm10 Triage Assessment: 10:44 General: Appears in no apparent distress. comfortable, Behavior is calm, cooperative. cm10 Neuro: No deficits noted. Level of Consciousness is awake, alert, obeys commands, Oriented to person, place, time, situation. Respiratory: No deficits noted. Airway is patent Respiratory effort is even, unlabored, Respiratory pattern is regular, symmetrical. Historical: - Allergies: 10:38 Bactrim; cm10 10:38 citalopram; cm10 10:38 Clonazepam; cm10 10:38 Cymbalta; cm10 10:38 lamotrigine; cm10 10:38 Propranolol; cm10 10:38 Prozac; cm10 10:38 Rexulti; cm10 10:38 Zithromax; cm10 10:38 Zoloft; cm10 10:38 OLANZAPINE; cm10 10:38 Intuniv ER; cm10 10:38 benztropine; cm10 10:38 Latuda; cm10 - PMHx: 10:38 Anxiety; Asthma; depressive disorder; Bipolar disorder; Schizophrenia; cm10 - Immunization history:: Immunization history: Adult Immunizations up to date. - Infectious Disease History:: Denies. - Social history:: Smoking status: Patient denies any tobacco usage or history of. Vital Signs: 10:44 BP 121 / 78; Pulse 82; Resp 16; Temp 98.2; Pulse Ox 99% ; Weight 100.7 kg; Height 5 ft. cm10 9 in. ; Pain 10/10; 10:44 Body Mass Index 32.78 (100.70 kg, 175.26 cm) cm10 10:44 Pain Scale: Adult cm10 ED Course: 10:05 Patient arrived in ED. ra3 10:10 Felicia Cook FNP is [facility] 7 10:10 Bladimir Rodríguez MD is Attending Physician. 7 10:45 Triage completed. cm10 10:45 Arm band placed on right wrist. Patient placed in waiting room. cm10 10:46 Patient has correct armband on for positive identification. Allergy band placed. 10 10:47 Anna Nelson RN is Primary Nurse. ph Administered Medications: 11:15 Drug: NS 0.9% IV 1000 ml IV at 1 bolus Per protocol; to be given as a bolus over 60 ph minutes Route: IV; Rate: 1 bolus; Site: right antecubital; 14:10 Follow up: Response: No adverse reaction; IV Status: Completed infusion; IV Intake: ph 1000ml 11:15 Drug: Dicyclomine IM 20 mg IM once Route: IM; Site: right deltoid; ph 11:30 Follow up: Response: No adverse reaction ph 11:47 Not Given (Other Intervention Used): ondansetron 4 mg IVP once; over 2 minutes ph Intake: 14:10 IV: 1000ml; Total: 1000ml. ph Outcome: 11:55 Discharge ordered by . [facility] 13:17 Patient left the ED. ph Signatures: Anna Nelson RN RN Felicia Cook FNP FNP Desirae Ramirez RN RN [facility] Melva Velázquez ra3
[2024-09-20 15:23] VITALS: BP 121/78; TEMP 98.2; O2SAT 99
== END 2024-09-20 13:17 | disposition home or self-care (01) ==
LOC: ER 10:00
DX: A08.4 Viral intestinal infection, unspecified (principal)
CPT/HCPCS: 96361; 85025; 81001; 36415; 83690; 80053; 96360; 96372; 99283; J0500; J2405; J7030

== ENCOUNTER 2024-10-25 01:17 | Emergency (ER) | payer OTHER ==
--- OUTSIDE RECORDS SUMMARY | 2024-10-25 01:21 | XMS REPORT | Continuity of Care Document ---
Author Name Unknown Address [address] [place] [address] [facility] [address] [place] [address] Care Team Providers Care Natural Resource Officer Name Role Phone PCP, PATIENT DOES NOT HAVE A Primary Care Physic nguyễn Lilly Kumari Attending Clinician [phone] Unknown, Attending Attending Clinician Unavailab LILLY Michael Attending Clinician Unavailable Amira Ardon MD Attending Clinician [phone] AMIRA ARDON Attending Clinician Unavailable Shaquille_Marky Attending Clinician Unavailable Shaquille_P Admitting Clinician Unavailable Payers Payer Name Policy Type Policy Number Effective Date Expirati on Date Source [facility] DUAL COMP HMO D SNP [id number] 2023 00:00:00 [employer] [place] [id number] 2024 00:00:00 Allergies, Adverse Reactions, Alerts Allergy Name Allergy Type Status Severity Reaction(s) Onset Date Inactive Date Treating Clinician Comments Source Zithroma x Propensi ty to adverse reaction to drug Active 3-15 00:00: 00 Helder Marie Bactrim - Oral Propensi ty to adverse reaction to drug Active 5-10 00:00: 00 Helder Marie Azithrom ycin Propensi ty to adverse reaction s Active Other - See comments 2012-10 00:00: 00 Mom unable to state the exact reaction [facility] AZITHROM YCIN DRUG INGREDI Active High Other-Cmnt 2012-10 00:00: 00 [facility] Social History Social Habit Start Date Stop Date Quantity Comments Source Sexual orientation U [facility] Sex assigned at 2000 00:00:00 2000 00:00:00 [facility] Smoking Status Start Date Stop Date Source Tobacco smoking consumption unknown [facility] Medications Ordered Medication Name Filled Medication Name Start Date Stop Date Current Medication? Ordering Clinician Indication Dosage Frequency Signature (SIG) Comments Components Source bromphenira mine-pseudo ephedrine-D M (BROMFED DM) 2-30-10 mg/5 mL syrup 2023-10 00:00: 00 Yes [id number] 10mL Take 10 mL by mouth 4 (four) times daily as needed for Congestion /Allergies , Cold symptoms or Cough. [facility] albuterol 90 mcg/actuati on inhaler 2023-10 00:00: 00 Yes [id number] 2{puff} Inhale 2 Puffs every 6 (six) hours as needed for Wheezing, Shortness of Breath or Bronchospa sm. [facility] Xyzal 5 mg tablet 2023-10 00:00: 00 [...] mg/5 mL syrup 07-19 00:00: 00 Yes [id number] 5mL Take 5 mL by mouth 4 (four) times daily as needed for Congestion /Allergies . [facility] azelastine 137 mcg (0.1 %) nasal spray 07-19 00:00: 00 Yes [id number] 1{spray } Use 1 [place] in each nostril in the morning and 1 [place] in the evening. Use in each nostril as directed [facility] fluticasone propionate 50 mcg/actuati on nasal spray 07-19 00:00: 00 Yes [id number] 1{spray } Use 1 [place] in each nostril in the morning. [facility] amoxicillin -pot clavulanate 600-42.9 mg/5 mL suspension 07-19 00:00: 00 07-30 04:59 :00 No [id number] 870mg Take 7.25 mL by mouth in the morning and 7.25 mL in the evening. Do all this for 10 days. [facility] hydrOXYzine 50 mg capsule 07-09 00:00: 00 Yes TAKE ONE (1) CAPSULE(S) BY MOUTH THREE TIMES A DAY NEEDED. [facility] Risperdal 2 mg tablet 07-08 00:00: 00 [...] THE AFFECTED AREA(S) 2 TIMES A DAY. [facility] cetirizine 10 mg tablet 06-27 00:00: 00 Yes 10mg Take 1 tablet by mouth at bedtime. [facility] levalbutero l 45 mcg/actuati on inhaler 06-27 00:00: 00 Yes INHALE ONE (1) PUFF EVERY 4-6 HOURS NEEDED. [facility] traZODone 100 mg tablet 06-24 00:00: 00 Yes 100mg Take 1 tablet by mouth at bedtime. [facility] risperiDONE 2 mg tablet 06-24 00:00: 00 Yes 2mg Take 1 tablet by mouth in the morning and 1 tablet in the evening. [facility] divalproex 500 mg delayed release tablet 06-24 00:00: 00 Yes 500mg Take 1 tablet by mouth in the morning and 1 tablet in the evening. [facility] benztropine 1 mg tablet 06-24 00:00: 00 Yes 1mg Take 1 tablet by mouth in the morning and 1 tablet in the evening. [facility] benztropine 1 mg tablet 06-19 00:00: 00 [...] FOUR TIMES A DAY NEEDED FOR ASTHMA. [facility] hydroxyzine pamoate 50 mg capsule 8-03 00:00: 00 Yes 1mg Helder Marie hydroxyzine pamoate 50 mg capsule -28 00:00: 00 Yes 1mg Helder Marie hydroxyzine pamoate 50 mg capsule 6-06 00:00: 00 Yes 1mg Helder Marie TAKE ONE (1) TABLET(S) BY MOUTH ONCE A DAY. 02-27 00:00: 00 Yes Helder Marie Vitamin D2 1,250 mcg (50,000 unit) capsule -24 00:00: 00 Yes 1(50,00 0 unit) Helder Marie trazodone 50 mg tablet 02-13 00:00: 00 Yes 1mg Helder Marie hydroxyzine pamoate 50 mg capsule 02-13 00:00: 00 Yes 1mg Helder Marie TAKE ONE (1) TABLET(S) BY MOUTH EVERY EIGHT HOURS FOR 3 DAYS. -16 00:00: 00 Yes Helder Marie Latuda 40 mg tablet -06 00:00: 00 Yes 1mg Helder Marie Vitamin D3 50 mcg (2,000 unit) tablet - 00:00: 00 Yes 1(2,000 unit) Helder Marie Latuda 60 mg tablet - 00:00: 00 Yes 1mg Helder Marie LURASIDONE HYDROCHLORI DE 60 MG TABS - 00:00: 00 Yes Helder Marie lurasidone 40 mg tablet -27 00:00: 00 Yes 1mg Helder Marie guanfacine ER 3 mg tablet,exte nded release 24 hr -15 00:00: 00 Yes 1mg Helder Marie lurasidone 40 mg tablet -15 00:00: 00 Yes 1mg Helder Marie trazodone 50 mg tablet -15 00:00: 00 Yes 1mg Helder Marie hydroxyzine pamoate 50 mg capsule -15 00:00: 00 Yes 1mg Helder Marie DISSOLVE 1 TABLET BY MOUTH EVERY 8 HOURS NEEDED - 00:00: 00 Yes Helder Marei TAKE 1 TABLET BY MOUTH EVERY 12 HOURS FOR 14 DAYS - 00:00: 00 Yes Helder Marie TAKE 1 TABLET DAILY AT DINNER. 2 00:00: 00 03-10 00:00 :00 No 40 Helder Marie HYDROXYZINE PAMOATE 50 MG 12-18 00:00: 00 Yes Helder Marie TAKE ONE (1) TABLET(S) BY MOUTH AT BEDTIME FOR MOOD. 12-18 00:00: 00 Yes Helder Marie GUANFACINE ER 1 MG TB24 12-18 00:00: 00 Yes Helder Marie CLINDAMYCIN PHOSPHATE 1 % GEL 12-05 00:00: 00 Yes Helder Marie CHEW AND [...] 11-11 00:00: 00 03-10 00:00 :00 No [id number] Helder Marie TAKE ONE (1) CAPSULE(S) BY MOUTH TWICE A DAY. 1-09 00:00: 00 Yes Helder Marie AMOXICILLIN 500 MG 2022-10 00:00: 00 Yes Helder Marie TAKE 12.5 ML TWICE DAILY 2022-10 00:00: 00 03-10 00:00 :00 No [id number] Helder Marie TAKE ONE (1) TABLET(S) BY MOUTH DAILY NEEDED. 2022-1020 00:00: 00 Yes Helder Marie GUANFACINE ER [...] Yes Helder Marie LAMOTRIGINE 100 MG TABS 2022-10 00:00: 00 Yes Helder Marie OLANZapine 10 MG TABS 2022-10 0-27 00:00: 00 Yes Helder Marie lamoTRIgine 100 MG TABS 2022-10 0-27 00:00: 00 Yes Helder Marie TRAZODONE HYDROCHLORI DE 50 MG TABS 2022-10 0-27 00:00: 00 Yes Helder Marie SERTRALINE HYDROCHLORI DE 100 MG TABS 2022-10 0-27 00:00: 00 Yes Helder Marie SERTRALINE HCL 50 MG TABS 2022-10 0-16 00:00: 00 Yes Helder Marie LAMOTRIGINE 25 MG TABS 2022-10 0-16 00:00: [address] 1/2 TABLET (2.5 MG) ON THE TONGUE AND ALLOW TO DISSOLVE TWICE DAILY (EVERY MORNING AND AT NOON) THEN DISSOLVE ONE TABLET (5 MG) ON 07-15 00:00: 00 Yes Helder Marie VENLAFAXINE HYDROCHLORI DE ER 75 MG CP24 9-18 00:00: 00 Yes Helder Marie TAKE 1 CAPSULE TWICE DAILY. 9-08 00:00: 00 03-10 00:00 :00 No 100 Helder Marie FENOFIBRATE 160 MG TABS 8-25 00:00: 00 Yes Helder Marie TAKE ONE (1) CAPSULE(S) BY MOUTH DAILY WITH FOOD. 8-16 00:00: 00 Yes Helder Marie CLONAZEPAM 0.5 MG TABS 8-16 00:00: 00 Yes Helder Marie TAKE ONE (1) CAPSULE(S) BY MOUTH DAILY. 8-11 00:00: 00 Yes Helder Marie CLONAZEPAM 0.5 MG TABS 8-10 00:00: 00 Yes Helder Marie OLANZAPINE ODT 5 MG TBDP 807 00:00: 00 Yes Helder Marie TAKE ONE (1) CAPSULE(S) BY MOUTH ONCE A DAY FOR DEPRESSION. 8-07 00:00: 00 Yes Helder Marie PROPRANOLOL HYDROCHLORI DE 10 MG TABS 7-27 00:00: 00 Yes Helder Marie HYDROXYZINE HYDROCHLORI DE 25 MG TABS 7-25 00:00: 00 Yes Helder Marie CLONAZEPAM 0.5 MG TABS 7-13 00:00: 00 Yes Helder Marie VENLAFAXINE HYDROCHLORI DE ER 75 MG CP24 7-13 00:00: 00 Yes Helder Marie BUSPIRONE HYDROCHLORI DE 5 MG TABS 6-30 00:00: 00 Yes Helder Marie TAKE TWO [...] 00 Yes Helder Marie NEOMYCIN/PO LYMYXIN/HYD ROCORTISONE [id number] SUSP 04-05 00:00: 00 Yes Helder Marie LORATADINE 04-02 00:00: 00 Yes Helder Marie NITROFURANT OIN 25 MG/5ML SUSP 04-02 00:00: 00 Yes Helder Marie VENLAFAXINE HCL ER 37.5 MG CP24 04-01 00:00: 00 Yes Helder Marie TAKE 1-2 TABLETS TWICE A DAY NEEDED FOR ANXIETY 04-01 00:00: 00 03-10 00:00 :00 No 10 Helder Marie TAKE 1 CAPSULE ONCE DAILY WITH FOOD. 04-01 00:00: 00 03-10 00:00 :00 No 375 [...] Yes Helder Marie TAKE 3 ML DAILY. - 00:00: 00 03-10 00:00 :00 No 205 Helder Marie TAKE 1 TABLET TWICE DAILY NEEDED. 03-06 00:00: 00 03-10 00:00 :00 No 10 Helder Marie CETIRIZINE - 00:00: 00 Yes Helder Marie LEVOCETIRIZ I 12-11 00:00: 00 Yes Helder Marie VENTOLIN HFA AER 12-11 00:00: 00 Yes 108 Helder Marie LEVOCETIRIZ I 11-15 00:00: 00 Yes 5 Helder Marie VENTOLIN [...] SIX HOURS NEEDED. 2021-10 00:00: 00 Yes Heldre Marei FLUTICASONE SPR - 00:00: 00 Yes 50 Helder Marie POLYETH GLYC POW 3350 NF - 00:00: 00 Yes 17 Helder Marie Immunizations Ordered Immunization Name Filled Immunization Name Date Status Comments Source SARS-COV-2 COVID-19 PFIZER VACCINE 2021-03-06 00:00:00 Completed SARS-COV-2 COVID-19 PFIZER VACCINE 2021-02-11 00:00:00 Completed [facility] SARS-COV-2 COVID-19 PFIZER VACCINE Unknown Completed [facility] Vital Signs Vital Name Observation Time Observation Value Laila campuzano Systolic blood pressure 2024-10-25 01:02:00 133 mm[Hg] [facility] Diastolic blood pressure 2024-10-25 01:02:00 87 mm[Hg] [facility] Heart rate 2024-10-25 01:02:00 99 /min [facility] Body temperature 2024-10-25 01:02:00 36.67 Hope [facility] Respiratory rate 2024-10-25 01:02:00 18 /min [facility] Body height 2024-10-25 01:02:00 175.3 cm [facility] Body weight 2024-10-25 01:02:00 104.327 kg [facility] BMI 2024-10-25 01:02:00 33.97 kg/m2 [facility] Oxygen saturation in Arterial blood by Pulse oximetry 2024-10-25 01:02:00 98 /min [facility] Systolic blood pressure 2024-07-19 14:35:00 120 mm[Hg] [facility] Diastolic blood pressure 2024-07-19 14:35:00 78 mm[Hg] [facility] Heart rate 2024-07-19 14:35:00 70 /min [facility] Body temperature 2024-07-19 14:35:00 36.5 Hope [facility] Respiratory rate 2024-07-19 14:35:00 17 /min [facility] Body height 2024-07-19 14:35:00 175.3 cm [facility] Body weight 2024-07-19 14:35:00 100.33 kg [facility] BMI 2024-07-19 14:35:00 32.66 kg/m2 [facility] Oxygen saturation in Arterial blood by Pulse oximetry 2024-07-19 14:35:00 97 /min [facility] BP Systolic 2024-08-27 09:04:00 122 mm[Hg] Step [...] Frank Weight Measured 2023-03-06 13:57:00 198.40 pounds Ehlder F Frank Height Measured 2023-03-06 13:57:00 69.00 inches Helder F Frank Body Temperature 2023-03-06 13:57:00 98.30 degrees Helder Marie Heart Rate 2023-03-06 13:57:00 96.00 /min Jocy Marie Respiratory Rate 2023-03-06 13:57:00 20.00 /min Helder Romero Frank Procedures Procedure Date / Time Performed Performing Clinicia n Source POCT SARS-COV-2 ANTIGEN (BINAX NOW) 2024-10-25 01:18:00 Chika Spivey [facility] POCT MOLECULAR FLU 2024-10-25 01:04:00 Unknown, Attend [facility] POCT MOLECULAR STREP 2024-10-25 01:00:00 Unknown, Attbilly smith [facility] POCT MOLECULAR FLU 2024-07-19 14:44:00 [facility] 2024-07-19 14:44:00 Amira Ardon [facility] POCT SARS-COV-2 ANTIGEN (BINAX NOW) 2024-07-19 14:32:00 Amira Ardon [facility] Encounters Start Date/Time End Date/Time Encounter Type Admission Type Attending [facility] Emergency [facility] Facility Care Department Encounter ID Source 2024-10-25 09:20:00 2024-10-25 09:20:00 Outpatient R [facility] [id number] [facility] 2024-10-24 19:00:00 2024-10-24 19:20:00 Urgent Care Lilly Lara Unknown, Attending [facility] [id number] [facility] 2024-10-24 19:00:00 2024-10-24 19:00:00 Outpatient R LILLY LARA [facility] [id number] [facility] 2024-10-12 14:08:11 2024-10-12 14:08:11 Outpatient SFA SFA [id number] Helder Nick Frank 2024-10-09 13:44:05 2024-10-09 13:44:05 Outpatient SFA SFA [id number] Helder Marie 2024-10-06 10:47:29 2024-10-06 10:47:29 Outpatient SFA SFA [id number] Helder Marie 2024-09-22 10:21:02 2024-09-22 10:21:02 Outpatient SFA SFA [id number] Helder Marie 2024-09-08 10:37:31 2024-09-08 10:37:31 Outpatient SFA SFA [id number] Helder Marie 2024-09-02 15:47:41 2024-09-02 15:47:41 Outpatient SFA SFA [id number] Helder Marie 2024-08-30 15:19:38 2024-08-30 15:19:38 Outpatient SFA SFA [id number] Helder Marie 2024-08-27 09:01:25 2024-08-27 09:01:25 Outpatient SFA SFA [id number] Helder Marie 2024-08-27 00:00:00 2024-08-27 00:00:00 Outpatient Visit SFA [id number] Helder Marie 2024-08-21 20:10:29 2024-08-21 20:10:29 Outpatient SFA SFA [id number] Helder Marie 2024-08-17 08:43:05 2024-08-17 08:43:05 Outpatient SFA SFA [id number] Helder Marie 2024-08-03 08:43:11 2024-08-03 08:43:11 Outpatient SFA SFA [id number] Helder Marie 2024-07-28 10:00:56 2024-07-28 10:00:56 Outpatient SFA SFA [id number] Helder Marie 2024-07-26 14:19:18 2024-07-26 14:19:18 Outpatient SFA SFA [id number] Helder Marie 2024-07-23 10:04:35 2024-07-23 10:04:35 Outpatient SFA SFA [id number] Helder Marie 2024-07-21 10:12:45 2024-07-21 10:12:45 Outpatient SFA SFA [id number] Helder Marie 2024-07-19 09:20:00 2024-07-19 09:40:00 Urgent Care Amira Ardon Unknown, Attending [facility] [id number] [facility] 2024-07-19 09:20:00 2024-07-19 09:20:00 Outpatient R AMIRA ARDON [facility] [id number] [facility] 2024-07-19 08:13:00 2024-07-19 08:13:00 Outpatient SFA SFA [id number] Helder Marie 2024-07-19 00:00:00 2024-07-19 00:00:00 Outpatient Visit SFA [id number] Helder Marie 2024-07-09 15:38:28 2024-07-09 15:38:28 Outpatient SFA SFA [id number] Helder Marie 2024-07-08 08:16:23 2024-07-08 08:16:23 Outpatient SFA SFA [id number] Helder Marie 2024-07-07 09:43:41 2024-07-07 09:43:41 Outpatient SFA SFA [id number] Helder Marie 2024-06-23 10:00:38 2024-06-23 10:00:38 Outpatient SFA SFA [id number] Helder Marie 2024-06-19 15:23:32 2024-06-19 15:23:32 Outpatient SFA SFA [id number] Helder Marie 2024-06-13 13:24:39 2024-06-13 13:24:39 Outpatient SFA SFA [id number] Helder Marie 2024-06-01 16:07:08 2024-06-01 16:07:08 Outpatient SFA SFA [id number] Helder Marie 2024-05-30 13:19:47 2024-05-30 13:19:47 Outpatient SFA SFA [id number] Helder Marie 2024-05-12 10:25:42 2024-05-12 10:25:42 Outpatient SFA SFA [id number] Helder Marie 2024-04-28 10:11:21 2024-04-28 10:11:21 Outpatient SFA SFA [id number] Helder Marie 2024-04-24 13:18:55 2024-04-24 13:18:55 Outpatient SFA SFA [id number] Helder Marie 2024-04-14 10:13:16 2024-04-14 10:13:16 Outpatient SFA SFA [id number] Helder Marie 2024-04-02 10:56:22 2024-04-02 10:56:22 Outpatient SFA SFA [id number] Helder Marie 2024-03-13 13:55:07 2024-03-13 13:55:07 Outpatient SFA SFA [id number] Helder Marie 2024-03-10 13:43:05 2024-03-10 13:43:05 Outpatient SFA SFA [id number] Helder Marie 2024-02-28 11:41:21 2024-02-28 11:41:21 Outpatient SFA SFA [id number] Helder Marie 2024-02-14 13:06:30 2024-02-14 13:06:30 Outpatient SFA SFA [id number] Helder Marie 2024-02-01 13:39:49 2024-02-01 13:39:49 Outpatient SFA SFA [id number] Helder Marie 2024-01-30 09:19:42 2024-01-30 09:19:42 Outpatient SFA SFA [id number] Helder Marie 2024-01-22 13:44:19 2024-01-22 13:44:19 Outpatient SFA SFA [id number] Helder Marie 2023-12-24 14:52:34 2023-12-24 14:52:34 Outpatient SFA SFA [id number] Helder Marie 2023-12-11 17:23:46 2023-12-11 17:23:46 Outpatient SFA SFA [id number] Helder Marie 2023-11-11 16:46:44 2023-11-11 16:46:44 Outpatient SFA SFA [id number] Helder Marie 2023-10-30 14:57:44 2023-10-30 14:57:44 Outpatient SFA SFA [id number] Helder Marie 2023-07-05 16:37:29 2023-07-05 16:37:29 Outpatient ZOË SFA [id number] Helder Marie 2023-06-05 16:36:01 2023-06-05 16:36:01 Outpatient ZOË SFA [id number] Helder Marie 2023-05-05 11:12:02 2023-05-05 11:12:02 Outpatient ZOË SFA [id number] Helder Marie 2023-04-19 10:14:25 2023-04-19 10:14:25 Outpatient ZOË SFA [id number] Helder Marie 2023-04-18 13:31:05 2023-04-18 13:31:05 Outpatient SFA SFA [id number] Helder Marie 2023-03-06 13:34:38 2023-03-06 13:34:38 Outpatient SFA SFA [id number] Helder Marie 2020-12-07 09:54:00 2020-12-07 09:54:00 Outpatient Raju_P [facility] [id number] [facility] Results Test Description Test Time Test Comments Results Result Co mments Source [facility] Molecular [id number] 01:15:45* Test Item Value Reference Range Interpretation Comme nts POCT Molecular FluA (test co de = 20272-4) Negative Negative POCT Molecular FluB (test co de = 05293-0) Negative Negative Lab Interpretation (test cod e = 16894-0) Normal [facility] MOLECULAR [id number] 01:09:44* Test Item Value Reference Range Interpretation Comme nts POCT Molecular Strep (test c ode = 98380-1) Negative Negative Lab Interpretation (test cod e = 77268-7) Normal [facility] Molecular [id number] 14:56:19* Test Item Value Reference Range Interpretation Comme nts POCT Molecular FluA (test co de = 23657-2) Negative Negative POCT Molecular FluB (test co de = 03089-0) Negative Negative Lab Interpretation (test cod e = 74090-8) Normal [facility] MOLECULAR [id number] 14:51:52* Test Item Value Reference Range Interpretation Comme nts POCT Molecular Strep (test c ode = 39113-3) Negative Negative Lab Interpretation (test cod e = 58418-5) Normal [facility] SARS-COV-2 ANTIGEN (BINAX NOW)2024-07-19 14:47:00* Test Item Value Reference Range Interpretation Comme nts POCT SARS-COV-2 ANTIGEN (test code = 60721-3) Not Detected Not Detected, See Comment On board controls acceptable with C Line (test code = 3574) Yes CHRISTINA (test code = CHRISTINA) accurate developme nt and interpretation of all internal controls Lab Interpretation (test code = 16563-6) Normal [facility] [id number] 04:29:46* Test Item Value Reference Range Interpretation Comme nts VALPROIC ACID (test code = 3025) 12.1 [...] PERFORMED AT [facility] [address] [place] [address] HISTOTECHNOLOGIST SUPERVISOR: LUIZ CALVO M.D. CLIA NUMBER [id number] [place]. [id number] VALPROIC [id number] 00:00:00* Test Item Value Reference Range Interpretation Comme nts VALPROIC ACID (test code = 3025) 12.1 UG/ML Helder MarieVALPROIC [id number] 00:00:00* Test Item Value Reference Range Interpretation Comme nts VALPROIC ACID (test code = 3025) 12.1 UG/ML Helder MarieVITAMIN D, 25 [id number] 05:02:45* Test Item Value Reference Range Interpretation Comme [facility] VITAMIN D, 25 OH (test code [...] PERFORMED AT [facility] [address] [place] [address] HISTOTECHNOLOGIST SUPERVISOR: LUIZ CALVO M.D. CLIA NUMBER [id number] [facility] [place]. [id number] TSH, THIRD [id number] 04:30:42* Test Item Value Reference Range Interpretation Comme [facility] TSH, THIRD GENERATION (test code = 2821) 1.720 UIU/ML 0.400-4.100 [id number] 04:30:42* Test Item Value Reference Range Interpretation Comme [facility] PROLACTIN (test code = 2800) 17.8 NG/ML 4.0-26.0 NOTE: Methodolog y is Milla Allen Electrochemiluminescence Immunoassay (ECLIA). Values obtained with different assays/manufacturers cannot be used interchangeably. Results should not be used as sole basis to establish the presence or absence of malignancy. LIPID [id number] 04:28:46* Test Item Value Reference Range Interpretation [...] SPECIMENS. FOR MOREINFORMATION, SEE CLIENT ANNOUNCEMENT AT [email or web address] RISK RATIO LDL/HDL (test code = 2237) 3.11 RATIO <3.55 COMPREHENSIVE METABOLIC [id number] 04:28:46* Test Item Value Reference Range Interpretation Comme nts GLUCOSE (test code = 2216) 98 MG/DL 70-99 BUN (test code = 2207) 9 MG/DL 6-20 CREATININE (test code = 2213) 0.91 MG/DL 0.80-1.40 eGFR (2020 CKD-EPI) (test code = 24671) 123 ML/MIN/1.73 >60 CALC BUN/CREAT (test code [...] G/DL 3.5-5.2 CALC GLOBULIN (test code = 2240) 2.5 G/DL 1.9-3.7 CALC A/G RATIO (test code = 2233) 2.0 RATIO 1.0-2.6 BILIRUBIN, TOTAL (test code = 2206) 0.7 MG/DL <=1.2 ALKALINE PHOSPHATASE (test code = 2203) 133 U/L 44-129 H AST (test code = 2217) 26 U/L 9-50 ALT (test code = 2218) 68 U/L 5-50 H HEMOGLOBIN [id number] 02:58:33* Test Item Value Reference Range Interpretation Comme [facility] HEMOGLOBIN A1c (test code = 70690) 5.2 % 4.2-5.6 CBC W/AUTO DIFF WITH [id number] 02:29:50* Test Item Value Reference Range Interpretation [...] 0.00-0.10 ABS NUCLEATED RBCS (test code = 44016) 0.00 K/UL 0.00-0.11 CBC W/AUTO [id number] 00:00:00* Test Item Value Reference Range Interpretation [...] ABS NUCLEATED RBCS (test cod e = 06312) 0.00 K/UL Helder MarieHEMOGLOBIN [id number] 00:00:00* Test Item Value Reference Range Interpretation Comme nts HEMOGLOBIN A1c (test code = 83981) 5.2 % Helder MarieLIPID [id number] 00:00:00* Test Item Value Reference Range Interpretation Comme nts CHOLESTEROL (test code = 2210) 251 MG/DL TRIGLYCERIDES (test code = 2232) 150 MG/DL HDL CHOLESTEROL (test code = 2220) 54 MG/DL CALC LDL CHOL (test code = 2237) 168 MG/DL RISK RATIO LDL/HDL (test cod e = 2238) 3.11 RATIO Helder MarieCOMPREHENSIVE METABOLIC [id number] 00:00:00* Test Item Value Reference Range Interpretation Comme nts GLUCOSE (test code = 2217) 98 MG/DL BUN (test code = 2208) 9 MG/DL CREATININE (test code = 2214) 0.91 MG/DL eGFR (2020 CKD-EPI) (test code = 78805) 123 ML/MIN/1.73 CALC BUN/CREAT (test code = 223) 10 RATIO SODIUM (test code = 223) 139 MEQ/L POTASSIUM (test code = 2228) 4.6 MEQ/L CHLORIDE (test code = 2215) 101 MEQ/L CARBON DIOXIDE (test code = 2206) 23 MEQ/L CALCIUM (test code = 2209) 10.1 MG/DL PROTEIN, TOTAL (test code = 222) 7.6 G/DL ALBUMIN (test code = 2201) 5.1 G/DL CALC GLOBULIN (test code = 2240) 2.5 G/DL CALC A/G RATIO (test code = 2234) 2.0 RATIO BILIRUBIN, TOTAL (test code = 2206) 0.7 MG/DL ALKALINE PHOSPHATASE (test code = 2203) 133 U/L AST (test code = 2217) 26 U/L ALT (test code = 2218) 68 U/L Helder MarieTSH, THIRD [id number] 00:00:00* Test Item Value Reference Range Interpretation Comme [facility] TSH, THIRD GENERATION (test code = 2821) 1.720 UIU/ML Helder [id number] 00:00:00* Test Item Value Reference Range Interpretation Comme [facility] PROLACTIN (test code = 2800) 17.8 NG/ML Helder MarieVITAMIN D, 25 [id number] 00:00:00* Test Item Value Reference Range Interpretation Comme [facility] VITAMIN D, 25 OH (test code = 4958) 22 NG/ML Helder MarieCBC W/AUTO [id number] 00:00:00* Test Item Value Reference Range Interpretation [...] ABS NUCLEATED RBCS (test cod e = 97440) 0.00 K/UL Helder MarieHEMOGLOBIN [id number] 00:00:00* Test Item Value Reference Range Interpretation Comme nts HEMOGLOBIN A1c (test code = 24229) 5.2 % Helder MarieLIPID [id number] 00:00:00* Test Item Value Reference Range Interpretation Comme nts CHOLESTEROL (test code = 2210) 251 MG/DL TRIGLYCERIDES (test code = 2232) 150 MG/DL HDL CHOLESTEROL (test code = 2220) 54 MG/DL CALC LDL CHOL (test code = 2237) 168 MG/DL RISK RATIO LDL/HDL (test cod e = 2238) 3.11 RATIO Helder MarieCOMPREHENSIVE METABOLIC [id number] 00:00:00* Test Item Value Reference Range Interpretation Comme nts GLUCOSE (test code = 2217) 98 MG/DL BUN (test code = 2208) 9 MG/DL CREATININE (test code = 2214) 0.91 MG/DL eGFR (2020 CKD-EPI) (test code = 23635) 123 ML/MIN/1.73 CALC BUN/CREAT (test code = [...] = 2219) 68 U/L Helder Daugherty, THIRD [id number] 00:00:00* Test Item Value Reference Range Interpretation Comme nts TSH, THIRD GENERATION (test code = 2821) 1.720 UIU/ML Helder [id number] 00:00:00* Test Item Value Reference Range Interpretation Comme nts PROLACTIN (test code = 2800) 17.8 NG/ML Helder MarieVITAMIN D, 25 [id number] 00:00:00* Test Item Value Reference Range Interpretation Comme jay jay VITAMIN D, 25 OH (test code = 4958) 22 NG/ML Helder Cassidy, [id number] 07:01:30SPECIMEN NUMBER: [id number] CULTURE, URINE SPECIMEN NUMBER: [id number] SPECIMEN COMMENT: URINE SOURCE: URINE REPORT STATUS: FINAL FINAL REPORT: 07/08/2023 NO GROWTH AFTER 36 HOURS INCUBATION UNLESS OTHERWISE INDICATED, ALL TESTING PERFORMED AT [facility] [address] [place] [address] HISTOTECHNOLOGIST SUPERVISOR: LUIZ CALVO M.D. CLIA NUMBER [id number] [place].[id number] CULTURE, [id number] 00:00:00* Test Item Value Reference Range Interpretation Comme nts CULTURE, URINE (test code = 70344) SPECIMEN NUMBER: [id number] Helder Cassidy, [id number] 00:00:00* Test Item Value Reference Range Interpretation Comme nts CULTURE, URINE (test code = 87792) SPECIMEN NUMBER: [id number] Helder Daugherty, THIRD [id number] 06:39:48* Test Item Value Reference Range Interpretation Comme nts TSH, THIRD GENERATION (test code = 2821) 2.460 UIU/ML 0.400-4.100 UNLESS OTHERWISE INDICATED, ALL TESTING PERFORMED AT [facility] [address] [place] [address] HISTOTECHNOLOGIST SUPERVISOR: LUIZ CALVO M.D. CLIA NUMBER [id number] [facility] [place]. [id number] LIPID [id number] 04:40:40* Test Item Value Reference Range Interpretation [...] SPECIMENS. FOR MOREINFORMATION, SEE CLIENT ANNOUNCEMENT AT [email or web address] RISK RATIO LDL/HDL (test code = 2238) 3.47 RATIO <3.55 BASIC METABOLIC [id number] 04:40:40* Test Item Value Reference Range Interpretation Comme nts GLUCOSE (test code = 2217) 88 MG/DL 70-99 BUN (test code = 2208) 10 MG/DL 6-20 CREATININE (test code = 2214) 0.80 MG/DL 0.80-1.40 eGFR (2020 CKD-EPI) (test code = 10729) 130 ML/MIN/1.73 >60 SODIUM (test code = 223) 139 MEQ/L 133-146 POTASSIUM (test code = 2228) 4.6 MEQ/L 3.5-5.4 CHLORIDE (test code = 2215) 99 MEQ/L 95-107 CARBON DIOXIDE (test code = 2206) 27 MEQ/L 19-31 CALCIUM (test code = 2209) 10.2 MG/DL 8.5-10.5 HEMOGLOBIN [id number] 03:19:21* Test Item Value Reference Range Interpretation Comme nts HEMOGLOBIN A1c (test code = 72823) 5.3 % 4.2-5.6 CBC W/AUTO DIFF WITH [id number] 02:29:14* Test Item Value Reference Range Interpretation [...] 0.00-0.10 ABS NUCLEATED RBCS (test code = 71237) 0.00 K/UL 0.00-0.11 CBC W/AUTO [id number] 00:00:00* Test Item Value Reference Range Interpretation [...] ABS NUCLEATED RBCS (test cod e = 88464) 0.00 K/UL Helder MarieHEMOGLOBIN [id number] 00:00:00* Test Item Value Reference Range Interpretation Comme nts HEMOGLOBIN A1c (test code = 88637) 5.3 % Helder Romero AustinLIPID [id number] 00:00:00* Test Item Value Reference Range Interpretation Comme nts CHOLESTEROL (test code = 2210) 317 MG/DL TRIGLYCERIDES (test code = 2232) 101 MG/DL HDL CHOLESTEROL (test code = 2220) 66 MG/DL CALC LDL CHOL (test code = 2237) 229 MG/DL RISK RATIO LDL/HDL (test cod e = 2238) 3.47 RATIO Helder MarieBASIC METABOLIC [id number] 00:00:00* Test Item Value Reference Range Interpretation Comme nts GLUCOSE (test code = 2217) 88 MG/DL BUN (test code = 2208) 10 MG/DL CREATININE (test code = 2214) 0.80 MG/DL eGFR (2020 CKD-EPI) (test code = 34401) 130 ML/MIN/1.73 SODIUM (test code = 2231) 139 MEQ/L POTASSIUM (test code = 2228) 4.6 MEQ/L CHLORIDE (test code = 2215) 99 MEQ/L CARBON DIOXIDE (test code = 2206) 27 MEQ/L CALCIUM (test code = 2209) 10.2 MG/DL Helder AlbertH, THIRD [id number] 00:00:00* Test Item Value Reference Range Interpretation Comme nts TSH, THIRD GENERATION (test code = 2821) 2.460 UIU/ML Helder MarieCBC W/AUTO [id number] 00:00:00* Test Item Value Reference Range Interpretation [...] ABS NUCLEATED RBCS (test cod e = 24682) 0.00 K/UL Helder MarieHEMOGLOBIN [id number] 00:00:00* Test Item Value Reference Range Interpretation Comme jay jay HEMOGLOBIN A1c (test code = 08419) 5.3 % Helder MarieLIPID [id number] 00:00:00* Test Item Value Reference Range Interpretation Comme nts CHOLESTEROL (test code = 2210) 317 MG/DL TRIGLYCERIDES (test code = 2232) 101 MG/DL HDL CHOLESTEROL (test code = 2220) 66 MG/DL CALC LDL CHOL (test code = 2237) 229 MG/DL RISK RATIO LDL/HDL (test cod e = 2238) 3.47 RATIO Helder MarieBASIC METABOLIC [id number] 00:00:00* Test Item Value Reference Range Interpretation Comme nts GLUCOSE (test code = 2217) 88 MG/DL BUN (test code = 2208) 10 MG/DL CREATININE (test code = 2214) 0.80 MG/DL eGFR (2020 CKD-EPI) (test code = 11930) 130 ML/MIN/1.73 SODIUM (test code = 2231) 139 MEQ/L POTASSIUM (test code = 2228) 4.6 MEQ/L CHLORIDE (test code = 2215) 99 MEQ/L CARBON DIOXIDE (test code = 2206) 27 MEQ/L CALCIUM (test code = 2209) 10.2 MG/DL Helder MarieTSH, THIRD [id number] 00:00:00* Test Item Value Reference Range Interpretation Comme jay jay TSH, THIRD GENERATION (test code = 2821) 2.460 UIU/ML Helder Marie
[2024-10-25] MEDS ORDERED: ONDANSETRON 4 MG/2 ML VIAL ONE (01:33)
[2024-10-25] MEDS ORDERED: NA CHLORIDE 0.9% 500 ML ONE (01:34)
[2024-10-25] MEDS ORDERED: dexAMETHasone 10 MG/ML VIAL ONE (01:34)
[2024-10-25 01:47] LABS: Absolute Eosinophils 0.2 K/uL (0-0.5); Absolute Lymphocytes (CBC) 1.9 K/uL (0.7-4.9); Absolute Monocytes 0.8 K/uL (0.1-1.3); Absolute Neutrophil 8.3 K/uL (1.8-8.0); Basophils % 0.3 % (0-1.3); Eosinophils % 1.5 % (0-4.4); Hematocrit 46.3 % (39.6-49.0); Hemoglobin 15.6 g/dL (13.6-17.9); Lymphocytes % 17.2 % (15.3-44.8); MCH 28.4 pg (27.0-35.0); MCHC 33.7 g/dL (32.0-36.0); MCV 84.4 fL (80-100); MPV 9.1 fL (7.6-11.3); Monocytes % 7.3 % (3.3-12.3); Neutrophils % 73.7 % (41.7-73.7); Nucleated Red Blood Cells % 0.2 % (0-0); Platelets 210 thou/uL (152-406); RBC Red Blood Cell Count 5.49 M/uL (4.33-5.43); Red Cell Distribution Width 12.3 % (12.1-15.2)
[2024-10-25 01:56] LABS: Anion Gap 8.7 mEq/L (5.0-15.0); Potassium 3.7 mEq/L (3.5-5.1)
--- NOTE | 2024-10-25 02:10 | ER ---
Nurse's Notes [facility] Name: Reginald Connors Age: 24 yrs Sex: Male : 2000 Arrival Date: 10/25/2024 Time: 01:17 Bed 8 Private MD: Diagnosis: Viral infection, unspecified Presentation: 10/25 01:31 Chief complaint: Parent and/or Guardian states: throat pain and vomiting. Coronavirus vc1 screen: Client denies travel out of the [place] in the last 14 days. sore throat, vomiting. Client presents with at least one sign or symptom that may indicate coronavirus-19. Ebola Screen: Patient negative for fever greater than or equal to 101.5 degrees Fahrenheit, and additional compatible Ebola Virus Disease symptoms Patient denies exposure to infectious person. Patient denies travel to an Ebola-affected area in the 21 days before illness onset. No symptoms or risks identified at this time. Initial Sepsis Screen: Does the patient meet any 2 criteria? No. Patient's initial sepsis screen is negative. Does the patient have a suspected source of infection? No. Patient's initial sepsis screen is negative. Risk Assessment: Do you want to hurt yourself or someone else? Patient reports no desire to harm self or others. Onset of symptoms is unknown. 01:31 Method Of Arrival: Ambulatory vc1 01:31 Acuity: PHI 4 vc1 Triage Assessment: 01:34 General: Appears in no apparent distress. uncomfortable, obese, well groomed, well vc1 developed, Behavior is cooperative, inappropriate for age, hesitant on answering questions, looks to mom for answers. Pain: Complains of pain in throat Pain currently is 10 out of 10 on a pain scale. EENT: Reports pain when swallowing Pain is 10 out of 10 on a pain scale. Neuro: Level of Consciousness is awake, alert, obeys commands, Oriented to person, place, time, situation, Appropriate for age. Cardiovascular: Patient's skin is warm and dry. Respiratory: Airway is patent Respiratory effort is even, unlabored, Respiratory pattern is regular, symmetrical. GI: Abdomen is round non-distended. GI: Reports lower abdominal pain. : No deficits noted. No signs and/or symptoms were reported regarding the genitourinary system. Derm: Skin is intact, is healthy with good turgor, Skin is dry, Skin is normal, Skin temperature is warm. Musculoskeletal: Circulation, motion, and sensation intact. Range of motion: intact in all extremities. Historical: - Allergies: :33 Bactrim; vc1 :33 benztropine; vc1 01:33 citalopram; vc1 01:33 Clonazepam; vc1 01:33 Cymbalta; vc1 :33 Intuniv ER; vc1 :33 lamotrigine; vc1 :33 Latuda; vc1 :33 OLANZAPINE; vc1 :33 Propranolol; vc1 :33 Prozac; vc1 :33 Rexulti; vc1 :33 Zithromax; vc1 :33 Zoloft; vc1 - PMHx: :33 Schizophrenia; Anxiety; Asthma; Bipolar disorder; depressive disorder; vc1 - Immunization history:: Client reports having NOT received the Covid vaccine. Flu vaccine is not up to date. - Infectious Disease History:: Denies. - Social history:: Smoking status: Patient denies any tobacco usage or history of. Screenin:29 [facility] ED Fall Risk Assessment (Adult) History of falling in the last 3 months, bm8 including since admission No falls in past 3 months (0 pts) Confusion or Disorientation No (0 pts) Intoxicated or Sedated No (0 pts) Impaired Gait No (0 pts) Mobility Assist Device Used No (0 pt) Altered Elimination No (0 pt) Score/Fall Risk Level 0 - 2 = Low Risk Oriented to surroundings, Maintained a safe environment, Educated pt \T\ family on fall prevention, incl call for assistance when getting out of bed, Assessed \T\ reinforced patient's understanding of fall precautions, Hourly rounding (assess needs \T\ fall precautionary measures) done, Used ambulatory aids as needed (educated on \T\ assisted with), Used gait belt as appropriate. Abuse screen: Denies threats or abuse. Nutritional screening: No deficits noted. Tuberculosis screening: No symptoms or risk factors identified. Assessment: General: Appears in no apparent distress. comfortable, Behavior is calm, cooperative, bm8 appropriate for age. Pain: Complains of pain in right lower quadrant, throat Pain currently is 8 out of 10 on a pain scale. Neuro: No deficits noted. Level of Consciousness is awake, alert, obeys commands, Oriented to person, place, time, situation, Appropriate for age. Cardiovascular: Denies chest pain, Capillary refill < 3 seconds in bilateral fingers Patient's skin is warm and dry. Respiratory: Airway is patent Respiratory effort is even, unlabored, Respiratory pattern is regular, symmetrical. GI: Abdomen is flat, non-distended, Bowel sounds present X 4 quads. Abdomen is tender to palpation in right lower quadrant Reports lower abdominal pain, nausea, Pain is 8 out of 10 on a pain scale. vomiting. : No signs and/or symptoms were reported regarding the genitourinary system. EENT: Throat is reddened bilaterally with gag reflex present. Derm: No signs and/or symptoms reported regarding the dermatologic system. Musculoskeletal: No signs and/or symptoms reported regarding the musculoskeletal system. 02:21 Reassessment: Patient appears in no apparent distress at this time. Patient and/or bm8 family updated on plan of care and expected duration. Pain level reassessed. Patient is alert, oriented x 3, equal unlabored respirations, skin warm/dry/pink. Patient denies pain at this time. Patient states feeling better. Patient states symptoms have improved. Vital Signs: 01:31 BP 142 / 89; Pulse 92; Resp 16; Temp 97.7; Pulse Ox 98% ; Weight 102.97 kg; Height 5 vc1 ft. 9 in. ; Pain 10/10; 02:21 BP 129 / 83; Pulse 83; Resp 17; Temp 97.7; Pulse Ox 97% ; Pain 0/10; bm8 01:31 Body Mass Index 33.52 (102.97 kg, 175.26 cm) vc1 01:31 Pain Scale: Adult vc1 02:21 Pain Scale: Adult bm8 Miko Coma Score: 01:29 Eye Response: spontaneous(4). Motor Response: obeys commands(6). Verbal Response: bm8 oriented(5). Total: 15. 02:21 Eye Response: spontaneous(4). Motor Response: obeys commands(6). Verbal Response: bm8 oriented(5). Total: 15. ED Course: 01:21 Patient arrived in ED. jj6 01:22 Bladimir Rodríguez MD is Attending Physician. ec2 01:28 Nii Serna RN is Primary Nurse. bm8 01:29 Patient has correct armband on for positive identification. Bed in low position. Call bm8 light in reach. Side rails up X 1. Adult w/ patient. Client placed on continuous cardiac and pulse oximetry monitoring. NIBP monitoring applied. Pulse ox on. NIBP on. Door closed. Noise minimized. Verbal reassurance given. Head of bed elevated. 01:29 No provider procedures requiring assistance completed. Patient maintains SpO2 bm8 saturation greater than 95% on room air. 01:32 Triage completed. vc1 01:34 Arm band placed on right wrist. vc1 01:36 Initial lab(s) drawn, by me, sent to lab. Inserted saline lock: 20 gauge in right dd2 antecubital area, using aseptic technique. Blood collected. Flushed with 10 mL NS. 01:37 BMP Sent. dd2 01:38 CBC with Diff Sent. dd2 02:21 Provided Education on: post er care. bm8 02:21 IV discontinued, intact, bleeding controlled, No redness/swelling at site. Pressure bm8 dressing applied. Administered Medications: 01:41 Drug: Decadron - Dexamethasone IVP 10 mg IVP once Route: IVP; Site: right antecubital; bm8 02:22 Follow up: Response: No adverse reaction bm8 01:42 Drug: NS 0.9% IV 500 ml 500 ml IV at 1 bolus once; to be given as a bolus over 30 bm8 minutes Volume: 500 ml; Route: IV; Rate: 1 bolus; Site: right antecubital; 02:22 Follow up: Response: No adverse reaction; IV Status: Completed infusion; IV Intake: bm8 500ml 01:42 Drug: Ondansetron IVP 4 mg IVP once; over 2 minutes Route: IVP; Site: right antecubital;bm8 02:22 Follow up: Response: No adverse reaction bm8 Medication: :29 VIS not applicable for this client. bm8 Intake: 02:22 IV: 500ml; Total: 500ml. bm8 Outcome: 02:10 Discharge ordered by . ec2 02:21 Discharged to home ambulatory, bm8 02:21 Discharged to home ambulatory, with family, 02:21 Condition: good 02:21 Discharge instructions given to patient, family, Instructed on discharge instructions, follow up and referral plans. no drinking with medication, no driving heavy equipment, medication usage, safety practices, Demonstrated understanding of instructions, follow-up care, medications, Prescriptions given X 2, 02:23 Patient left the ED. bm8 Signatures: Felicia Perez jj6 Yuni Mccormick RN RN vc1 Bladimir Rodríguez MD MD ec2 Nii Serna RN RN bm8 KATHY CARRASCO RN RN dd2
--- NOTE | 2024-10-25 02:10 | EDPHYS ---
Physician Documentation [facility] Name: Reginald Connors Age: 24 yrs Sex: Male : 2000 Arrival Date: 10/25/2024 Time: 01:17 Bed 8 Private MD: ED Physician lBadimir Rodríguez HPI: 10/25 01:31 This 24 yrs old Male presents to ER via Unassigned with complaints of ec2 Nausea/Vomiting. 01:31 Patient arrives today for nausea and vomiting as well as upper respiratory symptoms and ec2 sore throat ongoing for couple of days. Patient recently seen in urgent care and had negative strep, COVID, flu swabs.. Historical: - Allergies: 01:33 Bactrim; vc1 01:33 benztropine; vc1 01:33 citalopram; vc1 01:33 Clonazepam; vc1 01:33 Cymbalta; vc1 01:33 Intuniv ER; vc1 01:33 lamotrigine; vc1 01:33 Latuda; vc1 01:33 OLANZAPINE; vc1 01:33 Propranolol; vc1 01:33 Prozac; vc1 01:33 Rexulti; vc1 01:33 Zithromax; vc1 01:33 Zoloft; vc1 - PMHx: 01:33 Schizophrenia; Anxiety; Asthma; Bipolar disorder; depressive disorder; vc1 - Immunization history:: Client reports having NOT received the Covid vaccine. Flu vaccine is not up to date. - Infectious Disease History:: Denies. - Social history:: Smoking status: Patient denies any tobacco usage or history of. ROS: 01:31 Constitutional: as per hpi ec2 Exam: 01:31 Constitutional: GEN: NAD Head: atraumatic Eyes: EOMI Ears: External ears are ec2 normal. CV: regular rate LUNGS: no respiratory distress ABD: non-distended, soft, not guarding, not rigid SKIN: no evidence of rashes MSK: no evidence of trauma Vital Signs: 01:31 BP 142 / 89; Pulse 92; Resp 16; Temp 97.7; Pulse Ox 98% ; Weight 102.97 kg; Height 5 vc1 ft. 9 in. ; Pain 10/10; 02:21 BP 129 / 83; Pulse 83; Resp 17; Temp 97.7; Pulse Ox 97% ; Pain 0/10; bm8 01:31 Body Mass Index 33.52 (102.97 kg, 175.26 cm) vc1 01:31 Pain Scale: Adult vc1 02:21 Pain Scale: Adult bm8 [place] Coma Score: 01:29 Eye Response: spontaneous(4). Motor Response: obeys commands(6). Verbal Response: bm8 oriented(5). Total: 15. 02:21 Eye Response: spontaneous(4). Motor Response: obeys commands(6). Verbal Response: bm8 oriented(5). Total: 15. MDM: 01:23 Medical Screening Exam initiated ec2 01:31 Data reviewed: vital signs, nurses notes. ED course: CT abdomen pelvis shows ileus ec2 versus possible small bowel obstruction. Will admit for symptomatic management. Patient arrives today for upper respiratory symptoms, sore throat as well as nausea and vomiting. Examination is unrevealing. Will obtain lab work, give the patient crystalloid as well as antiemetic. Suspect viral process.. 02:09 ED course: On reassessment patient is well-appearing no acute distress. Will discharge ec2 home, prescribe Zofran as needed for nausea. Return precautions given.. 10/25 01:28 Order name: CBC with Diff; Complete Time: 02:04 ec2 10/25 01:28 Order name: BMP; Complete Time: 02:04 ec2 10/25 01:28 Order name: IV; Complete Time: 01:38 ec2 Administered Medications: 01:41 Drug: Decadron - Dexamethasone IVP 10 mg IVP once Route: IVP; Site: right antecubital; bm8 02:22 Follow up: Response: No adverse reaction bm8 01:42 Drug: NS 0.9% IV 500 ml 500 ml IV at 1 bolus once; to be given as a bolus over 30 bm8 minutes Volume: 500 ml; Route: IV; Rate: 1 bolus; Site: right antecubital; 02:22 Follow up: Response: No adverse reaction; IV Status: Completed infusion; IV Intake: bm8 500ml 01:42 Drug: Ondansetron IVP 4 mg IVP once; over 2 minutes Route: IVP; Site: right antecubital;bm8 02:22 Follow up: Response: No adverse reaction bm8 Disposition Summary: 10/25/24 02:10 Discharge Ordered Notes: Location: Home ec2 Condition: Stable ec2 Diagnosis - Viral infection, unspecified ec2 Followup: ec2 - With: Private Physician - When: - Reason: Re-evaluation by your physician Discharge Instructions: - Discharge Summary Sheet ec2 - Viral Illness, Adult ec2 Forms: - Medication Reconciliation Form ec2 - Antibiotic Education ec2 - Prescription Opioid Use ec2 - Patient Portal Instructions ec2 - Leadership Thank You Letter ec2 Prescriptions: - Zofran 4 mg Oral Tablet - take 1 tablet ORAL route every 12 hours As needed; 20 tablet; Refills: 0, ec2 Product Selection Permitted - Tessalon Perles 100 mg Oral Capsule - take 1 capsule ORAL route every 8 hours As needed; 15 capsule; Refills: 0, ec2 Product Selection Permitted Signatures: Dispatcher [employer] EDYuni Alamo RN RN vc1 Bladimir Rodríguez MD MD ec2 Nii Serna RN RN bm8 Corrections: (The following items were deleted from the chart) 01: 01:29 CBC+H.LAB.BRZ ordered. EDMS EDMS 01:29 01:29 BASIC METABOLIC PANEL+C.LAB.BRZ ordered. EDMS EDMS
[2024-10-25 02:28] VITALS: TEMP 97.7
[2024-10-25 02:30] VITALS: BP 129/83; O2SAT 97
== END 2024-10-25 02:23 | disposition home or self-care (01) ==
LOC: ER 01:17
DX: B34.9 Viral infection, unspecified (principal); Z28.310 Unvaccinated for COVID-19
CPT/HCPCS: 96361; 85025; 80048; 36415; 96375; 96374; 99284; J1100; J2405; J7040

== ENCOUNTER 2025-01-19 12:48 | Emergency (ER) | payer OTHER ==
--- OUTSIDE RECORDS SUMMARY | 2025-01-19 12:55 | XMS REPORT | Continuity of Care Document ---
Author Name Unknown Address [address] [place] [address] [address] [place] [address] [facility] [address] [facility]. [address] [place] [address] Care Team Providers Care Ops Analyst Name Role Phone Provider, Contracted/Affiliated Primary Care Megan sician Unavailable Provider, Contracted/Affiliated Attending Clinic nguyễn Unavailable Ely, Generic Provider Attending Clinician Unavailable Lilly Gallardo Attending Clinician [phone] Unknown, Attending Attending Clinician UnavailLILLY Roberson Attending Clinician Unavailable Amira Ardon MD Attending Clinician [phone] AMIRA ARDON Attending Clinician Unavailable Raju_P Attending Clinician Unavailable Provider, Contracted/Affiliated Admitting Clinic nguyễn Unavailable Raju_P Admitting Clinician Unavailable Payers Payer Name Policy [...] unable to state the exact reaction [facility] AZITHROM YCIN DRUG INGREDI Active High Other-Cmnt 2012-10 00:00: 00 [facility] Social History Social Habit Start Date Stop Date Quantity Comments Source Sexual orientation U [facility] Sex assigned at 2002 00:00:00 2002 00:00:00 [facility] Smoking Status Start Date Stop Date Source Tobacco smoking consumption unknown [facility] Medications Ordered Medication Name Filled Medication Name Start Date Stop Date Current Medication? Ordering Clinician Indication Dosage Frequency Signature (SIG) Comments Components Source aripiprazol e 5 mg tablet 3- 00:00: 00 Yes 1mg Helder Marie hydroxyzine pamoate 50 mg capsule 3-21 00:00: 00 Yes 1mg Helder Marie Invega Sustenna 234 mg/1.5 mL intramuscul ar syringe 2-17 00:00: 00 Yes 15mg/1. 5 mL Helder Marie ketorolac 10 mg tablet 2-13 00:00: 00 Yes mg Helder Marie cholecalcif kia (vitamin D3) 1,250 mcg (50,000 unit) capsule 2-12 00:00: 00 Yes (50,000 unit) Helder Marie rosuvastati n 10 mg tablet 2-08 00:00: 00 Yes mg Helder Marie phenytoin 50 mg chewable tablet 2-06 00:00: 00 Yes mg Helder Marie levocetiriz ine 5 mg tablet 2-06 00:00: 00 Yes mg Helder Marie levalbutero l HFA 45 mcg/actuati on aerosol inhaler 2-06 00:00: 00 Yes mcg/act uation Helder Marie Vitamin D2 1,250 mcg (50,000 unit) capsule 2-06 00:00: 00 Yes (50,000 unit) Helder Marie risperidone 1 mg tablet 2-03 00:00: 00 Yes 1mg Helder Marie hydroxyzine pamoate 50 mg capsule 2-03 00:00: 00 Yes 1mg Helder Marie hydroxyzine pamoate 50 mg capsule 1-13 00:00: 00 Yes 1mg Helder Marie Invega Sustenna 156 mg/mL intramuscul ar syringe 1-13 00:00: 00 Yes 1mg/mL Helder Marie bromphenira mine-pseudo ephedrine-D M (BROMFED DM) 2-30-10 mg/5 mL syrup 2023-10 00:00: 00 Yes [id number] 10mL Take 10 mL by mouth 4 (four) times daily as needed for Congestion /Allergies , Cold symptoms or Cough. [facility] albuterol 90 mcg/actuati on inhaler 2023-10 00:00: 00 Yes [id number] 2{puff} Inhale 2 Puffs every 6 (six) hours as needed for Wheezing, Shortness of Breath or Bronchospa sm. [facility] risperidone 1 mg tablet 2023-10 00:00: 00 Yes 15mg Helder Marie risperidone 2 mg tablet 2023-10 00:00: 00 Yes 1mg Helder Marie Invega Sustenna 156 mg/mL intramuscul ar syringe 2023-10 00:00: 00 Yes 1mg/mL Helder Marie Invega Sustenna 234 mg/1.5 mL intramuscul ar syringe 2023-10 00:00: 00 Yes 15mg/1. 5 mL Helder Marie benztropine 1 mg tablet 2023-10 00:00: 00 Yes 1mg Helder Marie risperidone 1 mg tablet 2023-10 00:00: 00 Yes 15mg Helder Marie risperidone 2 mg tablet 2023-10 00:00: 00 Yes 1mg Helder Marie hydroxyzine pamoate 50 mg capsule 2023-10 00:00: 00 Yes 1mg Helder Marie Xyzal 5 mg tablet 2023-10 00:00: 00 Yes 1mg Helder Marie ibuprofen 400 mg tablet 2023-10 00:00: 00 Yes 1mg Helder Marie benztropine 1 mg tablet 2023-10 00:00: 00 Yes 1mg Helder Marie risperidone 1 mg tablet 2023-10- 00:00: 00 Yes 1mg Helder Marie risperidone 2 mg tablet 2023-10- 00:00: 00 Yes 1mg Helder Marie hydroxyzine pamoate 50 mg capsule 2023-10- 00:00: 00 Yes 1mg Helder Marie risperidone 1 mg tablet 2023-10 0-07 00:00: 00 Yes 1mg Helder Marie divalproex 125 mg tablet,belén yed release 2023-10 0-07 00:00: 00 Yes 1mg Helder Marie Risperdal [...] mg/5 mL syrup 07-19 00:00: 00 Yes [id number] 5mL Take 5 mL by mouth 4 (four) times daily as needed for Congestion /Allergies . [facility] azelastine 137 mcg (0.1 %) nasal spray 07-19 00:00: 00 Yes [id number] 1{spray } Use 1 [facility] [place] in each nostril in the morning and 1 [facility] [place] in the evening. Use in each nostril as directed [facility] fluticasone propionate 50 mcg/actuati on nasal spray 07-19 00:00: 00 Yes [id number] 1{spray } Use 1 [place] in each nostril in the morning. [facility] amoxicillin -pot clavulanate 600-42.9 mg/5 mL suspension 07-19 00:00: 00 07-30 04:59 :00 No [id number] 870mg Take 7.25 mL by mouth in the morning and 7.25 mL in the evening. Do all this for 10 days. [facility] hydrOXYzine 50 mg capsule 07-09 00:00: 00 Yes TAKE ONE (1) CAPSULE(S) BY MOUTH THREE TIMES A DAY NEEDED. [facility] Risperdal 2 mg tablet 07-08 00:00: [...] THE AFFECTED AREA(S) 2 TIMES A DAY. [facility] cetirizine 10 mg tablet 06-27 00:00: 00 Yes 10mg Take 1 tablet by mouth at bedtime. [facility] levalbutero l 45 mcg/actuati on inhaler 06-27 00:00: 00 Yes INHALE ONE (1) PUFF EVERY 4-6 HOURS NEEDED. [facility] traZODone 100 mg tablet 06-24 00:00: 00 Yes 100mg Take 1 tablet by mouth at bedtime. [facility] risperiDONE 2 mg tablet 06-24 00:00: 00 Yes 2mg Take 1 tablet by mouth in the morning and 1 tablet in the evening. [facility] divalproex 500 mg delayed release tablet 06-24 00:00: 00 Yes 500mg Take 1 tablet by mouth in the morning and 1 tablet in the evening. [facility] benztropine 1 mg tablet 06-24 00:00: 00 Yes 1mg Take 1 tablet by mouth in the morning and 1 tablet in the evening. [facility] benztropine 1 mg tablet 06-19 00:00: [...] FOUR TIMES A DAY NEEDED FOR ASTHMA. [facility] hydroxyzine pamoate 50 mg capsule 05-30 00:00: 00 Yes 1mg Helder Marie hydroxyzine pamoate 50 mg capsule 04-24 00:00: 00 Yes 1mg Helder Marie hydroxyzine pamoate 50 mg capsule 04-02 00:00: 00 Yes 1mg Helder Marie TAKE ONE (1) TABLET(S) BY MOUTH ONCE A DAY. 02-27 00:00: 00 Yes Helder Marie Vitamin D2 1,250 mcg (50,000 unit) capsule 02-18 00:00: 00 Yes 1(50,00 0 unit) Helder Marie trazodone 50 mg tablet 02-13 00:00: 00 Yes 1mg Helder Marie hydroxyzine pamoate 50 mg capsule 02-13 00:00: 00 Yes 1mg Helder Marie TAKE ONE (1) TABLET(S) BY MOUTH EVERY EIGHT HOURS FOR 3 DAYS. 16 00:00: 00 Yes Helder Marie Latuda 40 mg tablet - 00:00: 00 Yes 1mg Helder Marie Vitamin D3 50 mcg (2,000 unit) tablet 01-31 00:00: 00 Yes 1(2,000 unit) Helder Marie Latuda 60 mg tablet 01-23 00:00: 00 Yes 1mg Helder Marie LURASIDONE HYDROCHLORI DE 60 MG TABS - 00:00: 00 Yes Helder Marie lurasidone 40 mg tablet 3-27 00:00: 00 Yes 1mg Helder Marie guanfacine ER 3 mg tablet,exte nded release 24 hr - 00:00: 00 Yes 1mg Helder Marie lurasidone 40 mg tablet 15 00:00: 00 Yes 1mg Helder Marie trazodone 50 mg tablet 15 00:00: 00 Yes 1mg Helder Marie hydroxyzine pamoate 50 mg capsule -15 00:00: 00 Yes 1mg Helder Marie DISSOLVE 1 TABLET BY MOUTH EVERY 8 HOURS NEEDED -06 00:00: 00 Yes Helder Marie TAKE 1 TABLET BY MOUTH EVERY 12 HOURS FOR 14 DAYS - 00:00: 00 Yes Helder Marie TAKE 1 TABLET DAILY AT DINNER. 00:00: 00 03-10 00:00 :00 No 40 Helder Marie HYDROXYZINE PAMOATE 50 MG 2- 00:00: 00 Yes Helder Marie TAKE ONE (1) TABLET(S) BY MOUTH AT BEDTIME FOR MOOD. - 00:00: 00 Yes Helder Marie GUANFACINE ER 1 MG TB24 2- 00:00: 00 Yes Helder Marie CLINDAMYCIN PHOSPHATE 1 % GEL 2-08 00:00: 00 Yes Helder Marie CHEW AND SWALLOW ONE (1) TABLET BY MOUTH TWICE DAILY. -24 00:00: 00 Yes Helder Marie AMOXICILLIN 400 MG/5ML SUSR -15 00:00: 00 Yes Helder Marie TAKE ONE (1) TABLET(S) BY MOUTH ONCE A DAY AT BEDTIME. 11-11 00:00: 00 Yes Helder Marie TAKE ONE (1) TABLET(S) BY MOUTH ONCE A DAY. 11-11 00:00: 00 Yes Helder Marie TAKE 1 TABLET DAILY. - 00:00: 00 03-10 00:00 :00 No 5 Helder Marie TAKE 10 ML EVERY 4-6 HOURS NEEDED 1-15 00:00: 00 03-10 00:00 :00 No [id number] Helder Marie TAKE ONE (1) CAPSULE(S) BY [...] Yes Helder Marie LAMOTRIGINE 100 MG TABS 2022-10- 00:00: 00 Yes Helder Marie OLANZapine 10 [...] THEN DISSOLVE ONE TABLET (5 MG) ON 18 00:00: 00 Yes Helder Marie VENLAFAXINE HYDROCHLORI DE ER 75 MG CP24 918 00:00: 00 Yes Helder Marie TAKE 1 CAPSULE TWICE DAILY. 9- 00:00: 00 03-10 00:00 :00 No 100 Helder Mraie FENOFIBRATE 160 MG TABS 8-25 00:00: 00 [...] Marie BUSPIRONE HYDROCHLORI DE 5 MG TABS 04-26 00:00: 00 Yes Helder Marie TAKE TWO [...] 00 Yes Helder Marie NEOMYCIN/PO LYMYXIN/HYD ROCORTISONE [id number] SUSP 04-05 00:00: 00 Yes Helder Marie [...] 00 Yes 108 Helder Marie LEVOCETIRIZ I - 00:00: 00 Yes 5 Helder Marie VENTOLIN HFA AER 2021-10 00:00: 00 Yes 108 Helder Marie INHALE TWO (2) PUFFS BY MOUTH EVERY FOUR HOURS NEEDED. 2021-10 00:00: 00 Yes Helder Marie CEFDINIR MARIBEL 250/5ML 2021-10 00:00: 00 Yes 250 Helder Marie LORATADINE 2021-10 00:00: 00 Yes 10 Helder Marie TRETINOIN CRE 0.025% 2021-10- 00:00: 00 Yes 25 Helder Marie TAKE [...] SARS-COV-2 COVID-19 PFIZER VACCINE 2021-02-11 00:00:00 Completed [facility] SARS-COV-2 COVID-19 PFIZER VACCINE Unknown Completed [facility] Vital Signs Vital Name Observation Time Observation Value Comments S ource Systolic blood pressure 2024-10-25 01:02:00 133 mm[Hg] [facility] Diastolic blood pressure 2024-10-25 01:02:00 87 mm[Hg] [facility] Heart rate 2024-10-25 01:02:00 99 /min [facility] Body temperature 2024-10-25 01:02:00 36.67 [facility] Respiratory rate 2024-10-25 01:02:00 18 /min [facility] Body height 2024-10-25 01:02:00 175.3 cm [facility] Body weight 2024-10-25 01:02:00 104.327 kg [facility] BMI 2024-10-25 01:02:00 33.97 kg/m2 [facility] Oxygen saturation in Arterial blood by Pulse oximetry 2024-10-25 01:02:00 98 /min [facility] Systolic blood pressure 2024-07-19 14:35:00 120 mm[Hg] [facility] Diastolic blood pressure 2024-07-19 14:35:00 78 mm[Hg] [facility] Heart rate 2024-07-19 14:35:00 70 /min [facility] Body temperature 2024-07-19 14:35:00 36.5 [facility] Respiratory rate 2024-07-19 14:35:00 17 /min [facility] Body height 2024-07-19 14:35:00 175.3 cm [facility] Body weight 2024-07-19 14:35:00 100.33 kg [facility] BMI 2024-07-19 14:35:00 32.66 kg/m2 [facility] Oxygen saturation in Arterial blood by Pulse oximetry 2024-07-19 14:35:00 97 /min [facility] BP Systolic 2025-01-18 17:52:00 129 mm[Hg] Step hen [facility] BP Diastolic 2025-01-18 17:52:00 74 mm[Hg] Kian phen F Frank Weight Measured 2025-01-18 17:52:00 245.00 pounds Helder F Frank Height Measured 2025-01-18 17:52:00 67.00 inches Helder F Frank Body Temperature 2025-01-18 17:52:00 97.70 degrees Helder F Frank Heart Rate 2025-01-18 17:52:00 96.00 /min Jocy en F Frank Respiratory Rate 2025-01-18 17:52:00 18.00 /min Helder F Frank BP Systolic 2024-12-21 09:57:00 119 mm[Hg] Step hen F Frank BP Diastolic 2024-12-21 09:57:00 72 mm[Hg] Kian phen F Frank Weight Measured 2024-12-21 09:57:00 243.40 pounds Helder F Frank Height Measured 2024-12-21 09:57:00 67.00 inches Helder F Frank Body Temperature 2024-12-21 09:57:00 98.60 degrees Helder F Frank Heart Rate 2024-12-21 09:57:00 84.00 /min Jocy en F Frank Respiratory Rate 2024-12-21 09:57:00 18.00 /min Helder F Frank BP Systolic 2024-08-27 09:04:00 122 mm[Hg] Step [...] Body Temperature 2023-03-06 13:57:00 98.30 degrees Helder F Frank Heart Rate 2023-03-06 13:57:00 96.00 /min Jocy en F Frank Respiratory Rate 2023-03-06 13:57:00 20.00 /min Helder F Frank Procedures Procedure Date / Time Performed Performing Clinicia n Source POCT SARS-COV-2 ANTIGEN (BINAX NOW) 2024-10-25 01:18:00 Chika Spivey [facility] POCT MOLECULAR FLU 2024-10-25 01:04:00 Unknown, Attend ing [facility] POCT MOLECULAR STREP 2024-10-25 01:00:00 Unknown, Atte luis [facility] POCT MOLECULAR FLU 2024-07-19 14:44:00 [facility] 2024-07-19 14:44:00 Amira Ardon [facility] POCT SARS-COV-2 ANTIGEN (BINAX NOW) 2024-07-19 14:32:00 Amira Ardon [facility] Encounters Start Date/Time End Date/Time Encounter Type Admission Type Attending [facility] Care Department Encounter ID Source 2025-04-07 16:10:00 2025-04-07 16:10:00 Outpatient Provider, Contracted/ Affiliated FIDENCIO NICOLAS [id number] Fidencio 2025-01-18 17:45:30 2025-01-18 17:45:30 Outpatient SFA SFA [id number] Helder F Frank 2025-01-18 00:00:00 2025-01-18 00:00:00 Outpatient Visit SFA [id number] Helder Romero Frank 2025-01-15 14:04:50 2025-01-15 14:04:50 Outpatient SFA SFA [id number] Helder Romero Frank 2025-01-12 10:11:04 2025-01-12 10:11:04 Outpatient SFA SFA [id number] Helder Romero Frank 2025-01-06 16:00:08 2025-01-06 16:00:08 Outpatient SFA SFA [id number] Helder Romero Frank 2024-12-21 09:48:09 2024-12-21 09:48:09 Outpatient SFA SFA [id number] Helder Romero Frank 2024-12-15 10:28:29 2024-12-15 10:28:29 Outpatient SFA SFA [id number] Helder Marie 2024-12-14 14:16:42 2024-12-14 14:16:42 Outpatient SFA SFA [id number] Helder Marie 2024-12-01 10:39:26 2024-12-01 10:39:26 Outpatient SFA SFA [id number] Helder Marie 2024-11-19 11:23:15 2024-11-19 11:23:15 Outpatient SFA SFA [id number] Helder Marie 2024-11-17 10:47:50 2024-11-17 10:47:50 Outpatient SFA SFA [id number] Helder Marie 2024-11-04 00:00:00 2024-11-04 11:35:00 Letter (Out) Campaigns, Generic Provider Campaigns, Generic Provider [facility] 1.2.840.114 [id number] [id number] [id number] [facility] 2024-11-03 10:43:20 2024-11-03 10:43:20 Outpatient SFA SFA [id number] Helder Marie 2024-10-25 09:20:00 2024-10-25 09:20:00 Outpatient R [facility] [id number] [facility] 2024-10-24 19:00:00 2024-10-24 19:20:00 Urgent Care Lilly Lara Unknown, Attending [facility] [id number] [id number] [id number] [id number] [facility] 2024-10-24 19:00:00 2024-10-24 19:00:00 Outpatient R LILLY LARA [facility] [id number] [facility] 2024-10-12 14:08:11 2024-10-12 14:08:11 Outpatient SFA SFA [id number] Helder Marie 2024-10-09 13:44:05 2024-10-09 13:44:05 Outpatient SFA SFA [id number] Helder Marie 2024-10-06 10:47:29 2024-10-06 10:47:29 Outpatient SFA SFA [id number] Helder Marie 2024-09-22 10:21:02 2024-09-22 10:21:02 Outpatient SFA SFA [id number] Helder Marie 2024-09-08 10:37:31 2024-09-08 10:37:31 Outpatient SFA SFA [id number] Helder Marie 2024-09-02 15:47:41 2024-09-02 15:47:41 Outpatient SFA SFA [id number] Helder Marie 2024-08-30 15:19:38 2024-08-30 15:19:38 Outpatient SFA SFA [id number] Helder Marie 2024-08-27 09:01:25 2024-08-27 09:01:25 Outpatient SFA SFA [id number] Helder Marie 2024-08-27 00:00:00 2024-08-27 00:00:00 Outpatient Visit SFA [id number] Helder Marie 2024-08-21 20:10:29 2024-08-21 20:10:29 Outpatient SFA SFA [id number] Helder Marie 2024-08-17 08:43:05 2024-08-17 08:43:05 Outpatient SFA SFA [id number] Helder Marie 2024-08-03 08:43:11 2024-08-03 08:43:11 Outpatient SFA SFA [id number] Helder Marie 2024-07-28 10:00:56 2024-07-28 10:00:56 Outpatient SFA SFA [id number] Helder Marie 2024-07-26 14:19:18 2024-07-26 14:19:18 Outpatient SFA SFA [id number] Helder Marie 2024-07-23 10:04:35 2024-07-23 10:04:35 Outpatient SFA SFA [id number] Helder Marie 2024-07-21 10:12:45 2024-07-21 10:12:45 Outpatient SFA SFA [id number] Helder Marie 2024-07-19 09:20:00 2024-07-19 09:40:00 Urgent Care Amira Ardon Unknown, Attending [facility] [id number] 350.1.13.10 [id number] [id number] [facility] 2024-07-19 09:20:00 2024-07-19 09:20:00 Outpatient R AMIRA ARDON [facility] [id number] [facility] 2024-07-19 08:13:00 2024-07-19 08:13:00 Outpatient SFA SFA [id number] Helder Marie 2024-07-19 00:00:00 2024-07-19 00:00:00 Outpatient Visit SFA [id number] Helder Marie 2024-07-09 15:38:28 2024-07-09 15:38:28 Outpatient SFA SFA [id number] Helder Marie 2024-07-08 08:16:23 2024-07-08 08:16:23 Outpatient SFA SFA [id number] Helder Marie 2024-07-07 09:43:41 2024-07-07 09:43:41 Outpatient SFA SFA [id number] Helder Marie 2024-06-23 10:00:38 2024-06-23 10:00:38 Outpatient SFA SFA [id number] Helder Marie 2024-06-19 15:23:32 2024-06-19 15:23:32 Outpatient SFA SFA [id number] Helder Marie 2024-06-13 13:24:39 2024-06-13 13:24:39 Outpatient SFA SFA [id number] Helder Marie 2024-06-01 16:07:08 2024-06-01 16:07:08 Outpatient SFA SFA [id number] Helder Marie 2024-05-30 13:19:47 2024-05-30 13:19:47 Outpatient SFA SFA [id number] Helder Marie 2024-05-12 10:25:42 2024-05-12 10:25:42 Outpatient SFA SFA [id number] Helder Marie 2024-04-28 10:11:21 2024-04-28 10:11:21 Outpatient SFA SFA [id number] Helder Marie 2024-04-24 13:18:55 2024-04-24 13:18:55 Outpatient SFA SFA [id number] Helder Marie 2024-04-14 10:13:16 2024-04-14 10:13:16 Outpatient SFA SFA [id number] Helder Marie 2024-04-02 10:56:22 2024-04-02 10:56:22 Outpatient SFA SFA [id number] Helder Marie 2024-03-13 13:55:07 2024-03-13 13:55:07 Outpatient SFA SFA [id number] Helder Marie 2024-03-10 13:43:05 2024-03-10 13:43:05 Outpatient SFA SFA [id number] Helder Marie 2024-02-28 11:41:21 2024-02-28 11:41:21 Outpatient SFA SFA [id number] Helder Marie 2024-02-14 13:06:30 2024-02-14 13:06:30 Outpatient SFA SFA [id number] Helder Marie 2024-02-01 13:39:49 2024-02-01 13:39:49 Outpatient SFA SFA [id number] Helder Marie 2024-01-30 09:19:42 2024-01-30 09:19:42 Outpatient SFA SFA [id number] Helder Marie 2024-01-22 13:44:19 2024-01-22 13:44:19 Outpatient SFA SFA [id number] Helder Marie 2023-12-24 14:52:34 2023-12-24 14:52:34 Outpatient SFA SFA [id number] Helder Marie 2023-12-11 17:23:46 2023-12-11 17:23:46 Outpatient SFA SFA [id number] Helder Marie 2023-11-11 16:46:44 2023-11-11 16:46:44 Outpatient SFA SFA [id number] Helder Marie 2023-10-30 14:57:44 2023-10-30 14:57:44 Outpatient ZOË SFA [id number] Helder Marie 2023-07-05 16:37:29 2023-07-05 16:37:29 Outpatient ZOË SFA [id number] Helder Marie 2023-06-05 16:36:01 2023-06-05 16:36:01 Outpatient ZOË SFA [id number] Helder Marie 2023-05-05 11:12:02 2023-05-05 11:12:02 Outpatient ZOË SFA [id number] Helder Marie 2023-04-19 10:14:25 2023-04-19 10:14:25 Outpatient ZOË SFA [id number] Helder Marie 2023-04-18 13:31:05 2023-04-18 13:31:05 Outpatient SFA SFA [id number] Helder Marie 2023-03-06 13:34:38 2023-03-06 13:34:38 Outpatient SFA SFA [id number] Helder Marie 2020-12-07 09:54:00 2020-12-07 09:54:00 Outpatient Raju_P [facility] [id number] [facility] Results Test Description Test Time Test Comments Results Result Co mments Source [facility] Molecular [id number] 01:15:45* Test Item Value Reference Range Interpretation Comme nts POCT Molecular FluA (test co de = 34784-4) Negative Negative POCT Molecular FluB (test co de = 79973-5) Negative Negative Lab Interpretation (test cod e = 07577-4) Normal [facility] MOLECULAR [id number] 01:09:44* Test Item Value Reference Range Interpretation Comme nts POCT Molecular Strep (test c ode = 22899-4) Negative Negative Lab Interpretation (test cod e = 14712-5) Normal [facility] Molecular [id number] 14:56:19* Test Item Value Reference Range Interpretation Comme nts POCT Molecular FluA (test co de = 71944-2) Negative Negative POCT Molecular FluB (test co de = 22467-2) Negative Negative Lab Interpretation (test cod e = 01375-7) Normal [facility] MOLECULAR [id number] 14:51:52* Test Item Value Reference Range Interpretation Comme nts POCT Molecular Strep (test c ode = 75198-4) Negative Negative Lab Interpretation (test cod e = 75810-0) Normal [facility] SARS-COV-2 ANTIGEN (BINAX NOW)2024-07-19 14:47:00* Test Item Value Reference Range Interpretation Comme nts POCT SARS-COV-2 ANTIGEN (test code = 10288-2) Not Detected Not Detected, See Comment On board controls acceptable with C Line (test code = 3574) Yes CHRISTINA (test code = CHRISTINA) accurate developme nt and interpretation of all internal controls Lab Interpretation (test code = 47917-5) [facility] [id number] 04:29:46* Test Item Value Reference Range Interpretation [...] TESTING PERFORMED AT [facility] [address] [place] [id number] LUMBER HACKER: LUIZ CALVO M.D. CLIA NUMBER [id number] [place]. [id number] VALPROIC [id number] 00:00:00* Test Item Value Reference Range Interpretation Comme nts VALPROIC ACID (test code = 3025) 12.1 UG/ML Helder MarieVALPROIC [id number] 00:00:00* Test Item Value Reference Range Interpretation Comme nts VALPROIC ACID (test code = 3025) 12.1 UG/ML Helder MarieVALPROIC [id number] 00:00:00* Test Item Value Reference Range Interpretation Comme [facility] VALPROIC ACID (test code = 3025) 12.1 UG/ML Helder MarieVITAMIN D, 25 [id number] 05:02:45* Test Item Value Reference Range Interpretation [...] PERFORMED AT [facility] [address] [place] [address] LUMBER HACKER: LUIZ CALVO M.D. CLIA NUMBER [id number] [facility] [place] [id number] TSH, THIRD [id number] 04:30:42* Test Item Value Reference Range Interpretation Comme [facility] TSH, THIRD GENERATION (test code = 2821) 1.720 UIU/ML 0.400-4.100 [id number] 04:30:42* Test Item Value Reference Range Interpretation Comme [facility] PROLACTIN (test code = 2800) 17.8 NG/ML 4.0-26.0 NOTE: Methodolog y is Milla Allen Electrochemiluminescence Immunoassay (ECLIA). Values obtained with different assays/manufacturers cannot be used interchangeably. Results should not be used as sole basis to establish the presence or absence of malignancy. LIPID [id number] 04:28:46* Test Item Value Reference Range Interpretation [...] SPECIMENS. FOR MOREINFORMATION, SEE CLIENT ANNOUNCEMENT AT [email or web address] [email or web address] RATIO LDL/HDL (test code = 2238) 3.11 RATIO <3.55 COMPREHENSIVE METABOLIC [id number] 04:28:46* Test Item Value Reference Range Interpretation Comme nts GLUCOSE (test code = 2216) 98 MG/DL 70-99 BUN (test code = 2207) 9 MG/DL 6-20 CREATININE (test code = 2213) 0.91 MG/DL 0.80-1.40 eGFR (2020 CKD-EPI) (test code = 51176) 123 ML/MIN/1.73 >60 CALC BUN/CREAT (test code [...] = 2218) 68 U/L 5-50 H HEMOGLOBIN [id number] 02:58:33* Test Item Value Reference Range Interpretation Comme nts HEMOGLOBIN A1c (test code = 63233) 5.2 % 4.2-5.6 CBC W/AUTO DIFF WITH [id number] 02:29:50* Test Item Value Reference Range Interpretation [...] = 1065) 0.0 /100 WBC'S See_Comment [Automated [employer] ge] The system which generated this result [...] 0.00-0.10 ABS NUCLEATED RBCS (test code = 86269) 0.00 K/UL 0.00-0.11 CBC W/AUTO [id number] 00:00:00* Test Item Value Reference Range Interpretation [...] ABS NUCLEATED RBCS (test cod e = 46276) 0.00 K/UL Helder MarieHEMOGLOBIN [id number] 00:00:00* Test Item Value Reference Range Interpretation Comme nts HEMOGLOBIN A1c (test code = 78456) 5.2 % Helder MarieLIPID [id number] 00:00:00* Test Item Value Reference Range Interpretation Comme nts CHOLESTEROL (test code = 2210) 251 MG/DL TRIGLYCERIDES (test code = 2232) 150 MG/DL HDL CHOLESTEROL (test code = 2220) 54 MG/DL CALC LDL CHOL (test code = 2237) 168 MG/DL RISK RATIO LDL/HDL (test cod e = 2238) 3.11 RATIO Helder MarieCOMPREHENSIVE METABOLIC [id number] 00:00:00* Test Item Value Reference Range Interpretation Comme nts GLUCOSE (test code = 2217) 98 MG/DL BUN (test code = 2207) 9 MG/DL CREATININE (test code = 2214) 0.91 MG/DL eGFR (2020 CKD-EPI) (test code = ) 123 ML/MIN/1.73 CALC BUN/CREAT (test code = 2234) 10 RATIO SODIUM (test code = 223) 139 MEQ/L POTASSIUM (test code = 2228) 4.6 MEQ/L CHLORIDE (test code = 2215) 101 MEQ/L CARBON DIOXIDE (test code = 2206) 23 MEQ/L CALCIUM (test code = 2209) 10.1 MG/DL PROTEIN, TOTAL (test code = 2228) 7.6 G/DL ALBUMIN (test code = 2201) 5.1 G/DL CALC GLOBULIN (test code = 2240) 2.5 G/DL CALC A/G RATIO (test code = 4) 2.0 RATIO BILIRUBIN, TOTAL (test code = 2206) 0.7 MG/DL ALKALINE PHOSPHATASE (test code = 2203) 133 U/L AST (test code = 2217) 26 U/L ALT (test code = 2218) 68 U/L Helder MarieTSH, THIRD [id number] 00:00:00* Test Item Value Reference Range Interpretation Comme [facility] TSH, THIRD GENERATION (test code = 2821) 1.720 UIU/ML Helder [id number] 00:00:00* Test Item Value Reference Range Interpretation Comme nts PROLACTIN (test code = 2800) 17.8 NG/ML Helder MarieVITAMIN D, 25 [id number] 00:00:00* Test Item Value Reference Range Interpretation Comme [facility] VITAMIN D, 25 OH (test code = 4958) 22 NG/ML Helder MarieCBC W/AUTO [id number] 00:00:00* Test Item Value Reference Range Interpretation [...] ABS NUCLEATED RBCS (test cod e = 40613) 0.00 K/UL Helder MarieHEMOGLOBIN [id number] 00:00:00* Test Item Value Reference Range Interpretation Comme nts HEMOGLOBIN A1c (test code = 58705) 5.2 % Helder MarieLIPID [id number] 00:00:00* Test Item Value Reference Range Interpretation Comme nts CHOLESTEROL (test code = 2210) 251 MG/DL TRIGLYCERIDES (test code = 2232) 150 MG/DL HDL CHOLESTEROL (test code = 2220) 54 MG/DL CALC LDL CHOL (test code = 2237) 168 MG/DL RISK RATIO LDL/HDL (test cod e = 2238) 3.11 RATIO Helder MarieCOMPREHENSIVE METABOLIC [id number] 00:00:00* Test Item Value Reference Range Interpretation Comme nts GLUCOSE (test code = 2217) 98 MG/DL BUN (test code = 2208) 9 MG/DL CREATININE (test code = 2214) 0.91 MG/DL eGFR (2020 CKD-EPI) (test code = 10291) 123 ML/MIN/1.73 CALC BUN/CREAT (test code = [...] 0.7 MG/DL ALKALINE PHOSPHATASE (test code = 220) 133 U/L AST (test code = 2218) 26 U/L ALT (test code = 2219) 68 U/L Helder MareiTSH, THIRD [id number] 00:00:00* Test Item Value Reference Range Interpretation Comme [facility] TSH, THIRD GENERATION (test code = 2821) 1.720 UIU/ML Helder [id number] 00:00:00* Test Item Value Reference Range Interpretation Comme nts PROLACTIN (test code = 2800) 17.8 NG/ML Helder MarieVITAMIN D, 25 [id number] 00:00:00* Test Item Value Reference Range Interpretation Comme nts VITAMIN D, 25 OH (test code = 4958) 22 NG/ML Helder MarieCBC W/AUTO [id number] 00:00:00* Test Item Value Reference Range Interpretation [...] ABS NUCLEATED RBCS (test cod e = 92214) 0.00 K/UL Helder MarieHEMOGLOBIN [id number] 00:00:00* Test Item Value Reference Range Interpretation Comme nts HEMOGLOBIN A1c (test code = 55354) 5.2 % Helder MarieLIPID [id number] 00:00:00* Test Item Value Reference Range Interpretation Comme nts CHOLESTEROL (test code = 2210) 251 MG/DL TRIGLYCERIDES (test code = 2232) 150 MG/DL HDL CHOLESTEROL (test code = 2220) 54 MG/DL CALC LDL CHOL (test code = 2237) 168 MG/DL RISK RATIO LDL/HDL (test cod e = 2238) 3.11 RATIO Helder MarieCOMPREHENSIVE METABOLIC [id number] 00:00:00* Test Item Value Reference Range Interpretation Comme nts GLUCOSE (test code = 2217) 98 MG/DL BUN (test code = 2208) 9 MG/DL CREATININE (test code = 2214) 0.91 MG/DL eGFR (2020 CKD-EPI) (test code = 47440) 123 ML/MIN/1.73 CALC BUN/CREAT (test code = [...] = 2219) 68 U/L Helder Daugherty, THIRD [id number] 00:00:00* Test Item Value Reference Range Interpretation Comme nts TSH, THIRD GENERATION (test code = 2821) 1.720 UIU/ML Helder [id number] 00:00:00* Test Item Value Reference Range Interpretation Comme nts PROLACTIN (test code = 2800) 17.8 NG/ML Helder MarieVITAMIN D, 25 [id number] 00:00:00* Test Item Value Reference Range Interpretation Comme nts VITAMIN D, 25 OH (test code = 4958) 22 NG/ML Helder Cassidy, [id number] 07:01:30SPECIMEN NUMBER: [id number] CULTURE, URINE SPECIMEN NUMBER: [id number] SPECIMEN COMMENT: URINE SOURCE: URINE REPORT STATUS: FINAL FINAL REPORT: 07/08/2023 NO GROWTH AFTER 36 HOURS INCUBATION UNLESS OTHERWISE INDICATED, ALL TESTING PERFORMED AT [facility] [address] [place] [address] LUMBER HACKER: LUIZ CALVO M.D. CLIA NUMBER [id number] [place].[id number] CULTURE, [id number] 00:00:00* Test Item Value Reference Range Interpretation Comme nts CULTURE, URINE (test code = 06333) SPECIMEN NUMBER: [id number] Helder MarieCULTURE, [id number] 00:00:00* Test Item Value Reference Range Interpretation Comme nts CULTURE, URINE (test code = 12816) SPECIMEN NUMBER: [id number] Helder MarieCULTURE, [id number] 00:00:00* Test Item Value Reference Range Interpretation Comme nts CULTURE, URINE (test code = 89209) SPECIMEN NUMBER: [id number] Helder Daugherty, THIRD [id number] 06:39:48* Test Item Value Reference Range Interpretation Comme nts TSH, THIRD GENERATION (test code = 2821) 2.460 UIU/ML 0.400-4.100 UNLESS OTHERWISE INDICATED, ALL TESTING PERFORMED AT [facility] [address] [place] [address] LUMBER HACKER: LUIZ CALVO M.D. [place] NUMBER [id number] [facility] [place] [id number] LIPID [id number] 04:40:40* Test Item Value Reference Range Interpretation [...] SPECIMENS. FOR MOREINFORMATION, SEE CLIENT ANNOUNCEMENT AT [email or web address] RISK RATIO LDL/HDL (test code = 2238) 3.47 RATIO <3.55 BASIC METABOLIC [id number] 04:40:40* Test Item Value Reference Range Interpretation Comme nts GLUCOSE (test code = 2217) 88 MG/DL 70-99 BUN (test code = 2208) 10 MG/DL 6-20 CREATININE (test code = 2214) 0.80 MG/DL 0.80-1.40 eGFR (2020 CKD-EPI) (test code = 09875) 130 ML/MIN/1.73 >60 SODIUM (test code = 2231) 139 MEQ/L 133-146 POTASSIUM (test code = 2228) 4.6 MEQ/L 3.5-5.4 CHLORIDE (test code = 2215) 99 MEQ/L 95-107 CARBON DIOXIDE (test code = 2206) 27 MEQ/L 19-31 CALCIUM (test code = 2209) 10.2 MG/DL 8.5-10.5 HEMOGLOBIN [id number] 03:19:21* Test Item Value Reference Range Interpretation Comme nts HEMOGLOBIN A1c (test code = 54821) 5.3 % 4.2-5.6 CBC W/AUTO DIFF WITH [id number] 02:29:14* Test Item Value Reference Range Interpretation [...] 0.00-0.10 ABS NUCLEATED RBCS (test code = 59869) 0.00 K/UL 0.00-0.11 CBC W/AUTO [id number] 00:00:00* Test Item Value Reference Range Interpretation [...] ABS NUCLEATED RBCS (test cod e = 83630) 0.00 K/UL Helder MarieHEMOGLOBIN [id number] 00:00:00* Test Item Value Reference Range Interpretation Comme nts HEMOGLOBIN A1c (test code = 85029) 5.3 % Helder MarieLIPID [id number] 00:00:00* Test Item Value Reference Range Interpretation Comme nts CHOLESTEROL (test code = 2210) 317 MG/DL TRIGLYCERIDES (test code = 2232) 101 MG/DL HDL CHOLESTEROL (test code = 2220) 66 MG/DL CALC LDL CHOL (test code = 2237) 229 MG/DL RISK RATIO LDL/HDL (test cod e = 2238) 3.47 RATIO Helder MarieBASIC METABOLIC [id number] 00:00:00* Test Item Value Reference Range Interpretation Comme nts GLUCOSE (test code = 2217) 88 MG/DL BUN (test code = 2208) 10 MG/DL CREATININE (test code = 2214) 0.80 MG/DL eGFR (2020 CKD-EPI) (test code = 43542) 130 ML/MIN/1.73 SODIUM (test code = 2231) 139 MEQ/L POTASSIUM (test code = 2228) 4.6 MEQ/L CHLORIDE (test code = 2215) 99 MEQ/L CARBON DIOXIDE (test code = 2206) 27 MEQ/L CALCIUM (test code = 2209) 10.2 MG/DL Helder AlbertH, THIRD [id number] 00:00:00* Test Item Value Reference Range Interpretation Comme nts TSH, THIRD GENERATION (test code = 2821) 2.460 UIU/ML Helder MarieCBC W/AUTO [id number] 00:00:00* Test Item Value Reference Range Interpretation [...] ABS NUCLEATED RBCS (test cod e = 08240) 0.00 K/UL Helder MarieHEMOGLOBIN [id number] 00:00:00* Test Item Value Reference Range Interpretation Comme jay jay HEMOGLOBIN A1c (test code = 97164) 5.3 % Helder MarieLIPID [id number] 00:00:00* Test Item Value Reference Range Interpretation Comme nts CHOLESTEROL (test code = 2210) 317 MG/DL TRIGLYCERIDES (test code = 2232) 101 MG/DL HDL CHOLESTEROL (test code = 2220) 66 MG/DL CALC LDL CHOL (test code = 2237) 229 MG/DL RISK RATIO LDL/HDL (test cod e = 2238) 3.47 RATIO Helder MarieBASIC METABOLIC [id number] 00:00:00* Test Item Value Reference Range Interpretation Comme jay jay GLUCOSE (test code = 2217) 88 MG/DL BUN (test code = 2208) 10 MG/DL CREATININE (test code = 2214) 0.80 MG/DL eGFR (2020 CKD-EPI) (test code = 46325) 130 ML/MIN/1.73 SODIUM (test code = 2231) 139 MEQ/L POTASSIUM (test code = 2228) 4.6 MEQ/L CHLORIDE (test code = 2215) 99 MEQ/L CARBON DIOXIDE (test code = 2206) 27 MEQ/L CALCIUM (test code = 2209) 10.2 MG/DL Hedler MarieTSH, THIRD [id number] 00:00:00* Test Item Value Reference Range Interpretation Comme jay jay TSH, THIRD GENERATION (test code = 2821) 2.460 UIU/ML Helder MarieCBC W/AUTO [id number] 00:00:00* Test Item Value Reference Range Interpretation Comme jay jay WBC (test code = 1001) 8.4 K/UL [...] ABS NUCLEATED RBCS (test cod e = 39664) 0.00 K/UL Helder aMrieHEMOGLOBIN [id number] 00:00:00* Test Item Value Reference Range Interpretation Comme nts HEMOGLOBIN A1c (test code = 73936) 5.3 % Helder Romero [place] [id number] 00:00:00* Test Item Value Reference Range Interpretation Comme nts CHOLESTEROL (test code = 2210) 317 MG/DL TRIGLYCERIDES (test code = 2232) 101 MG/DL HDL CHOLESTEROL (test code = 2220) 66 MG/DL CALC LDL CHOL (test code = 2237) 229 MG/DL RISK RATIO LDL/HDL (test cod e = 2238) 3.47 RATIO Helder MarieBASIC METABOLIC [id number] 00:00:00* Test Item Value Reference Range Interpretation Comme nts GLUCOSE (test code = 2217) 88 MG/DL BUN (test code = 2208) 10 MG/DL CREATININE (test code = 2214) 0.80 MG/DL eGFR (2020 CKD-EPI) (test code = 79187) 130 ML/MIN/1.73 SODIUM (test code = 2231) 139 MEQ/L POTASSIUM (test code = 2228) 4.6 MEQ/L CHLORIDE (test code = 2215) 99 MEQ/L CARBON DIOXIDE (test code = 2206) 27 MEQ/L CALCIUM (test code = 2209) 10.2 MG/DL Helder Romero [place], THIRD [id number] 00:00:00* Test Item Value Reference Range Interpretation Comme nts TSH, THIRD GENERATION (test code = 2821) 2.460 UIU/ML Helder Marie Notes Date/Time Note Provider Source Helder Pang [facility]2024-10-31 00:00:00 Helder Pang [facility]2024-09-22 00:00:00 Helder Pang [facility]
[2025-01-19 14:00] LABS: Influenza A Ag Negative; Influenza B Ag Negative; SARS-CoV-2 Antigen Rapid Res Negative (Negative)
--- NOTE | 2025-01-19 14:59 | ER ---
Nurse's Notes [facility] Name: Reginald Connors Age: 24 yrs Sex: Male : 2000 Arrival Date: 01/19/2025 Time: 12:48 Bed 11 Private MD: Diagnosis: Pain in throat Presentation: 01/19 13:32 Chief complaint: Parent and/or Guardian states: patient reports sore throat for about 3 me1 days, worse w/swallowing, nausea. Denies fever. Coronavirus screen: Vaccine status: Patient reports receiving the 2nd dose of the covid vaccine. Ebola Screen: No symptoms or risks identified at this time. Initial Sepsis Screen: Does the patient meet any 2 criteria? HR > 90 bpm. Risk Assessment: Do you want to hurt yourself or someone else? Patient reports no desire to harm self or others. Onset of symptoms was January 15, 2025. 13:32 Method Of Arrival: Ambulatory me1 13:32 Acuity: PHI 4 me1 15:40 Initial Sepsis Screen: Does the patient have a suspected source of infection? No. bp Patient's initial sepsis screen is negative. Triage Assessment: 15:07 General: Appears in no apparent distress. obese, Behavior is cooperative, appropriate bp for age, anxious. Pain: Complains of pain in neck. EENT: Reports pain when swallowing. Neuro: No deficits noted. Cardiovascular: No deficits noted. Respiratory: No deficits noted. GI: No signs and/or symptoms were reported involving the gastrointestinal system. : No signs and/or symptoms were reported regarding the genitourinary system. Derm: No deficits noted. Musculoskeletal: No deficits noted. Historical: - Allergies: 13:33 Bactrim; me1 13:33 benztropine; me1 13:33 citalopram; me1 13:33 Clonazepam; me1 13:33 Cymbalta; me1 13:33 Intuniv ER; me1 13:33 lamotrigine; me1 13:33 Latuda; me1 13:33 OLANZAPINE; me1 13:33 Propranolol; me1 13:33 Prozac; me1 13:33 Rexulti; me1 13:33 Zithromax; me1 13:33 Zoloft; me1 13:33 Invega; me1 - Home Meds: 15:39 phenytoin 50 mg Oral tablet once [Active]; olanzapine 5 mg Oral tablet 1 tab 2 times bp per day [Active]; olanzapine 10 mg Oral tablet 1 tab 2 times per day [Active]; lamotrigine 100 mg Oral tablet 2 tabs AT NIGHT [Active]; guanfacine 3 mg Oral tablet 1 tab [Active]; clonazepam 0.5 mg Oral tablet 1 tab 2 times per day [Active]; - PMHx: 13:33 Anxiety; Asthma; Bipolar disorder; depressive disorder; Schizophrenia; me1 - Immunization history:: Adult Immunizations up to date. - Infectious Disease History:: Denies. - Social history:: Smoking status: Patient denies any tobacco usage or history of. Screenin:08 [facility] ED Fall Risk Assessment (Adult) History of falling in the last 3 months, bp including since admission No falls in past 3 months (0 pts) Confusion or Disorientation No (0 pts) Intoxicated or Sedated No (0 pts) Impaired Gait No (0 pts) Mobility Assist Device Used No (0 pt) Altered Elimination No (0 pt) Score/Fall Risk Level 0 - 2 = Low Risk Oriented to surroundings. Abuse screen: Denies threats or abuse. Denies injuries from another. Nutritional screening: No deficits noted. Tuberculosis screening: No symptoms or risk factors identified. Assessment: 15:07 General: Appears in no apparent distress. obese, unkempt, Behavior is appropriate for bp age, anxious. Respiratory: Airway is patent Respiratory effort is even, Breath sounds are clear bilaterally. EENT: Throat is pink. Vital Signs: 13:32 BP 126 / 79; Pulse 115; Resp 20; Temp 98.4; Pulse Ox 98% ; Weight 104.33 kg; Height 5 me1 ft. 9 in. ; Pain 10/10; 13:32 Body Mass Index 33.96 (104.33 kg, 175.26 cm) me1 13:32 Pain Scale: Adult fl1 ED Course: 12:56 Patient arrived in ED. kb 12:57 Soraida Banerjee FNP-C is PHCP. kb 12:57 Duong Sanchez MD is Attending Physician. kb 13:33 Triage completed. me1 13:33 Arm band placed on Patient placed in waiting room. me1 13:38 Group A Streptococcus Rapid Sent. me1 13:38 COVID-19 Ag + Flu A+B Ag Sent. me1 13:38 COVID swab sent to lab. Flu and/or RSV swab sent to lab. me1 15:07 Jayson Lowe, RN is Primary Nurse. bp 15:08 Patient has correct armband on for positive identification. bp 15:22 Urinalysis w/ reflexes Sent. bc6 15:39 No provider procedures requiring assistance completed. Patient did not have IV access bp during this emergency room visit. 15:40 Provided Education on: na. bp Administered Medications: 15:30 Drug: Ketorolac IM 30 mg IM once Route: IM; Site: right gluteus; bp 15:38 Follow up: Response: No adverse reaction bp Medication: 15:07 VIS not applicable for this client. bp Outcome: 14:59 Discharge ordered by MD. kb 15:36 Discharge ordered by MD. kb 15:39 Discharged to home ambulatory, with family, bp 15:39 Condition: stable 15:39 Discharge instructions given to patient, family, Instructed on discharge instructions, follow up and referral plans. Demonstrated understanding of instructions, follow-up care, 15:40 Patient left the ED. bp Signatures: Soraida Banerjee, TWIST MAKER-C TWIST MAKER-Ckb Jayson Lowe, RN RN bp Nadiya Alvarado 6 Noreen Schafer, RN RN me1 Corrections: (The following items were deleted from the chart) 13:35 13:33 Arm band placed on Patient placed in an exam room, fl1 fl1
--- NOTE | 2025-01-19 14:59 | EDPHYS ---
Physician Documentation [facility] Name: Reginald Connors Age: 24 yrs Sex: Male : 2000 Arrival Date: 01/19/2025 Time: 12:48 Bed 11 Private MD: ED Physician Duong Sanchez HPI: 01/19 13:15 This 24 yrs old Male presents to ER via Unassigned with complaints of sore kb throat. 13:15 Pt is a 24 year old male who presents for sore throat that started 3 days ago. Worse kb with swallowing. Denies fever, cough. Was seen by PCP yesterday and told to take zyrtec but was not tested for anything . Historical: - Allergies: 13:33 Bactrim; me1 13:33 benztropine; me1 13:33 citalopram; me1 13:33 Clonazepam; me1 13:33 Cymbalta; me1 13:33 Intuniv ER; me1 13:33 lamotrigine; me1 13:33 Latuda; me1 13:33 OLANZAPINE; me1 13:33 Propranolol; me1 13:33 Prozac; me1 13:33 Rexulti; me1 13:33 Zithromax; me1 13:33 Zoloft; me1 13:33 Invega; me1 - Home Meds: 15:39 phenytoin 50 mg Oral tablet once [Active]; olanzapine 5 mg Oral tablet 1 tab 2 times bp per day [Active]; olanzapine 10 mg Oral tablet 1 tab 2 times per day [Active]; lamotrigine 100 mg Oral tablet 2 tabs AT NIGHT [Active]; guanfacine 3 mg Oral tablet 1 tab [Active]; clonazepam 0.5 mg Oral tablet 1 tab 2 times per day [Active]; - PMHx: 13:33 Anxiety; Asthma; Bipolar disorder; depressive disorder; Schizophrenia; me1 - Immunization history:: Adult Immunizations up to date. - Infectious Disease History:: Denies. - Social history:: Smoking status: Patient denies any tobacco usage or history of. ROS: 13:15 Constitutional: As per HPI kb Exam: 13:15 Constitutional: This is a well developed, well nourished patient who is awake, alert, kb and in no acute distress. Head/Face: Normocephalic, atraumatic. ENT: Moist Mucous membranes Cardiovascular: Regular rate Respiratory: Respirations even and unlabored. No increased work of breathing. Talking in full sentences Skin: Warm, dry with normal turgor. Normal color. MS/ Extremity: Pulses equal, no cyanosis. Neurovascular intact. Full, normal range of motion. Neuro: Awake and alert, GCS 15, oriented to person, place, time, and situation. Vital Signs: 13:32 BP 126 / 79; Pulse 115; Resp 20; Temp 98.4; Pulse Ox 98% ; Weight 104.33 kg; Height 5 me1 ft. 9 in. ; Pain 10/10; 13:32 Body Mass Index 33.96 (104.33 kg, 175.26 cm) me1 13:32 Pain Scale: Adult me1 MDM: 12:57 Medical Screening Exam initiated kb 13:16 Data reviewed: vital signs, nurses notes. Historians other than the Patient: Parent: nasim mother. 14:23 Differential diagnosis: pharyngitis, tonsillitis, strep, flu, covid. Counseling: I had kb a detailed discussion with the patient and/or guardian regarding the historical points, exam findings, and any diagnostic results supporting the discharge/admit diagnosis, lab results, the need for outpatient follow up, a family practitioner, to return to the emergency department if symptoms worsen or persist or if there are any questions or concerns that arise at home. 01/19 13:15 Order name: COVID-19 Ag + Flu A+B Ag; Complete Time: 14:01 kb 01/19 13:15 Order name: Group A Streptococcus Rapid; Complete Time: 14:01 kb 01/19 14:04 Order name: Throat Culture EDNM 01/19 15:16 Order name: Urinalysis w/ reflexes; Complete Time: 15:36 kb Administered Medications: 15:30 Drug: Ketorolac IM 30 mg IM once Route: IM; Site: right gluteus; bp 15:38 Follow up: Response: No adverse reaction bp Disposition: 16:11 Co-signature as Attending Physician, Duong Sanchez MD I reviewed the patient's care rn provided by the Advanced Practice Provider and agree with the diagnosis and treatment plan. Disposition Summary: 01/19/25 15:36 Discharge Ordered Notes: Location: Home(01/19/25 15:36) kb Condition: Stable(01/19/25 15:36) kb Diagnosis - Pain in throat(01/19/25 15:36) kb Followup: kb - With: Emergency Department - When: As needed - Reason: Worsening of condition Followup: kb - With: Private Physician - When: 2 - 3 days - Reason: Recheck today's complaints, Continuance of care, Re-evaluation by your physician Discharge Instructions: - Discharge Summary Sheet kb - Sore Throat, [id number] kb Forms: - Medication Reconciliation Form kb - Antibiotic Education kb - Prescription Opioid Use kb - Patient Portal Instructions kb - Leadership Thank You Letter kb Signatures: Dispatcher [employer] EDMS Soraida Banerjee, MIDDLEWARE ADMINISTRATOR-C MIDDLEWARE ADMINISTRATOR-Ckb Duong Sanchez MD MD rn Peltier, Brian RN RN Noreen Royal, RN RN me1 Corrections: (The following items were deleted from the chart) 15:16 14:59 Home kb kb 15:16 14:59 Stable kb kb 15:16 14:59 Pain in throat kb kb
[2025-01-19 15:27] LABS: Specific Gravity 1.024 (1.005-1.030); Urine Bilirubin NEGATIVE (Negative); Urine Blood Negative (Negative); Urine Clarity Clear (Clear); Urine Color Light-Yellow (Yellow); Urine Glucose NEGATIVE (Negative); Urine Ketones NEGATIVE (Negative); Urine Microscopic Reflex YN NO UMIC; Urine Nitrite NEGATIVE (Negative); Urine Protein NEGATIVE (Negative); Urine Urobilinogen Normal (Normal)
[2025-01-19] MEDS ORDERED: KETOROLAC 30 MG/ML INJ ONE (15:29)
[2025-01-19 15:46] VITALS: BP 126/79; TEMP 98.4; O2SAT 98
== END 2025-01-19 15:40 | disposition home or self-care (01) ==
LOC: ER 12:48
DX: R07.0 Pain in throat (principal); Z11.52 Encounter for screening for COVID-19
CPT/HCPCS: 36415; 81003; 87070; 87428